=== PATIENT | male | born 1955 | race American Indian/Alaskan Native ===

== ENCOUNTER 2016-12-20 16:31 | Inpatient (IN) | payer OTHER ==
[2016-12-20] MEDS ORDERED: ARTIFICIAL TEARS OPHTH OINT OU PRN ×2 (16:42→21:23)
--- NOTE | 2016-12-20 16:44 | Emergency Department Report ---
HPI - General Time Seen by Provider: 12/20/16 16:35 - HPI HPI: Room 20 The pt is a 61 y/o M p/w a cc of respiratory/cardiac arrest. The pt went to his MDs office for a routine appt. Family states he is on Home o2 3LNC but went to the office s it. The pt was seen and evaluated but then began to c/o SOB. The pt went into respiratory arrest and was eventually intubated by EMS upon there arrival. The pt went briefly into V fib then asystole. ACLS protocols were initiated with eventual ROSC. Pt arrives to the ED in sinus tach and intubated. Location: Cardiovascular system Duration: [see above] Quality: Arrest Severity: Severe Modifying factors: [see above] Context: [see above] Mode of transportation: [not driving] ED Past Medical Hx - Past Medical History Hx Congestive Heart Failure: Yes Hx COPD: Yes (3LNC) Additional medical history: A Flutter. Gout. p VTach - Family History Family history: no significant - Social History Smoking Status: Former Smoker (none x 6 months) - Medications Home Medications: Home Medications Medication Instructions Recorded Confirmed Last Taken Type Milrinone [Primacor] 0.25 mcg IV CONT 12/20/16 12/20/16 12/20/16 History ED Review of Systems ROS: Stated complaint: RESPIRATORY ARREST Other details as noted in HPI Comment: Unobtainable due to pts medical conditions Physical Exam - Physical Exam Physical Exam: Gen: WD, WN M lying on stretcher intubated being bagged by staff HEENT: Normocephalic, atraumatic Neck: trachea midline CV: rrr, no m/r/g Pulm:breath sounds bilatwith bagging Abd: s/nt/nd +bs Neuro: GCS 3T Ext: No deformity ED Course - Consultations Consultation #1: 12/20/16 16:50 Cardiology paged 12/20/16 17:05 Case d/w Dr. Pride and Maria Ines- ezio adding Neosynephrine 12/20/16 17:[facility] 18:15 Case discussed with [facility]- states patient may be admitted at [facility] ED Medical Decision Making - Lab Data Result diagrams: 12/20/16 17:00 12/20/16 17:00 Laboratory Tests 0912/20/16 12/20/16 17:00 17:00 17:11 WBC 15.8 H RBC 4.68 Hgb 13.8 Hct 42.8 MCV 91 MCH 29 MCHC 32 RDW 16.0 H Plt Count 307 Lymph % (Auto) 9.8 L [place] % (Auto) 1.9 Eos % (Auto) 0.5 Baso % (Auto) 1.2 Lymph # 1.5 Tarrant # 0.3 Eos # 0.1 Baso # 0.2 H Seg Neutrophils % 86.6 H Seg Neutrophils # 13.7 H POC ABG pH 7.288 L POC ABG pCO2 52.5 H POC ABG pO2 81 POC ABG HCO3 25.2 POC ABG Total CO2 27 POC ABG O2 Sat 94 POC ABG Base Excess -1 FiO2 100 Sodium 135 L Potassium 3.8 Chloride 92.6 L Carbon Dioxide 22 Anion Gap 24 BUN 12 Creatinine 1.2 Estimated GFR > 60 BUN/Creatinine Ratio 10.00 Glucose 214 H Calcium 8.7 Total Bilirubin 1.00 AST 33 ALT 27 Alkaline Phosphatase 104 Total Creatine Kinase 86 CK-MB (CK-2) 4.2 H CK-MB (CK-2) Rel Index 4.8 H Troponin T 0.054 H NT-Pro-B Natriuret Pep 9604 H Total Protein 9.0 H Albumin 2.8 L Albumin/Globulin Ratio 0.5 Triglycerides 82 Cholesterol 128 LDL Cholesterol Direct 51 HDL Cholesterol 61 H Cholesterol/HDL Ratio 2.09 - EKG Data -: EKG Interpreted by Me EKG shows normal: sinus rhythm Rate: tachycardia (103 bpm) - EKG Data When compared to previous EKG there are: previous EKG unavailable - Radiology Data Radiology results: image reviewed (CXR) interpreted by me: CXR- ETT in place. Pulm edema - Differential Diagnosis respiraory failure, CHF, cardiac arrest Critical Care Time: Yes Critical care time in (mins) excluding proc time.: 45 Critical care attestation.: If time is entered above; I have spent that time in minutes in the direct care of this critically ill patient, excluding procedure time. ED Disposition Clinical Impression: Respiratory failure, Cardiac arrest, Pulmonary edema, CHF exacerbation Disposition: OP ADMIT IP TO THIS HOSP Is pt being admited?: Yes Does the pt Need Aspirin: Yes Condition: Serious Instructions: Pulmonary Edema (ED) Referrals: PRIMARY CARE, [Primary Care Provider] - 3-5 Days Time of Disposition: 18:16 (hospitalist notified)
[2016-12-20] MEDS ORDERED: PRIMACOR IV ONE (16:53)
[2016-12-20] MEDS ORDERED: NACL 0.9% IV ONE (16:53)
--- NOTE | 2016-12-20 16:56 | Consultation ---
History of Present Illness Consult date: 12/20/16 Requesting physician: OSCAR YOO Consult reason: cardiac arrest History of present illness: The patient is a 61 year old male with a history of end stage heart failure on a home milrinone infusion, cardiomyopathy s/p ICD implantation, chronic respiratory failure on home O2 who was at a doctor's appointment at [place] earlier today when he developed shortness of breath. He went into respiratory arrest and subsequently cardiac arrest. He was intubated by EMS upon their arrival. According to ER documentation, he was briefly went into VF (unclear if he was shocked by his defibrillator but was not shocked by EMS) and then asystole. He received CPR and epinephrine x 3 before ROSC. Currently, he is intubated and unresponsive. Sinus tach with HR 110s on the monitor. Past History Past Medical History: atrial fib, heart failure, other (cardiomyopathy, chronic respiratory failure) Past Surgical History: Other (ICD implantation ) Social history: other (unable to obtain ) Family history: other (unable to obtain ) Medications and Allergies Allergies Allergy/AdvReac Type Severity Reaction Status Date / Time No Known Allergies Allergy Unverified 12/20/16 16:40 Home Medications Medication Instructions Recorded Confirmed Last Taken Type Allopurinol [Zyloprim] 100 mg PO QDAY 12/20/16 12/20/16 Unknown History Amiodarone [Cordarone 200 MG TAB] 200 mg PO DAILY 12/20/16 12/20/16 Unknown History Colchicine [Mitigare] 0.6 mg PO DAILY 12/20/16 12/20/16 Unknown History Dabigatran [Pradaxa] 150 mg PO BID 12/20/16 12/20/16 Unknown History Famotidine [Pepcid] 20 mg PO BID 12/20/16 12/20/16 Unknown History HYDROcodone/APAP 5-325 [Roxie 1 each PO BID 12/20/16 12/20/16 Unknown History 5/325] Lisinopril [Zestril TAB] 2.5 mg PO DAILY 12/20/16 12/20/16 Unknown History Metoprolol Succinate 12.5 mg PO DAILY 12/20/16 12/20/16 1 Day Ago History Milrinone [Primacor] 0.25 mcg IV CONT 12/20/16 12/20/16 12/20/16 History Spironolactone [Aldactone] 12.5 mg PO QDAY 12/20/16 12/20/16 Unknown History Torsemide [Demadex] 20 mg PO BID 12/20/16 12/20/16 Unknown History traZODone [Desyrel] 50 mg PO QHS 12/20/16 12/20/16 Unknown History Active Meds: Active Medications Hydrophilic Ointment (Vaseline Lip Therapy) 1 applic TP Q2HR PRN PRN Reason: Dry Lips Milrinone Lactate 20 mg/ (Sodium Chloride) 100 mls @ 0 mls/hr IV TITR ONE; 0.375 MCG/KG/MIN PRN Reason: Protocol Stop: 12/20/16 16:54 Multi-Ingred Cream/Lotion/Oil/Oint (Artificial Tears Ophth Oint) 1 applic OU Q4HR PRN PRN Reason: Dry Eye(s) Sodium Chloride (Nacl 0.9% 500 Ml) 1 ml IV DIRECT HEATHER Review of Systems ROS unobtainable: due to endotracheal tube, due to mental status Physical Examination Last Vital Signs Temp 99.1 F 12/20/16 17:16 Pulse 130 H 12/20/16 19:46 Resp 20 12/20/16 18:06 BP 120/81 12/20/16 19:46 Pulse Ox 94 12/20/16 19:46 General appearance: no acute distress (intubated, unresponsive) HEENT: Positive: Normocephaly, Mucus Membranes Moist Neck: Positive: neck supple, trachea midline Cardiac: Positive: Reg Rate and Rhythm, S1/S2 Lungs: Positive: Rales Neuro: Positive: Other (intubated, unresponsive) Abdomen: Positive: Soft Extremities: Present: +1 Edema (BLEs, chronic skin changes) Results 12/20/16 17:00 12/20/16 17:00 - Imaging and Cardiology Echo: pending EKG: image reviewed EKG interpretations - Telemetry EKG Rhythm: Sinus Tachycardia - EKG Sinus rhythms and dysrhythmias: sinus tachycardia Assessment and Plan Cardiac arrest Preceded by respiratory arrest according to reports ?VF-->await device interrogation Acute respiratory failure Acute on chronic systolic heart failure Obtain echocardiogram Continue home milrinone infusion Hypotension Pressors if necessary to maintain MAP > 65 Recommend phenylephrine given tachycardia Cardiomyopathy s/p ICD Followed by cardiology at [place] Paroxysmal atrial flutt The patient has been seen in conjunction with Dr. Pride who agrees with the assessment and plan of care. Thank you Dr. Yoo for allowing us to participate in the care of this patient.
[2016-12-20] MEDS ORDERED: NACL 0.9% 500 ML IV SCH ×2 (17:00→22:00)
[2016-12-20] MEDS ORDERED: DOBUTREX DRIP 500MG/D5W 250ML 500 MG/250 ML BAG IV ONE (17:01)
[2016-12-20 17:14] LABS: ISTAT Base Excess -1; ISTAT HCO3 25.2; ISTAT PCO2 52.5 (35-45); ISTAT PH 7.288 (7.35-7.45); ISTAT PO2 81 (80-105); ISTAT SO2 94; ISTAT TCO2 27
[2016-12-20] MEDS: NEO-SYNEPHRINE 100 MG in NACL 0.9% 90 ML IV ONE (17:31)
[2016-12-20 17:37] LABS: Creatine Kinase MB 4.2 ng/mL (0.0-4.0)
[2016-12-20 17:38] LABS: Alanine Aminotransferase 27 units/L (7-56); Albumin 2.8 g/dL (3.9-5); Albumin/Globulin Ratio 0.5 %; Alkaline Phosphatase 104 units/L (35-129); Anion Gap 24 mmol/L; Blood Urea Nitrogen 12 mg/dL (9-20); Calcium 8.7 mg/dL (8.4-10.2); Carbon Dioxide 22 mmol/L (22-30); Chloride 92.6 mmol/L (98-107); Creatine Kinase 86 units/L (55-170); Glucose 214 mg/dL (75-100); Potassium 3.8 mmol/L (3.6-5.0); Sodium 135 mmol/L (137-145)
[2016-12-20] MEDS ORDERED: LASIX IV ONE (17:38)
[2016-12-20 17:50] LABS: Basophils % (Auto) 1.2 % (0.0-1.8); Eosinophils % (Auto) 0.5 % (0.0-4.3); Hematocrit 42.8 % (35.5-45.6); Hemoglobin 13.8 gm/dl (11.8-15.2); Mean Corpuscular HGB Conc 32 % (32-34); Mean Corpuscular Hemoglobin 29 pg (28-32); Mean Corpuscular Volume 91 fl (84-94); Platelet Count 307 K/mm3 (140-440); Red Blood Count 4.68 M/mm3 (3.65-5.03); White Blood Count 15.8 K/mm3 (4.5-11.0)
[2016-12-20] MEDS ORDERED: KETALAR IV ONE ×2 (17:53→18:27)
[2016-12-20] MEDS ORDERED: KETALAR ONE (17:53)
[2016-12-20 17:55] LABS: Cholesterol 128 mg/dL (50-199); HDL Cholesterol 61 mg/dL (40-59); LDL Cholesterol,Direct 51 mg/dL (50-130); Triglycerides 82 mg/dL (2-149)
[2016-12-20 18:00] LABS: INR 1.66 (0.87-1.13)
[2016-12-20 18:01] LABS: Partial Thromboplastin Time 39.4 Sec. (24.2-36.6)
--- NOTE | 2016-12-20 18:42 | History and Physical Report ---
History of Present Illness Chief complaint: Unresponsive History of present illness: 61 YO Male with End Stage CHF on Milrinone Drip, Chronic Respiratory Failure, COPD on 3L Home oxygen, COPD, gout, Atrial Flutter presents to ED for evaluation. Pt unable to give history. Pt history given by . Pt presents to PCP office for evaluation. Pt complained of shortness of breath, and subsequently collapsed. EMS notified. Upon arrival, patient found to be in Asystolic Cardio/Respiratory Arrest. Pt intubated and treated IAW ACLS protocol and trasported to [facility]. Pt regained perfusing rhythm prior to transport. No reports of fever, chills, palpitations, Trauma, or recent ill contacts. Past History Past Medical History: atrial fib, COPD, heart failure Past Surgical History: Other (ICD placement) Social history: , lives with family. denies: smoking, alcohol abuse, prescription drug abuse Family history: CAD, diabetes, hypertension Medications and Allergies Allergies Allergy/AdvReac Type Severity Reaction Status Date / Time No Known Allergies Allergy Unverified 12/20/16 16:40 Home Medications Medication Instructions Recorded Confirmed Last Taken Type Allopurinol [Zyloprim] 100 mg PO QDAY 12/20/16 12/20/16 Unknown History Amiodarone [Cordarone 200 MG TAB] 200 mg PO DAILY 12/20/16 12/20/16 Unknown History Colchicine [Mitigare] 0.6 mg PO DAILY 12/20/16 12/20/16 Unknown History Dabigatran [Pradaxa] 150 mg PO BID 12/20/16 12/20/16 Unknown History Famotidine [Pepcid] 20 mg PO BID 12/20/16 12/20/16 Unknown History HYDROcodone/APAP 5-325 [Warren 1 each PO BID 12/20/16 12/20/16 Unknown History 5/325] Lisinopril [Zestril TAB] 2.5 mg PO DAILY 12/20/16 12/20/16 Unknown History Metoprolol Succinate 12.5 mg PO DAILY 12/20/16 12/20/16 1 Day Ago History Milrinone [Primacor] 0.25 mcg IV CONT 12/20/16 12/20/16 12/20/16 History Spironolactone [Aldactone] 12.5 mg PO QDAY 12/20/16 12/20/16 Unknown History Torsemide [Demadex] 20 mg PO BID 12/20/16 12/20/16 Unknown History traZODone [Desyrel] 50 mg PO QHS 12/20/16 12/20/16 Unknown History Active Meds: Active Medications Hydrophilic Ointment (Vaseline Lip Therapy) 1 applic TP Q2HR PRN PRN Reason: Dry Lips Phenylephrine HCl 100 mg/ (Sodium Chloride) 100 mls @ 3 mls/hr IV ONCE.ED ONE; 50 MCG/MIN PRN Reason: Protocol Stop: 12/22/16 02:23 Last Admin: 12/20/16 17:31 Dose: 50 mcg/min, 3 mls/hr Lorazepam 100 mg/ Sodium Chloride/ Miscellaneous Information 100 mls @ 1 mls/ hr IV TITR HEATHER; 1 MG/HR PRN Reason: Protocol Multi-Ingred Cream/Lotion/Oil/Oint (Artificial Tears Ophth Oint) 1 applic OU Q4HR PRN PRN Reason: Dry Eye(s) Sodium Chloride (Nacl 0.9% 500 Ml) 1 ml IV DIRECT HEATHER Review of Systems ROS unobtainable: due to mental status Exam - Constitutional Vitals: Temp Pulse Resp BP Pulse Ox 99.1 F 105 H 20 96/58 95 12/20/16 17:16 12/20/16 17:15 12/20/16 18:06 12/20/16 17:15 12/20/16 17:15 General appearance: Present: severe distress - Neck Neck: Present: supple - Respiratory Respiratory effort: labored Respiratory: bilateral: diminished - Cardiovascular Rhythm: irregularly irregular Heart Sounds: Present: S1 & S2. Absent: rub, click - Extremities Extremities: pulses symmetrical, No edema Extremity abnormal: edema Peripheral Pulses: within normal limits - Abdominal General gastrointestinal: Present: soft, non-tender, non-distended, normal bowel sounds Male genitourinary: Present: normal - Integumentary Integumentary: Present: clear, dry, clammy, decreased turgor - Musculoskeletal Musculoskeletal: generalized weakness - Psychiatric Psychiatric: no intact judgment & insight, no memory intact - Neurologic Neurologic: no gait normal Results - Labs CBC & Chem 7: 12/20/16 17:00 12/20/16 17:00 Labs: Abnormal lab results 12/20/16 12/20/16 12/20/16 Range/Units 17:00 17:00 17:00 WBC 15.8 H (4.5-11.0) K/mm3 RDW 16.0 H (13.2-15.2) % Lymph % (Auto) 9.8 L (13.4-35.0) % Baso # 0.2 H (0.0-0.1) K/mm3 Seg Neutrophils % 86.6 H (40.0-70.0) % Seg Neutrophils # 13.7 H (1.8-7.7) K/mm3 PT 20.5 H (12.2-14.9) Sec. INR 1.66 H (0.87-1.13) APTT 39.4 H (24.2-36.6) Sec. POC ABG pH (7.35-7.45) POC ABG pCO2 (35-45) Sodium 135 L (137-145) mmol/L Chloride 92.6 L (98-107) mmol/L Glucose 214 H (75-100) mg/dL CK-MB (CK-2) 4.2 H (0.0-4.0) ng/mL CK-MB (CK-2) Rel Index 4.8 H (0-4) Troponin T 0.054 H (0.00-0.029) ng/mL NT-Pro-B Natriuret Pep 9604 H (0-900) pg/mL Total Protein 9.0 H (6.3-8.2) g/dL Albumin 2.8 L (3.9-5) g/dL HDL Cholesterol 61 H (40-59) mg/dL 12/20/16 Range/Units 17:11 WBC (4.5-11.0) K/mm3 RDW (13.2-15.2) % Lymph % (Auto) (13.4-35.0) % Baso # (0.0-0.1) K/mm3 Seg Neutrophils % (40.0-70.0) % Seg Neutrophils # (1.8-7.7) K/mm3 PT (12.2-14.9) Sec. INR (0.87-1.13) APTT (24.2-36.6) Sec. POC ABG pH 7.288 L (7.35-7.45) POC ABG pCO2 52.5 H (35-45) Sodium (137-145) mmol/L Chloride (98-107) mmol/L Glucose (75-100) mg/dL CK-MB (CK-2) (0.0-4.0) ng/mL CK-MB (CK-2) Rel Index (0-4) Troponin T (0.00-0.029) ng/mL NT-Pro-B Natriuret Pep (0-900) pg/mL Total Protein (6.3-8.2) g/dL Albumin (3.9-5) g/dL HDL Cholesterol (40-59) mg/dL Assessment and Plan - Patient Problems (1) Sepsis Current Visit: Yes Status: Acute Qualifiers: Sepsis type: S Plan to address problem: IV abx, IVF, monitor uop q shift, blood cultures, serial lactic acid level, iv pressor support (2) CHF exacerbation Current Visit: Yes Status: Acute Qualifiers: Congestive heart failure type: C Plan to address problem: End stage CHF: continue milrinone drip, Cardiology consulted in ED, supportive care (3) Cardiac arrest Current Visit: Yes Status: Acute Plan to address problem: S/P ACLS protocol with return of perfusing rhythm, continue current care. (4) Respiratory failure Current Visit: Yes Status: Acute Qualifiers: Chronicity: C Respiratory failure complication: R Plan to address problem: Pulmonary consulted, wean vent as tolerated, SBT in am. (5) Respiratory acidosis Current Visit: Yes Status: Acute Plan to address problem: Wean vent as tolerated, ABG in am, pulmonary consulted, treat sepsis, (6) DVT prophylaxis Current Visit: Yes Status: Acute
[2016-12-20] MEDS: ATIVAN 100 MG in NACL 0.9% 50 ML, VIAFLEX EMPTY CONTAINER 0 ML IV SCH (19:07)
[2016-12-20] MEDS ORDERED: PROVENTIL IH PRN (19:49)
[2016-12-20] MEDS ORDERED: VANCOMYCIN VIAL IV ONE (19:51)
[2016-12-20] MEDS ORDERED: fentaNYL DRIP Premix 2,000 MCG/100 ML BAG IV ONE (19:58)
[2016-12-20] MEDS: fentaNYL DRIP Premix 2,000 MCG/100 ML BAG IV SCH (20:00)
[2016-12-20] MEDS ORDERED: VANCOMYCIN PHARMACY TO DOSE IV SCH (20:00)
[2016-12-20] MEDS ORDERED: VANCOMYCIN 1,750 MG in NACL 0.9% 500 ML 500 ML IV SCH (20:15)
[2016-12-20] MEDS ORDERED: NACL 0.9% 1000 ML IV ONE (20:30)
[2016-12-20] MEDS ORDERED: VASELINE LIP THERAPY TP PRN (21:23)
[2016-12-20] MEDS ORDERED: ZOSYN/NS 4.5GM/100ML 4.5 GM/100 ML VIAL IV ONE (21:29)
[2016-12-20] MEDS: ZOSYN/NS 4.5GM/100ML 4.5 GM/100 ML VIAL IV SCH (21:41)
[2016-12-20 21:57] LABS: ISTAT Base Excess 3; ISTAT PCO2 52.4 (35-45); ISTAT PO2 113 (80-105); ISTAT SO2 98; ISTAT TCO2 31
[2016-12-20] MEDS: PRIMACOR 20 MG in D5W 80 ML IV SCH (22:00)
[2016-12-21 06:05] LABS: ISTAT Base Excess 2; ISTAT HCO3 27.2; ISTAT PCO2 44.9 (35-45); ISTAT PH 7.391 (7.35-7.45); ISTAT PO2 142 (80-105); ISTAT SO2 99; ISTAT TCO2 29
[2016-12-21] MEDS: ZOSYN/NS 4.5GM/100ML 4.5 GM/100 ML VIAL IV SCH ×3 (07:02→21:34)
[2016-12-21] MEDS ORDERED: TYLENOL PR ONE ×2 (08:39→23:55)
[2016-12-21] MEDS: fentaNYL DRIP Premix 2,000 MCG/100 ML BAG IV SCH (08:48)
[2016-12-21 08:49] LABS: Bilirubin,Urine NEG (Negative); Blood,Urine LG (Negative); Ketones,Urine NEG (Negative); Leukocyte Esterase,Urine MOD (Negative); Mucus,Urine FEW /HPF; Nitrite,Urine NEG (Negative); Protein,Urine <15 mg/dL mg/dL (Negative)
--- NOTE | 2016-12-21 09:23 | XRay Report ---
AP CHEST :12/21/16 02:28 CLINICAL: Intubated.Follow up respiratory failure. COMPARISON:Previous day. FINDINGS: The endotracheal tube is in satisfactory position. Cardia megaly with pacer leads in heart. Central vascular congestion and bilateral perihilar airspace disease with some improvement. A large right pleural effusion with silhouetting of the right hemidiaphragm. Smaller left pleural effusion with silhouetting of the left hemidiaphragm. Right PICC line tip is in the SVC. No pneumothorax. IMPRESSION: Interval improvement with decreased bilateral pulmonary edema.
--- NOTE | 2016-12-21 09:28 | XRay Report ---
AP CHEST :12/20/16 16:31:00 CLINICAL: Post intubation. Respiratory arrest. COMPARISON:None. FINDINGS: The endotracheal tube is in good position. Cardia megaly with pacer leads in heart. Extensive bilateral airspace disease with air bronchograms. Silhouetting of the heart borders and the diaphragm. Blunted right costophrenic angle. Right PICC line tip is in the SVC. No pneumothorax. IMPRESSION: CHF with severe bilateral alveolar pulmonary edema and right pleural effusion.
[2016-12-21] MEDS: VANCOMYCIN 1,500 MG in NACL 0.9% 500 ML 500 ML IV SCH ×2 (10:19→22:07)
[2016-12-21] MEDS: TYLENOL PR PRN ×2 (10:20→21:47)
[2016-12-21] MEDS: PEPCID IV SCH ×2 (10:30→21:48)
[2016-12-21] MEDS: NEO-SYNEPHRINE 100 MG in NACL 0.9% 90 ML IV ONE ×3 (10:39→19:15)
--- NOTE | 2016-12-21 11:35 | Progress Note ---
Assessment and Plan Assessment and plan: 59-year-old man with a past medical history of end-stage CHF on milrinone drip at home, chronic respiratory failure, COPD, oxygen dependent on 3 L at home, gallops, atrial flutter, who was brought in by his . States that the patient had complained of shortness of breath and then subsequently collapsed. EMS arrived and found to be asystolic arrest, he received ACLS protocol and had return of circulation was then brought to the hospital. Cardiac arrest Status post ACS protocol, cardiology consult, continue telemetry Acute CHF exacerbation with pulmonary venous congestion Cardiology input appreciated, continue milrinone drip, continue supportive care IV lasix as tolerated Cardiogenic shock Continue IV pressor support Septic shock MAXIMUM TEMPERATURE 101.4, Treated with empiric frustration antibiotics, follow blood and urine cultures due to PNA Acute hypercapnic respiratory failure on mechanical ventilator greater than 24 hours Continue mechanical ventilator, pulmonary input appreciated, We'll attempt to wean off ventilator daily Metabolic encephalopathy Most likely due to hypoperfusion of central nervous system, obtain CT head Aspiration Pneumonia -continue empiric abx -sputum culture -speech and swallow eval upon extubation The high probability of a clinically significant, sudden or life threatening deterioration of the [cardiovascular, pulmonary and neurologic] system(s) required my full and direct attention, intervention and personal management. The aggregate critical care time was [35] minutes. This time is in addition to time spent performing reported procedures but includes the following: [] Data Review and interpretation [] Patient assessment and monitoring of vital signs [] Documentation [] Medication orders and management History Interval history: Patient remains intubated and sedated and dependent on 2 pressors Hospitalist Physical - Physical exam Narrative exam: General: Patient appears well in no distress HEENT: MMM, EOMI cardiac: S1-S2 heard lungs: ventilated breath sounds, crackles through out abdomen: soft, nontender, nondistended bowel sounds positive extremities: no edema clubbing or cyanosis Skin: no rash or lesion Neuro: intubated and sedated - Constitutional Vitals: Temp Pulse Resp BP Pulse Ox 100.9 F H 89 18 115/79 30 L 12/21/16 11:20 12/21/16 11:20 12/21/16 11:20 12/21/16 11:20 12/21/16 11:20 General appearance: Present: severe distress Results - Labs CBC & Chem 7: 12/20/16 17:00 12/20/16 17:00 Labs: Laboratory Last Values WBC 15.8 K/mm3 (4.5-11.0) H 12/20/16 17:00 RBC 4.68 M/mm3 (3.65-5.03) 12/20/16 17:00 Hgb 13.8 gm/dl (11.8-15.2) 12/20/16 17:00 Hct 42.8 % (35.5-45.6) 12/20/16 17:00 MCV 91 fl (84-94) 12/20/16 17:00 MCH 29 pg (28-32) 12/20/16 17:00 MCHC 32 % (32-34) 12/20/16 17:00 RDW 16.0 % (13.2-15.2) H 12/20/16 17:00 Plt Count 307 K/mm3 (140-440) 12/20/16 17:00 Lymph % (Auto) 9.8 % (13.4-35.0) L 12/20/16 17:00 Bertie % (Auto) 1.9 % (0.0-7.3) 12/20/16 17:00 Eos % (Auto) 0.5 % (0.0-4.3) 12/20/16 17:00 Baso % (Auto) 1.2 % (0.0-1.8) 12/20/16 17:00 Lymph # 1.5 K/mm3 (1.2-5.4) 12/20/16 17:00 Bertie # 0.3 K/mm3 (0.0-0.8) 12/20/16 17:00 Eos # 0.1 K/mm3 (0.0-0.4) 12/20/16 17:00 Baso # 0.2 K/mm3 (0.0-0.1) H 12/20/16 17:00 Seg Neutrophils % 86.6 % (40.0-70.0) H 12/20/16 17:00 Seg Neutrophils # 13.7 K/mm3 (1.8-7.7) H 12/20/16 17:00 PT 20.5 Sec. (12.2-14.9) H 12/20/16 17:00 INR 1.66 (0.87-1.13) H 12/20/16 17:00 APTT 39.4 Sec. (24.2-36.6) H 12/20/16 17:00 POC ABG pH 7.391 (7.35-7.45) 12/21/16 05:54 POC ABG pCO2 44.9 (35-45) 12/21/16 05:54 POC ABG pO2 142 (80-105) H 12/21/16 05:54 POC ABG HCO3 27.2 12/21/16 05:54 POC ABG Total CO2 29 12/21/16 05:54 POC ABG O2 Sat 99 12/21/16 05:54 POC ABG Base Excess 2 12/21/16 05:54 FiO2 70 % 12/21/16 05:54 Sodium 135 mmol/L (137-145) L 12/20/16 17:00 Potassium 3.8 mmol/L (3.6-5.0) 12/20/16 17:00 Chloride 92.6 mmol/L (98-107) L 12/20/16 17:00 Carbon Dioxide 22 mmol/L (22-30) 12/20/16 17:00 Anion Gap 24 mmol/L 12/20/16 17:00 BUN 12 mg/dL (9-20) 12/20/16 17:00 Creatinine 1.2 mg/dL (0.8-1.5) 12/20/16 17:00 Estimated GFR > 60 ml/min 12/20/16 17:00 BUN/Creatinine Ratio 10.00 % 12/20/16 17:00 Glucose 214 mg/dL (75-100) H 12/20/16 17:00 Lactic Acid 5.50 mmol/L (0.7-2.0) H* 12/21/16 01:35 Calcium 8.7 mg/dL (8.4-10.2) 12/20/16 17:00 Total Bilirubin 1.00 mg/dL (0.1-1.2) 12/20/16 17:00 AST 33 units/L (5-40) 12/20/16 17:00 ALT 27 units/L (7-56) 12/20/16 17:00 Alkaline Phosphatase 104 units/L (35-129) 12/20/16 17:00 Total Creatine Kinase 86 units/L (55-170) 12/20/16 17:00 CK-MB (CK-2) 4.2 ng/mL (0.0-4.0) H 12/20/16 17:00 CK-MB (CK-2) Rel Index 4.8 (0-4) H 12/20/16 17:00 Troponin T 0.054 ng/mL (0.00-0.029) H 12/20/16 17:00 NT-Pro-B Natriuret Pep 9604 pg/mL (0-900) H 12/20/16 17:00 Total Protein 9.0 g/dL (6.3-8.2) H 12/20/16 17:00 Albumin 2.8 g/dL (3.9-5) L 12/20/16 17:00 Albumin/Globulin Ratio 0.5 % 12/20/16 17:00 Triglycerides 82 mg/dL (2-149) 12/20/16 17:00 Cholesterol 128 mg/dL (50-199) 12/20/16 17:00 LDL Cholesterol Direct 51 mg/dL (50-130) 12/20/16 17:00 HDL Cholesterol 61 mg/dL (40-59) H 12/20/16 17:00 Cholesterol/HDL Ratio 2.09 % 12/20/16 17:00 Urine Color Keely (Yellow) 12/21/16 08:15 Urine Turbidity Clear (Clear) 12/21/16 08:15 Urine pH 5.0 (5.0-7.0) 12/21/16 08:15 Ur Specific [place] 1.023 (1.003-1.030) 12/21/16 08:15 Urine Protein <15 mg/dl mg/dL (Negative) 12/21/16 08:15 Urine Glucose (UA) Neg mg/dL (Negative) 12/21/16 08:15 Urine Ketones Neg mg/dL (Negative) 12/21/16 08:15 Urine Blood Lg (Negative) 12/21/16 08:15 Urine Nitrite Neg (Negative) 12/21/16 08:15 Urine Bilirubin Neg (Negative) 12/21/16 08:15 Urine Urobilinogen 2.0 mg/dL (<2.0) 12/21/16 08:15 Ur Leukocyte Esterase Mod (Negative) 12/21/16 08:15 Urine WBC (Auto) 30.0 /HPF (0.0-6.0) H 12/21/16 08:15 Urine RBC (Auto) 93.0 /HPF (0.0-6.0) 12/21/16 08:15 U Epithel Cells (Auto) < 1.0 /HPF (0-13.0) 12/21/16 08:15 Calcium Oxalate Crystal Few 12/21/16 08:15 Hyaline Casts 2 /LPF 12/21/16 08:15 Urine Mucus Few /HPF 12/21/16 08:15
[2016-12-21] MEDS: PRIMACOR 20 MG in D5W 80 ML IV SCH ×2 (12:11→19:27)
--- NOTE | 2016-12-21 12:22 | Progress Note ---
Assessment and Plan Intermittent diuretics as BP permits. Obtain echocardiogram. - Patient Problems (1) Cardiopulmonary arrest with successful resuscitation Current Visit: Yes Status: Acute (2) Acute on chronic respiratory failure Current Visit: Yes Status: Acute Qualifiers: Respiratory failure complication: hypoxia Qualified Code(s): J96.21 - Acute and chronic respiratory failure with hypoxia (3) Acute on chronic systolic heart failure Current Visit: Yes Status: Acute (4) Cardiomyopathy Current Visit: Yes Status: Chronic Qualifiers: Cardiomyopathy type: C (5) AICD (automatic cardioverter/defibrillator) present Current Visit: Yes Status: Chronic Subjective Date of service: 12/21/16 Principal diagnosis: s/p C-P arrest, acute on chronic resp failure, Acute on chronic SHF, CMP Interval history: The patient is sedated and on the ventilator. He is on milrinone and Valeriy- Synephrine Family members were at the bedside. They posed several questions regarding his cardiac management which I addressed in detail. Objective Vital Signs Last Vital Signs Temp 100.9 F H 12/21/16 11:20 Pulse 89 12/21/16 11:20 Resp 18 12/21/16 11:20 BP 115/79 12/21/16 11:20 Pulse Ox 30 L 12/21/16 11:20 - Physical Examination General: No Apparent Distress HEENT: Positive: Normocephaly, Mucus Membranes Moist Neck: Positive: neck supple, trachea midline Cardiac: Positive: Reg Rate and Rhythm, S1/S2 Lungs: Positive: Rhonchi Neuro: Positive: Other (intubated, sedated) Abdomen: Positive: Soft, Active Bowel Sounds Skin: Positive: Clear. Negative: Rash Musculoskeletal: No Fluid Collection Extremities: Present: +1 Edema - Imaging and Cardiology EKG: image reviewed Echo: pending - Telemetry EKG Rhythm: Sinus Rhythm - EKG Sinus rhythms and dysrhythmias: sinus tachycardia
[2016-12-21] MEDS ORDERED: LASIX IV ONE (14:41)
--- NOTE | 2016-12-21 15:37 | Consultation ---
History of Present Illness Consult date: 12/21/16 Requesting physician: NICOLE LAROSE Reason for consult: hypoxemia, other (acute respiratory failure) History of present illness: 61 y/o male with known CHF, admitted here before, presents with worsening shortness of breath and hypoxemia. Intubated in ED and CXR consistent with pulmonary edema. Currently sedated and orally intubated on PEEP of 10. FiO2 down to 30% with good sats but CXR still shows vascular congestion. Sister and Ex (caregiver) at bedside. Past History Past Medical History: atrial fib, COPD, heart failure Past Surgical History: Other (ICD placement) Social history: , lives with family. denies: smoking, alcohol abuse, prescription drug abuse Family history: CAD, diabetes, hypertension Medications and Allergies Allergies Allergy/AdvReac Type Severity Reaction Status Date / Time No Known Allergies Allergy Unverified 12/20/16 16:40 Home Medications Medication Instructions Recorded Confirmed Last Taken Type Allopurinol [Zyloprim] 100 mg PO QDAY 12/20/16 12/20/16 Unknown History Amiodarone [Cordarone 200 MG TAB] 200 mg PO DAILY 12/20/16 12/20/16 Unknown History Colchicine [Mitigare] 0.6 mg PO DAILY 12/20/16 12/20/16 Unknown History Dabigatran [Pradaxa] 150 mg PO BID 12/20/16 12/20/16 Unknown History Famotidine [Pepcid] 20 mg PO BID 12/20/16 12/20/16 Unknown History HYDROcodone/APAP 5-325 [[place] 1 each PO BID 12/20/16 12/20/16 Unknown History 5/325] Lisinopril [Zestril TAB] 2.5 mg PO DAILY 12/20/16 12/20/16 Unknown History Metoprolol Succinate 12.5 mg PO DAILY 12/20/16 12/20/16 1 Day Ago History Milrinone [Primacor] 0.25 mcg IV CONT 12/20/16 12/20/16 12/20/16 History Spironolactone [Aldactone] 12.5 mg PO QDAY 12/20/16 12/20/16 Unknown History Torsemide [Demadex] 40 mg PO QAM 12/20/16 12/20/16 Unknown History traZODone [Desyrel] 50 mg PO QHS PRN 12/20/16 12/20/16 Unknown History Active Meds: Active Medications Acetaminophen (Tylenol) 650 mg NM Q4H PRN PRN Reason: Pain, Mild (1-3) Last Admin: 12/21/16 10:20 Dose: 650 mg Albuterol (Proventil) 2.5 mg IH Q4H PRN PRN Reason: Shortness Of Breath Aspirin (Aspirin) 325 mg PO QDAY [facility] Enoxaparin Sodium (Lovenox) 40 mg SUB-Q QDAY@2200 HEATHER Famotidine (Pepcid) 20 mg IV BID HEATHER Last Admin: 12/21/16 10:30 Dose: 20 mg Furosemide (Lasix) 40 mg IV 0600,1800 HEATHER Hydrophilic Ointment (Vaseline Lip Therapy) 1 applic TP Q2HR PRN PRN Reason: Dry Lips Hydrophilic Ointment (Vaseline Lip Therapy) 1 applic TP Q2HR PRN PRN Reason: Dry Lips Phenylephrine HCl 100 mg/ (Sodium Chloride) 100 mls @ 3 mls/hr IV ONCE.ED ONE; 50 MCG/MIN PRN Reason: Protocol Stop: 12/22/16 02:23 Last Admin: 12/21/16 12:30 Dose: 100 mcg/min, 6 mls/hr Lorazepam 100 mg/ Sodium Chloride/ Miscellaneous Information 100 mls @ 1 mls/ hr IV TITR HEATHER; 1 MG/HR PRN Reason: Protocol Last Titration: 12/21/16 08:45 Dose: 4 mg/hr, 4 mls/hr Piperacillin Sod/Tazobactam Sod (Zosyn/Ns 4.5gm/100ml) 4.5 gm in 100 mls @ 200 mls/hr IV Q8HR HEATHER PRN Reason: Protocol Last Admin: 12/21/16 07:02 Dose: 200 mls/hr Milrinone Lactate 20 mg/ (Dextrose) 100 mls @ 9.9 mls/hr IV TITR HEATHER; 0.375 MCG /KG/MIN PRN Reason: Protocol Last Admin: 12/21/16 12:11 Dose: 0.37 mcg/kg/min, 9.76 mls/hr Fentanyl Citrate (Fentanyl Drip Premix) 2,000 mcg in 100 mls @ 4.4 mls/hr IV TITR HEATHER; 1 MCG/KG/HR PRN Reason: Protocol Last Admin: 12/21/16 08:48 Dose: 1 mcg/kg/hr, 4.4 mls/hr Vancomycin HCl 1,500 mg/ (Sodium Chloride) 515 mls @ 333.333 mls/hr IV Q12HR HEATHER Last Admin: 12/21/16 10:19 Dose: 333.333 mls/hr Multi-Ingred Cream/Lotion/Oil/Oint (Artificial Tears Ophth Oint) 1 applic OU Q4HR PRN PRN Reason: Dry Eye(s) Multi-Ingred Cream/Lotion/Oil/Oint (Artificial Tears Ophth Oint) 1 applic OU Q4HR PRN PRN Reason: Dry Eye(s) Sodium Chloride (Nacl 0.9% 500 Ml) 1 ml IV DIRECT HEATHER Sodium Chloride (Nacl 0.9% 500 Ml) 1 ml IV DIRECT HEATHER Vancomycin HCl (Vancomycin Pharmacy To Dose) 1 each IV PKCONSULT HEATHER PRN Reason: Protocol Review of Systems ROS unobtainable: due to endotracheal tube, due to mental status Physical Examination Vital signs: Vital Signs Pulse Resp Pulse Ox 106 H 23 92 12/20/16 16:33 12/20/16 16:33 12/20/16 16:33 General appearance: comatose (secondary to sedation for vent) ENT: other (orally intubated) Ascultation: Bilateral: rales Percussion: Right: dull (right base) Results - Laboratory Findings CBC and BMP: 12/20/16 17:00 12/20/16 17:00 ABG POC ABG pH 7.391 (7.35-7.45) 12/21/16 05:54 POC ABG pCO2 44.9 (35-45) 12/21/16 05:54 POC ABG pO2 142 (80-105) H 12/21/16 05:54 POC ABG HCO3 27.2 12/21/16 05:54 POC ABG Total CO2 29 12/21/16 05:54 POC ABG O2 Sat 99 12/21/16 05:54 PT/INR, D-dimer PT 20.5 Sec. (12.2-14.9) H 12/20/16 17:00 INR 1.66 (0.87-1.13) H 12/20/16 17:00 Abnormal lab findings: Abnormal Labs 09/05/0712/20/16 12/21/16 21:53 23:13 01:35 POC ABG pCO2 52.4 H POC ABG pO2 113 H Lactic Acid 4.60 H* 5.50 H* Urine WBC (Auto) 12/21/16 12/21/16 05:54 08:15 POC ABG pCO2 POC ABG pO2 142 H Lactic Acid Urine WBC (Auto) 30.0 H - Diagnostic Findings Chest x-ray: image reviewed (pulmonary edema with right sided pleural effusion) Assessment and Plan 61 y/o male with known CHF and confirmed noncompliance by Caregiver, admitted with acute respiratory failure secondary to pulmonary edema and volume overload from CHF exacerbation. 1. Continue PEEP at 10. Will start to wean slowly tomorrow. Need to keep recruitment high with edema still present 2. Lasix 40 now and then continue with BID dosing already ordered, last dose was yesterday at 17:00 3. Continue current sedation, once in unit can wean to murillo of 2 or rass of 0 4. Follow up cards recs. CCT 31 minutes.
[2016-12-21] MEDS: LASIX IV SCH (18:07)
[2016-12-21] MEDS ORDERED: NACL 0.9% NEBU ONE (18:47)
[2016-12-21] MEDS ORDERED: NACL 0.9% 500 ML IR ONE (18:48)
[2016-12-21] MEDS: ATIVAN 100 MG in NACL 0.9% 50 ML, VIAFLEX EMPTY CONTAINER 0 ML IV SCH (20:20)
[2016-12-21] MEDS: VASELINE LIP THERAPY TP PRN (21:48)
[2016-12-21] MEDS: LOVENOX SUB-Q SCH (21:49)
[2016-12-22] MEDS: NEO-SYNEPHRINE 100 MG in NACL 0.9% 90 ML IV ONE (00:43)
[2016-12-22] MEDS: TYLENOL PR PRN ×2 (02:42→10:15)
[2016-12-22 04:53] LABS: ISTAT Base Excess 4; ISTAT PCO2 46.7 (35-45); ISTAT PH 7.402 (7.35-7.45); ISTAT PO2 72 (80-105); ISTAT SO2 94; ISTAT TCO2 30
[2016-12-22] MEDS: PRIMACOR 20 MG in D5W 80 ML IV SCH ×2 (05:44→15:53)
[2016-12-22] MEDS: ZOSYN/NS 4.5GM/100ML 4.5 GM/100 ML VIAL IV SCH ×3 (06:01→21:22)
[2016-12-22] MEDS: LASIX IV SCH ×2 (06:01→18:24)
[2016-12-22] MEDS: fentaNYL DRIP Premix 2,000 MCG/100 ML BAG IV SCH (06:37)
[2016-12-22] MEDS: NEO-SYNEPHRINE 100 MG in NACL 0.9% 90 ML IV SCH ×2 (06:37→18:24)
--- NOTE | 2016-12-22 09:41 | XRay Report ---
AP CHEST: HISTORY: Followup respiratory failure Mild improvement in bilateral pulmonary edema is demonstrated since yesterday's exam. Cardiomegaly and small right pleural effusion are stable. No new acute process is noted. Lines and support devices remain in the same position. IMPRESSION: Improvement in pulmonary edema.
[2016-12-22] MEDS: VANCOMYCIN 1,500 MG in NACL 0.9% 500 ML 500 ML IV SCH ×2 (10:15→21:23)
[2016-12-22] MEDS: ASPIRIN PO SCH (10:15)
[2016-12-22] MEDS: PEPCID IV SCH ×2 (10:15→21:22)
[2016-12-22] MEDS: VASELINE LIP THERAPY TP PRN (10:38)
[2016-12-22] MEDS ORDERED: TOPROL XL PO SCH (11:00)
[2016-12-22 11:35] LABS: Anion Gap 18 mmol/L; Blood Urea Nitrogen 27 mg/dL (9-20); Calcium 8.6 mg/dL (8.4-10.2); Carbon Dioxide 26 mmol/L (22-30); Chloride 101.8 mmol/L (98-107); Glucose 105 mg/dL (75-100); Potassium 4.6 mmol/L (3.6-5.0); Sodium 141 mmol/L (137-145)
--- NOTE | 2016-12-22 11:36 | Cat Scan Report ---
CT HEAD WITHOUT CONTRAST: HISTORY: Altered mental status. TECHNIQUE: Sequential CT images without contrast. FINDINGS: Images obtained show bilateral prominence of the sulci and ventricles. There are no abnormal intra- or extra-axial blood or fluid collections. There are no focal masses or evidence of mass effect. The ríos white matter differentiation appears within normal limits. Regions of periventricular decreased attenuation are consistent with microangiopathic ischemic disease. The posterior fossa structures including the fourth ventricle, cerebellum, and brainstem appear normal. IMPRESSION: Evidence of atrophy and microangiopathic ischemic disease. No acute intracranial process noted.
--- NOTE | 2016-12-22 11:41 | Progress Note ---
Assessment and Plan 61 y/o male with known CHF and confirmed noncompliance by Caregiver, admitted with acute respiratory failure secondary to pulmonary edema and volume overload from CHF exacerbation. 1. Continue PEEP, will increase to 12. Awaiting film, per rads improvement in edema but likely still would benefit from extra recruitment. Needs daily net negative state. There is mild improvement 2. Continue BID lasix therapy. 3. Sedation now off, but patient, if awakens is not ready for extubation given his degree of heart disease and pulmonary edema 4. Follow up cards recs for today. CCT 31 minutes. Subjective Date of service: 12/22/16 Principal diagnosis: s/p C-P arrest, acute on chronic resp failure, Acute on chronic SHF, CMP Interval history: patient remains sedated. IMS ordered a head CT for altered mental status but patient was still on sedation. Tolerated lasix dosing well yesterday with good output. Objective Vital Signs - 12hr 12/22/16 12/22/16 12/22/16 00:00 00:30 00:48 Temperature Pulse Rate 84 95 H Pulse Rate [ Right Radial] Respiratory 20 20 20 Rate Blood Pressure 109/69 112/74 Blood Pressure [Left] O2 Sat by Pulse 95 97 Oximetry 12/22/16 12/22/16 12/22/16 01:00 01:30 02:00 Temperature 98.9 F Pulse Rate 88 82 86 Pulse Rate [ Right Radial] Respiratory 20 20 18 Rate Blood Pressure 113/78 116/71 107/73 Blood Pressure [Left] O2 Sat by Pulse 97 98 98 Oximetry 12/22/16 12/22/16 12/22/16 02:30 03:00 03:30 Temperature 100.8 F H Pulse Rate 84 83 83 Pulse Rate [ Right Radial] Respiratory 20 20 20 Rate Blood Pressure 110/75 106/75 108/74 Blood Pressure [Left] O2 Sat by Pulse 98 99 98 Oximetry 12/22/16 12/22/16 12/22/16 03:39 04:00 04:30 Temperature 100.9 F H Pulse Rate 86 Pulse Rate [ 84 Right Radial] Respiratory 20 20 17 Rate Blood Pressure 105/72 110/74 Blood Pressure [Left] O2 Sat by Pulse 97 99 99 Oximetry 12/22/16 12/22/16 12/22/16 04:42 05:00 05:30 Temperature Pulse Rate 83 84 85 Pulse Rate [ Right Radial] Respiratory 20 20 Rate Blood Pressure 113/59 122/78 113/78 Blood Pressure [Left] O2 Sat by Pulse 98 100 100 Oximetry 12/22/16 12/22/16 12/22/16 05:54 06:00 06:30 Temperature 100.4 F H Pulse Rate 86 85 Pulse Rate [ Right Radial] Respiratory 20 20 Rate Blood Pressure 106/65 105/68 Blood Pressure [Left] O2 Sat by Pulse 100 100 Oximetry 12/22/16 12/22/16 12/22/16 08:36 08:48 09:02 Temperature 101.2 F H Pulse Rate 82 84 94 H Pulse Rate [ Right Radial] Respiratory 20 Rate Blood Pressure 106/72 100/59 Blood Pressure 100/59 [Left] O2 Sat by Pulse 100 97 97 Oximetry 12/22/16 10:39 Temperature Pulse Rate 85 Pulse Rate [ Right Radial] Respiratory 12 Rate Blood Pressure Blood Pressure 109/79 [Left] O2 Sat by Pulse 98 Oximetry Constitutional: comatose (secondary to sedation for vent) ENT: other (orally intubated) Ascultation: Bilateral: rales Percussion: Right: dull (right base) CBC and BMP: 12/20/16 17:00 12/22/16 10:55 ABG, PT/INR, D-dimer: ABG POC ABG pH 7.402 (7.35-7.45) 12/22/16 04:42 POC ABG pCO2 46.7 (35-45) H 12/22/16 04:42 POC ABG pO2 72 (80-105) L 12/22/16 04:42 POC ABG HCO3 29.0 12/22/16 04:42 POC ABG Total CO2 30 12/22/16 04:42 POC ABG O2 Sat 94 12/22/16 04:42 PT/INR, D-dimer PT 20.5 Sec. (12.2-14.9) H 12/20/16 17:00 INR 1.66 (0.87-1.13) H 12/20/16 17:00 Abnormal lab findings: Abnormal Labs 12/20/16 12/20/16 12/21/16 21:53 23:13 01:35 POC ABG pCO2 52.4 H POC ABG pO2 113 H BUN Glucose Lactic Acid 4.60 H* 5.50 H* Urine WBC (Auto) 12/21/16 12/21/16 12/22/16 05:54 08:15 04:42 POC ABG pCO2 46.7 H POC ABG pO2 142 H 72 L BUN Glucose Lactic Acid Urine WBC (Auto) 30.0 H 12/22/16 10:55 POC ABG pCO2 POC ABG pO2 BUN 27 H Glucose 105 H Lactic Acid Urine WBC (Auto)
[2016-12-22] MEDS ORDERED: NACL 0.9% 1000 ML 1,000 ML ONE (12:41)
--- NOTE | 2016-12-22 13:17 | Progress Note ---
Assessment and Plan Assessment and plan: 59-year-old man with a past medical history of end-stage CHF on milrinone drip at home, chronic respiratory failure, COPD, oxygen dependent on 3 L at home, gallops, atrial flutter, who was brought in by his . States that the patient had complained of shortness of breath and then subsequently collapsed. EMS arrived and found to be asystolic arrest, he received ACLS protocol and had return of circulation was then brought to the hospital. Cardiac arrest Status post ACS protocol, cardiology consult, continue telemetry Acute CHF exacerbation with pulmonary venous congestion Cardiology input appreciated, continue milrinone drip, continue supportive care IV lasix as tolerated Cardiogenic shock Continue IV pressor support Septic shock MAXIMUM TEMPERATURE 101.4 Treated with empiric frustration antibiotics, follow blood and urine cultures due to PNA Acute hypercapnic respiratory failure on mechanical ventilator greater than 24 hours Continue mechanical ventilator, pulmonary input appreciated, We'll attempt to wean off ventilator daily Metabolic encephalopathy Most likely due to hypoperfusion of central nervous system, obtain CT head -will give sedation holiday today to re-evaluate mental status Aspiration Pneumonia -continue empiric abx -sputum culture -speech and swallow eval upon extubation The high probability of a clinically significant, sudden or life threatening deterioration of the [cardiovascular, pulmonary and neurologic] system(s) required my full and direct attention, intervention and personal management. The aggregate critical care time was [35] minutes. This time is in addition to time spent performing reported procedures but includes the following: [] Data Review and interpretation [] Patient assessment and monitoring of vital signs [] Documentation [] Medication orders and management History Interval history: Patient remains intubated and sedated and dependent on 2 pressors Hospitalist Physical - Physical exam Narrative exam: General: appears ill HEENT: MMM, EOMI cardiac: S1-S2 heard lungs: ventilated breath sounds, crackles through out abdomen: soft, nontender, nondistended bowel sounds positive extremities: no edema clubbing or cyanosis Skin: no rash or lesion Neuro: intubated and sedated - Constitutional Vitals: Temp Pulse Resp BP Pulse Ox 101.2 F H 95 H 18 105/80 99 12/22/16 09:02 12/22/16 12:58 12/22/16 12:58 12/22/16 12:58 12/22/16 12:58 Results - Labs CBC & Chem 7: 12/20/16 17:00 12/22/16 10:55 Labs: Laboratory Last Values WBC 15.8 K/mm3 (4.5-11.0) H 12/20/16 17:00 RBC 4.68 M/mm3 (3.65-5.03) 12/20/16 17:00 Hgb 13.8 gm/dl (11.8-15.2) 12/20/16 17:00 Hct 42.8 % (35.5-45.6) 12/20/16 17:00 MCV 91 fl (84-94) 12/20/16 17:00 MCH 29 pg (28-32) 12/20/16 17:00 MCHC 32 % (32-34) 12/20/16 17:00 RDW 16.0 % (13.2-15.2) H 12/20/16 17:00 Plt Count 307 K/mm3 (140-440) 12/20/16 17:00 Lymph % (Auto) 9.8 % (13.4-35.0) L 12/20/16 17:00 [place]att % (Auto) 1.9 % (0.0-7.3) 12/20/16 17:00 Eos % (Auto) 0.5 % (0.0-4.3) 12/20/16 17:00 Baso % (Auto) 1.2 % (0.0-1.8) 12/20/16 17:00 Lymph # 1.5 K/mm3 (1.2-5.4) 12/20/16 17:00 [place]att # 0.3 K/mm3 (0.0-0.8) 12/20/16 17:00 Eos # 0.1 K/mm3 (0.0-0.4) 12/20/16 17:00 Baso # 0.2 K/mm3 (0.0-0.1) H 12/20/16 17:00 Seg Neutrophils % 86.6 % (40.0-70.0) H 12/20/16 17:00 Seg Neutrophils # 13.7 K/mm3 (1.8-7.7) H 12/20/16 17:00 PT 20.5 Sec. (12.2-14.9) H 12/20/16 17:00 INR 1.66 (0.87-1.13) H 12/20/16 17:00 APTT 39.4 Sec. (24.2-36.6) H 12/20/16 17:00 POC ABG pH 7.402 (7.35-7.45) 12/22/16 04:42 POC ABG pCO2 46.7 (35-45) H 12/22/16 04:42 POC ABG pO2 72 (80-105) L 12/22/16 04:42 POC ABG HCO3 29.0 12/22/16 04:42 POC ABG Total CO2 30 12/22/16 04:42 POC ABG O2 Sat 94 12/22/16 04:42 POC ABG Base Excess 4 12/22/16 04:42 FiO2 30 % 12/22/16 04:42 Sodium 141 mmol/L (137-145) 12/22/16 10:55 Potassium 4.6 mmol/L (3.6-5.0) D 12/22/16 10:55 Chloride 101.8 mmol/L (98-107) 12/22/16 10:55 Carbon Dioxide 26 mmol/L (22-30) 12/22/16 10:55 Anion Gap 18 mmol/L 12/22/16 10:55 BUN 27 mg/dL (9-20) H 12/22/16 10:55 Creatinine 1.2 mg/dL (0.8-1.5) 12/22/16 10:55 Estimated GFR > 60 ml/min 12/22/16 10:55 BUN/Creatinine Ratio 22.50 % 12/22/16 10:55 Glucose 105 mg/dL (75-100) H 12/22/16 10:55 Lactic Acid 5.50 mmol/L (0.7-2.0) H* 12/21/16 01:35 Calcium 8.6 mg/dL (8.4-10.2) 12/22/16 10:55 Total Bilirubin 1.00 mg/dL (0.1-1.2) 12/20/16 17:00 AST 33 units/L (5-40) 12/20/16 17:00 ALT 27 units/L (7-56) 12/20/16 17:00 Alkaline Phosphatase 104 units/L (35-129) 12/20/16 17:00 Total Creatine Kinase 86 units/L (55-170) 12/20/16 17:00 CK-MB (CK-2) 4.2 ng/mL (0.0-4.0) H 12/20/16 17:00 CK-MB (CK-2) Rel Index 4.8 (0-4) H 12/20/16 17:00 Troponin T 0.054 ng/mL (0.00-0.029) H 12/20/16 17:00 NT-Pro-B Natriuret Pep 9604 pg/mL (0-900) H 12/20/16 17:00 Total Protein 9.0 g/dL (6.3-8.2) H 12/20/16 17:00 Albumin 2.8 g/dL (3.9-5) L 12/20/16 17:00 Albumin/Globulin Ratio 0.5 % 12/20/16 17:00 Triglycerides 82 mg/dL (2-149) 12/20/16 17:00 Cholesterol 128 mg/dL (50-199) 12/20/16 17:00 LDL Cholesterol Direct 51 mg/dL (50-130) 12/20/16 17:00 HDL Cholesterol 61 mg/dL (40-59) H 12/20/16 17:00 Cholesterol/HDL Ratio 2.09 % 12/20/16 17:00 Urine Color [place] (Yellow) 12/21/16 08:15 Urine Turbidity Clear (Clear) 12/21/16 08:15 Urine pH 5.0 (5.0-7.0) 12/21/16 08:15 Ur Specific [place] 1.023 (1.003-1.030) 12/21/16 08:15 Urine Protein <15 mg/dl mg/dL (Negative) 12/21/16 08:15 Urine Glucose (UA) Neg mg/dL (Negative) 12/21/16 08:15 Urine Ketones Neg mg/dL (Negative) 12/21/16 08:15 Urine Blood Lg (Negative) 12/21/16 08:15 Urine Nitrite Neg (Negative) 12/21/16 08:15 Urine Bilirubin Neg (Negative) 12/21/16 08:15 Urine Urobilinogen 2.0 mg/dL (<2.0) 12/21/16 08:15 Ur Leukocyte Esterase Mod (Negative) 12/21/16 08:15 Urine WBC (Auto) 30.0 /HPF (0.0-6.0) H 12/21/16 08:15 Urine RBC (Auto) 93.0 /HPF (0.0-6.0) 12/21/16 08:15 U Epithel Cells (Auto) < 1.0 /HPF (0-13.0) 12/21/16 08:15 Calcium Oxalate Crystal Few 12/21/16 08:15 Hyaline Casts 2 /LPF 12/21/16 08:15 Urine Mucus Few /HPF 12/21/16 08:15 - Imaging and Cardiology Chest x-ray: image reviewed (pulmonary edema)
--- NOTE | 2016-12-22 16:42 | Progress Note ---
Assessment and Plan Initiate low-dose metoprolol ER. Continue vasopressor support and management. - Patient Problems (1) Cardiopulmonary arrest with successful resuscitation Current Visit: Yes Status: Acute (2) Acute on chronic respiratory failure Current Visit: Yes Status: Acute Qualifiers: Respiratory failure complication: hypoxia Qualified Code(s): J96.21 - Acute and chronic respiratory failure with hypoxia (3) Acute on chronic systolic heart failure Current Visit: Yes Status: Acute (4) Cardiomyopathy Current Visit: Yes Status: Chronic Qualifiers: Cardiomyopathy type: C (5) AICD (automatic cardioverter/defibrillator) present Current Visit: Yes Status: Chronic Subjective Date of service: 12/22/16 Principal diagnosis: s/p C-P arrest, acute on chronic resp failure, Acute on chronic SHF, CMP Interval history: He is currently off sedation but remains unresponsive. He remains on vasopressor support. Family members were at the bedside and they posed various questions which I addressed. Objective Vital Signs Temp Pulse Pulse Resp BP BP Pulse Ox 12/22/16 16:03 92 H 20 113/80 99 12/22/16 15:38 94 H 123/86 99 12/22/16 15:14 100.2 F H 97 H 19 116/84 99 12/22/16 14:03 94 H 20 119/87 99 12/22/16 12:58 95 H 18 105/80 99 12/22/16 12:43 92 H 61/34 12/22/16 12:40 92 H 56/32 12/22/16 12:30 91 H 20 84/54 12/22/16 12:20 92 H 100/60 12/22/16 11:47 90 110/82 98 12/22/16 11:45 90 110/82 98 12/22/16 10:39 85 12 109/79 98 12/22/16 09:02 101.2 F H 94 H 20 100/59 97 12/22/16 08:48 84 100/59 97 12/22/16 08:36 82 106/72 100 12/22/16 06:30 85 20 105/68 100 12/22/16 06:00 86 20 106/65 100 12/22/16 05:54 100.4 F H 12/22/16 05:30 85 20 113/78 100 12/22/16 05:00 84 20 122/78 100 12/22/16 04:42 83 113/59 98 12/22/16 04:30 17 110/74 99 12/22/16 04:00 100.9 F H 86 20 105/72 99 12/22/16 03:39 84 20 97 12/22/16 03:30 83 20 108/74 98 12/22/16 03:00 83 20 106/75 99 12/22/16 02:30 100.8 F H 84 20 110/75 98 12/22/16 02:00 86 18 107/73 98 12/22/16 01:30 82 20 116/71 98 12/22/16 01:00 98.9 F 88 20 113/78 97 12/22/16 00:48 20 97 12/22/16 00:30 95 H 20 112/74 95 12/22/16 00:00 84 20 109/69 12/21/16 23:30 89 20 109/76 95 12/21/16 23:00 90 20 114/74 95 12/21/16 22:45 101.8 F H 12/21/16 22:30 92 H 20 115/78 95 12/21/16 21:40 101.1 F H 12/21/16 21:30 89 20 108/74 12/21/16 21:16 90 20 108/72 12/21/16 21:15 90 20 108/72 12/21/16 21:00 89 20 110/74 12/21/16 20:45 89 20 111/74 12/21/16 20:30 88 20 107/73 12/21/16 20:15 87 20 105/71 12/21/16 20:00 84 19 103/70 97 12/21/16 19:45 82 20 101/70 98 12/21/16 19:30 88 20 81/47 96 12/21/16 19:16 88 106/71 98 12/21/16 19:15 88 20 106/71 97 12/21/16 19:00 86 20 100/69 98 12/21/16 18:30 93 H 18 102/68 96 12/21/16 18:20 99 H 20 77/43 97 12/21/16 18:10 93 H 20 102/69 98 12/21/16 18:01 100 F H 96 H 18 101/67 12/21/16 18:00 92 H 20 100/63 98 12/21/16 17:50 93 H 20 99/69 98 12/21/16 17:40 92 H 20 104/67 98 12/21/16 17:30 92 H 20 101/67 98 12/21/16 17:20 92 H 20 103/68 97 12/21/16 17:10 91 H 20 100/68 97 12/21/16 17:00 92 H 20 103/66 98 12/21/16 16:50 92 H 20 101/69 98 - Physical Examination General: No Apparent Distress HEENT: Positive: Normocephaly, Mucus Membranes Moist Neck: Positive: neck supple, trachea midline Cardiac: Positive: Reg Rate and Rhythm, S1/S2 Lungs: Positive: Rhonchi Neuro: Positive: Other (unresponsive) Abdomen: Positive: Soft, Active Bowel Sounds Skin: Positive: Clear. Negative: Rash Musculoskeletal: No Fluid Collection Extremities: Absent: edema - Labs and Meds Comprehensive Metabolic Panel 12/22/16 Range/Units 10:55 Sodium 141 (137-145) mmol/L Potassium 4.6 D (3.6-5.0) mmol/L Chloride 101.8 (98-107) mmol/L Carbon Dioxide 26 (22-30) mmol/L BUN 27 H (9-20) mg/dL Creatinine 1.2 (0.8-1.5) mg/dL Glucose 105 H (75-100) mg/dL Calcium 8.6 (8.4-10.2) mg/dL - Imaging and Cardiology EKG: image reviewed Echo: pending - Telemetry EKG Rhythm: Sinus Rhythm - EKG Sinus rhythms and dysrhythmias: sinus tachycardia
[2016-12-22] MEDS: LOVENOX SUB-Q SCH (21:22)
[2016-12-23] MEDS: PRIMACOR 20 MG in D5W 80 ML IV SCH ×2 (02:47→10:52)
[2016-12-23 04:04] LABS: ISTAT Base Excess 8; ISTAT HCO3 30.8; ISTAT PCO2 38.3 (35-45); ISTAT PH 7.514 (7.35-7.45); ISTAT PO2 105 (80-105); ISTAT SO2 99; ISTAT TCO2 32
[2016-12-23] MEDS: NEO-SYNEPHRINE 100 MG in NACL 0.9% 90 ML IV SCH ×2 (05:54→21:07)
[2016-12-23] MEDS: ZOSYN/NS 4.5GM/100ML 4.5 GM/100 ML VIAL IV SCH ×3 (06:00→21:06)
[2016-12-23] MEDS: LASIX IV SCH ×2 (06:00→18:45)
--- NOTE | 2016-12-23 08:53 | XRay Report ---
Portable chest: Respiratory failure. There is enlargement of the heart. There is a right pleural effusion and what appears to be some mild perivascular edema in the right lower lobe. Suboptimal visualization of left lower lobe due to overlying heart. Minimal vascular congestion. ICD. Endotracheal and nasogastric tubes in good positions. Compared to prior exam of December 22 the findings appear generally stable. Impression: Mild congestion with persistent right pleural effusion and perivascular edema. No change in well-positioned life support tubes. Limited evaluation of the left lung base.
[2016-12-23] MEDS: ASPIRIN PO SCH (11:31)
[2016-12-23] MEDS: PEPCID PO SCH ×2 (11:32→21:06)
[2016-12-23] MEDS: VANCOMYCIN 1,500 MG in NACL 0.9% 500 ML 500 ML IV SCH ×2 (11:33→21:06)
[2016-12-23] MEDS ORDERED: NACL ONE (12:19)
--- NOTE | 2016-12-23 12:25 | Progress Note ---
Assessment and Plan Continue vasopressor support and other management. Consider neurology evaluation. - Patient Problems (1) Cardiopulmonary arrest with successful resuscitation Current Visit: Yes Status: Acute (2) Acute on chronic respiratory failure Current Visit: Yes Status: Acute Qualifiers: Respiratory failure complication: hypoxia Qualified Code(s): J96.21 - Acute and chronic respiratory failure with hypoxia (3) Acute on chronic systolic heart failure Current Visit: Yes Status: Acute (4) Cardiomyopathy Current Visit: Yes Status: Chronic Qualifiers: Cardiomyopathy type: C (5) AICD (automatic cardioverter/defibrillator) present Current Visit: Yes Status: Chronic Subjective Date of service: 12/23/16 Principal diagnosis: s/p C-P arrest, acute on chronic resp failure, Acute on chronic SHF, CMP Interval history: He remains unresponsive. Objective Vital Signs Temp Pulse Pulse Pulse Resp BP BP 12/23/16 11:21 90 104/74 12/23/16 10:30 95 H 12/23/16 10:00 86 20 104/71 12/23/16 09:00 89 20 102/72 12/23/16 08:05 85 20 12/23/16 08:00 97.9 F 85 20 106/75 12/23/16 07:59 85 20 104/73 12/23/16 07:02 85 105/74 12/23/16 04:00 88 88 20 112/81 12/23/16 03:49 88 107/77 12/23/16 03:32 98.9 F 12/23/16 03:00 89 20 110/78 12/23/16 02:00 88 20 112/79 12/23/16 01:00 82 20 107/78 12/23/16 00:00 85 20 108/78 12/22/16 23:54 85 20 12/22/16 23:07 97.5 F L 85 104/77 12/22/16 23:00 88 20 108/77 12/22/16 22:23 88 12/22/16 22:00 86 20 113/77 12/22/16 21:00 87 20 113/80 12/22/16 20:00 88 20 114/81 12/22/16 19:41 97.9 F 12/22/16 19:15 90 113/81 12/22/16 19:00 87 20 115/80 12/22/16 17:00 98.3 F 09/03/17 16:56 90 113/81 12/22/16 16:30 89 20 112/79 12/22/16 16:20 88 20 115/79 12/22/16 16:10 89 20 113/80 12/22/16 16:03 92 H 20 113/80 12/22/16 16:00 91 H 20 113/80 12/22/16 15:50 90 20 115/85 12/22/16 15:40 95 H 20 123/86 12/22/16 15:38 94 H 123/86 12/22/16 15:30 94 H 20 123/86 12/22/16 15:20 96 H 20 117/89 12/22/16 15:14 100.2 F H 97 H 19 116/84 12/22/16 15:10 95 H 12 114/84 12/22/16 15:00 94 H 10 L 114/84 12/22/16 14:50 96 H 20 114/81 12/22/16 14:40 91 H 20 119/81 12/22/16 14:30 92 H 20 111/87 12/22/16 14:20 97 H 19 120/85 12/22/16 14:10 93 H 20 117/84 12/22/16 14:03 94 H 20 119/87 12/22/16 14:00 97 H 20 119/87 12/22/16 13:50 97 H 20 116/86 12/22/16 13:40 94 H 20 120/86 12/22/16 13:30 92 H 20 114/79 12/22/16 13:20 91 H 20 92/63 12/22/16 13:10 96 H 20 111/84 12/22/16 13:00 96 H 20 113/83 12/22/16 12:58 95 H 18 105/80 12/22/16 12:50 89 20 79/48 12/22/16 12:43 92 H 61/34 12/22/16 12:40 93 H 20 56/29 56/32 12/22/16 12:30 90 20 58/39 84/54 Last Vital Signs Temp 97.9 F 12/23/16 08:00 Pulse 90 12/23/16 11:21 Resp 20 12/23/16 10:00 BP 104/74 12/23/16 11:21 Pulse Ox 98 12/23/16 11:21 - Physical Examination General: No Apparent Distress HEENT: Positive: Normocephaly, Mucus Membranes Moist Neck: Positive: neck supple, trachea midline Cardiac: Positive: Reg Rate and Rhythm, S1/S2 Lungs: Positive: Rhonchi Neuro: Positive: Other (unresponsive) Abdomen: Positive: Soft, Active Bowel Sounds Skin: Positive: Clear. Negative: Rash Musculoskeletal: No Fluid Collection Extremities: Absent: edema - Imaging and Cardiology EKG: image reviewed Echo: pending - EKG Sinus rhythms and dysrhythmias: sinus tachycardia
[2016-12-23 13:20] LABS: Hematocrit 39.9 % (35.5-45.6); Hemoglobin 13.3 gm/dl (11.8-15.2); Mean Corpuscular HGB Conc 33 % (32-34); Mean Corpuscular Hemoglobin 30 pg (28-32); Mean Corpuscular Volume 89 fl (84-94); Platelet Count 222 K/mm3 (140-440); Red Blood Count 4.47 M/mm3 (3.65-5.03); Red Cell Distribution Width 15.9 % (13.2-15.2)
[2016-12-23 13:21] LABS: White Blood Count 20.5 K/mm3 (4.5-11.0)
[2016-12-23 13:41] LABS: Albumin 2.3 g/dL (3.9-5); Albumin/Globulin Ratio 0.4 %; Alkaline Phosphatase 77 units/L (35-129); BUN/Creatinine Ratio 33.33; Blood Urea Nitrogen 30 mg/dL (9-20); Calcium 8.3 mg/dL (8.4-10.2); Carbon Dioxide 28 mmol/L (22-30); Chloride 103.4 mmol/L (98-107); Glucose 76 mg/dL (75-100); Sodium 144 mmol/L (137-145); Total Protein 7.7 g/dL (6.3-8.2)
--- NOTE | 2016-12-23 13:55 | Progress Note ---
Assessment and Plan Assessment and plan: 59-year-old man with a past medical history of end-stage CHF on milrinone drip at home, chronic respiratory failure, COPD, oxygen dependent on 3 L at home, gallops, atrial flutter, who was brought in by his . States that the patient had complained of shortness of breath and then subsequently collapsed. EMS arrived and found to be asystolic arrest, he received ACLS protocol and had return of circulation was then brought to the hospital. Cardiac arrest Status post ACS protocol, cardiology consult, continue telemetry Acute on chronic systolic CHF exacerbation with pulmonary venous congestion Cardiology input appreciated, continue milrinone drip, continue supportive care IV lasix as tolerated Cardiogenic shock Continue IV pressor support Septic shock Treated with empiric frustration antibiotics, follow blood and urine cultures due to PNA ID consult continue Pressors, phenylephrine and milrinone Acute hypercapnic respiratory failure on mechanical ventilator greater than 24 hours Continue mechanical ventilator, pulmonary input appreciated, We'll attempt to wean off ventilator daily Metabolic encephalopathy Most likely due to hypoperfusion of central nervous system , i.e. anoxic brain injury CT head does not show any acute findings, CTA head also shows no acute findings , patient has a pacemaker/ICD, therefore MRI is contraindicated Neurology consult Aspiration Pneumonia -continue empiric abx -sputum culture no growth Prognosis is poor, called family and left a message, I plan to discuss with family about DNR/Hospice placement The high probability of a clinically significant, sudden or life threatening deterioration of the [cardiovascular, pulmonary and neurologic] system(s) required my full and direct attention, intervention and personal management. The aggregate critical care time was [35] minutes. This time is in addition to time spent performing reported procedures but includes the following: [] Data Review and interpretation [] Patient assessment and monitoring of vital signs [] Documentation [] Medication orders and management History Interval history: Patient remains intubated, not sedated- but non responsive, dependent on 2 pressors Hospitalist Physical - Physical exam Narrative exam: General: appears ill HEENT: MMM, EOMI cardiac: S1-S2 heard lungs: ventilated breath sounds, crackles through out abdomen: soft, nontender, nondistended bowel sounds positive extremities: no edema clubbing or cyanosis Skin: no rash or lesion Neuro: intubated, not sedated, but obtunded - Constitutional Vitals: Temp Pulse Resp BP Pulse Ox 98.0 F 90 20 104/74 98 12/23/16 12:00 12/23/16 11:21 12/23/16 10:00 12/23/16 11:21 12/23/16 11:21 Results - Labs CBC & Chem 7: 12/23/16 12:51 12/23/16 12:51 Labs: Laboratory Last Values WBC 20.5 K/mm3 (4.5-11.0) H 12/23/16 12:51 RBC 4.47 M/mm3 (3.65-5.03) 12/23/16 12:51 Hgb 13.3 gm/dl (11.8-15.2) 12/23/16 12:51 Hct 39.9 % (35.5-45.6) 12/23/16 12:51 MCV 89 fl (84-94) 12/23/16 12:51 MCH 30 pg (28-32) 12/23/16 12:51 MCHC 33 % (32-34) 12/23/16 12:51 RDW 15.9 % (13.2-15.2) H 12/23/16 12:51 Plt Count 222 K/mm3 (140-440) 12/23/16 12:51 Lymph % (Auto) 9.8 % (13.4-35.0) L 12/20/16 17:00 Whitley % (Auto) 1.9 % (0.0-7.3) 12/20/16 17:00 Eos % (Auto) 0.5 % (0.0-4.3) 12/20/16 17:00 Baso % (Auto) 1.2 % (0.0-1.8) 12/20/16 17:00 Lymph # 1.5 K/mm3 (1.2-5.4) 12/20/16 17:00 Whitley # 0.3 K/mm3 (0.0-0.8) 12/20/16 17:00 Eos # 0.1 K/mm3 (0.0-0.4) 12/20/16 17:00 Baso # 0.2 K/mm3 (0.0-0.1) H 12/20/16 17:00 Seg Neutrophils % 86.6 % (40.0-70.0) H 12/20/16 17:00 Seg Neutrophils # 13.7 K/mm3 (1.8-7.7) H 12/20/16 17:00 PT 20.5 Sec. (12.2-14.9) H 12/20/16 17:00 INR 1.66 (0.87-1.13) H 12/20/16 17:00 APTT 39.4 Sec. (24.2-36.6) H 12/20/16 17:00 POC ABG pH 7.514 (7.35-7.45) H 12/23/16 04:00 POC ABG pCO2 38.3 (35-45) 12/23/16 04:00 POC ABG pO2 105 (80-105) 12/23/16 04:00 POC ABG HCO3 30.8 12/23/16 04:00 POC ABG Total CO2 32 12/23/16 04:00 POC ABG O2 Sat 99 12/23/16 04:00 POC ABG Base Excess 8 12/23/16 04:00 FiO2 30 % 12/23/16 04:00 Sodium 144 mmol/L (137-145) 12/23/16 12:51 Potassium 4.6 mmol/L (3.6-5.0) D 12/22/16 10:55 Chloride 103.4 mmol/L (98-107) 12/23/16 12:51 Carbon Dioxide 28 mmol/L (22-30) 12/23/16 12:51 Anion Gap 18 mmol/L 12/22/16 10:55 BUN 30 mg/dL (9-20) H 12/23/16 12:51 Creatinine 0.9 mg/dL (0.8-1.5) 12/23/16 12:51 Estimated GFR > 60 ml/min 12/23/16 12:51 BUN/Creatinine Ratio 33.33 % 12/23/16 12:51 Glucose 76 mg/dL (75-100) 12/23/16 12:51 Lactic Acid 5.50 mmol/L (0.7-2.0) H* 12/21/16 01:35 Calcium 8.3 mg/dL (8.4-10.2) L 12/23/16 12:51 Total Bilirubin 1.80 mg/dL (0.1-1.2) H 12/23/16 12:51 AST 33 units/L (5-40) 12/20/16 17:00 ALT 27 units/L (7-56) 12/20/16 17:00 Alkaline Phosphatase 77 units/L (35-129) 12/23/16 12:51 Total Creatine Kinase 86 units/L (55-170) 12/20/16 17:00 CK-MB (CK-2) 4.2 ng/mL (0.0-4.0) H 12/20/16 17:00 CK-MB (CK-2) Rel Index 4.8 (0-4) H 12/20/16 17:00 Troponin T 0.054 ng/mL (0.00-0.029) H 12/20/16 17:00 NT-Pro-B Natriuret Pep 9604 pg/mL (0-900) H 12/20/16 17:00 Total Protein 7.7 g/dL (6.3-8.2) 12/23/16 12:51 Albumin 2.3 g/dL (3.9-5) L 12/23/16 12:51 Albumin/Globulin Ratio 0.4 % 12/23/16 12:51 Triglycerides 82 mg/dL (2-149) 12/20/16 17:00 Cholesterol 128 mg/dL (50-199) 12/20/16 17:00 LDL Cholesterol Direct 51 mg/dL (50-130) 12/20/16 17:00 HDL Cholesterol 61 mg/dL (40-59) H 12/20/16 17:00 Cholesterol/HDL Ratio 2.09 % 12/20/16 17:00 Urine Color Keely (Yellow) 12/21/16 08:15 Urine Turbidity Clear (Clear) 12/21/16 08:15 Urine pH 5.0 (5.0-7.0) 12/21/16 08:15 Ur Specific Linneus 1.023 (1.003-1.030) 12/21/16 08:15 Urine Protein <15 mg/dl mg/dL (Negative) 12/21/16 08:15 Urine Glucose (UA) Neg mg/dL (Negative) 12/21/16 08:15 Urine Ketones Neg mg/dL (Negative) 12/21/16 08:15 Urine Blood Lg (Negative) 12/21/16 08:15 Urine Nitrite Neg (Negative) 12/21/16 08:15 Urine Bilirubin Neg (Negative) 12/21/16 08:15 Urine Urobilinogen 2.0 mg/dL (<2.0) 12/21/16 08:15 Ur Leukocyte Esterase Mod (Negative) 12/21/16 08:15 Urine WBC (Auto) 30.0 /HPF (0.0-6.0) H 12/21/16 08:15 Urine RBC (Auto) 93.0 /HPF (0.0-6.0) 12/21/16 08:15 U Epithel Cells (Auto) < 1.0 /HPF (0-13.0) 12/21/16 08:15 Calcium Oxalate Crystal Few 12/21/16 08:15 Hyaline Casts 2 /LPF 12/21/16 08:15 Urine Mucus Few /HPF 12/21/16 08:15 - Imaging and Cardiology Chest x-ray: image reviewed (interval improvement of pulmonary venous congestion ) CT Scan - head: image reviewed (no acute findings)
--- NOTE | 2016-12-23 14:15 | Cat Scan Report ---
CTA of the head: Altered mental status; obtundation. Normal recent unenhanced intracranial CT. Following IV contrast administration rapid sequence transverse images were obtained through the cranium with coronal and sagittal 2-D reformatted images as well as 3-D MIP images. The intracranial portions of both common carotid arteries are unremarkable. There are normal bifurcations into the anterior and middle cerebral arteries as well as the communicating anterior cerebral artery. The anterior and middle cerebral arteries have normal vascular contours and distributions. There is a small but intact right posterior communicating artery. Both vertebral arteries are patent supplying an unremarkable vertebral artery. No peripheral vascular occlusions identified. Impression: Unremarkable intracranial vascular pattern. No occlusions or displacements identified.
[2016-12-23 14:17] LABS: Anion Gap 17 mmol/L
[2016-12-23 14:18] LABS: Alanine Aminotransferase 36 units/L (7-56); Potassium 4.6 mmol/L (3.6-5.0)
--- NOTE | 2016-12-23 15:49 | Progress Note ---
Assessment and Plan Imp: 1. Severe/end-stage dilated CMP 2. A/C systolic CHF 3. s/p CP arrest 4. Probable anoxic encephalopathy 5. Acute/chronic respiratory failure, hypoxia and hypercapnea 6. Cardiogenic shock 7. Lactic acidosis 8. ? Aspiration pneumonitis Rec: 1. F/u cultures; continue brief course of Zosyn for possible aspiration; cont. Vanco pending cultures as he has had PICC for months 2. Wean Valeriy to keep MAP > 60 3. Wean PEEP to 8, and cont. to wean to keep sats 88% or above 4. Stop all sedation; agree w/ neurology evaluation 5. Nutrition consult for TFs 6. GI/DVT PPx 7. Repeat lactate in AM 8. Poor overall prognosis Plan of care reviewed in detail with family, they understand/agree CCT 31 minutes Subjective Date of service: 12/23/16 Principal diagnosis: s/p C-P arrest, acute on chronic resp failure, Acute on chronic SHF, CMP Interval history: No events. Off sedation x 24 hours. Not waking up or following commands. Remains on Valeriy at 100mcg. PEEP at 10, sat of 100%. Active Medications Acetaminophen (Tylenol) 650 mg SC Q4H PRN PRN Reason: Pain, Mild (1-3) Last Admin: 12/22/16 10:15 Dose: 650 mg Albuterol (Proventil) 2.5 mg IH Q4H PRN PRN Reason: Shortness Of Breath Aspirin (Aspirin) 325 mg PO QDAY [facility] Last Admin: 12/23/16 11:31 Dose: Not Given Enoxaparin Sodium (Lovenox) 40 mg SUB-Q QDAY@2200 [facility] Last Admin: 12/22/16 21:22 Dose: 40 mg Famotidine (Pepcid) 20 mg PO BID [facility] Last Admin: 12/23/16 11:32 Dose: Not Given Furosemide (Lasix) 40 mg IV 0600,1800 [facility] Last Admin: 12/23/16 06:00 Dose: 40 mg Hydrophilic Ointment (Vaseline Lip Therapy) 1 applic TP Q2HR PRN PRN Reason: Dry Lips Lorazepam 100 mg/ Sodium Chloride/ Miscellaneous Information 100 mls @ 1 mls/ hr IV TITR HEATHER; 1 MG/HR PRN Reason: Protocol Last Admin: 12/21/16 20:20 Dose: 4 mg/hr, 4 mls/hr Piperacillin Sod/Tazobactam Sod (Zosyn/Ns 4.5gm/100ml) 4.5 gm in 100 mls @ 200 mls/hr IV Q8HR HEATHER PRN Reason: Protocol Last Admin: 12/23/16 15:21 Dose: 200 mls/hr Milrinone Lactate 20 mg/ (Dextrose) 100 mls @ 9.9 mls/hr IV TITR HEATHER; 0.375 MCG /KG/MIN PRN Reason: Protocol Last Admin: 12/23/16 10:52 Dose: 0.37 mcg/kg/min, 9.76 mls/hr Fentanyl Citrate (Fentanyl Drip Premix) 2,000 mcg in 100 mls @ 4.4 mls/hr IV TITR HEATHER; 1 MCG/KG/HR PRN Reason: Protocol Last Admin: 12/22/16 06:37 Dose: 1 mcg/kg/hr, 4.4 mls/hr Vancomycin HCl 1,500 mg/ (Sodium Chloride) 515 mls @ 333.333 mls/hr IV Q12HR HEATHER Last Admin: 12/23/16 11:33 Dose: 333.333 mls/hr Phenylephrine HCl 100 mg/ (Sodium Chloride) 100 mls @ 3 mls/hr IV TITR HEATHER; 50 MCG/MIN PRN Reason: Protocol Last Titration: 12/23/16 15:29 Dose: 90 mcg/min, 5.4 mls/hr Multi-Ingred Cream/Lotion/Oil/Oint (Artificial Tears Ophth Oint) 1 applic OU Q4HR PRN PRN Reason: Dry Eye(s) Last Admin: 12/22/16 10:38 Dose: 1 applic Sodium Chloride (Nacl 0.9% 500 Ml) 1 ml IV DIRECT HEATHER Vancomycin HCl (Vancomycin Pharmacy To Dose) 1 each IV PKCONSULT HEATHER PRN Reason: Protocol Objective Vital Signs - 12hr 12/23/16 12/23/16 12/23/16 03:49 04:00 07:02 Temperature Pulse Rate 88 85 Pulse Rate [ 88 From Monitor] Pulse Rate [ 88 Left Brachial] Respiratory 20 Rate Blood Pressure 107/77 112/81 105/74 O2 Sat by Pulse 100 99 100 Oximetry 12/23/16 12/23/16 12/23/16 07:59 08:00 08:05 Temperature 97.9 F Pulse Rate Pulse Rate [ 85 From Monitor] Pulse Rate [ 85 85 Left Brachial] Respiratory 20 20 20 Rate Blood Pressure 104/73 106/75 O2 Sat by Pulse 99 98 98 Oximetry 12/23/16 12/23/16 12/23/16 09:00 10:00 10:30 Temperature Pulse Rate 95 H Pulse Rate [ From Monitor] Pulse Rate [ 89 86 Left Brachial] Respiratory 20 20 Rate Blood Pressure 102/72 104/71 O2 Sat by Pulse 98 98 Oximetry 12/23/16 12/23/16 12/23/16 11:21 12:00 13:42 Temperature 98.0 F Pulse Rate 90 93 H Pulse Rate [ From Monitor] Pulse Rate [ Left Brachial] Respiratory 20 Rate Blood Pressure 104/74 O2 Sat by Pulse 98 98 Oximetry 12/23/16 12/23/16 12/23/16 14:00 14:30 14:53 Temperature Pulse Rate 90 88 89 Pulse Rate [ From Monitor] Pulse Rate [ Left Brachial] Respiratory 20 17 Rate Blood Pressure 108/73 110/73 111/76 O2 Sat by Pulse 97 97 99 Oximetry 12/23/16 15:00 Temperature Pulse Rate 92 H Pulse Rate [ From Monitor] Pulse Rate [ Left Brachial] Respiratory 20 Rate Blood Pressure 112/74 O2 Sat by Pulse 100 Oximetry Constitutional: comatose Eyes: non-icteric ENT: oropharynx moist, other (orally intubated) Neck: supple Effort: normal Ascultation: Bilateral: wheezes (faint expiratory) Cardiovascular: regular rate and rhythm (no mrg) Gastrointestinal: normoactive bowel sounds, soft, non-tender, non-distended Integumentary: normal Extremities: no cyanosis, pink and warm, edema (1+ pedal edema) Neurologic: other (unresponsive) Psychiatric: other (not able to assess) CBC and BMP: 12/23/16 12:51 12/23/16 12:51 ABG, PT/INR, D-dimer: ABG POC ABG pH 7.514 (7.35-7.45) H 12/23/16 04:00 POC ABG pCO2 38.3 (35-45) 12/23/16 04:00 POC ABG pO2 105 (80-105) 12/23/16 04:00 POC ABG HCO3 30.8 12/23/16 04:00 POC ABG Total CO2 32 12/23/16 04:00 POC ABG O2 Sat 99 12/23/16 04:00 PT/INR, D-dimer PT 20.5 Sec. (12.2-14.9) H 12/20/16 17:00 INR 1.66 (0.87-1.13) H 12/20/16 17:00 Abnormal lab findings: Abnormal Labs 12/20/16 12/20/16 12/21/16 21:53 23:13 01:35 WBC RDW POC ABG pH POC ABG pCO2 52.4 H POC ABG pO2 113 H BUN Glucose Lactic Acid 4.60 H* 5.50 H* Calcium Total Bilirubin AST Albumin Urine WBC (Auto) 12/21/16 12/21/16 12/22/16 05:54 08:15 04:42 WBC RDW POC ABG pH POC ABG pCO2 46.7 H POC ABG pO2 142 H 72 L BUN Glucose Lactic Acid Calcium Total Bilirubin AST Albumin Urine WBC (Auto) 30.0 H 12/22/16 12/23/16 12/23/16 10:55 04:00 12:51 WBC 20.5 H RDW 15.9 H POC ABG pH 7.514 H POC ABG pCO2 POC ABG pO2 BUN 27 H Glucose 105 H Lactic Acid Calcium Total Bilirubin AST Albumin Urine WBC (Auto) 12/23/16 12:51 WBC RDW POC ABG pH POC ABG pCO2 POC ABG pO2 BUN 30 H Glucose Lactic Acid Calcium 8.3 L Total Bilirubin 1.80 H AST 105 H Albumin 2.3 L Urine WBC (Auto) Chest x-ray: report reviewed, image reviewed
[2016-12-23 16:05] LABS: Basophils % (Manual) 0 % (0.0-1.8); Blastocytes % (Manual) 0 %; Diff Status Complete; Eosinophils % (Manual) 0 % (0.0-4.3); Ovalocytes Few
--- NOTE | 2016-12-23 18:08 | XRay Report ---
FINAL REPORT EXAM: XR ABDOMEN 1V AP HISTORY: NG tube placement TECHNIQUE: AP view of the upper abdomen for tube placement PRIORS: None. FINDINGS: There is an NG tube present. Distal end descends below the diaphragm with tip at the body of the stomach. AICD/pacemaker wires identified. Visualized bowel gas pattern is unremarkable. There is some residual contrast seen within the renal collecting systems. IMPRESSION: NG tube in satisfactory position distal end overlying the body of the stomach
[2016-12-23] MEDS: LOVENOX SUB-Q SCH (21:06)
[2016-12-24 04:07] LABS: ISTAT Base Excess 7; ISTAT HCO3 30.5; ISTAT PCO2 39.7 (35-45); ISTAT PH 7.494 (7.35-7.45); ISTAT PO2 78 (80-105); ISTAT SO2 96; ISTAT TCO2 32
[2016-12-24 04:12] LABS: Basophils % (Auto) 0.9 % (0.0-1.8); Eosinophils % (Auto) 0.2 % (0.0-4.3); Hematocrit 40.4 % (35.5-45.6); Hemoglobin 13.1 gm/dl (11.8-15.2); Mean Corpuscular HGB Conc 32 % (32-34); Mean Corpuscular Hemoglobin 29 pg (28-32); Mean Corpuscular Volume 90 fl (84-94); Platelet Count 227 K/mm3 (140-440); Red Blood Count 4.49 M/mm3 (3.65-5.03); White Blood Count 19.5 K/mm3 (4.5-11.0)
[2016-12-24 04:39] LABS: Anion Gap 16 mmol/L; BUN/Creatinine Ratio 26.36; Blood Urea Nitrogen 29 mg/dL (9-20); Calcium 8.4 mg/dL (8.4-10.2); Carbon Dioxide 27 mmol/L (22-30); Chloride 106.3 mmol/L (98-107); Glucose 98 mg/dL (75-100); Sodium 146 mmol/L (137-145)
[2016-12-24 04:40] LABS: Potassium 3.6 mmol/L (3.6-5.0)
[2016-12-24] MEDS: LASIX IV SCH ×2 (05:10→18:37)
[2016-12-24] MEDS: ZOSYN/NS 4.5GM/100ML 4.5 GM/100 ML VIAL IV SCH ×3 (05:10→22:22)
--- NOTE | 2016-12-24 07:31 | XRay Report ---
AP CHEST: HISTORY: Follow up respiratory failure Lines and support devices remain in adequate position. Small right pleural effusion has increased by one rib level since yesterday's exam. Cardiomegaly and pulmonary venous congestion are stable. Trace left pleural effusion is stable.
[2016-12-24] MEDS ORDERED: PANCREAZE DR 10,500 UNIT FEEDTUBE PRN (08:26)
[2016-12-24] MEDS ORDERED: SODIUM BICARBONATE FEEDTUBE PRN (08:26)
[2016-12-24] MEDS ORDERED: SIMPLE SYRUP FEEDTUBE PRN ×2 (08:26)
[2016-12-24] MEDS: PEPCID PO SCH ×2 (09:46→22:23)
[2016-12-24] MEDS: ASPIRIN PO SCH (09:46)
[2016-12-24] MEDS: VANCOMYCIN 1,500 MG in NACL 0.9% 500 ML 500 ML IV SCH ×2 (09:46→22:23)
[2016-12-24] MEDS: NEO-SYNEPHRINE 100 MG in NACL 0.9% 90 ML IV SCH ×2 (09:47→18:38)
--- NOTE | 2016-12-24 09:48 | Progress Note ---
Assessment and Plan Assessment and plan: 59-year-old man with a past medical history of end-stage CHF on milrinone drip at home, chronic respiratory failure, COPD, oxygen dependent on 3 L at home, gallops, atrial flutter, who was brought in by his . States that the patient had complained of shortness of breath and then subsequently collapsed. EMS arrived and found to be asystolic arrest, he received ACLS protocol and had return of circulation was then brought to the hospital. Cardiac arrest Status post ACS protocol, cardiology consult, continue telemetry Acute on chronic systolic CHF exacerbation with pulmonary venous congestion Cardiology input appreciated, continue milrinone drip, continue supportive care IV lasix as tolerated SEVERE ENDSTAGE DILATED CMP * Cardiology following, Continue on Milirione drip Cardiogenic shock Continue IV pressor support Septic shock/Severe spesis Treated with empiric frustration antibiotics, follow blood and urine cultures Recurrent fever likely secondary to anoxic brain injury No clear evidence of pneumonia possible UTI cultures remained negative. ID consult continue Pressors, phenylephrine and milrinone Acute hypercapnic respiratory failure on mechanical ventilator greater than 48 hours Continue mechanical ventilator, pulmonary input appreciated, We'll attempt to wean off ventilator daily Patient continues to fail weaning trials Metabolic encephalopathy Most likely due to hypoperfusion of central nervous system , i.e. anoxic brain injury CT head does not show any acute findings, CTA head also shows no acute findings , patient has a pacemaker/ICD, therefore MRI is contraindicated Neurology consult and bruits noted. EEG. Remains unresponsive despite not being on sedation ACUTE CYSTITIS -continue empiric abx -sputum culture no growth RIGHT SIDED PLEURAL EFFUSION -Probably due to CHF. will monitor. DVT/GI PROPHY Had extensive discussion with the father, family, sister, they still want to be given 48 hours for all the family to come to a physician. Poor prognosis The high probability of a clinically significant, sudden or life threatening deterioration of the [cardiovascular, pulmonary and Neurologic] system(s) required my full and direct attention, intervention and personal management. The aggregate critical care time was [35] minutes. This time is in addition to time spent performing reported procedures but includes the following: [X] Data Review and interpretation [X] Patient assessment and monitoring of vital signs [X] Documentation [X] Medication orders and management History Interval history: Patient seen and examined remains comatose. Hospitalist Physical - Physical exam Narrative exam: VITAL SIGNS: Reviewed. GENERAL: The patient appeared comatose, ventilated.. Vital signs as documented. HEAD: No signs of head trauma. EYES: Pupils are equal. EARS: Unable to assess MOUTH: Oropharynx is normal. NECK: No adenopathy, no JVD. CHEST: Chest with faint expiratory wheeze. CARDIAC: Regular rate and rhythm. S1 and S2, without murmurs, gallops, or rubs. VASCULAR: No Edema. Peripheral pulses normal and equal in all extremities. ABDOMEN: Soft, unable to assess tenderness. No grimacing on palpation. No sign of distention. Bowel Sounds normal. MUSCULOSKELETAL: Extremities without clubbing, cyanosis or edema. NEUROLOGIC EXAM: Comatose with flaccid extremities PSYCHIATRIC: Unable to assess. SKIN: No rash or lesions. - Constitutional Vitals: Temp Pulse Resp BP Pulse Ox 102.6 F H 103 H 23 97/62 96 12/24/16 08:00 12/24/16 09:06 12/24/16 09:06 12/24/16 09:06 12/24/16 09:06 General appearance: Present: severe distress Results - Labs CBC & Chem 7: 12/24/16 03:40 12/24/16 03:40 Labs: Laboratory Last Values WBC 19.5 K/mm3 (4.5-11.0) H 12/24/16 03:40 RBC 4.49 M/mm3 (3.65-5.03) 12/24/16 03:40 Hgb 13.1 gm/dl (11.8-15.2) 12/24/16 03:40 Hct 40.4 % (35.5-45.6) 12/24/16 03:40 MCV 90 fl (84-94) 12/24/16 03:40 MCH 29 pg (28-32) 12/24/16 03:40 MCHC 32 % (32-34) 12/24/16 03:40 RDW 16.0 % (13.2-15.2) H 12/24/16 03:40 Plt Count 227 K/mm3 (140-440) 12/24/16 03:40 Lymph % (Auto) 6.9 % (13.4-35.0) L 12/24/16 03:40 [place] % (Auto) 7.1 % (0.0-7.3) 12/24/16 03:40 Eos % (Auto) 0.2 % (0.0-4.3) 12/24/16 03:40 Baso % (Auto) 0.9 % (0.0-1.8) 12/24/16 03:40 Lymph # 1.4 K/mm3 (1.2-5.4) 12/24/16 03:40 [place] # 1.4 K/mm3 (0.0-0.8) H 12/24/16 03:40 Eos # 0.0 K/mm3 (0.0-0.4) 12/24/16 03:40 Baso # 0.2 K/mm3 (0.0-0.1) H 12/24/16 03:40 Add Manual Diff Complete 12/23/16 12:51 Total Counted 100 12/23/16 12:51 Seg Neutrophils % 84.9 % (40.0-70.0) H 12/24/16 03:40 Seg Neuts % (Manual) 85.0 % (40.0-70.0) H 12/23/16 12:51 Band Neutrophils % 0 % 12/23/16 12:51 Lymphocytes % (Manual) 8.0 % (13.4-35.0) L 12/23/16 12:51 Reactive Lymphs % (Man) 0 % 12/23/16 12:51 Monocytes % (Manual) 7.0 % (0.0-7.3) 12/23/16 12:51 Eosinophils % (Manual) 0 % (0.0-4.3) 12/23/16 12:51 Basophils % (Manual) 0 % (0.0-1.8) 12/23/16 12:51 Metamyelocytes % 0 % 12/23/16 12:51 Myelocytes % 0 % 12/23/16 12:51 Promyelocytes % 0 % 12/23/16 12:51 Blast Cells % 0 % 12/23/16 12:51 Nucleated RBC % Not Reportable 12/23/16 12:51 Seg Neutrophils # 16.6 K/mm3 (1.8-7.7) H 12/24/16 03:40 Seg Neutrophils # Man 17.4 K/mm3 (1.8-7.7) H 12/23/16 12:51 Band Neutrophils # 0.0 K/mm3 12/23/16 12:51 Lymphocytes # (Manual) 1.6 K/mm3 (1.2-5.4) 12/23/16 12:51 Abs React Lymphs (Man) 0.0 K/mm3 12/23/16 12:51 Monocytes # (Manual) 1.4 K/mm3 (0.0-0.8) H 12/23/16 12:51 Eosinophils # (Manual) 0.0 K/mm3 (0.0-0.4) 12/23/16 12:51 Basophils # (Manual) 0.0 K/mm3 (0.0-0.1) 12/23/16 12:51 Metamyelocytes # 0.0 K/mm3 12/23/16 12:51 Myelocytes # 0.0 K/mm3 12/23/16 12:51 Promyelocytes # 0.0 K/mm3 12/23/16 12:51 Blast Cells # 0.0 K/mm3 12/23/16 12:51 WBC Morphology Not Reportable 12/23/16 12:51 Hypersegmented Neuts Not Reportable 12/23/16 12:51 Hyposegmented Neuts Not Reportable 12/23/16 12:51 Hypogranular Neuts Not Reportable 12/23/16 12:51 Smudge Cells Not Reportable 12/23/16 12:51 Toxic Granulation Not Reportable 12/23/16 12:51 Toxic Vacuolation Not Reportable 12/23/16 12:51 Dohle Bodies Not Reportable 12/23/16 12:51 Pelger-Huet Anomaly Not Reportable 12/23/16 12:51 Shantal Rods Not Reportable 12/23/16 12:51 Platelet Estimate Appears normal 12/23/16 12:51 Clumped Platelets Not Reportable 12/23/16 12:51 Plt Clumps, EDTA Not Reportable 12/23/16 12:51 Large Platelets Not Reportable 12/23/16 12:51 Giant Platelets Not Reportable 12/23/16 12:51 Platelet Satelliting Not Reportable 12/23/16 12:51 Plt Morphology Comment Not Reportable 12/23/16 12:51 RBC Morphology Not Reportable 12/23/16 12:51 Dimorphic RBCs Not Reportable 12/23/16 12:51 Polychromasia Not Reportable 12/23/16 12:51 Hypochromasia Not Reportable 12/23/16 12:51 Poikilocytosis Not Reportable 12/23/16 12:51 Anisocytosis Not Reportable 12/23/16 12:51 Microcytosis Not Reportable 12/23/16 12:51 Macrocytosis Not Reportable 12/23/16 12:51 Spherocytes Not Reportable 12/23/16 12:51 Pappenheimer Bodies Not Reportable 12/23/16 12:51 Sickle Cells Not Reportable 12/23/16 12:51 Target Cells Not Reportable 12/23/16 12:51 Tear Drop Cells Not Reportable 12/23/16 12:51 Ovalocytes Few 12/23/16 12:51 Helmet Cells Not Reportable 12/23/16 12:51 [place] Bodies Not Reportable 12/23/16 12:51 [place] Rings Not Reportable 12/23/16 12:51 [place] Cells Not Reportable 12/23/16 12:51 Bite Cells Not Reportable 12/23/16 12:51 Crenated Cell Not Reportable 12/23/16 12:51 Elliptocytes Not Reportable 12/23/16 12:51 Acanthocytes (Spur) Not Reportable 12/23/16 12:51 Rouleaux Not Reportable 12/23/16 12:51 Hemoglobin C Crystals Not Reportable 12/23/16 12:51 Schistocytes Not Reportable 12/23/16 12:51 Malaria parasites Not Reportable 12/23/16 12:51 [place] Bodies Not Reportable 12/23/16 12:51 Hem Pathologist Commnt No 12/23/16 12:51 PT 20.5 Sec. (12.2-14.9) H 12/20/16 17:00 INR 1.66 (0.87-1.13) H 12/20/16 17:00 APTT 39.4 Sec. (24.2-36.6) H 12/20/16 17:00 POC ABG pH 7.494 (7.35-7.45) H 12/24/16 03:09 POC ABG pCO2 39.7 (35-45) 12/24/16 03:09 POC ABG pO2 78 (80-105) L 12/24/16 03:09 POC ABG HCO3 30.5 12/24/16 03:09 POC ABG Total CO2 32 12/24/16 03:09 POC ABG O2 Sat 96 12/24/16 03:09 POC ABG Base Excess 7 12/24/16 03:09 FiO2 30 % 12/24/16 03:09 Sodium 146 mmol/L (137-145) H 12/24/16 03:40 Potassium 3.6 mmol/L (3.6-5.0) D 12/24/16 03:40 Chloride 106.3 mmol/L (98-107) 12/24/16 03:40 Carbon Dioxide 27 mmol/L (22-30) 12/24/16 03:40 Anion Gap 16 mmol/L 12/24/16 03:40 BUN 29 mg/dL (9-20) H 12/24/16 03:40 Creatinine 1.1 mg/dL (0.8-1.5) 12/24/16 03:40 Estimated GFR > 60 ml/min 12/24/16 03:40 BUN/Creatinine Ratio 26.36 % 12/24/16 03:40 Glucose 98 mg/dL (75-100) 12/24/16 03:40 POC Glucose 92 (70-105) 12/24/16 05:08 Lactic Acid 1.30 mmol/L (0.7-2.0) 12/24/16 06:00 Calcium 8.4 mg/dL (8.4-10.2) 12/24/16 03:40 Phosphorus 2.60 mg/dL (2.5-4.5) 12/24/16 03:40 Magnesium 2.30 mg/dL (1.7-2.3) 12/24/16 03:40 Total Bilirubin 1.80 mg/dL (0.1-1.2) H 12/23/16 12:51 AST 105 units/L (5-40) H 12/23/16 12:51 ALT 36 units/L (7-56) 12/23/16 12:51 Alkaline Phosphatase 77 units/L (35-129) 12/23/16 12:51 Total Creatine Kinase 86 units/L (55-170) 12/20/16 17:00 CK-MB (CK-2) 4.2 ng/mL (0.0-4.0) H 12/20/16 17:00 CK-MB (CK-2) Rel Index 4.8 (0-4) H 12/20/16 17:00 Troponin T 0.054 ng/mL (0.00-0.029) H 12/20/16 17:00 NT-Pro-B Natriuret Pep 9604 pg/mL (0-900) H 12/20/16 17:00 Total Protein 7.7 g/dL (6.3-8.2) 12/23/16 12:51 Albumin 2.3 g/dL (3.9-5) L 12/23/16 12:51 Albumin/Globulin Ratio 0.4 % 12/23/16 12:51 Triglycerides 82 mg/dL (2-149) 12/20/16 17:00 Cholesterol 128 mg/dL (50-199) 12/20/16 17:00 LDL Cholesterol Direct 51 mg/dL (50-130) 12/20/16 17:00 HDL Cholesterol 61 mg/dL (40-59) H 12/20/16 17:00 Cholesterol/HDL Ratio 2.09 % 12/20/16 17:00 Urine Color [place] (Yellow) 12/21/16 08:15 Urine Turbidity Clear (Clear) 12/21/16 08:15 Urine pH 5.0 (5.0-7.0) 12/21/16 08:15 Ur Specific [place] 1.023 (1.003-1.030) 12/21/16 08:15 Urine Protein <15 mg/dl mg/dL (Negative) 12/21/16 08:15 Urine Glucose (UA) Neg mg/dL (Negative) 12/21/16 08:15 Urine Ketones Neg mg/dL (Negative) 12/21/16 08:15 Urine Blood Lg (Negative) 12/21/16 08:15 Urine Nitrite Neg (Negative) 12/21/16 08:15 Urine Bilirubin Neg (Negative) 12/21/16 08:15 Urine Urobilinogen 2.0 mg/dL (<2.0) 12/21/16 08:15 Ur Leukocyte Esterase Mod (Negative) 12/21/16 08:15 Urine WBC (Auto) 30.0 /HPF (0.0-6.0) H 12/21/16 08:15 Urine RBC (Auto) 93.0 /HPF (0.0-6.0) 12/21/16 08:15 U Epithel Cells (Auto) < 1.0 /HPF (0-13.0) 12/21/16 08:15 Calcium Oxalate Crystal Few 12/21/16 08:15 Hyaline Casts 2 /LPF 12/21/16 08:15 Urine Mucus Few /HPF 12/21/16 08:15 - Imaging and Cardiology Chest x-ray: image reviewed (no acute pathology noted) CT Scan - head: image reviewed (no acute pathology noted)
--- NOTE | 2016-12-24 10:07 | Consultation ---
History of Present Illness Consult date: 12/24/16 Requesting physician: APULA WHITE Reason for Consult: Unresponsiveness Past History Past Medical History: atrial fib, COPD, heart failure Past Surgical History: Other (ICD placement) Social history: , lives with family. denies: smoking, alcohol abuse, prescription drug abuse Family history: CAD, diabetes, hypertension Medications and Allergies Allergies Allergy/AdvReac Type Severity Reaction Status Date / Time No Known Allergies Allergy Unverified 12/20/16 16:40 Home Medications Medication Instructions Recorded Confirmed Last Taken Type Allopurinol [Zyloprim] 100 mg PO QDAY 12/20/16 12/20/16 Unknown History Amiodarone [Cordarone 200 MG TAB] 200 mg PO DAILY 12/20/16 12/20/16 Unknown History Colchicine [Mitigare] 0.6 mg PO DAILY 12/20/16 12/20/16 Unknown History Dabigatran [Pradaxa] 150 mg PO BID 12/20/16 12/20/16 Unknown History Famotidine [Pepcid] 20 mg PO BID 12/20/16 12/20/16 Unknown History HYDROcodone/APAP 5-325 [[place] 1 each PO BID 12/20/16 12/20/16 Unknown History 5/325] Lisinopril [Zestril TAB] 2.5 mg PO DAILY 12/20/16 12/20/16 Unknown History Metoprolol Succinate 12.5 mg PO DAILY 12/20/16 12/20/16 1 Day Ago History Milrinone [Primacor] 0.25 mcg IV CONT 12/20/16 12/20/16 12/20/16 History Spironolactone [Aldactone] 12.5 mg PO QDAY 12/20/16 12/20/16 Unknown History Torsemide [Demadex] 40 mg PO QAM 12/20/16 12/20/16 Unknown History traZODone [Desyrel] 50 mg PO QHS PRN 12/20/16 12/20/16 Unknown History Active Meds: Active Medications Acetaminophen (Tylenol) 650 mg UT Q4H PRN PRN Reason: Pain, Mild (1-3) Last Admin: 12/22/16 10:15 Dose: 650 mg Albuterol (Proventil) 2.5 mg IH Q4H PRN PRN Reason: Shortness Of Breath Lipase/Protease/Amylase (Pancreaze Dr 10,500 Unit) 1 each FEEDTUBE PRN PRN PRN Reason: For Clogged Feeding Tube Aspirin (Aspirin) 325 mg PO QDAY [facility] Last Admin: 12/24/16 09:46 Dose: 325 mg Enoxaparin Sodium (Lovenox) 40 mg SUB-Q QDAY@2200 [facility] Last Admin: 12/23/16 21:06 Dose: 40 mg Famotidine (Pepcid) 20 mg PO BID [facility] Last Admin: 12/24/16 09:46 Dose: 20 mg Furosemide (Lasix) 40 mg IV 0600,1800 [facility] Last Admin: 12/24/16 05:10 Dose: 40 mg Hydrophilic Ointment (Vaseline Lip Therapy) 1 applic TP Q2HR PRN PRN Reason: Dry Lips Piperacillin Sod/Tazobactam Sod (Zosyn/Ns 4.5gm/100ml) 4.5 gm in 100 mls @ 200 mls/hr IV Q8HR HEATHER PRN Reason: Protocol Last Admin: 12/24/16 05:10 Dose: 200 mls/hr Milrinone Lactate 20 mg/ (Dextrose) 100 mls @ 9.9 mls/hr IV TITR HEATHER; 0.375 MCG /KG/MIN PRN Reason: Protocol Last Admin: 12/23/16 10:52 Dose: 0.37 mcg/kg/min, 9.76 mls/hr Vancomycin HCl 1,500 mg/ (Sodium Chloride) 515 mls @ 333.333 mls/hr IV Q12HR HEATHER Last Admin: 12/24/16 09:46 Dose: 333.333 mls/hr Phenylephrine HCl 100 mg/ (Sodium Chloride) 100 mls @ 3 mls/hr IV TITR HEATHER; 50 MCG/MIN PRN Reason: Protocol Last Admin: 12/24/16 09:47 Dose: 150 mcg/min, 9 mls/hr Multi-Ingred Cream/Lotion/Oil/Oint (Artificial Tears Ophth Oint) 1 applic OU Q4HR PRN PRN Reason: Dry Eye(s) Last Admin: 12/22/16 10:38 Dose: 1 applic Simple Syrup (Simple Syrup) 15 ml FEEDTUBE PRN PRN PRN Reason: Hypoglycemia Simple Syrup (Simple Syrup) 30 ml FEEDTUBE PRN PRN PRN Reason: Hypoglycemia Sodium Bicarbonate (Sodium Bicarbonate) 325 mg FEEDTUBE PRN PRN PRN Reason: For Clogged Feeding Tube Sodium Chloride (Nacl 0.9% 500 Ml) 1 ml IV DIRECT HEATHER Vancomycin HCl (Vancomycin Pharmacy To Dose) 1 each IV PKCONSULT HEATHER PRN Reason: Protocol Physical Examination - Vital Signs Vital Signs: Vital Signs Pulse Resp Pulse Ox 106 H 23 92 12/20/16 16:33 12/20/16 16:33 12/20/16 16:33 Results - Laboratory Findings CBC and BMP: 12/24/16 03:40 12/24/16 03:40 Abnormal Lab Findings: Abnormal Labs 12/20/16 12/20/16 12/21/16 21:53 23:13 01:35 WBC RDW Lymph % (Auto) [place] # Baso # Seg Neutrophils % Seg Neuts % (Manual) Lymphocytes % (Manual) Seg Neutrophils # Seg Neutrophils # Man Monocytes # (Manual) POC ABG pH POC ABG pCO2 52.4 H POC ABG pO2 113 H Sodium BUN Glucose Lactic Acid 4.60 H* 5.50 H* Calcium Total Bilirubin AST Albumin Urine WBC (Auto) 12/21/16 12/21/16 12/22/16 05:54 08:15 04:42 WBC RDW Lymph % (Auto) [place] # Baso # Seg Neutrophils % Seg Neuts % (Manual) Lymphocytes % (Manual) Seg Neutrophils # Seg Neutrophils # Man Monocytes # (Manual) POC ABG pH POC ABG pCO2 46.7 H POC ABG pO2 142 H 72 L Sodium BUN Glucose Lactic Acid Calcium Total Bilirubin AST Albumin Urine WBC (Auto) 30.0 H 12/22/16 12/23/16 12/23/16 10:55 04:00 12:51 WBC 20.5 H RDW 15.9 H Lymph % (Auto) [place] # Baso # Seg Neutrophils % Seg Neuts % (Manual) 85.0 H Lymphocytes % (Manual) 8.0 L Seg Neutrophils # Seg Neutrophils # Man 17.4 H Monocytes # (Manual) 1.4 H POC ABG pH 7.514 H POC ABG pCO2 POC ABG pO2 Sodium BUN 27 H Glucose 105 H Lactic Acid Calcium Total Bilirubin AST Albumin Urine WBC (Auto) 12/23/16 12/24/16 12/24/16 12:51 03:09 03:40 WBC 19.5 H RDW 16.0 H Lymph % (Auto) 6.9 L [place] # 1.4 H Baso # 0.2 H Seg Neutrophils % 84.9 H Seg Neuts % (Manual) Lymphocytes % (Manual) Seg Neutrophils # 16.6 H Seg Neutrophils # Man Monocytes # (Manual) POC ABG pH 7.494 H POC ABG pCO2 POC ABG pO2 78 L Sodium BUN 30 H Glucose Lactic Acid Calcium 8.3 L Total Bilirubin 1.80 H AST 105 H Albumin 2.3 L Urine WBC (Auto) 12/24/16 03:40 WBC RDW Lymph % (Auto) [place] # Baso # Seg Neutrophils % Seg Neuts % (Manual) Lymphocytes % (Manual) Seg Neutrophils # Seg Neutrophils # Man Monocytes # (Manual) POC ABG pH POC ABG pCO2 POC ABG pO2 Sodium 146 H BUN 29 H Glucose Lactic Acid Calcium Total Bilirubin AST Albumin Urine WBC (Auto)
--- NOTE | 2016-12-24 10:36 | Consultation ---
History of Present Illness - Reason for Consult Consult date: 12/24/16 shock Requesting physician: [place] TANG - History of Present Illness 61 years old male with history of Chronic Respiratory Failure, COPD, end stage- CHF on Milrinone infusion, gout, Atrial Flutter admitted on 12/20/16 due to worsening SOB preceding respiratory arrest at his PCP office. Patient is not a historian and family is not available at the time of encounter. Per records, patient complained of shortness of breath, and subsequently collapsed. EMS notified. Upon arrival, patient found to be in Asystolic Cardio/Respiratory Arrest. Pt intubated and treated IAW ACLS protocol and transported to [facility]. In the ED, temp 99.1, HR 105, BP 106/77 then 81/49. WBC 15K. CR 1.2. UA c/w UTI. Lactate 5.5. CXR showed severe bilateral alveolar pulmonary edema and right pleural effusion. TTE EF 10-15%. CT head showed atrophy. Blood cx, urine and sputum negative. Microbiology: Blood cultures: 12/21 ngtd Urine cultures: 12/21 ngtd Respiratory cultures: 12/20 neg Wound cultures: Stool cultures: Other: Current Antimicrobials: Zosyn 12/20 Vancomycin 12/20 Previous Antimicrobials: Past History Past Medical History: atrial fib, COPD, heart failure Past Surgical History: Other (ICD placement) Social history: , lives with family. denies: smoking, alcohol abuse, prescription drug abuse Family history: CAD, diabetes, hypertension Medications and Allergies Allergies Allergy/AdvReac Type Severity Reaction Status Date / Time No Known Allergies Allergy Unverified 12/20/16 16:40 Home Medications Medication Instructions Recorded Confirmed Last Taken Type Allopurinol [Zyloprim] 100 mg PO QDAY 12/20/16 12/20/16 Unknown History Amiodarone [Cordarone 200 MG TAB] 200 mg PO DAILY 12/20/16 12/20/16 Unknown History Colchicine [Mitigare] 0.6 mg PO DAILY 12/20/16 12/20/16 Unknown History Dabigatran [Pradaxa] 150 mg PO BID 12/20/16 12/20/16 Unknown History Famotidine [Pepcid] 20 mg PO BID 12/20/16 12/20/16 Unknown History HYDROcodone/APAP 5-325 [[place] 1 each PO BID 12/20/16 12/20/16 Unknown History 5/325] Lisinopril [Zestril TAB] 2.5 mg PO DAILY 12/20/16 12/20/16 Unknown History Metoprolol Succinate 12.5 mg PO DAILY 12/20/16 12/20/16 1 Day Ago History Milrinone [Primacor] 0.25 mcg IV CONT 12/20/16 12/20/16 12/20/16 History Spironolactone [Aldactone] 12.5 mg PO QDAY 12/20/16 12/20/16 Unknown History Torsemide [Demadex] 40 mg PO QAM 12/20/16 12/20/16 Unknown History traZODone [Desyrel] 50 mg PO QHS PRN 12/20/16 12/20/16 Unknown History Active Meds: Active Medications Acetaminophen (Tylenol) 650 mg [place] Q4H PRN PRN Reason: Pain, Mild (1-3) Last Admin: 12/22/16 10:15 Dose: 650 mg Albuterol (Proventil) 2.5 mg IH Q4H PRN PRN Reason: Shortness Of Breath Lipase/Protease/Amylase (Pancrenitin [place] 10,500 Unit) 1 each FEEDTUBE PRN PRN PRN Reason: For Clogged Feeding Tube Aspirin (Aspirin) 325 mg PO QDAY [facility] Last Admin: 12/24/16 09:46 Dose: 325 mg Enoxaparin Sodium (Lovenox) 40 mg SUB-Q QDAY@2200 [facility] Last Admin: 12/23/16 21:06 Dose: 40 mg Famotidine (Pepcid) 20 mg PO BID [facility] Last Admin: 12/24/16 09:46 Dose: 20 mg Furosemide (Lasix) 40 mg IV 0600,1800 [facility] Last Admin: 12/24/16 05:10 Dose: 40 mg Hydrophilic Ointment (Vaseline Lip Therapy) 1 applic TP Q2HR PRN PRN Reason: Dry Lips Piperacillin Sod/Tazobactam Sod (Zosyn/Ns 4.5gm/100ml) 4.5 gm in 100 mls @ 200 mls/hr IV Q8HR [facility] PRN Reason: Protocol Last Admin: 12/24/16 05:10 Dose: 200 mls/hr Milrinone Lactate 20 mg/ (Dextrose) 100 mls @ 9.9 mls/hr IV TITR HEATHER; 0.375 MCG /KG/MIN PRN Reason: Protocol Last Admin: 12/23/16 10:52 Dose: 0.37 mcg/kg/min, 9.76 mls/hr Vancomycin HCl 1,500 mg/ (Sodium Chloride) 515 mls @ 333.333 mls/hr IV Q12HR [facility] Last Admin: 12/24/16 09:46 Dose: 333.333 mls/hr Phenylephrine HCl 100 mg/ (Sodium Chloride) 100 mls @ 3 mls/hr IV TITR HEATHER; 50 MCG/MIN PRN Reason: Protocol Last Admin: 12/24/16 09:47 Dose: 150 mcg/min, 9 mls/hr Multi-Ingred Cream/Lotion/Oil/Oint (Artificial Tears Ophth Oint) 1 applic OU Q4HR PRN PRN Reason: Dry Eye(s) Last Admin: 12/22/16 10:38 Dose: 1 applic Simple Syrup (Simple Syrup) 15 ml FEEDTUBE PRN PRN PRN Reason: Hypoglycemia Simple Syrup (Simple Syrup) 30 ml FEEDTUBE PRN PRN PRN Reason: Hypoglycemia Sodium Bicarbonate (Sodium Bicarbonate) 325 mg FEEDTUBE PRN PRN PRN Reason: For Clogged Feeding Tube Sodium Chloride (Nacl 0.9% 500 Ml) 1 ml IV DIRECT HEATHER Vancomycin HCl (Vancomycin Pharmacy To Dose) 1 each IV PKCONSULT [facility] PRN Reason: Protocol Physical Examination - Physical Exam Narrative exam: General appearance: sedated on the vent Eyes: anicteric sclerae, moist conjunctivae; no lid-lag; PERRLA HENT: Atraumatic; oropharynx limitted +ETT Neck: Trachea midline; supple, no thyromegaly or lymphadenopathy Lungs: michael rhonchi. AICD no erythema, edema, tenderness CV: RRR Abdomen: Soft, non-tender; no masses or hepatosplenomegaly Extremities: + peripheral edema Skin: Normal temperature, turgor and texture; no rash, ulcers or subcutaneous nodules Psych: sedated. Neuro: sedated Lines: PICC, iniguez, NGT - Constitutional Vitals: Vital Signs Temp Pulse Resp BP Pulse Ox 102.6 F H 88 35 H 96/63 98 12/24/16 08:00 12/24/16 10:15 12/24/16 10:15 12/24/16 10:15 12/24/16 10:15 Temperature -Last 24 Hours Temperature 102.6 F Temperature 99.0 F Temperature 98.9 F Temperature 100.1 F Temperature 99.1 F Temperature 98.0 F Results - Labs CBC & Chem 7: 12/24/16 03:40 12/24/16 03:40 Labs: Abnormal lab results 12/23/16 12/23/16 12/24/16 Range/Units 12:51 12:51 03:09 WBC 20.5 H (4.5-11.0) K/mm3 RDW 15.9 H (13.2-15.2) % Lymph % (Auto) (13.4-35.0) % Burt # (0.0-0.8) K/mm3 Baso # (0.0-0.1) K/mm3 Seg Neutrophils % (40.0-70.0) % Seg Neuts % (Manual) 85.0 H (40.0-70.0) % Lymphocytes % (Manual) 8.0 L (13.4-35.0) % Seg Neutrophils # (1.8-7.7) K/mm3 Seg Neutrophils # Man 17.4 H (1.8-7.7) K/mm3 Monocytes # (Manual) 1.4 H (0.0-0.8) K/mm3 POC ABG pH 7.494 H (7.35-7.45) POC ABG pO2 78 L (80-105) Sodium (137-145) mmol/L BUN 30 H (9-20) mg/dL Calcium 8.3 L (8.4-10.2) mg/dL Total Bilirubin 1.80 H (0.1-1.2) mg/dL AST 105 H (5-40) units/L Albumin 2.3 L (3.9-5) g/dL 12/24/16 12/24/16 Range/Units 03:40 03:40 WBC 19.5 H (4.5-11.0) K/mm3 RDW 16.0 H (13.2-15.2) % Lymph % (Auto) 6.9 L (13.4-35.0) % Burt # 1.4 H (0.0-0.8) K/mm3 Baso # 0.2 H (0.0-0.1) K/mm3 Seg Neutrophils % 84.9 H (40.0-70.0) % Seg Neuts % (Manual) (40.0-70.0) % Lymphocytes % (Manual) (13.4-35.0) % Seg Neutrophils # 16.6 H (1.8-7.7) K/mm3 Seg Neutrophils # Man (1.8-7.7) K/mm3 Monocytes # (Manual) (0.0-0.8) K/mm3 POC ABG pH (7.35-7.45) POC ABG pO2 (80-105) Sodium 146 H (137-145) mmol/L BUN 29 H (9-20) mg/dL Calcium (8.4-10.2) mg/dL Total Bilirubin (0.1-1.2) mg/dL AST (5-40) units/L Albumin (3.9-5) g/dL - Imaging and Cardiology Chest x-ray: report reviewed Assessment and Plan Assessment: 1) Shock: Present on admission, manifested by hypotension, fever, leukocytosis ( received solumedrol IV x 1) and elevated lactate. [id number] ? septic ? versus ? cardiogenic or a combination. Septic shock source likely UTI. R/o bacteremia from PICC line infection, aspiration pneumonia. 2) UTI: urine cx negative 3) S/P respiratory arrest 4) Respiratory failure 5) End-stage heart failure on 6) PICC line and AICD in place Plan: -follow-up blood cultures, urine culture -obtain respiratory cultures, procalcitonin, C-reactive protein (CRP) -determine when PICC was placed, may need to be exchanged -cortisol -continue zosyn and vancomycin for now Thank you Dr Tang for your consultation, will follow up with you. Sally Biswas MD Infectious Diseases Specialist [facility] M [phone] O [phone]
--- NOTE | 2016-12-24 11:12 | Consultation ---
History of Present Illness Consult date: 12/24/16 Requesting physician: PAULA WHITE Reason for Consult: Unresponsiveness History of present illness: Neurology consultation report: 12/24/2016 Mr. Ellison is a 61-year-old male patient brought to the hospital on the late afternoon of 12/20/2016 after having suffered respiratory and perhaps cardiac arrest at his doctor's office and had complained of being short of breath. Dashboard records were reviewed and no family was available at the bedside at the time of this examination. Mr. Ellison has a history of end-stage congestive heart failure, COPD on portable oxygen, gout, and chronic atrial flutter. Apparently after complaining of being short of breath he had collapsed at his doctor's office and was found to be in respiratory arrest. He was promptly seen by paramedics and intubated en route to the hospital. On arrival to the ER he had a recordable cardiac rhythm and low blood pressure. Emergency CT scan of the brain showed small vessel disease but otherwise no evidence of any acute stroke. CTA of the brain was also performed and was unremarkable as per the report. No clinical seizures have been noticed by the staff. Patient remains essentially unresponsive and on ventilator support and prompted neurology evaluation to evaluate his neurologic status. Otherwise he has a history of hypertension and coronary artery disease and hyperlipidemia as well as he has AICD. It is unclear from the records if he was shocked when noted to be in a brief run of ventricular fibrillation. He has no known allergies. Current medication list noted. Patient was also on pradaxa as one of his home medications Gen. Exam: Blood pressure 96/60, heart rate 96 as per the monitor. No neck stiffness. He has mild edema of the feet but dorsalis pedis palpable. No cranial or carotid bruit although carotids difficult to auscultate due to respiratory sounds. No skin rash. Central nervous system exam: Higher cortical functions: Patient comatose, unresponsive to verbal commands and deep painful stimuli. Patient on ventilator support. Cranial nerves: Optic fundi could not be examined, pupils about 2.5-3 mm equal and sluggishly reactive, eyes in central position and no eye movements noted on doll's maneuver , no facial asymmetry or weakness. Lower cranial nerves could not be examined. Motor system: Flaccid tone in all extremities, no spontaneous movements in any extremities, no decerebrate or decorticate posturing, no involuntary movements noted. Sensory exam: Patient essentially unresponsive to deep painful stimuli. Reflexes: Deep tendon reflexes are markedly diminished to absent bilaterally in both plantar reflexes are absent. Impression: #1. Patient essentially comatose with flaccid and areflexic extremities, no posturing, no focal neurologic deficit. Status post Cardiorespiratory arrest . Based on overall history and neurological findings, Mr. Ellison has suffered an acute anoxic encephalopathy and overall prognosis remains poor from neurologic standpoint. #2. History of hypertension, and advanced congestive heart failure, AICD, COPD etc. Recommendations: To obtain an EEG for now. Patient's sister was available later and I discussed Mr. Ellison's condition with her. Thank you very much for this consultation Duy Everett M.D./ Neurology 12/24/16 Past History Past Medical History: atrial fib, COPD, heart failure Past Surgical History: Other (ICD placement) Social history: , lives with family. denies: smoking, alcohol abuse, prescription drug abuse Family history: CAD, diabetes, hypertension Medications and Allergies Allergies Allergy/AdvReac Type Severity Reaction Status Date / Time No Known Allergies Allergy Unverified 12/20/16 16:40 Home Medications Medication Instructions Recorded Confirmed Last Taken Type Allopurinol [Zyloprim] 100 mg PO QDAY 12/20/16 12/20/16 Unknown History Amiodarone [Cordarone 200 MG TAB] 200 mg PO DAILY 12/20/16 12/20/16 Unknown History Colchicine [Mitigare] 0.6 mg PO DAILY 12/20/16 12/20/16 Unknown History Dabigatran [Pradaxa] 150 mg PO BID 12/20/16 12/20/16 Unknown History Famotidine [Pepcid] 20 mg PO BID 12/20/16 12/20/16 Unknown History HYDROcodone/APAP 5-325 [[place] 1 each PO BID 12/20/16 12/20/16 Unknown History 5/325] Lisinopril [Zestril TAB] 2.5 mg PO DAILY 12/20/16 12/20/16 Unknown History Metoprolol Succinate 12.5 mg PO DAILY 12/20/16 12/20/16 1 Day Ago History Milrinone [Primacor] 0.25 mcg IV CONT 12/20/16 12/20/16 12/20/16 History Spironolactone [Aldactone] 12.5 mg PO QDAY 12/20/16 12/20/16 Unknown History Torsemide [Demadex] 40 mg PO QAM 12/20/16 12/20/16 Unknown History traZODone [Desyrel] 50 mg PO QHS PRN 12/20/16 12/20/16 Unknown History Active Meds: Active Medications Acetaminophen (Tylenol) 650 mg [place] Q4H PRN PRN Reason: Pain, Mild (1-3) Last Admin: 12/22/16 10:15 Dose: 650 mg Albuterol (Proventil) 2.5 mg IH Q4H PRN PRN Reason: Shortness Of Breath Lipase/Protease/Amylase (Pancrenitin Dr 10,500 Unit) 1 each FEEDTUBE PRN PRN PRN Reason: For Clogged Feeding Tube Aspirin (Aspirin) 325 mg PO QDAY [facility] Last Admin: 12/24/16 09:46 Dose: 325 mg Enoxaparin Sodium (Lovenox) 40 mg SUB-Q QDAY@2200 [facility] Last Admin: 12/23/16 21:06 Dose: 40 mg Famotidine (Pepcid) 20 mg PO BID [facility] Last Admin: 12/24/16 09:46 Dose: 20 mg Furosemide (Lasix) 40 mg IV 0600,1800 [facility] Last Admin: 12/24/16 05:10 Dose: 40 mg Hydrophilic Ointment (Vaseline Lip Therapy) 1 applic TP Q2HR PRN PRN Reason: Dry Lips Piperacillin Sod/Tazobactam Sod (Zosyn/Ns 4.5gm/100ml) 4.5 gm in 100 mls @ 200 mls/hr IV Q8HR [facility] PRN Reason: Protocol Last Admin: 12/24/16 05:10 Dose: 200 mls/hr Milrinone Lactate 20 mg/ (Dextrose) 100 mls @ 9.9 mls/hr IV TITR HEATHER; 0.375 MCG /KG/MIN PRN Reason: Protocol Last Admin: 12/23/16 10:52 Dose: 0.37 mcg/kg/min, 9.76 mls/hr Vancomycin HCl 1,500 mg/ (Sodium Chloride) 515 mls @ 333.333 mls/hr IV Q12HR [facility] Last Admin: 12/24/16 09:46 Dose: 333.333 mls/hr Phenylephrine HCl 100 mg/ (Sodium Chloride) 100 mls @ 3 mls/hr IV TITR HEATHER; 50 MCG/MIN PRN Reason: Protocol Last Admin: 12/24/16 09:47 Dose: 150 mcg/min, 9 mls/hr Multi-Ingred Cream/Lotion/Oil/Oint (Artificial Tears Ophth Oint) 1 applic OU Q4HR PRN PRN Reason: Dry Eye(s) Last Admin: 12/22/16 10:38 Dose: 1 applic Simple Syrup (Simple Syrup) 15 ml FEEDTUBE PRN PRN PRN Reason: Hypoglycemia Simple Syrup (Simple Syrup) 30 ml FEEDTUBE PRN PRN PRN Reason: Hypoglycemia Sodium Bicarbonate (Sodium Bicarbonate) 325 mg FEEDTUBE PRN PRN PRN Reason: For Clogged Feeding Tube Sodium Chloride (Nacl 0.9% 500 Ml) 1 ml IV DIRECT HEATHER Vancomycin HCl (Vancomycin Pharmacy To Dose) 1 each IV PKCONSULT [facility] PRN Reason: Protocol Physical Examination - Vital Signs Vital Signs: Vital Signs Pulse Resp Pulse Ox 106 H 23 92 12/20/16 16:33 12/20/16 16:33 12/20/16 16:33 Results - Laboratory Findings CBC and BMP: 12/24/16 03:40 12/24/16 03:40 Abnormal Lab Findings: Abnormal Labs 12/20/16 12/20/16 12/21/16 21:53 23:13 01:35 WBC RDW Lymph % (Auto) [place] # Baso # Seg Neutrophils % Seg Neuts % (Manual) Lymphocytes % (Manual) Seg Neutrophils # Seg Neutrophils # Man Monocytes # (Manual) POC ABG pH POC ABG pCO2 52.4 H POC ABG pO2 113 H Sodium BUN Glucose Lactic Acid 4.60 H* 5.50 H* Calcium Total Bilirubin AST Albumin Urine WBC (Auto) 12/21/16 12/21/16 12/22/16 05:54 08:15 04:42 WBC RDW Lymph % (Auto) [place] # Baso # Seg Neutrophils % Seg Neuts % (Manual) Lymphocytes % (Manual) Seg Neutrophils # Seg Neutrophils # Man Monocytes # (Manual) POC ABG pH POC ABG pCO2 46.7 H POC ABG pO2 142 H 72 L Sodium BUN Glucose Lactic Acid Calcium Total Bilirubin AST Albumin Urine WBC (Auto) 30.0 H 09/07/0512/23/16 12/23/16 10:55 04:00 12:51 WBC 20.5 H RDW 15.9 H Lymph % (Auto) [place] # Baso # Seg Neutrophils % Seg Neuts % (Manual) 85.0 H Lymphocytes % (Manual) 8.0 L Seg Neutrophils # Seg Neutrophils # Man 17.4 H Monocytes # (Manual) 1.4 H POC ABG pH 7.514 H POC ABG pCO2 POC ABG pO2 Sodium BUN 27 H Glucose 105 H Lactic Acid Calcium Total Bilirubin AST Albumin Urine WBC (Auto) 12/23/16 12/24/16 12/24/16 12:51 03:09 03:40 WBC 19.5 H RDW 16.0 H Lymph % (Auto) 6.9 L [place] # 1.4 H Baso # 0.2 H Seg Neutrophils % 84.9 H Seg Neuts % (Manual) Lymphocytes % (Manual) Seg Neutrophils # 16.6 H Seg Neutrophils # Man Monocytes # (Manual) POC ABG pH 7.494 H POC ABG pCO2 POC ABG pO2 78 L Sodium BUN 30 H Glucose Lactic Acid Calcium 8.3 L Total Bilirubin 1.80 H AST 105 H Albumin 2.3 L Urine WBC (Auto) 12/24/16 03:40 WBC RDW Lymph % (Auto) [place] # Baso # Seg Neutrophils % Seg Neuts % (Manual) Lymphocytes % (Manual) Seg Neutrophils # Seg Neutrophils # Man Monocytes # (Manual) POC ABG pH POC ABG pCO2 POC ABG pO2 Sodium 146 H BUN 29 H Glucose Lactic Acid Calcium Total Bilirubin AST Albumin Urine WBC (Auto)
[2016-12-24] MEDS: PRIMACOR 20 MG in D5W 80 ML IV SCH (14:10)
--- NOTE | 2016-12-24 14:15 | Progress Note ---
Assessment and Plan Continue vasopressor support and other management. The patient has been seen in conjunction with Dr. Tamez who agrees with the assessment and plan of care. - Patient Problems (1) Cardiopulmonary arrest with successful resuscitation Current Visit: Yes Status: Acute (2) AICD (automatic cardioverter/defibrillator) present Current Visit: Yes Status: Chronic (3) Cardiomyopathy Current Visit: Yes Status: Chronic Qualifiers: Cardiomyopathy type: C (4) Acute on chronic respiratory failure Current Visit: Yes Status: Acute Qualifiers: Respiratory failure complication: hypoxia Qualified Code(s): J96.21 - Acute and chronic respiratory failure with hypoxia (5) Acute on chronic systolic heart failure Current Visit: Yes Status: Acute (6) Severe mitral regurgitation Current Visit: Yes Status: Chronic Subjective Date of service: 12/24/16 Principal diagnosis: s/p C-P arrest, acute on chronic resp failure, Acute on chronic SHF, CMP Interval history: pt remains intubated, unresponsive, off sedation. remains on julienne and milrinone gtts. no family at bedside. Objective Last Vital Signs Temp 99.7 F H 12/24/16 12:00 Pulse 90 12/24/16 12:15 Resp 20 12/24/16 12:15 BP 106/64 12/24/16 12:15 Pulse Ox 99 12/24/16 12:15 - Physical Examination General: No Apparent Distress, Other (unresponsive) HEENT: Positive: Normocephaly, Mucus Membranes Moist Neck: Positive: neck supple, trachea midline Cardiac: Positive: Reg Rate and Rhythm, S1/S2, S3, Systolic Murmur Lungs: Positive: Decreased Breath Sounds, Ventilated Respirations Neuro: Positive: Other (unresponsive) Abdomen: Positive: Soft, Active Bowel Sounds Skin: Positive: Clear. Negative: Rash Musculoskeletal: No Fluid Collection Extremities: Absent: edema - Labs and Meds Cardiac Enzymes 12/23/16 Range/Units 12:51 AST 105 H (5-40) units/L CBC 12/24/16 Range/Units 03:40 WBC 19.5 H (4.5-11.0) K/mm3 RBC 4.49 (3.65-5.03) M/mm3 Hgb 13.1 (11.8-15.2) gm/dl Hct 40.4 (35.5-45.6) % Plt Count 227 (140-440) K/mm3 Lymph # 1.4 (1.2-5.4) K/mm3 Ness # 1.4 H (0.0-0.8) K/mm3 Eos # 0.0 (0.0-0.4) K/mm3 Baso # 0.2 H (0.0-0.1) K/mm3 Comprehensive Metabolic Panel 12/23/16 12/24/16 Range/Units 12:51 03:40 Sodium 144 146 H (137-145) mmol/L Potassium 4.6 3.6 D (3.6-5.0) mmol/L Chloride 103.4 106.3 (98-107) mmol/L Carbon Dioxide 27 (22-30) mmol/L BUN 29 H (9-20) mg/dL Creatinine 1.1 (0.8-1.5) mg/dL Glucose 98 (75-100) mg/dL Calcium 8.4 (8.4-10.2) mg/dL AST 105 H (5-40) units/L ALT 36 (7-56) units/L - Imaging and Cardiology EKG: image reviewed Echo: report reviewed (EF 10-15%, LA severely dilated, RV mildly dilated, severe MR, mild TR, LV severely dilated, RV mildly dilated) - EKG Sinus rhythms and dysrhythmias: sinus tachycardia
--- NOTE | 2016-12-24 16:26 | Progress Note ---
Assessment and Plan Imp: 1. Severe/end-stage dilated CMP 2. A/C systolic CHF 3. s/p CP arrest 4. Probable anoxic encephalopathy 5. Acute/chronic respiratory failure, hypoxia and hypercapnea 6. Cardiogenic shock 7. Lactic acidosis, resolved 8. ? Aspiration pneumonitis 9. R pleural effusion, probably due to CHF Rec: 1. ABX and cultures as per ID 2. Wean Valeriy to keep MAP > 60 3. PSV trials daily (failed today); mentation precludes extubation 4. Remain off sedation; EEG pending 5. TFs; monitor sodium 6. GI/DVT PPx 7. Poor overall prognosis No family present today CCT 31 minutes Subjective Date of service: 12/24/16 Principal diagnosis: s/p C-P arrest, acute on chronic resp failure, Acute on chronic SHF, CMP Interval history: No events. Off sedation x 48 hours. Not waking up or following commands. Remains on Valeriy at 150mcg. PEEP at 5, sat of 100%. Active Medications Acetaminophen (Tylenol) 650 mg MO Q4H PRN PRN Reason: Pain, Mild (1-3) Last Admin: 12/22/16 10:15 Dose: 650 mg Albuterol (Proventil) 2.5 mg IH Q4H PRN PRN Reason: Shortness Of Breath Lipase/Protease/Amylase (Pancreaze Dr 10,500 Unit) 1 each FEEDTUBE PRN PRN PRN Reason: For Clogged Feeding Tube Aspirin (Aspirin) 325 mg PO QDAY [facility] Last Admin: 12/24/16 09:46 Dose: 325 mg Enoxaparin Sodium (Lovenox) 40 mg SUB-Q QDAY@2200 [facility] Last Admin: 12/23/16 21:06 Dose: 40 mg Famotidine (Pepcid) 20 mg PO BID [facility] Last Admin: 12/24/16 09:46 Dose: 20 mg Furosemide (Lasix) 40 mg IV 0600,1800 [facility] Last Admin: 12/24/16 05:10 Dose: 40 mg Hydrophilic Ointment (Vaseline Lip Therapy) 1 applic TP Q2HR PRN PRN Reason: Dry Lips Piperacillin Sod/Tazobactam Sod (Zosyn/Ns 4.5gm/100ml) 4.5 gm in 100 mls @ 200 mls/hr IV Q8HR [facility] PRN Reason: Protocol Last Admin: 12/24/16 13:51 Dose: 200 mls/hr Milrinone Lactate 20 mg/ (Dextrose) 100 mls @ 9.9 mls/hr IV TITR [facility]; 0.375 MCG /KG/MIN PRN Reason: Protocol Last Admin: 12/24/16 14:10 Dose: 0.37 mcg/kg/min, 9.76 mls/hr Vancomycin HCl 1,500 mg/ (Sodium Chloride) 515 mls @ 333.333 mls/hr IV Q12HR [facility] Last Admin: 12/24/16 09:46 Dose: 333.333 mls/hr Phenylephrine HCl 100 mg/ (Sodium Chloride) 100 mls @ 3 mls/hr IV TITR [facility]ATH[facility]; 50 MCG/MIN PRN Reason: Protocol Last Admin: 12/24/16 09:47 Dose: 150 mcg/min, 9 mls/hr Multi-Ingred Cream/Lotion/Oil/Oint (Artificial Tears Ophth Oint) 1 applic OU Q4HR PRN PRN Reason: Dry Eye(s) Last Admin: 12/22/16 10:38 Dose: 1 applic Simple Syrup (Simple Syrup) 15 ml FEEDTUBE PRN PRN PRN Reason: Hypoglycemia Simple Syrup (Simple Syrup) 30 ml FEEDTUBE PRN PRN PRN Reason: Hypoglycemia Sodium Bicarbonate (Sodium Bicarbonate) 325 mg FEEDTUBE PRN PRN PRN Reason: For Clogged Feeding Tube Sodium Chloride (Nacl 0.9% 500 Ml) 1 ml IV DIRECT [facility] Vancomycin HCl (Vancomycin Pharmacy To Dose) 1 each IV PKCONSULT [facility] PRN Reason: Protocol Objective Vital Signs - 12hr 12/24/16 12/24/16 12/24/16 04:30 04:45 05:00 Temperature Pulse Rate 100 H 104 H 104 H Pulse Rate [ From Monitor] Respiratory 20 22 21 Rate Blood Pressure 106/75 115/77 102/77 O2 Sat by Pulse 98 97 97 Oximetry 12/24/16 12/24/16 12/24/16 05:15 05:30 05:45 Temperature Pulse Rate 98 H 105 H 95 H Pulse Rate [ From Monitor] Respiratory 20 21 20 Rate Blood Pressure 107/80 99/63 101/64 O2 Sat by Pulse 98 98 98 Oximetry 12/24/16 12/24/16 12/24/16 06:00 06:15 06:30 Temperature Pulse Rate 101 H 102 H 101 H Pulse Rate [ From Monitor] Respiratory 20 20 20 Rate Blood Pressure 101/69 108/71 107/73 O2 Sat by Pulse 99 99 99 Oximetry 12/24/16 12/24/16 12/24/16 06:45 07:00 07:15 Temperature Pulse Rate 101 H 102 H 101 H Pulse Rate [ From Monitor] Respiratory 20 20 20 Rate Blood Pressure 107/73 109/73 111/69 O2 Sat by Pulse 99 99 97 Oximetry 12/24/16 12/24/16 12/24/16 07:30 07:45 08:00 Temperature 102.6 F H Pulse Rate 106 H 100 H 99 H Pulse Rate [ 99 H From Monitor] Respiratory 23 20 20 Rate Blood Pressure 113/72 94/63 101/69 O2 Sat by Pulse 97 98 99 Oximetry 12/24/16 12/24/16 12/24/16 08:15 08:30 08:45 Temperature Pulse Rate 101 H 102 H 101 H Pulse Rate [ From Monitor] Respiratory 20 20 20 Rate Blood Pressure 109/74 102/66 94/60 O2 Sat by Pulse 99 98 97 Oximetry 12/24/16 12/24/16 12/24/16 08:47 08:54 09:00 Temperature Pulse Rate 102 H 97 H 107 H Pulse Rate [ From Monitor] Respiratory 40 H 40 H Rate Blood Pressure 94/60 94/60 97/62 O2 Sat by Pulse 97 96 94 Oximetry 12/24/16 12/24/16 12/24/16 09:06 09:15 09:30 Temperature Pulse Rate 103 H 102 H 103 H Pulse Rate [ From Monitor] Respiratory 23 23 25 H Rate Blood Pressure 97/62 96/62 98/66 O2 Sat by Pulse 96 97 97 Oximetry 12/24/16 12/24/16 12/24/16 09:45 10:00 10:08 Temperature Pulse Rate 101 H 93 H 100 H Pulse Rate [ From Monitor] Respiratory 26 H 25 H 25 H Rate Blood Pressure 99/67 97/63 97/63 O2 Sat by Pulse 98 98 98 Oximetry 12/24/16 12/24/16 12/24/16 10:11 10:15 10:30 Temperature Pulse Rate 94 H 88 92 H Pulse Rate [ From Monitor] Respiratory 32 H 35 H 33 H Rate Blood Pressure 97/63 96/63 93/58 O2 Sat by Pulse 98 98 98 Oximetry 12/24/16 12/24/16 12/24/16 10:45 10:46 10:53 Temperature Pulse Rate 91 H 99 H 93 H Pulse Rate [ From Monitor] Respiratory 33 H 33 H 26 H Rate Blood Pressure 94/66 94/66 94/66 O2 Sat by Pulse 98 98 99 Oximetry 12/24/16 12/24/16 12/24/16 11:00 11:15 11:28 Temperature Pulse Rate 93 H 90 87 Pulse Rate [ From Monitor] Respiratory 30 H 26 H 25 H Rate Blood Pressure 91/60 93/62 93/62 O2 Sat by Pulse 97 99 99 Oximetry 12/24/16 12/24/16 12/24/16 11:30 11:34 11:45 Temperature Pulse Rate 94 H 83 81 Pulse Rate [ From Monitor] Respiratory 21 20 Rate Blood Pressure 98/67 98/67 100/65 O2 Sat by Pulse 99 99 99 Oximetry 12/24/16 12/24/16 12/24/16 12:00 12:15 12:30 Temperature 99.7 F H Pulse Rate 83 90 90 Pulse Rate [ From Monitor] Respiratory 20 20 20 Rate Blood Pressure 95/65 106/64 93/62 O2 Sat by Pulse 99 99 99 Oximetry 12/24/16 12/24/16 12/24/16 12:45 13:00 13:15 Temperature Pulse Rate 83 90 87 Pulse Rate [ From Monitor] Respiratory 20 20 20 Rate Blood Pressure 88/65 97/64 98/58 O2 Sat by Pulse 99 99 99 Oximetry 12/24/16 12/24/16 12/24/16 13:30 13:45 14:00 Temperature Pulse Rate 84 93 H 91 H Pulse Rate [ From Monitor] Respiratory 20 20 20 Rate Blood Pressure 96/63 98/68 104/70 O2 Sat by Pulse 99 99 99 Oximetry 12/24/16 12/24/16 12/24/16 14:15 14:30 14:45 Temperature Pulse Rate 95 H 79 78 Pulse Rate [ From Monitor] Respiratory 20 20 20 Rate Blood Pressure 89/54 101/66 109/65 O2 Sat by Pulse 97 99 99 Oximetry 12/24/16 12/24/16 12/24/16 15:00 15:14 15:15 Temperature Pulse Rate 78 87 86 Pulse Rate [ From Monitor] Respiratory 20 20 Rate Blood Pressure 92/65 101/68 101/68 O2 Sat by Pulse 100 100 100 Oximetry 12/24/16 12/24/16 15:30 15:45 Temperature Pulse Rate 81 89 Pulse Rate [ From Monitor] Respiratory 20 20 Rate Blood Pressure 107/64 106/71 O2 Sat by Pulse 99 100 Oximetry Constitutional: comatose Eyes: non-icteric ENT: oropharynx moist, other (orally intubated) Neck: supple Effort: normal Ascultation: Bilateral: wheezes (faint expiratory), rales Cardiovascular: regular rate and rhythm (no mrg) Gastrointestinal: normoactive bowel sounds, soft, non-tender, non-distended Integumentary: normal Extremities: no cyanosis, pink and warm, edema (1+ pedal edema) Neurologic: other (unresponsive, flaccid extremities) Psychiatric: other (not able to assess) CBC and BMP: 12/24/16 03:40 12/24/16 03:40 ABG, PT/INR, D-dimer: ABG POC ABG pH 7.494 (7.35-7.45) H 12/24/16 03:09 POC ABG pCO2 39.7 (35-45) 12/24/16 03:09 POC ABG pO2 78 (80-105) L 12/24/16 03:09 POC ABG HCO3 30.5 12/24/16 03:09 POC ABG Total CO2 32 12/24/16 03:09 POC ABG O2 Sat 96 12/24/16 03:09 PT/INR, D-dimer PT 20.5 Sec. (12.2-14.9) H 12/20/16 17:00 INR 1.66 (0.87-1.13) H 12/20/16 17:00 Abnormal lab findings: Abnormal Labs 12/20/16 12/20/16 12/21/16 21:53 23:13 01:35 WBC RDW Lymph % (Auto) [place] # Baso # Seg Neutrophils % Seg Neuts % (Manual) Lymphocytes % (Manual) Seg Neutrophils # Seg Neutrophils # Man Monocytes # (Manual) POC ABG pH POC ABG pCO2 52.4 H POC ABG pO2 113 H Sodium BUN Glucose Lactic Acid 4.60 H* 5.50 H* Calcium Total Bilirubin AST Albumin Urine WBC (Auto) 12/21/16 12/21/16 12/22/16 05:54 08:15 04:42 WBC RDW Lymph % (Auto) [place] # Baso # Seg Neutrophils % Seg Neuts % (Manual) Lymphocytes % (Manual) Seg Neutrophils # Seg Neutrophils # Man Monocytes # (Manual) POC ABG pH POC ABG pCO2 46.7 H POC ABG pO2 142 H 72 L Sodium BUN Glucose Lactic Acid Calcium Total Bilirubin AST Albumin Urine WBC (Auto) 30.0 H 12/22/16 12/23/16 12/23/16 10:55 04:00 12:51 WBC 20.5 H RDW 15.9 H Lymph % (Auto) [place] # Baso # Seg Neutrophils % Seg Neuts % (Manual) 85.0 H Lymphocytes % (Manual) 8.0 L Seg Neutrophils # Seg Neutrophils # Man 17.4 H Monocytes # (Manual) 1.4 H POC ABG pH 7.514 H POC ABG pCO2 POC ABG pO2 Sodium BUN 27 H Glucose 105 H Lactic Acid Calcium Total Bilirubin AST Albumin Urine WBC (Auto) 12/23/16 12/24/16 12/24/16 12:51 03:09 03:40 WBC 19.5 H RDW 16.0 H Lymph % (Auto) 6.9 L [place] # 1.4 H Baso # 0.2 H Seg Neutrophils % 84.9 H Seg Neuts % (Manual) Lymphocytes % (Manual) Seg Neutrophils # 16.6 H Seg Neutrophils # Man Monocytes # (Manual) POC ABG pH 7.494 H POC ABG pCO2 POC ABG pO2 78 L Sodium BUN 30 H Glucose Lactic Acid Calcium 8.3 L Total Bilirubin 1.80 H AST 105 H Albumin 2.3 L Urine WBC (Auto) 12/24/16 03:40 WBC RDW Lymph % (Auto) [place] # Baso # Seg Neutrophils % Seg Neuts % (Manual) Lymphocytes % (Manual) Seg Neutrophils # Seg Neutrophils # Man Monocytes # (Manual) POC ABG pH POC ABG pCO2 POC ABG pO2 Sodium 146 H BUN 29 H Glucose Lactic Acid Calcium Total Bilirubin AST Albumin Urine WBC (Auto) Chest x-ray: report reviewed, image reviewed (improved edema; persistent small R effusion)
[2016-12-24] MEDS: LOVENOX SUB-Q SCH (22:22)
[2016-12-25] MEDS: PRIMACOR 20 MG in D5W 80 ML IV SCH ×3 (01:00→18:43)
[2016-12-25 04:27] LABS: ISTAT Base Excess 4; ISTAT PH 7.464 (7.35-7.45); ISTAT PO2 111 (80-105); ISTAT SO2 99; ISTAT TCO2 29
[2016-12-25] MEDS: LASIX IV SCH (05:04)
[2016-12-25] MEDS: ZOSYN/NS 4.5GM/100ML 4.5 GM/100 ML VIAL IV SCH ×3 (05:04→22:58)
[2016-12-25] MEDS: NEO-SYNEPHRINE 100 MG in NACL 0.9% 90 ML IV SCH ×2 (05:14→13:39)
--- NOTE | 2016-12-25 07:15 | XRay Report ---
AP CHEST: HISTORY: Followup respiratory failure Lines and support devices are unchanged since yesterday's exam. Cardiomegaly, pulmonary venous congestion and small to medium right pleural effusion are stable. There is compressive atelectasis at the right lung base but no convincing pneumonia. No pneumothorax. IMPRESSION: No change.
--- NOTE | 2016-12-25 08:34 | Progress Note ---
Assessment and Plan Assessment and plan: 59-year-old man with a past medical history of end-stage CHF on milrinone drip at home, chronic respiratory failure, COPD, oxygen dependent on 3 L at home, gallops, atrial flutter, who was brought in by his . States that the patient had complained of shortness of breath and then subsequently collapsed. EMS arrived and found to be asystolic arrest, he received ACLS protocol and had return of circulation was then brought to the hospital. Cardiac arrest Status post ACS protocol, cardiology consult, continue telemetry Acute on chronic systolic CHF exacerbation with pulmonary venous congestion Cardiology input appreciated, continue milrinone drip, continue supportive care IV lasix as tolerated SEVERE ENDSTAGE DILATED CMP * Cardiology following, Continue on Milirione drip Cardiogenic shock Continue IV pressor support Septic shock/Severe spesis Recurrent fever Treated with empiric frustration antibiotics, follow blood and urine cultures Recurrent fever likely secondary to anoxic brain injury No clear evidence of pneumonia, possible UTI, cultures remained negative. ID consult continue Pressors, phenylephrine and milrinone MAY NEED PICC LINE CHANGED WHEN AFEBRILE Acute hypercapnic respiratory failure on mechanical ventilator greater than 48 hours Continue mechanical ventilator, pulmonary input appreciated, We'll attempt to wean off ventilator daily Patient continues to fail weaning trials Metabolic encephalopathy Most likely due to hypoperfusion of central nervous system , i.e. anoxic brain injury CT head does not show any acute findings, CTA head also shows no acute findings , patient has a pacemaker/ICD, therefore MRI is contraindicated Neurology consult and bruits noted. EEG. Remains unresponsive despite not being on sedation ACUTE CYSTITIS -continue empiric abx -sputum culture no growth RIGHT SIDED PLEURAL EFFUSION -Probably due to CHF. will monitor. DVT/GI PROPHY Had extensive discussion with the father, family, sister on 12/25/16, they still want to be given 24 hours for all the family to come to a physician. Poor prognosis The high probability of a clinically significant, sudden or life threatening deterioration of the [cardiovascular, pulmonary and Neurologic] system(s) required my full and direct attention, intervention and personal management. The aggregate critical care time was [35] minutes. This time is in addition to time spent performing reported procedures but includes the following: [X] Data Review and interpretation [X] Patient assessment and monitoring of vital signs [X] Documentation [X] Medication orders and management History Interval history: Patient seen and examined remains comatose. Hospitalist Physical - Physical exam Narrative exam: VITAL SIGNS: Reviewed. GENERAL: The patient appeared comatose, ventilated. Vital signs as documented. HEAD: No signs of head trauma. EYES: Pupils are equal. EARS: Unable to assess MOUTH: Oropharynx is normal. NECK: No adenopathy, no JVD. CHEST: Chest with faint expiratory wheeze. CARDIAC: Regular rate and rhythm. S1 and S2, without murmurs, gallops, or rubs. VASCULAR: No Edema. Peripheral pulses normal and equal in all extremities. ABDOMEN: Soft, unable to assess tenderness. No grimacing on palpation. No sign of distention. Bowel Sounds normal. MUSCULOSKELETAL: Extremities without clubbing, cyanosis or edema. NEUROLOGIC EXAM: Comatose with flaccid extremities PSYCHIATRIC: Unable to assess. SKIN: PICC line to left upper ext - Constitutional Vitals: Temp Pulse Resp BP Pulse Ox 99.5 F 83 20 112/71 100 12/25/16 05:51 12/25/16 08:15 12/25/16 08:15 12/25/16 08:15 12/25/16 08:15 General appearance: Present: severe distress Results - Labs CBC & Chem 7: 12/24/16 03:40 12/24/16 03:40 Labs: Laboratory Last Values WBC 19.5 K/mm3 (4.5-11.0) H 12/24/16 03:40 RBC 4.49 M/mm3 (3.65-5.03) 12/24/16 03:40 Hgb 13.1 gm/dl (11.8-15.2) 12/24/16 03:40 Hct 40.4 % (35.5-45.6) 12/24/16 03:40 MCV 90 fl (84-94) 12/24/16 03:40 MCH 29 pg (28-32) 12/24/16 03:40 MCHC 32 % (32-34) 12/24/16 03:40 RDW 16.0 % (13.2-15.2) H 12/24/16 03:40 Plt Count 227 K/mm3 (140-440) 12/24/16 03:40 Lymph % (Auto) 6.9 % (13.4-35.0) L 12/24/16 03:40 [place] % (Auto) 7.1 % (0.0-7.3) 12/24/16 03:40 Eos % (Auto) 0.2 % (0.0-4.3) 12/24/16 03:40 Baso % (Auto) 0.9 % (0.0-1.8) 12/24/16 03:40 Lymph # 1.4 K/mm3 (1.2-5.4) 12/24/16 03:40 [place] # 1.4 K/mm3 (0.0-0.8) H 12/24/16 03:40 Eos # 0.0 K/mm3 (0.0-0.4) 12/24/16 03:40 Baso # 0.2 K/mm3 (0.0-0.1) H 12/24/16 03:40 Add Manual Diff Complete 12/23/16 12:51 Total Counted 100 12/23/16 12:51 Seg Neutrophils % 84.9 % (40.0-70.0) H 12/24/16 03:40 Seg Neuts % (Manual) 85.0 % (40.0-70.0) H 12/23/16 12:51 Band Neutrophils % 0 % 12/23/16 12:51 Lymphocytes % (Manual) 8.0 % (13.4-35.0) L 12/23/16 12:51 Reactive Lymphs % (Man) 0 % 12/23/16 12:51 Monocytes % (Manual) 7.0 % (0.0-7.3) 12/23/16 12:51 Eosinophils % (Manual) 0 % (0.0-4.3) 12/23/16 12:51 Basophils % (Manual) 0 % (0.0-1.8) 12/23/16 12:51 Metamyelocytes % 0 % 12/23/16 12:51 Myelocytes % 0 % 12/23/16 12:51 Promyelocytes % 0 % 12/23/16 12:51 Blast Cells % 0 % 12/23/16 12:51 Nucleated RBC % Not Reportable 12/23/16 12:51 Seg Neutrophils # 16.6 K/mm3 (1.8-7.7) H 12/24/16 03:40 Seg Neutrophils # Man 17.4 K/mm3 (1.8-7.7) H 12/23/16 12:51 Band Neutrophils # 0.0 K/mm3 12/23/16 12:51 Lymphocytes # (Manual) 1.6 K/mm3 (1.2-5.4) 12/23/16 12:51 Abs React Lymphs (Man) 0.0 K/mm3 12/23/16 12:51 Monocytes # (Manual) 1.4 K/mm3 (0.0-0.8) H 12/23/16 12:51 Eosinophils # (Manual) 0.0 K/mm3 (0.0-0.4) 12/23/16 12:51 Basophils # (Manual) 0.0 K/mm3 (0.0-0.1) 12/23/16 12:51 Metamyelocytes # 0.0 K/mm3 12/23/16 12:51 Myelocytes # 0.0 K/mm3 12/23/16 12:51 Promyelocytes # 0.0 K/mm3 12/23/16 12:51 Blast Cells # 0.0 K/mm3 12/23/16 12:51 WBC Morphology Not Reportable 12/23/16 12:51 Hypersegmented Neuts Not Reportable 12/23/16 12:51 Hyposegmented Neuts Not Reportable 12/23/16 12:51 Hypogranular Neuts Not Reportable 12/23/16 12:51 Smudge Cells Not Reportable 12/23/16 12:51 Toxic Granulation Not Reportable 12/23/16 12:51 Toxic Vacuolation Not Reportable 12/23/16 12:51 Dohle Bodies Not Reportable 12/23/16 12:51 Pelger-Huet Anomaly Not Reportable 12/23/16 12:51 Shantal Rods Not Reportable 12/23/16 12:51 Platelet Estimate Appears normal 12/23/16 12:51 Clumped Platelets Not Reportable 12/23/16 12:51 Plt Clumps, EDTA Not Reportable 12/23/16 12:51 Large Platelets Not Reportable 12/23/16 12:51 Giant Platelets Not Reportable 12/23/16 12:51 Platelet Satelliting Not Reportable 12/23/16 12:51 Plt Morphology Comment Not Reportable 12/23/16 12:51 RBC Morphology Not Reportable 12/23/16 12:51 Dimorphic RBCs Not Reportable 12/23/16 12:51 Polychromasia Not Reportable 12/23/16 12:51 Hypochromasia Not Reportable 12/23/16 12:51 Poikilocytosis Not Reportable 12/23/16 12:51 Anisocytosis Not Reportable 12/23/16 12:51 Microcytosis Not Reportable 12/23/16 12:51 Macrocytosis Not Reportable 12/23/16 12:51 Spherocytes Not Reportable 12/23/16 12:51 Pappenheimer Bodies Not Reportable 12/23/16 12:51 Sickle Cells Not Reportable 12/23/16 12:51 Target Cells Not Reportable 12/23/16 12:51 Tear Drop Cells Not Reportable 12/23/16 12:51 Ovalocytes Few 12/23/16 12:51 Helmet Cells Not Reportable 12/23/16 12:51 [place] Bodies Not Reportable 12/23/16 12:51 [place] Rings Not Reportable 12/23/16 12:51 [place] Cells Not Reportable 12/23/16 12:51 Bite Cells Not Reportable 12/23/16 12:51 Crenated Cell Not Reportable 12/23/16 12:51 Elliptocytes Not Reportable 12/23/16 12:51 Acanthocytes (Spur) Not Reportable 12/23/16 12:51 Rouleaux Not Reportable 12/23/16 12:51 Hemoglobin C Crystals Not Reportable 12/23/16 12:51 Schistocytes Not Reportable 12/23/16 12:51 Malaria parasites Not Reportable 12/23/16 12:51 [place] Bodies Not Reportable 12/23/16 12:51 Hem Pathologist Commnt No 12/23/16 12:51 PT 20.5 Sec. (12.2-14.9) H 12/20/16 17:00 INR 1.66 (0.87-1.13) H 12/20/16 17:00 APTT 39.4 Sec. (24.2-36.6) H 12/20/16 17:00 POC ABG pH 7.464 (7.35-7.45) H 12/25/16 04:15 POC ABG pCO2 39.0 (35-45) 12/25/16 04:15 POC ABG pO2 111 (80-105) H 12/25/16 04:15 POC ABG HCO3 28.0 12/25/16 04:15 POC ABG Total CO2 29 12/25/16 04:15 POC ABG O2 Sat 99 12/25/16 04:15 POC ABG Base Excess 4 12/25/16 04:15 FiO2 30 % 12/25/16 04:15 Sodium 146 mmol/L (137-145) H 12/24/16 03:40 Potassium 3.6 mmol/L (3.6-5.0) D 12/24/16 03:40 Chloride 106.3 mmol/L (98-107) 12/24/16 03:40 Carbon Dioxide 27 mmol/L (22-30) 12/24/16 03:40 Anion Gap 16 mmol/L 12/24/16 03:40 BUN 29 mg/dL (9-20) H 12/24/16 03:40 Creatinine 1.1 mg/dL (0.8-1.5) 12/24/16 03:40 Estimated GFR > 60 ml/min 12/24/16 03:40 BUN/Creatinine Ratio 26.36 % 12/24/16 03:40 Glucose 98 mg/dL (75-100) 12/24/16 03:40 POC Glucose 119 (70-105) H 12/25/16 04:51 Lactic Acid 1.30 mmol/L (0.7-2.0) 12/24/16 06:00 Calcium 8.4 mg/dL (8.4-10.2) 12/24/16 03:40 Phosphorus 2.60 mg/dL (2.5-4.5) 12/24/16 03:40 Magnesium 2.30 mg/dL (1.7-2.3) 12/24/16 03:40 Total Bilirubin 1.80 mg/dL (0.1-1.2) H 12/23/16 12:51 AST 105 units/L (5-40) H 12/23/16 12:51 ALT 36 units/L (7-56) 12/23/16 12:51 Alkaline Phosphatase 77 units/L (35-129) 12/23/16 12:51 Total Creatine Kinase 86 units/L (55-170) 12/20/16 17:00 CK-MB (CK-2) 4.2 ng/mL (0.0-4.0) H 12/20/16 17:00 CK-MB (CK-2) Rel Index 4.8 (0-4) H 12/20/16 17:00 Troponin T 0.054 ng/mL (0.00-0.029) H 12/20/16 17:00 NT-Pro-B Natriuret Pep 9604 pg/mL (0-900) H 12/20/16 17:00 Total Protein 7.7 g/dL (6.3-8.2) 12/23/16 12:51 Albumin 2.3 g/dL (3.9-5) L 12/23/16 12:51 Albumin/Globulin Ratio 0.4 % 12/23/16 12:51 Triglycerides 82 mg/dL (2-149) 12/20/16 17:00 Cholesterol 128 mg/dL (50-199) 12/20/16 17:00 LDL Cholesterol Direct 51 mg/dL (50-130) 12/20/16 17:00 HDL Cholesterol 61 mg/dL (40-59) H 12/20/16 17:00 Cholesterol/HDL Ratio 2.09 % 12/20/16 17:00 Urine Color Ke[place] (Yellow) 12/21/16 08:15 Urine Turbidity Clear (Clear) 12/21/16 08:15 Urine pH 5.0 (5.0-7.0) 12/21/16 08:15 Ur Specific [place] 1.023 (1.003-1.030) 12/21/16 08:15 Urine Protein <15 mg/dl mg/dL (Negative) 12/21/16 08:15 Urine Glucose (UA) Neg mg/dL (Negative) 12/21/16 08:15 Urine Ketones Neg mg/dL (Negative) 12/21/16 08:15 Urine Blood Lg (Negative) 12/21/16 08:15 Urine Nitrite Neg (Negative) 12/21/16 08:15 Urine Bilirubin Neg (Negative) 12/21/16 08:15 Urine Urobilinogen 2.0 mg/dL (<2.0) 12/21/16 08:15 Ur Leukocyte Esterase Mod (Negative) 12/21/16 08:15 Urine WBC (Auto) 30.0 /HPF (0.0-6.0) H 12/21/16 08:15 Urine RBC (Auto) 93.0 /HPF (0.0-6.0) 12/21/16 08:15 U Epithel Cells (Auto) < 1.0 /HPF (0-13.0) 12/21/16 08:15 Calcium Oxalate Crystal Few 12/21/16 08:15 Hyaline Casts 2 /LPF 12/21/16 08:15 Urine Mucus Few /HPF 12/21/16 08:15 Vancomycin Trough 24.8 ug/mL (5.0-20.0) H 12/24/16 21:30 - Imaging and Cardiology Chest x-ray: image reviewed (no acute pathology)
[2016-12-25] MEDS: PEPCID PO SCH ×2 (09:49→22:59)
[2016-12-25] MEDS: ASPIRIN PO SCH (09:49)
[2016-12-25 10:33] LABS: Eosinophils % (Auto) 1.7 % (0.0-4.3); Hematocrit 43.1 % (35.5-45.6); Hemoglobin 13.5 gm/dl (11.8-15.2); Mean Corpuscular HGB Conc 31 % (32-34); Mean Corpuscular Hemoglobin 29 pg (28-32); Mean Corpuscular Volume 91 fl (84-94); Platelet Count 222 K/mm3 (140-440); Red Blood Count 4.72 M/mm3 (3.65-5.03); Red Cell Distribution Width 16.3 % (13.2-15.2); White Blood Count 17.4 K/mm3 (4.5-11.0)
--- NOTE | 2016-12-25 10:50 | Progress Note ---
Assessment and Plan Assessment: 1) Shock: still fever, leukocytosis improving (received solumedrol IV x 1). [id number] ? septic ? versus ? cardiogenic or a combination. Septic shock source likely UTI. -CRP=6 -Blood cx x 2 negative -Old PICC unclear duration ? 2) UTI: urine cx negative 3) S/P respiratory arrest 4) Respiratory failure 5) End-stage heart failure on 6) PICC line and AICD in place Plan: -remove PICC and place central line for now -exchange iniguez -f/u respiratory cultures, procalcitonin -cortisol pending -continue zosyn and vancomycin for now -discussed with ICU staff Thank you Dr Tang for your consultation, will follow up with you. Sally Biswas MD Infectious Diseases Specialist [facility] ([facility]) M [phone] O [phone] Subjective Date of service: 12/25/16 Principal diagnosis: s/p C-P arrest, acute on chronic resp failure, Acute on chronic SHF, CMP Interval history: Remains with fever Tmax 102.5 however trending down. He is on Milrinone and Neosynephrine IV drip Microbiology: Blood cultures: 12/21 neg 12/24 ngtd Urine cultures: 12/21 ngtd Respiratory cultures: 12/20 neg Wound cultures: Stool cultures: Other: Current Antimicrobials: Zosyn 12/20 Vancomycin 12/20 Previous Antimicrobials: Objective - Exam Narrative Exam: General appearance: sedated on the vent Eyes: anicteric sclerae, moist conjunctivae; no lid-lag; PERRLA HENT: Atraumatic; oropharynx limitted +ETT Neck: Trachea midline; supple, no thyromegaly or lymphadenopathy Lungs: michael rhonchi. AICD no erythema, edema, tenderness CV: RRR Abdomen: Soft, non-tender; no masses or hepatosplenomegaly Extremities: + peripheral edema Skin: Normal temperature, turgor and texture; no rash, ulcers or subcutaneous nodules Psych: sedated. Neuro: sedated Lines: right arm PICC, iniguez, NGT - Constitutional Vitals: Vital Signs Temp Pulse Resp BP Pulse Ox 97.5 F L 83 20 112/71 100 12/25/16 08:00 12/25/16 08:15 12/25/16 08:15 12/25/16 08:15 12/25/16 08:15 Temperature -Last 24 Hours Temperature 97.5 F Temperature 99.5 F Temperature 101 F Temperature 100.5 F Temperature 102.6 F Temperature 102.7 F Temperature 101.4 F Temperature 99.7 F - Labs CBC & Chem 7: 12/25/16 10:05 12/24/16 03:40 Labs: Abnormal lab results 12/24/16 12/24/16 12/25/16 Range/Units 21:30 23:32 04:15 WBC (4.5-11.0) K/mm3 MCHC (32-34) % RDW (13.2-15.2) % Lymph % (Auto) (13.4-35.0) % [place] % (Auto) (0.0-7.3) % [place] # (0.0-0.8) K/mm3 Baso # (0.0-0.1) K/mm3 Seg Neutrophils % (40.0-70.0) % Seg Neutrophils # (1.8-7.7) K/mm3 POC ABG pH 7.464 H (7.35-7.45) POC ABG pO2 111 H (80-105) POC Glucose 114 H (70-105) C-Reactive Protein (0.00-1.30) mg/dL Vancomycin Trough 24.8 H (5.0-20.0) ug/mL 12/25/16 12/25/16 12/25/16 Range/Units 04:51 10:05 10:05 WBC 17.4 H (4.5-11.0) K/mm3 MCHC 31 L (32-34) % RDW 16.3 H (13.2-15.2) % Lymph % (Auto) 8.7 L (13.4-35.0) % [place] % (Auto) 9.6 H (0.0-7.3) % [place] # 1.7 H (0.0-0.8) K/mm3 Baso # 0.2 H (0.0-0.1) K/mm3 Seg Neutrophils % 79.0 H (40.0-70.0) % Seg Neutrophils # 13.7 H (1.8-7.7) K/mm3 POC ABG pH (7.35-7.45) POC ABG pO2 (80-105) POC Glucose 119 H (70-105) C-Reactive Protein 6.00 H (0.00-1.30) mg/dL Vancomycin Trough (5.0-20.0) ug/mL
--- NOTE | 2016-12-25 12:10 | Progress Note ---
Assessment and Plan Continue vasopressor support and other management. The patient has been seen in conjunction with Dr. Tamez who agrees with the assessment and plan of care. - Patient Problems (1) Cardiopulmonary arrest with successful resuscitation Current Visit: Yes Status: Acute (2) AICD (automatic cardioverter/defibrillator) present Current Visit: Yes Status: Chronic (3) Cardiomyopathy Current Visit: Yes Status: Chronic Qualifiers: Cardiomyopathy type: C (4) Acute on chronic respiratory failure Current Visit: Yes Status: Acute Qualifiers: Respiratory failure complication: hypoxia Qualified Code(s): J96.21 - Acute and chronic respiratory failure with hypoxia (5) Acute on chronic systolic heart failure Current Visit: Yes Status: Acute (6) Severe mitral regurgitation Current Visit: Yes Status: Chronic Subjective Date of service: 12/25/16 Principal diagnosis: s/p C-P arrest, acute on chronic resp failure, Acute on chronic SHF, CMP Interval history: pt remains intubated, unresponsive, off sedation. remains on julienne and milrinone gtts. no family at bedside. Objective Last Vital Signs Temp 97.5 F L 12/25/16 08:00 Pulse 96 H 12/25/16 12:00 Resp 21 12/25/16 12:00 BP 111/73 12/25/16 12:00 Pulse Ox 99 12/25/16 12:00 - Physical Examination General: No Apparent Distress, Other (unresponsive) HEENT: Positive: Normocephaly, Mucus Membranes Moist Neck: Positive: neck supple, trachea midline Cardiac: Positive: Reg Rate and Rhythm, S1/S2 Lungs: Positive: Decreased Breath Sounds, Ventilated Respirations Neuro: Positive: Other (unresponsive) Abdomen: Positive: Soft, Active Bowel Sounds Skin: Positive: Clear. Negative: Rash Musculoskeletal: No Fluid Collection Extremities: Absent: edema - Labs and Meds CBC 12/25/16 Range/Units 10:05 WBC 17.4 H (4.5-11.0) K/mm3 RBC 4.72 (3.65-5.03) M/mm3 Hgb 13.5 (11.8-15.2) gm/dl Hct 43.1 (35.5-45.6) % Plt Count 222 (140-440) K/mm3 Lymph # 1.5 (1.2-5.4) K/mm3 [place] # 1.7 H (0.0-0.8) K/mm3 Eos # 0.3 (0.0-0.4) K/mm3 Baso # 0.2 H (0.0-0.1) K/mm3 - Imaging and Cardiology EKG: image reviewed Echo: report reviewed (EF 10-15%, LA severely dilated, RV mildly dilated, severe MR, mild TR, LV severely dilated, RV mildly dilated) - EKG Sinus rhythms and dysrhythmias: sinus tachycardia
[2016-12-25] MEDS: NOVOLOG SUB-Q SCH ×2 (12:30→18:45)
[2016-12-25] MEDS: TYLENOL FEEDTUBE PRN (13:38)
--- NOTE | 2016-12-25 14:21 | Progress Note ---
Assessment and Plan Imp: 1. Severe/end-stage dilated CMP 2. A/C systolic CHF 3. s/p CP arrest 4. Probable anoxic encephalopathy 5. Acute/chronic respiratory failure, hypoxia and hypercapnea 6. Cardiogenic shock 7. Lactic acidosis, resolved 8. ? Aspiration pneumonitis 9. R pleural effusion, probably due to CHF 10. SIRS; ? central fever due to #4 Rec: 1. ABX and cultures as per ID, recommendations noted; believe could probably place new PICC since not bacteremic, o/w could place temporary CVL; I discussed recommendation of line change to patient's decision-maker (father Ryder Ellison, Sr.) who wants to hold off today as they are still considering possibility of hospice next 1-2 days; if fevers persist could also consider occult fungemia and the addition of empiric Diflucan 2. Wean Valeriy to keep MAP > 60; hold Lasix as may be getting on the dry side now 3. PSV trials daily (failed today); mentation precludes extubation 4. Remain off sedation; EEG pending today; f/u neuro recs 5. TFs; monitor sodium 6. GI/DVT PPx 7. Would not try to tap the small R effusion; monitor radiographically 8. Poor prognosis for meaningful recovery/quality of life due to end-stage CMP, shock, anoxic enceph., etc.; he is a hospice candidate in my opinion; discussed with sister and father today, all questions answered CCT 31 minutes Subjective Date of service: 12/25/16 Principal diagnosis: s/p C-P arrest, acute on chronic resp failure, Acute on chronic SHF, CMP Interval history: No events. Off sedation x 72 hours. Not waking up or following commands. Remains on Valeriy at 180mcg. PEEP at 5, sat of 100%. Still w/ fevers. Active Medications Acetaminophen (Tylenol) 650 mg FEEDTUBE Q4H PRN PRN Reason: Pain, Mild (1-3) Last Admin: 12/25/16 13:38 Dose: 650 mg Albuterol (Proventil) 2.5 mg IH Q4H PRN PRN Reason: Shortness Of Breath Lipase/Protease/Amylase (Pancrearlettee Dr 10,500 Unit) 1 each FEEDTUBE PRN PRN PRN Reason: For Clogged Feeding Tube Aspirin (Aspirin) 325 mg PO QDAY HEATHER Last Admin: 12/25/16 09:49 Dose: 325 mg Enoxaparin Sodium (Lovenox) 40 mg SUB-Q QDAY@2200 HEATHER Last Admin: 12/24/16 22:22 Dose: 40 mg Famotidine (Pepcid) 20 mg PO BID [facility] Last Admin: 12/25/16 09:49 Dose: 20 mg Hydrophilic Ointment (Vaseline Lip Therapy) 1 applic TP Q2HR PRN PRN Reason: Dry Lips Piperacillin Sod/Tazobactam Sod (Zosyn/Ns 4.5gm/100ml) 4.5 gm in 100 mls @ 200 mls/hr IV Q8HR HEATHER PRN Reason: Protocol Last Admin: 12/25/16 13:38 Dose: 200 mls/hr Milrinone Lactate 20 mg/ (Dextrose) 100 mls @ 9.9 mls/hr IV TITR HEATHER; 0.375 MCG /KG/MIN PRN Reason: Protocol Last Admin: 12/25/16 09:00 Dose: 0.37 mcg/kg/min, 9.76 mls/hr Phenylephrine HCl 100 mg/ (Sodium Chloride) 100 mls @ 3 mls/hr IV TITR HEATHER; 50 MCG/MIN PRN Reason: Protocol Last Admin: 12/25/16 13:39 Dose: 160 mcg/min, 9.6 mls/hr Vancomycin HCl (Vancomycin/Ns 1 Gm/250 Ml) 1 gm in 250 mls @ 166.667 mls/hr IV Q12HR HEATHER Insulin Aspart (Novolog) 0 units SUB-Q Q6HR HEATHER PRN Reason: Protocol Last Admin: 12/25/16 12:30 Dose: Not Given Multi-Ingred Cream/Lotion/Oil/Oint (Artificial Tears Ophth Oint) 1 applic OU Q4HR PRN PRN Reason: Dry Eye(s) Last Admin: 12/22/16 10:38 Dose: 1 applic Simple Syrup (Simple Syrup) 15 ml FEEDTUBE PRN PRN PRN Reason: Hypoglycemia Simple Syrup (Simple Syrup) 30 ml FEEDTUBE PRN PRN PRN Reason: Hypoglycemia Sodium Bicarbonate (Sodium Bicarbonate) 325 mg FEEDTUBE PRN PRN PRN Reason: For Clogged Feeding Tube Sodium Chloride (Nacl 0.9% 500 Ml) 1 ml IV DIRECT HEATHER Vancomycin HCl (Vancomycin Pharmacy To Dose) 1 each IV PKCONSULT HEATHER PRN Reason: Protocol Objective Vital Signs - 12hr 12/25/16 12/25/16 12/25/16 02:15 02:30 02:45 Temperature Pulse Rate 70 77 80 Pulse Rate [ Apical] Pulse Rate [ From Monitor] Respiratory 20 20 20 Rate Blood Pressure 100/71 109/75 109/72 O2 Sat by Pulse 100 100 100 Oximetry 12/25/16 12/25/16 12/25/16 03:00 03:15 03:28 Temperature 101 F H Pulse Rate 75 82 Pulse Rate [ Apical] Pulse Rate [ From Monitor] Respiratory 20 20 Rate Blood Pressure 111/74 111/78 O2 Sat by Pulse 100 100 Oximetry 12/25/16 12/25/16 12/25/16 03:30 03:45 04:00 Temperature Pulse Rate 79 77 76 Pulse Rate [ 78 Apical] Pulse Rate [ 78 From Monitor] Respiratory 20 21 20 Rate Blood Pressure 107/73 110/74 118/73 O2 Sat by Pulse 100 100 99 Oximetry 12/25/16 12/25/16 12/25/16 04:09 04:15 04:30 Temperature Pulse Rate 78 90 73 Pulse Rate [ Apical] Pulse Rate [ From Monitor] Respiratory 20 20 Rate Blood Pressure 118/73 109/81 104/75 O2 Sat by Pulse 100 100 100 Oximetry 12/25/16 12/25/16 12/25/16 04:45 05:00 05:15 Temperature Pulse Rate 89 91 H 87 Pulse Rate [ Apical] Pulse Rate [ From Monitor] Respiratory 20 20 20 Rate Blood Pressure 70/45 130/94 111/83 O2 Sat by Pulse 99 99 99 Oximetry 12/25/16 12/25/16 12/25/16 05:30 05:45 05:51 Temperature 99.5 F Pulse Rate 79 89 Pulse Rate [ Apical] Pulse Rate [ From Monitor] Respiratory 20 15 Rate Blood Pressure 121/78 118/81 O2 Sat by Pulse 100 100 Oximetry 12/25/16 12/25/16 12/25/16 06:00 06:15 06:30 Temperature Pulse Rate 79 79 70 Pulse Rate [ Apical] Pulse Rate [ From Monitor] Respiratory 20 20 20 Rate Blood Pressure 108/74 119/74 104/67 O2 Sat by Pulse 100 100 100 Oximetry 12/25/16 12/25/16 12/25/16 06:45 07:00 07:15 Temperature Pulse Rate 77 78 70 Pulse Rate [ Apical] Pulse Rate [ From Monitor] Respiratory 20 21 20 Rate Blood Pressure 100/74 108/75 107/73 O2 Sat by Pulse 100 100 100 Oximetry 12/25/16 12/25/16 12/25/16 07:30 07:45 07:48 Temperature Pulse Rate 80 85 82 Pulse Rate [ Apical] Pulse Rate [ From Monitor] Respiratory 20 20 Rate Blood Pressure 107/66 110/71 110/71 O2 Sat by Pulse 100 100 100 Oximetry 12/25/16 12/25/16 12/25/16 08:00 08:15 08:30 Temperature 97.5 F L Pulse Rate 82 83 84 Pulse Rate [ Apical] Pulse Rate [ 90 From Monitor] Respiratory 20 20 21 Rate Blood Pressure 108/70 112/71 110/69 O2 Sat by Pulse 100 100 100 Oximetry 12/25/16 12/25/16 12/25/16 08:45 09:00 09:15 Temperature Pulse Rate 82 90 99 H Pulse Rate [ Apical] Pulse Rate [ From Monitor] Respiratory 22 21 21 Rate Blood Pressure 114/69 115/75 99/65 O2 Sat by Pulse 100 100 100 Oximetry 12/25/16 12/25/16 12/25/16 09:30 09:45 10:00 Temperature Pulse Rate 102 H 99 H 99 H Pulse Rate [ Apical] Pulse Rate [ From Monitor] Respiratory 22 22 Rate Blood Pressure 97/66 98/66 102/73 O2 Sat by Pulse 100 100 100 Oximetry 12/25/16 12/25/16 12/25/16 10:15 10:30 10:45 Temperature Pulse Rate 104 H 95 H 95 H Pulse Rate [ Apical] Pulse Rate [ From Monitor] Respiratory 22 20 21 Rate Blood Pressure 101/69 106/76 113/80 O2 Sat by Pulse 99 100 100 Oximetry 12/25/16 12/25/16 12/25/16 11:00 11:15 11:30 Temperature Pulse Rate 95 H 93 H 95 H Pulse Rate [ Apical] Pulse Rate [ From Monitor] Respiratory 20 21 21 Rate Blood Pressure 105/72 107/73 112/76 O2 Sat by Pulse 100 100 100 Oximetry 12/25/16 12/25/16 12/25/16 11:38 11:45 12:00 Temperature 100.2 F H Pulse Rate 100 H 91 H 96 H Pulse Rate [ Apical] Pulse Rate [ 98 H From Monitor] Respiratory 20 21 Rate Blood Pressure 112/76 106/72 111/73 O2 Sat by Pulse 100 100 99 Oximetry Constitutional: comatose Eyes: non-icteric ENT: oropharynx moist, other (orally intubated) Neck: supple Effort: normal Ascultation: Bilateral: wheezes (faint expiratory), rales Cardiovascular: regular rate and rhythm (no mrg) Gastrointestinal: normoactive bowel sounds, soft, non-tender, non-distended Integumentary: normal Extremities: no cyanosis, pink and warm, edema (1+ pedal edema) Neurologic: other (unresponsive, flaccid extremities except some jerking of the RUE when dropped, eyes open but does not track, does not follow commands, + cough reflex) Psychiatric: other (not able to assess) CBC and BMP: 12/25/16 10:05 12/24/16 03:40 ABG, PT/INR, D-dimer: ABG POC ABG pH 7.464 (7.35-7.45) H 12/25/16 04:15 POC ABG pCO2 39.0 (35-45) 12/25/16 04:15 POC ABG pO2 111 (80-105) H 12/25/16 04:15 POC ABG HCO3 28.0 12/25/16 04:15 POC ABG Total CO2 29 12/25/16 04:15 POC ABG O2 Sat 99 12/25/16 04:15 PT/INR, D-dimer PT 20.5 Sec. (12.2-14.9) H 12/20/16 17:00 INR 1.66 (0.87-1.13) H 12/20/16 17:00 Abnormal lab findings: Abnormal Labs 12/20/16 12/20/16 12/21/16 21:53 23:13 01:35 WBC MCHC RDW Lymph % (Auto) [place] % (Auto) [place] # Baso # Seg Neutrophils % Seg Neuts % (Manual) Lymphocytes % (Manual) Seg Neutrophils # Seg Neutrophils # Man Monocytes # (Manual) POC ABG pH POC ABG pCO2 52.4 H POC ABG pO2 113 H Sodium BUN Glucose POC Glucose Lactic Acid 4.60 H* 5.50 H* Calcium Total Bilirubin AST C-Reactive Protein Albumin Urine WBC (Auto) Vancomycin Trough 12/21/16 12/21/16 12/22/16 05:54 08:15 04:42 WBC MCHC RDW Lymph % (Auto) [place] % (Auto) [place] # Baso # Seg Neutrophils % Seg Neuts % (Manual) Lymphocytes % (Manual) Seg Neutrophils # Seg Neutrophils # Man Monocytes # (Manual) POC ABG pH POC ABG pCO2 46.7 H POC ABG pO2 142 H 72 L Sodium BUN Glucose POC Glucose Lactic Acid Calcium Total Bilirubin AST C-Reactive Protein Albumin Urine WBC (Auto) 30.0 H Vancomycin Trough 12/22/16 12/23/16 12/23/16 10:55 04:00 12:51 WBC 20.5 H MCHC RDW 15.9 H Lymph % (Auto) [place] % (Auto) [place] # Baso # Seg Neutrophils % Seg Neuts % (Manual) 85.0 H Lymphocytes % (Manual) 8.0 L Seg Neutrophils # Seg Neutrophils # Man 17.4 H Monocytes # (Manual) 1.4 H POC ABG pH 7.514 H POC ABG pCO2 POC ABG pO2 Sodium BUN 27 H Glucose 105 H POC Glucose Lactic Acid Calcium Total Bilirubin AST C-Reactive Protein Albumin Urine WBC (Auto) Vancomycin Trough 12/23/16 12/24/16 12/24/16 12:51 03:09 03:40 WBC 19.5 H MCHC RDW 16.0 H Lymph % (Auto) 6.9 L [place] % (Auto) [place] # 1.4 H Baso # 0.2 H Seg Neutrophils % 84.9 H Seg Neuts % (Manual) Lymphocytes % (Manual) Seg Neutrophils # 16.6 H Seg Neutrophils # Man Monocytes # (Manual) POC ABG pH 7.494 H POC ABG pCO2 POC ABG pO2 78 L Sodium BUN 30 H Glucose POC Glucose Lactic Acid Calcium 8.3 L Total Bilirubin 1.80 H AST 105 H C-Reactive Protein Albumin 2.3 L Urine WBC (Auto) Vancomycin Trough 12/24/16 12/24/16 12/24/16 03:40 21:30 23:32 WBC MCHC RDW Lymph % (Auto) [place] % (Auto) [place] # Baso # Seg Neutrophils % Seg Neuts % (Manual) Lymphocytes % (Manual) Seg Neutrophils # Seg Neutrophils # Man Monocytes # (Manual) POC ABG pH POC ABG pCO2 POC ABG pO2 Sodium 146 H BUN 29 H Glucose POC Glucose 114 H Lactic Acid Calcium Total Bilirubin AST C-Reactive Protein Albumin Urine WBC (Auto) Vancomycin Trough 24.8 H 12/25/16 12/25/16 12/25/16 04:15 04:51 10:05 WBC 17.4 H MCHC 31 L RDW 16.3 H Lymph % (Auto) 8.7 L [place] % (Auto) 9.6 H [place] # 1.7 H Baso # 0.2 H Seg Neutrophils % 79.0 H Seg Neuts % (Manual) Lymphocytes % (Manual) Seg Neutrophils # 13.7 H Seg Neutrophils # Man Monocytes # (Manual) POC ABG pH 7.464 H POC ABG pCO2 POC ABG pO2 111 H Sodium BUN Glucose POC Glucose 119 H Lactic Acid Calcium Total Bilirubin AST C-Reactive Protein Albumin Urine WBC (Auto) Vancomycin Trough 12/25/16 10:05 WBC MCHC RDW Lymph % (Auto) [place] % (Auto) [place] # Baso # Seg Neutrophils % Seg Neuts % (Manual) Lymphocytes % (Manual) Seg Neutrophils # Seg Neutrophils # Man Monocytes # (Manual) POC ABG pH POC ABG pCO2 POC ABG pO2 Sodium BUN Glucose POC Glucose Lactic Acid Calcium Total Bilirubin AST C-Reactive Protein 6.00 H Albumin Urine WBC (Auto) Vancomycin Trough Chest x-ray: report reviewed, image reviewed (no change)
--- NOTE | 2016-12-25 19:34 | Progress Note ---
Subjective Date of service: 12/25/16 Principal diagnosis: s/p C-P arrest, acute on chronic resp failure, Acute on chronic SHF, CMP Interval history: Neurology progress note: 12/25/2016 Mr. Ellison remains on ventilator support and essentially unresponsive to verbal and painful stimuli. He is on full ventilator and pressure support. Patient's father and mother present at the bedside. No spontaneous movements of the extremities noted. Both pupils are about 2-3 mm and reactive to light. Eyes are in central position with slightly downward gaze. Flaccid and areflexic extremities, no spontaneous movements and no posturing on deep painful stimulation. EEG has not been done yet and have asked nursing staff to make sure it gets done tomorrow as family is also waiting for the result. Impression: Acute anoxic encephalopathy following cardiorespiratory arrest 12/20/2016. So far no evidence of any improvement in consciousness level and no evidence of cognition. Discussed with patient's parents at the bedside that overall prognosis for any meaningful neurologic recovery seems very dismal at this time. Recommendation: EEG as planned. Will review EEG once it is done. Duy Everett M.D./ Neurology Objective - Vital Sign Vital Signs - 12hr 12/25/16 12/25/16 12/25/16 07:30 07:45 07:48 Temperature Pulse Rate 80 85 82 Pulse Rate [ From Monitor] Respiratory 20 20 Rate Blood Pressure 107/66 110/71 110/71 O2 Sat by Pulse 100 100 100 Oximetry 12/25/16 12/25/16 12/25/16 08:00 08:15 08:30 Temperature 97.5 F L Pulse Rate 82 83 84 Pulse Rate [ 90 From Monitor] Respiratory 20 20 21 Rate Blood Pressure 108/70 112/71 110/69 O2 Sat by Pulse 100 100 100 Oximetry 12/25/16 12/25/16 12/25/16 08:45 09:00 09:15 Temperature Pulse Rate 82 90 99 H Pulse Rate [ From Monitor] Respiratory 22 21 21 Rate Blood Pressure 114/69 115/75 99/65 O2 Sat by Pulse 100 100 100 Oximetry 12/25/16 12/25/16 12/25/16 09:30 09:45 10:00 Temperature Pulse Rate 102 H 99 H 99 H Pulse Rate [ From Monitor] Respiratory 22 22 Rate Blood Pressure 97/66 98/66 102/73 O2 Sat by Pulse 100 100 100 Oximetry 12/25/16 12/25/16 12/25/16 10:15 10:30 10:45 Temperature Pulse Rate 104 H 95 H 95 H Pulse Rate [ From Monitor] Respiratory 22 20 21 Rate Blood Pressure 101/69 106/76 113/80 O2 Sat by Pulse 99 100 100 Oximetry 12/25/16 12/25/16 12/25/16 11:00 11:15 11:30 Temperature Pulse Rate 95 H 93 H 95 H Pulse Rate [ From Monitor] Respiratory 20 21 21 Rate Blood Pressure 105/72 107/73 112/76 O2 Sat by Pulse 100 100 100 Oximetry 12/25/16 12/25/16 12/25/16 11:38 11:45 12:00 Temperature 100.2 F H Pulse Rate 100 H 91 H 96 H Pulse Rate [ 98 H From Monitor] Respiratory 20 21 Rate Blood Pressure 112/76 106/72 111/73 O2 Sat by Pulse 100 100 99 Oximetry 12/25/16 12/25/16 12/25/16 12:15 12:31 12:45 Temperature Pulse Rate 104 H 93 H 97 H Pulse Rate [ From Monitor] Respiratory 20 21 20 Rate Blood Pressure 109/72 108/68 116/73 O2 Sat by Pulse 100 99 99 Oximetry 12/25/16 12/25/16 12/25/16 13:00 13:15 13:31 Temperature Pulse Rate 100 H 104 H 89 Pulse Rate [ From Monitor] Respiratory 24 22 20 Rate Blood Pressure 96/67 89/71 98/67 O2 Sat by Pulse 99 100 99 Oximetry 12/25/16 12/25/16 12/25/16 13:45 14:00 14:15 Temperature Pulse Rate 96 H 93 H 84 Pulse Rate [ From Monitor] Respiratory 20 22 20 Rate Blood Pressure 100/64 101/65 109/72 O2 Sat by Pulse 99 99 100 Oximetry 12/25/16 12/25/16 12/25/16 14:30 14:45 15:00 Temperature Pulse Rate 77 89 91 H Pulse Rate [ From Monitor] Respiratory 20 20 20 Rate Blood Pressure 107/66 112/71 106/68 O2 Sat by Pulse 100 100 100 Oximetry 12/25/16 12/25/16 12/25/16 15:15 15:30 15:35 Temperature 99.9 F H Pulse Rate 86 90 Pulse Rate [ From Monitor] Respiratory 20 20 Rate Blood Pressure 107/71 102/69 O2 Sat by Pulse 100 100 Oximetry 12/25/16 12/25/16 12/25/16 15:45 15:56 16:00 Temperature Pulse Rate 76 80 78 Pulse Rate [ 96 H From Monitor] Respiratory 20 20 Rate Blood Pressure 93/68 93/68 92/68 O2 Sat by Pulse 100 100 100 Oximetry 12/25/16 12/25/16 12/25/16 16:15 16:30 16:45 Temperature Pulse Rate 80 77 88 Pulse Rate [ From Monitor] Respiratory 20 20 20 Rate Blood Pressure 98/64 100/60 106/73 O2 Sat by Pulse 100 100 100 Oximetry 12/25/16 12/25/16 12/25/16 17:00 17:15 17:30 Temperature Pulse Rate 83 79 89 Pulse Rate [ From Monitor] Respiratory 20 20 20 Rate Blood Pressure 103/74 111/66 116/70 O2 Sat by Pulse 100 100 100 Oximetry 12/25/16 12/25/16 12/25/16 17:45 18:00 18:15 Temperature Pulse Rate 91 H 93 H Pulse Rate [ From Monitor] Respiratory 20 20 Rate Blood Pressure 100/64 98/65 98/65 O2 Sat by Pulse 100 100 100 Oximetry 12/25/16 12/25/16 18:30 18:45 Temperature Pulse Rate 105 H 91 H Pulse Rate [ From Monitor] Respiratory 26 H 20 Rate Blood Pressure 107/70 100/67 O2 Sat by Pulse 100 100 Oximetry - Laboratory Findings CBC and BMP: 12/25/16 10:05 12/24/16 03:40 Abnormal Lab Findings: Abnormal Labs 12/20/16 12/20/16 12/21/16 21:53 23:13 01:35 WBC MCHC RDW Lymph % (Auto) [place] % (Auto) [place] # Baso # Seg Neutrophils % Seg Neuts % (Manual) Lymphocytes % (Manual) Seg Neutrophils # Seg Neutrophils # Man Monocytes # (Manual) POC ABG pH POC ABG pCO2 52.4 H POC ABG pO2 113 H Sodium BUN Glucose POC Glucose Lactic Acid 4.60 H* 5.50 H* Calcium Total Bilirubin AST C-Reactive Protein Albumin Urine WBC (Auto) Vancomycin Trough 12/21/16 12/21/16 12/22/16 05:54 08:15 04:42 WBC MCHC RDW Lymph % (Auto) [place] % (Auto) [place] # Baso # Seg Neutrophils % Seg Neuts % (Manual) Lymphocytes % (Manual) Seg Neutrophils # Seg Neutrophils # Man Monocytes # (Manual) POC ABG pH POC ABG pCO2 46.7 H POC ABG pO2 142 H 72 L Sodium BUN Glucose POC Glucose Lactic Acid Calcium Total Bilirubin AST C-Reactive Protein Albumin Urine WBC (Auto) 30.0 H Vancomycin Trough 12/22/16 12/23/16 12/23/16 10:55 04:00 12:51 WBC 20.5 H MCHC RDW 15.9 H Lymph % (Auto) [place] % (Auto) [place] # Baso # Seg Neutrophils % Seg Neuts % (Manual) 85.0 H Lymphocytes % (Manual) 8.0 L Seg Neutrophils # Seg Neutrophils # Man 17.4 H Monocytes # (Manual) 1.4 H POC ABG pH 7.514 H POC ABG pCO2 POC ABG pO2 Sodium BUN 27 H Glucose 105 H POC Glucose Lactic Acid Calcium Total Bilirubin AST C-Reactive Protein Albumin Urine WBC (Auto) Vancomycin Trough 12/23/16 12/24/16 12/24/16 12:51 03:09 03:40 WBC 19.5 H MCHC RDW 16.0 H Lymph % (Auto) 6.9 L [place] % (Auto) [place] # 1.4 H Baso # 0.2 H Seg Neutrophils % 84.9 H Seg Neuts % (Manual) Lymphocytes % (Manual) Seg Neutrophils # 16.6 H Seg Neutrophils # Man Monocytes # (Manual) POC ABG pH 7.494 H POC ABG pCO2 POC ABG pO2 78 L Sodium BUN 30 H Glucose POC Glucose Lactic Acid Calcium 8.3 L Total Bilirubin 1.80 H AST 105 H C-Reactive Protein Albumin 2.3 L Urine WBC (Auto) Vancomycin Trough 12/24/16 12/24/16 12/24/16 03:40 21:30 23:32 WBC MCHC RDW Lymph % (Auto) [place] % (Auto) [place] # Baso # Seg Neutrophils % Seg Neuts % (Manual) Lymphocytes % (Manual) Seg Neutrophils # Seg Neutrophils # Man Monocytes # (Manual) POC ABG pH POC ABG pCO2 POC ABG pO2 Sodium 146 H BUN 29 H Glucose POC Glucose 114 H Lactic Acid Calcium Total Bilirubin AST C-Reactive Protein Albumin Urine WBC (Auto) Vancomycin Trough 24.8 H 12/25/16 12/25/16 12/25/16 04:15 04:51 10:05 WBC 17.4 H MCHC 31 L RDW 16.3 H Lymph % (Auto) 8.7 L [place] % (Auto) 9.6 H [place] # 1.7 H Baso # 0.2 H Seg Neutrophils % 79.0 H Seg Neuts % (Manual) Lymphocytes % (Manual) Seg Neutrophils # 13.7 H Seg Neutrophils # Man Monocytes # (Manual) POC ABG pH 7.464 H POC ABG pCO2 POC ABG pO2 111 H Sodium BUN Glucose POC Glucose 119 H Lactic Acid Calcium Total Bilirubin AST C-Reactive Protein Albumin Urine WBC (Auto) Vancomycin Trough 12/25/16 10:05 WBC MCHC RDW Lymph % (Auto) [place] % (Auto) [place] # Baso # Seg Neutrophils % Seg Neuts % (Manual) Lymphocytes % (Manual) Seg Neutrophils # Seg Neutrophils # Man Monocytes # (Manual) POC ABG pH POC ABG pCO2 POC ABG pO2 Sodium BUN Glucose POC Glucose Lactic Acid Calcium Total Bilirubin AST C-Reactive Protein 6.00 H Albumin Urine WBC (Auto) Vancomycin Trough
[2016-12-25] MEDS: LOVENOX SUB-Q SCH (22:58)
[2016-12-25] MEDS: VANCOMYCIN/NS 1 GM/250 ML 1 GM/250 ML BAG IV SCH (22:59)
[2016-12-26] MEDS: NOVOLOG SUB-Q SCH ×4 (00:10→19:23)
[2016-12-26 04:31] LABS: ISTAT Base Excess 5; ISTAT HCO3 29.1; ISTAT PCO2 43.1 (35-45); ISTAT PH 7.438 (7.35-7.45); ISTAT PO2 90 (80-105); ISTAT SO2 97; ISTAT TCO2 30
[2016-12-26] MEDS: ZOSYN/NS 4.5GM/100ML 4.5 GM/100 ML VIAL IV SCH ×2 (06:29→14:21)
[2016-12-26] MEDS: PRIMACOR 20 MG in D5W 80 ML IV SCH ×3 (06:31→22:51)
[2016-12-26 06:48] LABS: Hematocrit 42.1 % (35.5-45.6); Hemoglobin 13.3 gm/dl (11.8-15.2); Mean Corpuscular HGB Conc 32 % (32-34); Mean Corpuscular Hemoglobin 29 pg (28-32); Mean Corpuscular Volume 91 fl (84-94); Platelet Count 197 K/mm3 (140-440); Red Blood Count 4.61 M/mm3 (3.65-5.03); Red Cell Distribution Width 16.4 % (13.2-15.2)
[2016-12-26 07:16] LABS: Alanine Aminotransferase 25 units/L (7-56); Albumin 2.6 g/dL (3.9-5); Albumin/Globulin Ratio 0.5 %; Alkaline Phosphatase 76 units/L (35-129); Anion Gap 15 mmol/L; Blood Urea Nitrogen 22 mg/dL (9-20); Calcium 8.5 mg/dL (8.4-10.2); Carbon Dioxide 27 mmol/L (22-30); Chloride 111.9 mmol/L (98-107); Glucose 148 mg/dL (75-100); Potassium 3.8 mmol/L (3.6-5.0); Sodium 150 mmol/L (137-145); Total Protein 7.8 g/dL (6.3-8.2)
[2016-12-26 07:18] LABS: White Blood Count 20.7 K/mm3 (4.5-11.0)
[2016-12-26] MEDS: NEO-SYNEPHRINE 100 MG in NACL 0.9% 90 ML IV SCH ×3 (07:27→22:52)
--- NOTE | 2016-12-26 08:34 | XRay Report ---
CHEST 1 VIEW INDICATION: Respiratory failure followup. COMPARISON: Yesterday. FINDINGS: Portable, frontal chest radiograph 2:08 AM, 12/26/2016 reveals stable cardiomediastinal silhouette, supporting devices, appearance of the lungs and osseous structures, providing for the difference in technique. CONCLUSION: No significant interval change. Thank you for the opportunity to participate in this patient's care.
--- NOTE | 2016-12-26 09:53 | Progress Note ---
Assessment and Plan Assessment: 1) Shock: still high fever and leukocytosis (received solumedrol IV x 1). [id number] ? septic ? versus ? cardiogenic or a combination. Etiology: unclear; UTI?, central fever?. No responding to 7 days broad spectrum abx -CRP=6 -Blood cx x 2 negative -Old PICC placed 4 months ago 2) UTI: urine cx negative 3) S/P respiratory arrest 4) Respiratory failure 5) End-stage heart failure on 6) PICC line and AICD in place Plan: -family refused PICC exchange in view of hospice consideration -consider imaging CT chest abdomen pelvis if family agrees with further management -exchange iniguez -f/u respiratory cultures, procalcitonin -continue zosyn and vancomycin for now - will do total 10 days -discussed with ICU staff Thank you Dr Tang for your consultation, will follow up with you. Sally Biswas MD Infectious Diseases Specialist [facility] ([facility]) M [phone] O [phone] Subjective Date of service: 12/26/16 Principal diagnosis: s/p C-P arrest, acute on chronic resp failure, Acute on chronic SHF, CMP Interval history: Remains with high fever Tmax 102.8. He is on Milrinone and Neosynephrine IV drip Microbiology: Blood cultures: 12/21 neg 12/24 ngtd Urine cultures: 12/21 ngtd Respiratory cultures: 12/20 neg Wound cultures: Stool cultures: Other: Current Antimicrobials: Zosyn 12/20 Vancomycin 12/20 Previous Antimicrobials: Objective - Exam Narrative Exam: General appearance: sedated on the vent Eyes: anicteric sclerae, moist conjunctivae; no lid-lag; PERRLA HENT: Atraumatic; oropharynx limitted +ETT Neck: Trachea midline; supple, no thyromegaly or lymphadenopathy Lungs: michael rhonchi. AICD no erythema, edema, tenderness. Left chest wall AICD in place CV: RRR Abdomen: Soft, non-tender; no masses or hepatosplenomegaly Extremities: + peripheral edema Skin: Normal temperature, turgor and texture; no rash, ulcers or subcutaneous nodules Psych: sedated. Neuro: sedated Lines: right arm PICC, iniguez, NGT - Constitutional Vitals: Vital Signs Temp Pulse Resp BP Pulse Ox 101.6 F H 93 H 20 124/67 100 12/26/16 07:38 12/26/16 08:30 12/26/16 08:30 12/26/16 08:30 12/26/16 08:30 Temperature -Last 24 Hours Temperature 101.6 F Temperature 102.8 F Temperature 99.7 F Temperature 98.8 F Temperature 99.9 F Temperature 100.2 F - Labs CBC & Chem 7: 12/26/16 06:45 12/26/16 06:45 Labs: Abnormal lab results 12/25/16 12/25/16 12/25/16 Range/Units 10:05 10:05 12:14 WBC 17.4 H (4.5-11.0) K/mm3 MCHC 31 L (32-34) % RDW 16.3 H (13.2-15.2) % Lymph % (Auto) 8.7 L (13.4-35.0) % [place] % (Auto) 9.6 H (0.0-7.3) % [place] # 1.7 H (0.0-0.8) K/mm3 Baso # 0.2 H (0.0-0.1) K/mm3 Seg Neutrophils % 79.0 H (40.0-70.0) % Seg Neutrophils # 13.7 H (1.8-7.7) K/mm3 Sodium (137-145) mmol/L Chloride (98-107) mmol/L BUN (9-20) mg/dL Glucose (75-100) mg/dL POC Glucose 122 H (70-105) Total Bilirubin (0.1-1.2) mg/dL AST (5-40) units/L C-Reactive Protein 6.00 H (0.00-1.30) mg/dL Albumin (3.9-5) g/dL 12/25/16 12/26/16 12/26/16 Range/Units 23:40 05:00 06:45 WBC 20.7 H (4.5-11.0) K/mm3 MCHC (32-34) % RDW 16.4 H (13.2-15.2) % Lymph % (Auto) (13.4-35.0) % [place] % (Auto) (0.0-7.3) % [place] # (0.0-0.8) K/mm3 Baso # (0.0-0.1) K/mm3 Seg Neutrophils % (40.0-70.0) % Seg Neutrophils # (1.8-7.7) K/mm3 Sodium (137-145) mmol/L Chloride (98-107) mmol/L BUN (9-20) mg/dL Glucose (75-100) mg/dL POC Glucose 144 H 144 H (70-105) Total Bilirubin (0.1-1.2) mg/dL AST (5-40) units/L C-Reactive Protein (0.00-1.30) mg/dL Albumin (3.9-5) g/dL 12/26/16 Range/Units 06:45 WBC (4.5-11.0) K/mm3 MCHC (32-34) % RDW (13.2-15.2) % Lymph % (Auto) (13.4-35.0) % [place] % (Auto) (0.0-7.3) % [place] # (0.0-0.8) K/mm3 Baso # (0.0-0.1) K/mm3 Seg Neutrophils % (40.0-70.0) % Seg Neutrophils # (1.8-7.7) K/mm3 Sodium 150 H (137-145) mmol/L Chloride 111.9 H (98-107) mmol/L BUN 22 H (9-20) mg/dL Glucose 148 H (75-100) mg/dL POC Glucose (70-105) Total Bilirubin 1.60 H (0.1-1.2) mg/dL AST 63 H (5-40) units/L C-Reactive Protein (0.00-1.30) mg/dL Albumin 2.6 L (3.9-5) g/dL
[2016-12-26] MEDS: TYLENOL FEEDTUBE PRN ×2 (10:20→19:22)
[2016-12-26] MEDS: ASPIRIN PO SCH (10:21)
[2016-12-26] MEDS: PEPCID PO SCH ×2 (10:24→23:23)
[2016-12-26] MEDS: VANCOMYCIN/NS 1 GM/250 ML 1 GM/250 ML BAG IV SCH (10:25)
--- NOTE | 2016-12-26 12:38 | Progress Note ---
Assessment and Plan Imp: 1. Severe/end-stage dilated CMP 2. A/C systolic CHF 3. s/p CP arrest 4. Probable anoxic encephalopathy 5. Acute/chronic respiratory failure, hypoxia and hypercapnea 6. Cardiogenic shock 7. Lactic acidosis, resolved 8. ? Aspiration pneumonitis 9. R pleural effusion, probably due to CHF 10. SIRS; ? central fever due to #4 Rec: 1. Cultures remain negative; ABX as per ID, recommendations noted; believe could probably place new PICC since not bacteremic, o/w could place temporary CVL; I discussed recommendation of line change to patient's decision-maker ( father Ryder Ellison, Sr.) who wants to hold off today as they are still considering possibility of hospice next 1-2 days; if fevers persist could also consider occult fungemia and the addition of empiric Diflucan versus D/c Zosyn as drug fever is possible as well 2. Wean Valeriy to keep MAP > 60; hold Lasix as may be getting on the dry side now 3. PSV trials daily (failed today); mentation precludes extubation 4. Remain off sedation; EEG pending today; f/u neuro recs 5. TFs; monitor sodium -> increase free water next 24 hours 6. GI/DVT PPx 7. Would not try to tap the small R effusion; monitor radiographically 8. Poor prognosis for meaningful recovery/quality of life due to end-stage CMP, shock, anoxic enceph., etc.; he is a hospice candidate in my opinion; discussed with sister and father today, all questions answered CCT 31 minutes Subjective Date of service: 12/26/16 Principal diagnosis: s/p C-P arrest, acute on chronic resp failure, Acute on chronic SHF, CMP Interval history: No events. Off sedation x 4 days. Not waking up or following commands. Remains on Valeriy at 200mcg. PEEP at 5, sat of 100%. Still w/ fevers. Active Medications Acetaminophen (Tylenol) 650 mg FEEDTUBE Q4H PRN PRN Reason: Pain, Mild (1-3) Last Admin: 12/26/16 10:20 Dose: 650 mg Albuterol (Proventil) 2.5 mg IH Q4H PRN PRN Reason: Shortness Of Breath Lipase/Protease/Amylase (Lou Mueller 10,500 Unit) 1 each FEEDTUBE PRN PRN PRN Reason: For Clogged Feeding Tube Aspirin (Aspirin) 325 mg PO QDAY [facility] Last Admin: 12/26/16 10:21 Dose: 325 mg Enoxaparin Sodium (Lovenox) 40 mg SUB-Q QDAY@2200 [facility] Last Admin: 12/25/16 22:58 Dose: 40 mg Famotidine (Pepcid) 20 mg PO BID [facility] Last Admin: 12/26/16 10:24 Dose: 20 mg Hydrophilic Ointment (Vaseline Lip Therapy) 1 applic TP Q2HR PRN PRN Reason: Dry Lips Piperacillin Sod/Tazobactam Sod (Zosyn/Ns 4.5gm/100ml) 4.5 gm in 100 mls @ 200 mls/hr IV Q8HR HEATHER PRN Reason: Protocol Last Admin: 12/26/16 06:29 Dose: 200 mls/hr Milrinone Lactate 20 mg/ (Dextrose) 100 mls @ 9.9 mls/hr IV TITR HEATHER; 0.375 MCG /KG/MIN PRN Reason: Protocol Last Admin: 12/26/16 06:31 Dose: 0.37 mcg/kg/min, 9.76 mls/hr Phenylephrine HCl 100 mg/ (Sodium Chloride) 100 mls @ 3 mls/hr IV TITR HEATHER; 50 MCG/MIN PRN Reason: Protocol Last Admin: 12/26/16 07:27 Dose: 200 mcg/min, 12 mls/hr Vancomycin HCl (Vancomycin/Ns 1 Gm/250 Ml) 1 gm in 250 mls @ 166.667 mls/hr IV Q12HR [facility] Last Admin: 12/26/16 10:25 Dose: 166.667 mls/hr Insulin Aspart (Novolog) 0 units SUB-Q Q6HR HEATHER PRN Reason: Protocol Last Admin: 12/26/16 06:41 Dose: Not Given Multi-Ingred Cream/Lotion/Oil/Oint (Artificial Tears Ophth Oint) 1 applic OU Q4HR PRN PRN Reason: Dry Eye(s) Last Admin: 12/22/16 10:38 Dose: 1 applic Simple Syrup (Simple Syrup) 15 ml FEEDTUBE PRN PRN PRN Reason: Hypoglycemia Simple Syrup (Simple Syrup) 30 ml FEEDTUBE PRN PRN PRN Reason: Hypoglycemia Sodium Bicarbonate (Sodium Bicarbonate) 325 mg FEEDTUBE PRN PRN PRN Reason: For Clogged Feeding Tube Sodium Chloride (Nacl 0.9% 500 Ml) 1 ml IV DIRECT HEATHER Vancomycin HCl (Vancomycin Pharmacy To Dose) 1 each IV PKCONSULT HEATHER PRN Reason: Protocol Objective Vital Signs - 12hr 12/26/16 12/26/16 12/26/16 00:45 01:00 01:15 Temperature Pulse Rate 77 81 80 Respiratory 20 20 20 Rate Respiratory Rate [ Generalized] Blood Pressure 99/60 103/64 100/64 O2 Sat by Pulse 100 100 100 Oximetry 12/26/16 12/26/16 12/26/16 01:30 01:45 02:00 Temperature Pulse Rate 76 103 H 104 H Respiratory 20 20 20 Rate Respiratory Rate [ Generalized] Blood Pressure 102/66 102/70 98/67 O2 Sat by Pulse 100 100 100 Oximetry 12/26/16 12/26/16 12/26/16 02:15 02:31 02:45 Temperature Pulse Rate 104 H 102 H 115 H Respiratory 22 22 12 Rate Respiratory Rate [ Generalized] Blood Pressure 104/70 102/66 102/66 O2 Sat by Pulse 99 100 100 Oximetry 12/26/16 12/26/16 12/26/16 03:00 03:15 03:30 Temperature Pulse Rate 102 H 94 H 89 Respiratory 30 H 20 20 Rate Respiratory Rate [ Generalized] Blood Pressure 123/87 113/74 118/79 O2 Sat by Pulse 99 100 100 Oximetry 12/26/16 12/26/16 12/26/16 03:34 03:45 03:49 Temperature 102.8 F H Pulse Rate 80 76 Respiratory 20 Rate Respiratory 20 Rate [ Generalized] Blood Pressure 118/79 116/65 O2 Sat by Pulse 100 100 Oximetry 12/26/16 12/26/16 12/26/16 04:00 04:15 04:30 Temperature Pulse Rate 79 96 H 97 H Respiratory 20 20 20 Rate Respiratory Rate [ Generalized] Blood Pressure 112/75 116/81 114/78 O2 Sat by Pulse 100 100 100 Oximetry 12/26/16 12/26/16 12/26/16 04:45 05:00 05:15 Temperature Pulse Rate 92 H 79 76 Respiratory 19 20 20 Rate Respiratory Rate [ Generalized] Blood Pressure 116/79 115/72 120/73 O2 Sat by Pulse 99 100 100 Oximetry 09/11/0412/26/16 12/26/16 05:30 05:45 06:00 Temperature Pulse Rate 90 90 98 H Respiratory 20 20 20 Rate Respiratory Rate [ Generalized] Blood Pressure 116/80 111/76 117/81 O2 Sat by Pulse 100 100 100 Oximetry 12/26/16 12/26/16 12/26/16 06:15 06:30 06:45 Temperature Pulse Rate 95 H 90 90 Respiratory 20 20 20 Rate Respiratory Rate [ Generalized] Blood Pressure 114/78 115/77 110/72 O2 Sat by Pulse 98 100 100 Oximetry 12/26/16 12/26/16 12/26/16 07:00 07:15 07:30 Temperature Pulse Rate 74 77 102 H Respiratory 20 20 20 Rate Respiratory Rate [ Generalized] Blood Pressure 109/74 113/73 113/81 O2 Sat by Pulse 100 100 100 Oximetry 12/26/16 12/26/16 12/26/16 07:38 07:45 08:00 Temperature 101.6 F H Pulse Rate 96 H 100 H Respiratory 20 20 Rate Respiratory Rate [ Generalized] Blood Pressure 110/76 116/78 O2 Sat by Pulse 100 99 Oximetry 12/26/16 12/26/16 12/26/16 08:15 08:26 08:30 Temperature Pulse Rate 78 92 H 93 H Respiratory 21 20 Rate Respiratory Rate [ Generalized] Blood Pressure 121/73 124/67 124/67 O2 Sat by Pulse 100 100 100 Oximetry 12/26/16 12/26/16 12/26/16 08:45 09:00 09:15 Temperature Pulse Rate 107 H 95 H 104 H Respiratory 20 22 22 Rate Respiratory Rate [ Generalized] Blood Pressure 115/81 115/81 122/83 O2 Sat by Pulse 100 100 100 Oximetry 12/26/16 12/26/16 12/26/16 09:30 09:45 10:00 Temperature Pulse Rate 83 94 H 85 Respiratory 21 21 21 Rate Respiratory Rate [ Generalized] Blood Pressure 113/73 112/78 115/78 O2 Sat by Pulse 100 100 99 Oximetry 12/26/16 12/26/16 12/26/16 10:15 10:30 10:45 Temperature Pulse Rate 83 93 H 102 H Respiratory 17 23 20 Rate Respiratory Rate [ Generalized] Blood Pressure 117/78 120/78 123/76 O2 Sat by Pulse 98 100 100 Oximetry 12/26/16 12/26/16 12/26/16 11:00 11:15 11:30 Temperature Pulse Rate 107 H 101 H 85 Respiratory 20 21 22 Rate Respiratory Rate [ Generalized] Blood Pressure 113/78 113/71 110/71 O2 Sat by Pulse 100 99 99 Oximetry 12/26/16 11:45 Temperature 102.5 F H Pulse Rate 77 Respiratory 22 Rate Respiratory Rate [ Generalized] Blood Pressure 106/68 O2 Sat by Pulse 100 Oximetry Constitutional: comatose Eyes: non-icteric ENT: oropharynx moist, other (orally intubated) Neck: supple Effort: normal Ascultation: Bilateral: wheezes (faint expiratory), rales Cardiovascular: regular rate and rhythm (no mrg) Gastrointestinal: normoactive bowel sounds, soft, non-tender, non-distended Integumentary: normal Extremities: no cyanosis, pink and warm, edema (1+ pedal edema) Neurologic: other (unresponsive, flaccid extremities except some jerking of the RUE when dropped, eyes open but does not track, does not follow commands, + cough reflex) Psychiatric: other (not able to assess) CBC and BMP: 12/26/16 06:45 12/26/16 06:45 ABG, PT/INR, D-dimer: ABG POC ABG pH 7.438 (7.35-7.45) 12/26/16 04:29 POC ABG pCO2 43.1 (35-45) 12/26/16 04:29 POC ABG pO2 90 (80-105) 12/26/16 04:29 POC ABG HCO3 29.1 12/26/16 04:29 POC ABG Total CO2 30 12/26/16 04:29 POC ABG O2 Sat 97 12/26/16 04:29 PT/INR, D-dimer PT 20.5 Sec. (12.2-14.9) H 12/20/16 17:00 INR 1.66 (0.87-1.13) H 12/20/16 17:00 Abnormal lab findings: Abnormal Labs 12/20/16 12/20/16 12/21/16 21:53 23:13 01:35 WBC MCHC RDW Lymph % (Auto) [place] % (Auto) [place] # Baso # Seg Neutrophils % Seg Neuts % (Manual) Lymphocytes % (Manual) Seg Neutrophils # Seg Neutrophils # Man Monocytes # (Manual) POC ABG pH POC ABG pCO2 52.4 H POC ABG pO2 113 H Sodium Chloride BUN Glucose POC Glucose Lactic Acid 4.60 H* 5.50 H* Calcium Total Bilirubin AST C-Reactive Protein Albumin Urine WBC (Auto) Vancomycin Trough 12/21/16 12/21/16 12/22/16 05:54 08:15 04:42 WBC MCHC RDW Lymph % (Auto) [place] % (Auto) [place] # Baso # Seg Neutrophils % Seg Neuts % (Manual) Lymphocytes % (Manual) Seg Neutrophils # Seg Neutrophils # Man Monocytes # (Manual) POC ABG pH POC ABG pCO2 46.7 H POC ABG pO2 142 H 72 L Sodium Chloride BUN Glucose POC Glucose Lactic Acid Calcium Total Bilirubin AST C-Reactive Protein Albumin Urine WBC (Auto) 30.0 H Vancomycin Trough 12/22/16 12/23/16 12/23/16 10:55 04:00 12:51 WBC 20.5 H MCHC RDW 15.9 H Lymph % (Auto) [place] % (Auto) [place] # Baso # Seg Neutrophils % Seg Neuts % (Manual) 85.0 H Lymphocytes % (Manual) 8.0 L Seg Neutrophils # Seg Neutrophils # Man 17.4 H Monocytes # (Manual) 1.4 H POC ABG pH 7.514 H POC ABG pCO2 POC ABG pO2 Sodium Chloride BUN 27 H Glucose 105 H POC Glucose Lactic Acid Calcium Total Bilirubin AST C-Reactive Protein Albumin Urine WBC (Auto) Vancomycin Trough 12/23/16 12/24/16 12/24/16 12:51 03:09 03:40 WBC 19.5 H MCHC RDW 16.0 H Lymph % (Auto) 6.9 L [place] % (Auto) [place] # 1.4 H Baso # 0.2 H Seg Neutrophils % 84.9 H Seg Neuts % (Manual) Lymphocytes % (Manual) Seg Neutrophils # 16.6 H Seg Neutrophils # Man Monocytes # (Manual) POC ABG pH 7.494 H POC ABG pCO2 POC ABG pO2 78 L Sodium Chloride BUN 30 H Glucose POC Glucose Lactic Acid Calcium 8.3 L Total Bilirubin 1.80 H AST 105 H C-Reactive Protein Albumin 2.3 L Urine WBC (Auto) Vancomycin Trough 12/24/16 12/24/16 12/24/16 03:40 21:30 23:32 WBC MCHC RDW Lymph % (Auto) [place] % (Auto) [place] # Baso # Seg Neutrophils % Seg Neuts % (Manual) Lymphocytes % (Manual) Seg Neutrophils # Seg Neutrophils # Man Monocytes # (Manual) POC ABG pH POC ABG pCO2 POC ABG pO2 Sodium 146 H Chloride BUN 29 H Glucose POC Glucose 114 H Lactic Acid Calcium Total Bilirubin AST C-Reactive Protein Albumin Urine WBC (Auto) Vancomycin Trough 24.8 H 12/25/16 12/25/16 12/25/16 04:15 04:51 10:05 WBC 17.4 H MCHC 31 L RDW 16.3 H Lymph % (Auto) 8.7 L [place] % (Auto) 9.6 H [place] # 1.7 H Baso # 0.2 H Seg Neutrophils % 79.0 H Seg Neuts % (Manual) Lymphocytes % (Manual) Seg Neutrophils # 13.7 H Seg Neutrophils # Man Monocytes # (Manual) POC ABG pH 7.464 H POC ABG pCO2 POC ABG pO2 111 H Sodium Chloride BUN Glucose POC Glucose 119 H Lactic Acid Calcium Total Bilirubin AST C-Reactive Protein Albumin Urine WBC (Auto) Vancomycin Trough 12/25/16 12/25/16 12/25/16 10:05 12:14 23:40 WBC MCHC RDW Lymph % (Auto) [place] % (Auto) [place] # Baso # Seg Neutrophils % Seg Neuts % (Manual) Lymphocytes % (Manual) Seg Neutrophils # Seg Neutrophils # Man Monocytes # (Manual) POC ABG pH POC ABG pCO2 POC ABG pO2 Sodium Chloride BUN Glucose POC Glucose 122 H 144 H Lactic Acid Calcium Total Bilirubin AST C-Reactive Protein 6.00 H Albumin Urine WBC (Auto) Vancomycin Trough 12/26/16 12/26/16 12/26/16 05:00 06:45 06:45 WBC 20.7 H MCHC RDW 16.4 H Lymph % (Auto) [place] % (Auto) [place] # Baso # Seg Neutrophils % Seg Neuts % (Manual) Lymphocytes % (Manual) Seg Neutrophils # Seg Neutrophils # Man Monocytes # (Manual) POC ABG pH POC ABG pCO2 POC ABG pO2 Sodium 150 H Chloride 111.9 H BUN 22 H Glucose 148 H POC Glucose 144 H Lactic Acid Calcium Total Bilirubin 1.60 H AST 63 H C-Reactive Protein Albumin 2.6 L Urine WBC (Auto) Vancomycin Trough 12/26/16 11:18 WBC MCHC RDW Lymph % (Auto) [place] % (Auto) [place] # Baso # Seg Neutrophils % Seg Neuts % (Manual) Lymphocytes % (Manual) Seg Neutrophils # Seg Neutrophils # Man Monocytes # (Manual) POC ABG pH POC ABG pCO2 POC ABG pO2 Sodium Chloride BUN Glucose POC Glucose 153 H Lactic Acid Calcium Total Bilirubin AST C-Reactive Protein Albumin Urine WBC (Auto) Vancomycin Trough Chest x-ray: report reviewed, image reviewed (no significant change)
--- NOTE | 2016-12-26 13:11 | Progress Note ---
Subjective Date of service: 12/26/16 Principal diagnosis: s/p C-P arrest, acute on chronic resp failure, Acute on chronic SHF, CMP Interval history: Neurology progress note: 12/26/2016 Mr. Ellison's condition is about same, remains on ventilator support and staff reported that patient remains essentially unresponsive. Patient's parents and a sister were present at the bedside. Pupils tilts somewhat reactive. Vital signs stable on the monitor. No spontaneous movements in the extremities. Reflexes absent. EEG reviewed, EEG pattern appears to be consistent with "alpha coma" or a severely encephalopathic process as seen with bihemispheric cortical injury following cardiorespiratory arrest. No epileptiform discharges noted. Impression: Acute severe anoxic encephalopathy. Patient remains comatose with flaccid areflexic extremities. So far no improvement in consciousness level or any evidence of cognition. Discussion and recommendation: Discussed at length with patient's parents and his sister at bedside that is no reasonable expectation of any meaningful neurologic recovery based on current clinical neurologic exam as well as EEG findings. Duy Everett M.D./ Neurology 12/26/2016 Objective - Vital Sign Vital Signs - 12hr 12/26/16 12/26/16 12/26/16 01:15 01:30 01:45 Temperature Pulse Rate 80 76 103 H Respiratory 20 20 20 Rate Respiratory Rate [ Generalized] Blood Pressure 100/64 102/66 102/70 O2 Sat by Pulse 100 100 100 Oximetry 12/26/16 12/26/16 12/26/16 02:00 02:15 02:31 Temperature Pulse Rate 104 H 104 H 102 H Respiratory 20 22 22 Rate Respiratory Rate [ Generalized] Blood Pressure 98/67 104/70 102/66 O2 Sat by Pulse 100 99 100 Oximetry 12/26/16 12/26/16 12/26/16 02:45 03:00 03:15 Temperature Pulse Rate 115 H 102 H 94 H Respiratory 12 30 H 20 Rate Respiratory Rate [ Generalized] Blood Pressure 102/66 123/87 113/74 O2 Sat by Pulse 100 99 100 Oximetry 12/26/16 12/26/16 12/26/16 03:30 03:34 03:45 Temperature 102.8 F H Pulse Rate 89 80 76 Respiratory 20 20 Rate Respiratory Rate [ Generalized] Blood Pressure 118/79 118/79 116/65 O2 Sat by Pulse 100 100 100 Oximetry 09/11/0412/26/16 12/26/16 03:49 04:00 04:15 Temperature Pulse Rate 79 96 H Respiratory 20 20 Rate Respiratory 20 Rate [ Generalized] Blood Pressure 112/75 116/81 O2 Sat by Pulse 100 100 Oximetry 12/26/16 12/26/16 12/26/16 04:30 04:45 05:00 Temperature Pulse Rate 97 H 92 H 79 Respiratory 20 19 20 Rate Respiratory Rate [ Generalized] Blood Pressure 114/78 116/79 115/72 O2 Sat by Pulse 100 99 100 Oximetry 12/26/16 12/26/16 12/26/16 05:15 05:30 05:45 Temperature Pulse Rate 76 90 90 Respiratory 20 20 20 Rate Respiratory Rate [ Generalized] Blood Pressure 120/73 116/80 111/76 O2 Sat by Pulse 100 100 100 Oximetry 12/26/16 12/26/16 12/26/16 06:00 06:15 06:30 Temperature Pulse Rate 98 H 95 H 90 Respiratory 20 20 20 Rate Respiratory Rate [ Generalized] Blood Pressure 117/81 114/78 115/77 O2 Sat by Pulse 100 98 100 Oximetry 12/26/16 12/26/16 12/26/16 06:45 07:00 07:15 Temperature Pulse Rate 90 74 77 Respiratory 20 20 20 Rate Respiratory Rate [ Generalized] Blood Pressure 110/72 109/74 113/73 O2 Sat by Pulse 100 100 100 Oximetry 12/26/16 12/26/16 12/26/16 07:30 07:38 07:45 Temperature 101.6 F H Pulse Rate 102 H 96 H Respiratory 20 20 Rate Respiratory Rate [ Generalized] Blood Pressure 113/81 110/76 O2 Sat by Pulse 100 100 Oximetry 12/26/16 12/26/16 12/26/16 08:00 08:15 08:26 Temperature Pulse Rate 100 H 78 92 H Respiratory 20 21 Rate Respiratory Rate [ Generalized] Blood Pressure 116/78 121/73 124/67 O2 Sat by Pulse 99 100 100 Oximetry 12/26/16 12/26/16 12/26/16 08:30 08:45 09:00 Temperature Pulse Rate 93 H 107 H 95 H Respiratory 20 20 22 Rate Respiratory Rate [ Generalized] Blood Pressure 124/67 115/81 115/81 O2 Sat by Pulse 100 100 100 Oximetry 12/26/16 12/26/16 12/26/16 09:15 09:30 09:45 Temperature Pulse Rate 104 H 83 94 H Respiratory 22 21 21 Rate Respiratory Rate [ Generalized] Blood Pressure 122/83 113/73 112/78 O2 Sat by Pulse 100 100 100 Oximetry 12/26/16 12/26/16 12/26/16 10:00 10:15 10:30 Temperature Pulse Rate 85 83 93 H Respiratory 21 17 23 Rate Respiratory Rate [ Generalized] Blood Pressure 115/78 117/78 120/78 O2 Sat by Pulse 99 98 100 Oximetry 12/26/16 12/26/16 12/26/16 10:45 11:00 11:15 Temperature Pulse Rate 102 H 107 H 101 H Respiratory 20 20 21 Rate Respiratory Rate [ Generalized] Blood Pressure 123/76 113/78 113/71 O2 Sat by Pulse 100 100 99 Oximetry 12/26/16 12/26/16 11:30 11:45 Temperature 102.5 F H Pulse Rate 85 77 Respiratory 22 22 Rate Respiratory Rate [ Generalized] Blood Pressure 110/71 106/68 O2 Sat by Pulse 99 100 Oximetry - Laboratory Findings CBC and BMP: 12/26/16 06:45 12/26/16 06:45 Abnormal Lab Findings: Abnormal Labs 12/20/16 12/20/16 12/21/16 21:53 23:13 01:35 WBC MCHC RDW Lymph % (Auto) [place] % (Auto) [place] # Baso # Seg Neutrophils % Seg Neuts % (Manual) Lymphocytes % (Manual) Seg Neutrophils # Seg Neutrophils # Man Monocytes # (Manual) POC ABG pH POC ABG pCO2 52.4 H POC ABG pO2 113 H Sodium Chloride BUN Glucose POC Glucose Lactic Acid 4.60 H* 5.50 H* Calcium Total Bilirubin AST C-Reactive Protein Albumin Urine WBC (Auto) Vancomycin Trough 12/21/16 12/21/16 12/22/16 05:54 08:15 04:42 WBC MCHC RDW Lymph % (Auto) [place] % (Auto) [place] # Baso # Seg Neutrophils % Seg Neuts % (Manual) Lymphocytes % (Manual) Seg Neutrophils # Seg Neutrophils # Man Monocytes # (Manual) POC ABG pH POC ABG pCO2 46.7 H POC ABG pO2 142 H 72 L Sodium Chloride BUN Glucose POC Glucose Lactic Acid Calcium Total Bilirubin AST C-Reactive Protein Albumin Urine WBC (Auto) 30.0 H Vancomycin Trough 12/22/16 12/23/16 12/23/16 10:55 04:00 12:51 WBC 20.5 H MCHC RDW 15.9 H Lymph % (Auto) [place] % (Auto) [place] # Baso # Seg Neutrophils % Seg Neuts % (Manual) 85.0 H Lymphocytes % (Manual) 8.0 L Seg Neutrophils # Seg Neutrophils # Man 17.4 H Monocytes # (Manual) 1.4 H POC ABG pH 7.514 H POC ABG pCO2 POC ABG pO2 Sodium Chloride BUN 27 H Glucose 105 H POC Glucose Lactic Acid Calcium Total Bilirubin AST C-Reactive Protein Albumin Urine WBC (Auto) Vancomycin Trough 12/23/16 12/24/16 12/24/16 12:51 03:09 03:40 WBC 19.5 H MCHC RDW 16.0 H Lymph % (Auto) 6.9 L [place] % (Auto) [place] # 1.4 H Baso # 0.2 H Seg Neutrophils % 84.9 H Seg Neuts % (Manual) Lymphocytes % (Manual) Seg Neutrophils # 16.6 H Seg Neutrophils # Man Monocytes # (Manual) POC ABG pH 7.494 H POC ABG pCO2 POC ABG pO2 78 L Sodium Chloride BUN 30 H Glucose POC Glucose Lactic Acid Calcium 8.3 L Total Bilirubin 1.80 H AST 105 H C-Reactive Protein Albumin 2.3 L Urine WBC (Auto) Vancomycin Trough 12/24/16 12/24/16 12/24/16 03:40 21:30 23:32 WBC MCHC RDW Lymph % (Auto) [place] % (Auto) [place] # Baso # Seg Neutrophils % Seg Neuts % (Manual) Lymphocytes % (Manual) Seg Neutrophils # Seg Neutrophils # Man Monocytes # (Manual) POC ABG pH POC ABG pCO2 POC ABG pO2 Sodium 146 H Chloride BUN 29 H Glucose POC Glucose 114 H Lactic Acid Calcium Total Bilirubin AST C-Reactive Protein Albumin Urine WBC (Auto) Vancomycin Trough 24.8 H 12/25/16 12/25/16 12/25/16 04:15 04:51 10:05 WBC 17.4 H MCHC 31 L RDW 16.3 H Lymph % (Auto) 8.7 L [place] % (Auto) 9.6 H [place] # 1.7 H Baso # 0.2 H Seg Neutrophils % 79.0 H Seg Neuts % (Manual) Lymphocytes % (Manual) Seg Neutrophils # 13.7 H Seg Neutrophils # Man Monocytes # (Manual) POC ABG pH 7.464 H POC ABG pCO2 POC ABG pO2 111 H Sodium Chloride BUN Glucose POC Glucose 119 H Lactic Acid Calcium Total Bilirubin AST C-Reactive Protein Albumin Urine WBC (Auto) Vancomycin Trough 12/25/16 12/25/16 12/25/16 10:05 12:14 23:40 WBC MCHC RDW Lymph % (Auto) [place] % (Auto) [place] # Baso # Seg Neutrophils % Seg Neuts % (Manual) Lymphocytes % (Manual) Seg Neutrophils # Seg Neutrophils # Man Monocytes # (Manual) POC ABG pH POC ABG pCO2 POC ABG pO2 Sodium Chloride BUN Glucose POC Glucose 122 H 144 H Lactic Acid Calcium Total Bilirubin AST C-Reactive Protein 6.00 H Albumin Urine WBC (Auto) Vancomycin Trough 12/26/16 12/26/16 12/26/16 05:00 06:45 06:45 WBC 20.7 H MCHC RDW 16.4 H Lymph % (Auto) [place] % (Auto) [place] # Baso # Seg Neutrophils % Seg Neuts % (Manual) Lymphocytes % (Manual) Seg Neutrophils # Seg Neutrophils # Man Monocytes # (Manual) POC ABG pH POC ABG pCO2 POC ABG pO2 Sodium 150 H Chloride 111.9 H BUN 22 H Glucose 148 H POC Glucose 144 H Lactic Acid Calcium Total Bilirubin 1.60 H AST 63 H C-Reactive Protein Albumin 2.6 L Urine WBC (Auto) Vancomycin Trough 12/26/16 11:18 WBC MCHC RDW Lymph % (Auto) [place] % (Auto) [place] # Baso # Seg Neutrophils % Seg Neuts % (Manual) Lymphocytes % (Manual) Seg Neutrophils # Seg Neutrophils # Man Monocytes # (Manual) POC ABG pH POC ABG pCO2 POC ABG pO2 Sodium Chloride BUN Glucose POC Glucose 153 H Lactic Acid Calcium Total Bilirubin AST C-Reactive Protein Albumin Urine WBC (Auto) Vancomycin Trough
--- NOTE | 2016-12-26 13:28 | Progress Note ---
Assessment and Plan Continue vasopressor support and other management. Poor prognosis. Await EEG findings. The patient has been seen in conjunction with Dr. Tamez who agrees with the assessment and plan of care. - Patient Problems (1) Cardiopulmonary arrest with successful resuscitation Current Visit: Yes Status: Acute (2) AICD (automatic cardioverter/defibrillator) present Current Visit: Yes Status: Chronic (3) Cardiomyopathy Current Visit: Yes Status: Chronic Qualifiers: Cardiomyopathy type: C (4) Acute on chronic respiratory failure Current Visit: Yes Status: Acute Qualifiers: Respiratory failure complication: hypoxia Qualified Code(s): J96.21 - Acute and chronic respiratory failure with hypoxia (5) Acute on chronic systolic heart failure Current Visit: Yes Status: Acute (6) Severe mitral regurgitation Current Visit: Yes Status: Chronic Subjective Date of service: 12/26/16 Principal diagnosis: s/p C-P arrest, acute on chronic resp failure, Acute on chronic SHF, CMP Interval history: pt remains intubated, unresponsive, off sedation. eyes open but no purposeful movements noted. sister at bedside. s/p EEG this AM. Objective Last Vital Signs Temp 102.5 F H 12/26/16 11:45 Pulse 86 12/26/16 13:00 Resp 22 12/26/16 13:00 BP 112/73 12/26/16 13:00 Pulse Ox 100 12/26/16 13:00 - Physical Examination General: No Apparent Distress, Other (unresponsive) HEENT: Positive: Normocephaly, Mucus Membranes Moist Neck: Positive: neck supple, trachea midline Cardiac: Positive: Reg Rate and Rhythm, S1/S2 Lungs: Positive: Decreased Breath Sounds, Ventilated Respirations Neuro: Positive: Other (unresponsive) Abdomen: Positive: Soft, Active Bowel Sounds Skin: Positive: Clear. Negative: Rash Musculoskeletal: No Fluid Collection Extremities: Absent: edema - Labs and Meds Cardiac Enzymes 12/26/16 Range/Units 06:45 AST 63 H (5-40) units/L CBC 12/26/16 Range/Units 06:45 WBC 20.7 H (4.5-11.0) K/mm3 RBC 4.61 (3.65-5.03) M/mm3 Hgb 13.3 (11.8-15.2) gm/dl Hct 42.1 (35.5-45.6) % Plt Count 197 (140-440) K/mm3 Comprehensive Metabolic Panel 12/26/16 Range/Units 06:45 Sodium 150 H (137-145) mmol/L Potassium 3.8 (3.6-5.0) mmol/L Chloride 111.9 H (98-107) mmol/L Carbon Dioxide 27 (22-30) mmol/L BUN 22 H (9-20) mg/dL Creatinine 0.8 (0.8-1.5) mg/dL Glucose 148 H (75-100) mg/dL Calcium 8.5 (8.4-10.2) mg/dL AST 63 H (5-40) units/L ALT 25 (7-56) units/L Alkaline Phosphatase 76 (35-129) units/L Total Protein 7.8 (6.3-8.2) g/dL Albumin 2.6 L (3.9-5) g/dL - Imaging and Cardiology EKG: image reviewed Echo: report reviewed (EF 10-15%, LA severely dilated, RV mildly dilated, severe MR, mild TR, LV severely dilated, RV mildly dilated) - EKG Sinus rhythms and dysrhythmias: sinus tachycardia
--- NOTE | 2016-12-26 15:08 | Progress Note ---
Assessment and Plan Assessment and plan: 59-year-old man with a past medical history of end-stage CHF on milrinone drip at home, chronic respiratory failure, COPD, oxygen dependent on 3 L at home, gallops, atrial flutter, who was brought in by his . States that the patient had complained of shortness of breath and then subsequently collapsed. EMS arrived and found to be asystolic arrest, he received ACLS protocol and had return of circulation was then brought to the hospital. Cardiac arrest Status post ACS protocol, cardiology consult, continue telemetry Acute on chronic systolic CHF exacerbation with pulmonary venous congestion Cardiology input appreciated, continue milrinone drip, continue supportive care IV lasix as tolerated SEVERE ENDSTAGE DILATED CMP * Cardiology following, Continue on Milirione drip Cardiogenic shock Continue IV pressor support Septic shock/Severe spesis Recurrent fever Treated with empiric frustration antibiotics, follow blood and urine cultures Recurrent fever likely secondary to anoxic brain injury No clear evidence of pneumonia, possible UTI, cultures remained negative. ID consult continue Pressors, phenylephrine and milrinone MAY NEED PICC LINE CHANGED WHEN AFEBRILE Acute hypercapnic respiratory failure on mechanical ventilator greater than 48 hours Continue mechanical ventilator, pulmonary input appreciated, We'll attempt to wean off ventilator daily Patient continues to fail weaning trials Metabolic encephalopathy Most likely due to hypoperfusion of central nervous system , i.e. anoxic brain injury CT head does not show any acute findings, CTA head also shows no acute findings , patient has a pacemaker/ICD, therefore MRI is contraindicated Neurology consult and bruits noted. EEG. Remains unresponsive despite not being on sedation ACUTE CYSTITIS -continue empiric abx -sputum culture no growth RIGHT SIDED PLEURAL EFFUSION -Probably due to CHF. will monitor. DVT/GI PROPHY Had extensive discussion with the father, family, sister on 12/25/16, FAMILY UNDERSTANDS THAT PATIENT WILL NOT HAVE ANY MEANINGFUL RECOVERY BAR A MIRACLE AT THIS TIME. HOSPICE HAS BEEN RECOMMENDED. Poor prognosis The high probability of a clinically significant, sudden or life threatening deterioration of the [cardiovascular, pulmonary and Neurologic] system(s) required my full and direct attention, intervention and personal management. The aggregate critical care time was [35] minutes. This time is in addition to time spent performing reported procedures but includes the following: [X] Data Review and interpretation [X] Patient assessment and monitoring of vital signs [X] Documentation [X] Medication orders and management History Interval history: Patient seen and examined remains comatose. NO CHANGE Hospitalist Physical - Physical exam Narrative exam: VITAL SIGNS: Reviewed. GENERAL: The patient appeared comatose, ventilated. Vital signs as documented. HEAD: No signs of head trauma. EYES: Pupils are equal. EARS: Unable to assess MOUTH: Oropharynx is normal. NECK: No adenopathy, no JVD. CHEST: Chest with faint expiratory wheeze. CARDIAC: Regular rate and rhythm. S1 and S2, without murmurs, gallops, or rubs. VASCULAR: No Edema. Peripheral pulses normal and equal in all extremities. ABDOMEN: Soft, unable to assess tenderness. No grimacing on palpation. No sign of distention. Bowel Sounds normal. MUSCULOSKELETAL: Extremities without clubbing, cyanosis or edema. NEUROLOGIC EXAM: Comatose with flaccid extremities PSYCHIATRIC: Unable to assess. SKIN: PICC line to left upper ext - Constitutional Vitals: Temp Pulse Resp BP Pulse Ox 102.5 F H 97 H 22 109/72 100 12/26/16 11:45 12/26/16 13:42 12/26/16 13:00 12/26/16 13:42 12/26/16 13:42 General appearance: Present: severe distress Results - Labs CBC & Chem 7: 12/27/16 04:40 12/27/16 04:40 Labs: Laboratory Last Values WBC 20.7 K/mm3 (4.5-11.0) H 12/26/16 06:45 RBC 4.61 M/mm3 (3.65-5.03) 12/26/16 06:45 Hgb 13.3 gm/dl (11.8-15.2) 12/26/16 06:45 Hct 42.1 % (35.5-45.6) 12/26/16 06:45 MCV 91 fl (84-94) 12/26/16 06:45 MCH 29 pg (28-32) 12/26/16 06:45 MCHC 32 % (32-34) 12/26/16 06:45 RDW 16.4 % (13.2-15.2) H 12/26/16 06:45 Plt Count 197 K/mm3 (140-440) 12/26/16 06:45 Lymph % (Auto) 8.7 % (13.4-35.0) L 12/25/16 10:05 Hinds % (Auto) 9.6 % (0.0-7.3) H 12/25/16 10:05 Eos % (Auto) 1.7 % (0.0-4.3) 12/25/16 10:05 Baso % (Auto) 1.0 % (0.0-1.8) 12/25/16 10:05 Lymph # 1.5 K/mm3 (1.2-5.4) 12/25/16 10:05 Hinds # 1.7 K/mm3 (0.0-0.8) H 12/25/16 10:05 Eos # 0.3 K/mm3 (0.0-0.4) 12/25/16 10:05 Baso # 0.2 K/mm3 (0.0-0.1) H 12/25/16 10:05 Add Manual Diff Complete 12/23/16 12:51 Total Counted 100 12/23/16 12:51 Seg Neutrophils % 79.0 % (40.0-70.0) H 12/25/16 10:05 Seg Neuts % (Manual) 85.0 % (40.0-70.0) H 12/23/16 12:51 Band Neutrophils % 0 % 12/23/16 12:51 Lymphocytes % (Manual) 8.0 % (13.4-35.0) L 12/23/16 12:51 Reactive Lymphs % (Man) 0 % 12/23/16 12:51 Monocytes % (Manual) 7.0 % (0.0-7.3) 12/23/16 12:51 Eosinophils % (Manual) 0 % (0.0-4.3) 12/23/16 12:51 Basophils % (Manual) 0 % (0.0-1.8) 12/23/16 12:51 Metamyelocytes % 0 % 12/23/16 12:51 Myelocytes % 0 % 12/23/16 12:51 Promyelocytes % 0 % 12/23/16 12:51 Blast Cells % 0 % 12/23/16 12:51 Nucleated RBC % Not Reportable 12/23/16 12:51 Seg Neutrophils # 13.7 K/mm3 (1.8-7.7) H 12/25/16 10:05 Seg Neutrophils # Man 17.4 K/mm3 (1.8-7.7) H 12/23/16 12:51 Band Neutrophils # 0.0 K/mm3 12/23/16 12:51 Lymphocytes # (Manual) 1.6 K/mm3 (1.2-5.4) 12/23/16 12:51 Abs React Lymphs (Man) 0.0 K/mm3 12/23/16 12:51 Monocytes # (Manual) 1.4 K/mm3 (0.0-0.8) H 12/23/16 12:51 Eosinophils # (Manual) 0.0 K/mm3 (0.0-0.4) 12/23/16 12:51 Basophils # (Manual) 0.0 K/mm3 (0.0-0.1) 12/23/16 12:51 Metamyelocytes # 0.0 K/mm3 12/23/16 12:51 Myelocytes # 0.0 K/mm3 12/23/16 12:51 Promyelocytes # 0.0 K/mm3 12/23/16 12:51 Blast Cells # 0.0 K/mm3 12/23/16 12:51 WBC Morphology Not Reportable 12/23/16 12:51 Hypersegmented Neuts Not Reportable 12/23/16 12:51 Hyposegmented Neuts Not Reportable 12/23/16 12:51 Hypogranular Neuts Not Reportable 12/23/16 12:51 Smudge Cells Not Reportable 12/23/16 12:51 Toxic Granulation Not Reportable 12/23/16 12:51 Toxic Vacuolation Not Reportable 12/23/16 12:51 Dohle Bodies Not Reportable 12/23/16 12:51 Pelger-Huet Anomaly Not Reportable 12/23/16 12:51 Shantal Rods Not Reportable 12/23/16 12:51 Platelet Estimate Appears normal 12/23/16 12:51 Clumped Platelets Not Reportable 12/23/16 12:51 Plt Clumps, EDTA Not Reportable 12/23/16 12:51 Large Platelets Not Reportable 12/23/16 12:51 Giant Platelets Not Reportable 12/23/16 12:51 Platelet Satelliting Not Reportable 12/23/16 12:51 Plt Morphology Comment Not Reportable 12/23/16 12:51 RBC Morphology Not Reportable 12/23/16 12:51 Dimorphic RBCs Not Reportable 12/23/16 12:51 Polychromasia Not Reportable 12/23/16 12:51 Hypochromasia Not Reportable 12/23/16 12:51 Poikilocytosis Not Reportable 12/23/16 12:51 Anisocytosis Not Reportable 12/23/16 12:51 Microcytosis Not Reportable 12/23/16 12:51 Macrocytosis Not Reportable 12/23/16 12:51 Spherocytes Not Reportable 12/23/16 12:51 Pappenheimer Bodies Not Reportable 12/23/16 12:51 Sickle Cells Not Reportable 12/23/16 12:51 Target Cells Not Reportable 12/23/16 12:51 Tear Drop Cells Not Reportable 12/23/16 12:51 Ovalocytes Few 12/23/16 12:51 Helmet Cells Not Reportable 12/23/16 12:51 [place] Bodies Not Reportable 12/23/16 12:51 [place] Rings Not Reportable 12/23/16 12:51 [place] Cells Not Reportable 12/23/16 12:51 Bite Cells Not Reportable 12/23/16 12:51 Crenated Cell Not Reportable 12/23/16 12:51 Elliptocytes Not Reportable 12/23/16 12:51 Acanthocytes (Spur) Not Reportable 12/23/16 12:51 Rouleaux Not Reportable 12/23/16 12:51 Hemoglobin C Crystals Not Reportable 12/23/16 12:51 Schistocytes Not Reportable 12/23/16 12:51 Malaria parasites Not Reportable 12/23/16 12:51 [place] Bodies Not Reportable 12/23/16 12:51 Hem Pathologist Commnt No 12/23/16 12:51 PT 20.5 Sec. (12.2-14.9) H 12/20/16 17:00 INR 1.66 (0.87-1.13) H 12/20/16 17:00 APTT 39.4 Sec. (24.2-36.6) H 12/20/16 17:00 POC ABG pH 7.438 (7.35-7.45) 12/26/16 04:29 POC ABG pCO2 43.1 (35-45) 12/26/16 04:29 POC ABG pO2 90 (80-105) 12/26/16 04:29 POC ABG HCO3 29.1 12/26/16 04:29 POC ABG Total CO2 30 12/26/16 04:29 POC ABG O2 Sat 97 12/26/16 04:29 POC ABG Base Excess 5 12/26/16 04:29 FiO2 30 % 12/26/16 04:29 Sodium 150 mmol/L (137-145) H 12/26/16 06:45 Potassium 3.8 mmol/L (3.6-5.0) 12/26/16 06:45 Chloride 111.9 mmol/L (98-107) H 12/26/16 06:45 Carbon Dioxide 27 mmol/L (22-30) 12/26/16 06:45 Anion Gap 15 mmol/L 12/26/16 06:45 BUN 22 mg/dL (9-20) H 12/26/16 06:45 Creatinine 0.8 mg/dL (0.8-1.5) 12/26/16 06:45 Estimated GFR > 60 ml/min 12/26/16 06:45 BUN/Creatinine Ratio 27.50 % 12/26/16 06:45 Glucose 148 mg/dL (75-100) H 12/26/16 06:45 POC Glucose 153 (70-105) H 12/26/16 11:18 Lactic Acid 1.30 mmol/L (0.7-2.0) 12/24/16 06:00 Calcium 8.5 mg/dL (8.4-10.2) 12/26/16 06:45 Phosphorus 2.60 mg/dL (2.5-4.5) 12/24/16 03:40 Magnesium 2.30 mg/dL (1.7-2.3) 12/24/16 03:40 Total Bilirubin 1.60 mg/dL (0.1-1.2) H 12/26/16 06:45 AST 63 units/L (5-40) H 12/26/16 06:45 ALT 25 units/L (7-56) 12/26/16 06:45 Alkaline Phosphatase 76 units/L (35-129) 12/26/16 06:45 Total Creatine Kinase 86 units/L (55-170) 12/20/16 17:00 CK-MB (CK-2) 4.2 ng/mL (0.0-4.0) H 12/20/16 17:00 CK-MB (CK-2) Rel Index 4.8 (0-4) H 12/20/16 17:00 Troponin T 0.054 ng/mL (0.00-0.029) H 12/20/16 17:00 C-Reactive Protein 6.00 mg/dL (0.00-1.30) H 12/25/16 10:05 NT-Pro-B Natriuret Pep 9604 pg/mL (0-900) H 12/20/16 17:00 Total Protein 7.8 g/dL (6.3-8.2) 12/26/16 06:45 Albumin 2.6 g/dL (3.9-5) L 12/26/16 06:45 Albumin/Globulin Ratio 0.5 % 12/26/16 06:45 Triglycerides 82 mg/dL (2-149) 12/20/16 17:00 Cholesterol 128 mg/dL (50-199) 12/20/16 17:00 LDL Cholesterol Direct 51 mg/dL (50-130) 12/20/16 17:00 HDL Cholesterol 61 mg/dL (40-59) H 12/20/16 17:00 Cholesterol/HDL Ratio 2.09 % 12/20/16 17:00 Total Cortisol 21.7 mcg/dL () 12/24/16 10:45 Urine Color Keely (Yellow) 12/21/16 08:15 Urine Turbidity Clear (Clear) 12/21/16 08:15 Urine pH 5.0 (5.0-7.0) 12/21/16 08:15 Ur Specific Smith 1.023 (1.003-1.030) 12/21/16 08:15 Urine Protein <15 mg/dl mg/dL (Negative) 12/21/16 08:15 Urine Glucose (UA) Neg mg/dL (Negative) 12/21/16 08:15 Urine Ketones Neg mg/dL (Negative) 12/21/16 08:15 Urine Blood Lg (Negative) 12/21/16 08:15 Urine Nitrite Neg (Negative) 12/21/16 08:15 Urine Bilirubin Neg (Negative) 12/21/16 08:15 Urine Urobilinogen 2.0 mg/dL (<2.0) 12/21/16 08:15 Ur Leukocyte Esterase Mod (Negative) 12/21/16 08:15 Urine WBC (Auto) 30.0 /HPF (0.0-6.0) H 12/21/16 08:15 Urine RBC (Auto) 93.0 /HPF (0.0-6.0) 12/21/16 08:15 U Epithel Cells (Auto) < 1.0 /HPF (0-13.0) 12/21/16 08:15 Calcium Oxalate Crystal Few 12/21/16 08:15 Hyaline Casts 2 /LPF 12/21/16 08:15 Urine Mucus Few /HPF 12/21/16 08:15 Vancomycin Trough 24.8 ug/mL (5.0-20.0) H 12/24/16 21:30
[2016-12-26] MEDS: LOVENOX SUB-Q SCH (23:16)
[2016-12-27] MEDS: NOVOLOG SUB-Q SCH ×4 (00:09→17:26)
[2016-12-27] MEDS: TYLENOL FEEDTUBE PRN (03:49)
[2016-12-27] MEDS: ZOSYN/NS 4.5GM/100ML 4.5 GM/100 ML VIAL IV SCH ×2 (06:04→06:05)
[2016-12-27 06:19] LABS: Hematocrit 40.6 % (35.5-45.6); Hemoglobin 12.8 gm/dl (11.8-15.2); Mean Corpuscular HGB Conc 32 % (32-34); Mean Corpuscular Hemoglobin 29 pg (28-32); Mean Corpuscular Volume 92 fl (84-94); Platelet Count 186 K/mm3 (140-440); Red Blood Count 4.42 M/mm3 (3.65-5.03); Red Cell Distribution Width 16.4 % (13.2-15.2)
[2016-12-27 06:40] LABS: White Blood Count 20.3 K/mm3 (4.5-11.0)
[2016-12-27 06:47] LABS: Alanine Aminotransferase 28 units/L (7-56); Albumin 2.7 g/dL (3.9-5); Albumin/Globulin Ratio 0.6 %; Alkaline Phosphatase 75 units/L (35-129); Anion Gap 18 mmol/L; BUN/Creatinine Ratio 28.75; Blood Urea Nitrogen 23 mg/dL (9-20); Calcium 8.3 mg/dL (8.4-10.2); Carbon Dioxide 25 mmol/L (22-30); Chloride 112.5 mmol/L (98-107); Glucose 140 mg/dL (75-100); Potassium 3.9 mmol/L (3.6-5.0); Sodium 152 mmol/L (137-145); Total Protein 7.2 g/dL (6.3-8.2)
[2016-12-27] MEDS: PRIMACOR 20 MG in D5W 80 ML IV SCH ×2 (07:12→17:25)
[2016-12-27] MEDS: NEO-SYNEPHRINE 100 MG in NACL 0.9% 90 ML IV SCH ×2 (07:13→17:25)
[2016-12-27] MEDS: VANCOMYCIN/NS 1 GM/250 ML 1 GM/250 ML BAG IV SCH ×2 (07:40→09:04)
[2016-12-27 08:31] LABS: Basophils % (Manual) 0 % (0.0-1.8); Blastocytes % (Manual) 0 %; RBC Morphology Normal
[2016-12-27 08:32] LABS: Diff Status Complete
[2016-12-27] MEDS: ASPIRIN PO SCH (09:03)
[2016-12-27] MEDS: PEPCID PO SCH ×2 (09:03→22:42)
--- NOTE | 2016-12-27 09:13 | XRay Report ---
Portable chest: Endotracheal, nasogastric, and ICD lines are unchanged. There is persistent right pleural effusion and compressive atelectasis at the right lung base. No vascular congestion with borderline sized heart. Compared to recent studies dating back to December 25 the vascular pattern appears improved no other changes. Impression: Decreased vascular congestion with otherwise stable exam.
--- NOTE | 2016-12-27 10:01 | Progress Note ---
Assessment and Plan Assessment: 1) Shock: still high fever and leukocytosis (received solumedrol IV x 1). [id number] ? septic ? versus ? cardiogenic or a combination. Etiology: unclear; UTI?, central fever?. -CRP=6 -Procalcitonin=1.1 -Blood cx x 2 negative -Old PICC placed 4 months ago 2) UTI: urine cx negative 3) S/P respiratory arrest 4) Respiratory failure 5) End-stage heart failure on 6) PICC line and AICD in place Plan: -family refused PICC exchange in view of hospice consideration -check CT chest abdomen pelvis -f/u respiratory cultures -Stop zosyn and vancomycin - no response in 9 days -Start cefepime/flagyl/fluconazole empirically -discussed with ICU staff I will be rounding this weekend Thank you Dr Tang for your consultation, will follow up with you. Sally Biswas MD Infectious Diseases Specialist [facility] ([facility]) M [phone] O [phone] Subjective Date of service: 12/27/16 Principal diagnosis: s/p C-P arrest, acute on chronic resp failure, Acute on chronic SHF, CMP Interval history: Remains with high fever Tmax 103 overnight. He is on Milrinone and Neosynephrine IV drip Microbiology: Blood cultures: 12/21 neg 12/24 ngtd Urine cultures: 12/21 ngtd Respiratory cultures: 12/20 neg Wound cultures: Stool cultures: Other: Current Antimicrobials: Zosyn 12/20 Vancomycin 12/20 Previous Antimicrobials: Objective - Constitutional Vitals: Vital Signs Temp Pulse Resp BP Pulse Ox 98.5 F 114 H 21 119/80 100 12/27/16 08:00 12/27/16 08:46 12/27/16 08:00 12/27/16 08:46 12/27/16 08:46 Temperature -Last 24 Hours Temperature 98.5 F Temperature 99.3 F Temperature 103.2 F Temperature 103.2 F Temperature 100.3 F Temperature 102.4 F Temperature 101.8 F Temperature 102.5 F - Labs CBC & Chem 7: 12/27/16 04:40 12/27/16 04:40 Labs: Abnormal lab results 12/25/16 12/26/16 12/26/16 Range/Units 11:00 11:18 18:04 WBC (4.5-11.0) K/mm3 RDW (13.2-15.2) % Seg Neuts % (Manual) (40.0-70.0) % Lymphocytes % (Manual) (13.4-35.0) % Seg Neutrophils # Man (1.8-7.7) K/mm3 Lymphocytes # (Manual) (1.2-5.4) K/mm3 Eosinophils # (Manual) (0.0-0.4) K/mm3 Sodium (137-145) mmol/L Chloride (98-107) mmol/L BUN (9-20) mg/dL Glucose (75-100) mg/dL POC Glucose 153 H 133 H (70-105) Calcium (8.4-10.2) mg/dL Total Bilirubin (0.1-1.2) mg/dL AST (5-40) units/L Albumin (3.9-5) g/dL Miscellaneous Test Flexitest 1 H 12/26/16 12/27/16 12/27/16 Range/Units 23:37 04:40 04:40 WBC 20.3 H (4.5-11.0) K/mm3 RDW 16.4 H (13.2-15.2) % Seg Neuts % (Manual) 88.0 H (40.0-70.0) % Lymphocytes % (Manual) 5.0 L (13.4-35.0) % Seg Neutrophils # Man 17.9 H (1.8-7.7) K/mm3 Lymphocytes # (Manual) 1.0 L (1.2-5.4) K/mm3 Eosinophils # (Manual) 0.6 H (0.0-0.4) K/mm3 Sodium 152 H (137-145) mmol/L Chloride 112.5 H (98-107) mmol/L BUN 23 H (9-20) mg/dL Glucose 140 H (75-100) mg/dL POC Glucose 135 H (70-105) Calcium 8.3 L (8.4-10.2) mg/dL Total Bilirubin 1.50 H (0.1-1.2) mg/dL AST 60 H (5-40) units/L Albumin 2.7 L (3.9-5) g/dL Miscellaneous Test 12/27/16 Range/Units 05:45 WBC (4.5-11.0) K/mm3 RDW (13.2-15.2) % Seg Neuts % (Manual) (40.0-70.0) % Lymphocytes % (Manual) (13.4-35.0) % Seg Neutrophils # Man (1.8-7.7) K/mm3 Lymphocytes # (Manual) (1.2-5.4) K/mm3 Eosinophils # (Manual) (0.0-0.4) K/mm3 Sodium (137-145) mmol/L Chloride (98-107) mmol/L BUN (9-20) mg/dL Glucose (75-100) mg/dL POC Glucose 127 H (70-105) Calcium (8.4-10.2) mg/dL Total Bilirubin (0.1-1.2) mg/dL AST (5-40) units/L Albumin (3.9-5) g/dL Miscellaneous Test
--- NOTE | 2016-12-27 10:42 | Progress Note ---
Assessment and Plan Continue vasopressor support and other management. Poor prognosis. Per neuro - EEG pattern appears to be consistent with "alpha coma" or a severely encephalopathic process as seen with bihemispheric cortical injury following cardiorespiratory arrest. No epileptiform discharges noted. Impression: Acute severe anoxic encephalopathy. Patient remains comatose with flaccid areflexic extremities. So far no improvement in consciousness level or any evidence of cognition. Nothing else to add from cardiac perspective. Will see on as needed basis. The patient has been seen in conjunction with Dr. Tamez who agrees with the assessment and plan of care. - Patient Problems (1) Cardiopulmonary arrest with successful resuscitation Current Visit: Yes Status: Acute (2) AICD (automatic cardioverter/defibrillator) present Current Visit: Yes Status: Chronic (3) Cardiomyopathy Current Visit: Yes Status: Chronic Qualifiers: Cardiomyopathy type: C (4) Acute on chronic respiratory failure Current Visit: Yes Status: Acute Qualifiers: Respiratory failure complication: hypoxia Qualified Code(s): J96.21 - Acute and chronic respiratory failure with hypoxia (5) Acute on chronic systolic heart failure Current Visit: Yes Status: Acute (6) Severe mitral regurgitation Current Visit: Yes Status: Chronic (7) Anoxic encephalopathy Current Visit: Yes Status: Acute Subjective Date of service: 12/27/16 Principal diagnosis: s/p C-P arrest, acute on chronic resp failure, Acute on chronic SHF, CMP Interval history: pt remains intubated, unresponsive, off sedation. still with no purposeful movements noted. no family at bedside currently. remains on milrinone and julienne gtts. Objective Last Vital Signs Temp 98.5 F 12/27/16 08:00 Pulse 114 H 12/27/16 08:46 Resp 21 12/27/16 08:00 BP 119/80 12/27/16 08:46 Pulse Ox 100 12/27/16 08:46 - Physical Examination General: No Apparent Distress, Other (unresponsive) HEENT: Positive: Normocephaly, Mucus Membranes Moist Neck: Positive: neck supple, trachea midline Cardiac: Positive: Reg Rate and Rhythm, S1/S2 Lungs: Positive: Decreased Breath Sounds, Ventilated Respirations Neuro: Positive: Other (unresponsive) Abdomen: Positive: Soft, Active Bowel Sounds Skin: Positive: Clear. Negative: Rash Musculoskeletal: No Fluid Collection Extremities: Absent: edema - Labs and Meds Cardiac Enzymes 12/27/16 Range/Units 04:40 AST 60 H (5-40) units/L CBC 12/27/16 Range/Units 04:40 WBC 20.3 H (4.5-11.0) K/mm3 RBC 4.42 (3.65-5.03) M/mm3 Hgb 12.8 (11.8-15.2) gm/dl Hct 40.6 (35.5-45.6) % Plt Count 186 (140-440) K/mm3 Comprehensive Metabolic Panel 12/27/16 Range/Units 04:40 Sodium 152 H (137-145) mmol/L Potassium 3.9 (3.6-5.0) mmol/L Chloride 112.5 H (98-107) mmol/L Carbon Dioxide 25 (22-30) mmol/L BUN 23 H (9-20) mg/dL Creatinine 0.8 (0.8-1.5) mg/dL Glucose 140 H (75-100) mg/dL Calcium 8.3 L (8.4-10.2) mg/dL AST 60 H (5-40) units/L ALT 28 (7-56) units/L Alkaline Phosphatase 75 (35-129) units/L Total Protein 7.2 (6.3-8.2) g/dL Albumin 2.7 L (3.9-5) g/dL - Imaging and Cardiology EKG: image reviewed Echo: report reviewed (EF 10-15%, LA severely dilated, RV mildly dilated, severe MR, mild TR, LV severely dilated, RV mildly dilated) - EKG Sinus rhythms and dysrhythmias: sinus tachycardia
[2016-12-27] MEDS: FLAGYL 500 MG/100 ML 500 MG/100 ML BAG IV SCH ×2 (14:22→22:36)
[2016-12-27] MEDS: DIFLUCAN 200 MG/100 ML BAG IV SCH (14:22)
--- NOTE | 2016-12-27 14:46 | Progress Note ---
Assessment and Plan Imp: 1. Severe/end-stage dilated CMP 2. A/C systolic CHF 3. s/p CP arrest 4. Probable anoxic encephalopathy 5. Acute/chronic respiratory failure, hypoxia and hypercapnea 6. Cardiogenic shock 7. Lactic acidosis, resolved 8. ? Aspiration pneumonitis 9. R pleural effusion, probably due to CHF 10. SIRS; ? central fever due to #4 11. Hypernatremia Rec: 1. Cultures remain negative; ABX as per ID, recommendations noted; believe could place new PICC since not bacteremic; I discussed recommendation of line change to patient's decision-maker (father Ryder Ellison, Sr.) who wants to hold off; monitor fevers after ABX change today 2. Wean Valeriy to keep MAP > 60; hold Lasix as may be getting on the dry side now 3. PSV trials daily (failed today); mentation precludes extubation 4. Remain off sedation; EEG and neuro assessment reviewed -> patient with poor prognosis 5. TFs; monitor sodium --> free water + will add D5W to correct free water deficit 6. GI/DVT PPx 7. Would not try to tap the small R effusion; monitor radiographically 8. Poor prognosis for meaningful recovery/quality of life due to end-stage CMP, shock, anoxic enceph., etc.; he is a hospice candidate in my opinion; discussed with sister and father today, all questions answered CCT 31 minutes Subjective Date of service: 12/27/16 Principal diagnosis: s/p C-P arrest, acute on chronic resp failure, Acute on chronic SHF, CMP Interval history: No events. Off sedation x 5 days. Not waking up or following commands. Remains on Valeriy at 200mcg. PEEP at 5, sat of 100%. Still w/ fevers. Active Medications Acetaminophen (Tylenol) 650 mg FEEDTUBE Q4H PRN PRN Reason: Pain, Mild (1-3) Last Admin: 12/27/16 03:49 Dose: 650 mg Albuterol (Proventil) 2.5 mg IH Q4H PRN PRN Reason: Shortness Of Breath Lipase/Protease/Amylase ([place] 10,500 Unit) 1 each FEEDTUBE PRN PRN PRN Reason: For Clogged Feeding Tube Aspirin (Aspirin) 325 mg PO QDAY [facility] Last Admin: 12/27/16 09:03 Dose: 325 mg Enoxaparin Sodium (Lovenox) 40 mg SUB-Q QDAY@2200 HEATHER Last Admin: 12/26/16 23:16 Dose: 40 mg Famotidine (Pepcid) 20 mg PO BID [facility] Last Admin: 12/27/16 09:03 Dose: 20 mg Hydrophilic Ointment (Vaseline Lip Therapy) 1 applic TP Q2HR PRN PRN Reason: Dry Lips Milrinone Lactate 20 mg/ (Dextrose) 100 mls @ 9.9 mls/hr IV TITR HEATHER; 0.375 MCG /KG/MIN PRN Reason: Protocol Last Admin: 12/27/16 07:12 Dose: 0.37 mcg/kg/min, 9.76 mls/hr Phenylephrine HCl 100 mg/ (Sodium Chloride) 100 mls @ 3 mls/hr IV TITR HEATHER; 50 MCG/MIN PRN Reason: Protocol Last Titration: 12/27/16 14:19 Dose: 50 mcg/min, 3 mls/hr Cefepime HCl (Maxipime/Ns 2 Gm/100 Ml) 2 gm in 100 mls @ 200 mls/hr IV Q8HR HEATHER PRN Reason: Protocol Fluconazole (Diflucan) 200 mg in 100 mls @ 100 mls/hr IV Q24HR HEATHER PRN Reason: Protocol Last Admin: 12/27/16 14:22 Dose: 100 mls/hr Metronidazole (Flagyl 500 Mg/100 Ml) 500 mg in 100 mls @ 100 mls/hr IV Q8HR HEATHER Last Admin: 12/27/16 14:22 Dose: 100 mls/hr Dextrose (D5w) 1,000 mls @ 60 mls/hr IV DIRECT HEATHER Insulin Aspart (Novolog) 0 units SUB-Q Q6HR HEATHER PRN Reason: Protocol Last Admin: 12/27/16 14:22 Dose: Not Given Multi-Ingred Cream/Lotion/Oil/Oint (Artificial Tears Ophth Oint) 1 applic OU Q4HR PRN PRN Reason: Dry Eye(s) Last Admin: 12/22/16 10:38 Dose: 1 applic Simple Syrup (Simple Syrup) 15 ml FEEDTUBE PRN PRN PRN Reason: Hypoglycemia Simple Syrup (Simple Syrup) 30 ml FEEDTUBE PRN PRN PRN Reason: Hypoglycemia Sodium Bicarbonate (Sodium Bicarbonate) 325 mg FEEDTUBE PRN PRN PRN Reason: For Clogged Feeding Tube Sodium Chloride (Nacl 0.9% 500 Ml) 1 ml IV DIRECT HEATHER Objective Vital Signs - 12hr 12/27/16 12/27/16 12/27/16 02:45 03:00 03:15 Temperature Pulse Rate 104 H 113 H 96 H Pulse Rate [ Apical] Pulse Rate [ From Monitor] Respiratory 24 28 H 20 Rate Blood Pressure 119/78 115/77 116/75 O2 Sat by Pulse 100 97 100 Oximetry 12/27/16 12/27/16 12/27/16 03:30 03:45 04:00 Temperature 103.2 F H Pulse Rate 91 H 100 H 100 H Pulse Rate [ Apical] Pulse Rate [ From Monitor] Respiratory 22 23 24 Rate Blood Pressure 115/74 117/77 117/78 O2 Sat by Pulse 100 100 100 Oximetry 12/27/16 12/27/16 12/27/16 04:15 04:30 04:45 Temperature Pulse Rate 96 H 110 H 100 H Pulse Rate [ Apical] Pulse Rate [ From Monitor] Respiratory 23 24 21 Rate Blood Pressure 124/80 111/74 113/76 O2 Sat by Pulse 100 97 100 Oximetry 12/27/16 12/27/16 12/27/16 05:00 05:15 05:30 Temperature Pulse Rate 90 81 93 H Pulse Rate [ Apical] Pulse Rate [ From Monitor] Respiratory 20 21 20 Rate Blood Pressure 117/75 113/75 115/79 O2 Sat by Pulse 100 100 100 Oximetry 12/27/16 12/27/16 12/27/16 05:45 06:00 06:01 Temperature 99.3 F Pulse Rate 94 H 99 H Pulse Rate [ Apical] Pulse Rate [ From Monitor] Respiratory 22 23 Rate Blood Pressure 117/81 111/81 O2 Sat by Pulse 100 100 Oximetry 12/27/16 12/27/16 12/27/16 06:15 06:30 06:45 Temperature Pulse Rate 98 H 107 H 112 H Pulse Rate [ Apical] Pulse Rate [ From Monitor] Respiratory 21 21 22 Rate Blood Pressure 116/79 117/82 119/81 O2 Sat by Pulse 100 100 100 Oximetry 12/27/16 12/27/16 12/27/16 07:00 07:15 07:30 Temperature Pulse Rate 113 H 110 H 104 H Pulse Rate [ Apical] Pulse Rate [ From Monitor] Respiratory 23 22 22 Rate Blood Pressure 120/83 115/72 123/73 O2 Sat by Pulse 100 100 100 Oximetry 12/27/16 12/27/16 12/27/16 07:45 08:00 08:15 Temperature 98.5 F Pulse Rate 103 H 94 H 106 H Pulse Rate [ 103 H Apical] Pulse Rate [ 103 H From Monitor] Respiratory 22 24 21 Rate Blood Pressure 119/78 119/84 117/80 O2 Sat by Pulse 97 100 100 Oximetry 12/27/16 12/27/16 12/27/16 08:30 08:46 09:00 Temperature Pulse Rate 97 H 106 H 108 H Pulse Rate [ Apical] Pulse Rate [ From Monitor] Respiratory 22 22 26 H Rate Blood Pressure 120/78 119/80 116/78 O2 Sat by Pulse 100 100 100 Oximetry 12/27/16 12/27/16 12/27/16 09:16 09:30 09:45 Temperature Pulse Rate 108 H 113 H 105 H Pulse Rate [ Apical] Pulse Rate [ From Monitor] Respiratory 25 H 26 H 26 H Rate Blood Pressure 119/83 121/83 123/83 O2 Sat by Pulse 100 100 100 Oximetry 12/27/16 12/27/16 12/27/16 10:00 10:15 10:30 Temperature Pulse Rate 97 H 101 H 105 H Pulse Rate [ Apical] Pulse Rate [ From Monitor] Respiratory 24 25 H 23 Rate Blood Pressure 119/82 118/84 116/81 O2 Sat by Pulse 100 100 100 Oximetry 12/27/16 12/27/16 12/27/16 10:45 11:00 11:15 Temperature Pulse Rate 105 H 104 H 89 Pulse Rate [ Apical] Pulse Rate [ From Monitor] Respiratory 25 H 25 H 21 Rate Blood Pressure 122/83 120/84 112/76 O2 Sat by Pulse 100 100 99 Oximetry 12/27/16 12/27/16 12/27/16 11:30 11:45 12:00 Temperature 98.6 F Pulse Rate 97 H 107 H 103 H Pulse Rate [ Apical] Pulse Rate [ From Monitor] Respiratory 24 25 H 24 Rate Blood Pressure 117/80 117/82 120/83 O2 Sat by Pulse 100 100 100 Oximetry 12/27/16 12/27/16 12/27/16 12:15 12:30 12:45 Temperature Pulse Rate 97 H 103 H 113 H Pulse Rate [ Apical] Pulse Rate [ From Monitor] Respiratory 20 24 27 H Rate Blood Pressure 121/81 119/83 128/73 O2 Sat by Pulse 100 100 100 Oximetry 12/27/16 12/27/16 12/27/16 13:00 13:15 13:30 Temperature Pulse Rate 106 H 88 103 H Pulse Rate [ Apical] Pulse Rate [ From Monitor] Respiratory 24 22 26 H Rate Blood Pressure 124/82 117/83 124/84 O2 Sat by Pulse 100 100 100 Oximetry 12/27/16 12/27/16 12/27/16 13:45 14:00 14:16 Temperature Pulse Rate 114 H 114 H 117 H Pulse Rate [ Apical] Pulse Rate [ From Monitor] Respiratory 26 H 26 H 24 Rate Blood Pressure 118/84 123/87 124/83 O2 Sat by Pulse 100 100 100 Oximetry 12/27/16 14:30 Temperature Pulse Rate 122 H Pulse Rate [ Apical] Pulse Rate [ From Monitor] Respiratory 26 H Rate Blood Pressure 110/75 O2 Sat by Pulse 100 Oximetry Constitutional: comatose Eyes: non-icteric ENT: oropharynx moist, other (orally intubated) Neck: supple Effort: normal Ascultation: Bilateral: other (coarse BS bilaterally) Cardiovascular: regular rate and rhythm (no mrg) Gastrointestinal: normoactive bowel sounds, soft, non-tender, non-distended Integumentary: normal Extremities: no cyanosis, pink and warm, edema (1+ pedal edema) Neurologic: other (unresponsive, flaccid extremities except some jerking of the RUE when dropped, eyes open but does not track, does not follow commands, + cough reflex) Psychiatric: other (not able to assess) CBC and BMP: 12/27/16 04:40 12/27/16 04:40 ABG, PT/INR, D-dimer: ABG POC ABG pH 7.438 (7.35-7.45) 12/26/16 04:29 POC ABG pCO2 43.1 (35-45) 12/26/16 04:29 POC ABG pO2 90 (80-105) 12/26/16 04:29 POC ABG HCO3 29.1 12/26/16 04:29 POC ABG Total CO2 30 12/26/16 04:29 POC ABG O2 Sat 97 12/26/16 04:29 PT/INR, D-dimer PT 20.5 Sec. (12.2-14.9) H 12/20/16 17:00 INR 1.66 (0.87-1.13) H 12/20/16 17:00 Abnormal lab findings: Abnormal Labs 12/20/16 12/20/16 12/21/16 21:53 23:13 01:35 WBC MCHC RDW Lymph % (Auto) [place] % (Auto) [place] # Baso # Seg Neutrophils % Seg Neuts % (Manual) Lymphocytes % (Manual) Seg Neutrophils # Seg Neutrophils # Man Lymphocytes # (Manual) Monocytes # (Manual) Eosinophils # (Manual) POC ABG pH POC ABG pCO2 52.4 H POC ABG pO2 113 H Sodium Chloride BUN Glucose POC Glucose Lactic Acid 4.60 H* 5.50 H* Calcium Total Bilirubin AST C-Reactive Protein Albumin Urine WBC (Auto) Vancomycin Trough Miscellaneous Test 12/21/16 12/21/16 12/22/16 05:54 08:15 04:42 WBC MCHC RDW Lymph % (Auto) [place] % (Auto) [place] # Baso # Seg Neutrophils % Seg Neuts % (Manual) Lymphocytes % (Manual) Seg Neutrophils # Seg Neutrophils # Man Lymphocytes # (Manual) Monocytes # (Manual) Eosinophils # (Manual) POC ABG pH POC ABG pCO2 46.7 H POC ABG pO2 142 H 72 L Sodium Chloride BUN Glucose POC Glucose Lactic Acid Calcium Total Bilirubin AST C-Reactive Protein Albumin Urine WBC (Auto) 30.0 H Vancomycin Trough Miscellaneous Test 12/22/16 12/23/16 12/23/16 10:55 04:00 12:51 WBC 20.5 H MCHC RDW 15.9 H Lymph % (Auto) [place] % (Auto) [place] # Baso # Seg Neutrophils % Seg Neuts % (Manual) 85.0 H Lymphocytes % (Manual) 8.0 L Seg Neutrophils # Seg Neutrophils # Man 17.4 H Lymphocytes # (Manual) Monocytes # (Manual) 1.4 H Eosinophils # (Manual) POC ABG pH 7.514 H POC ABG pCO2 POC ABG pO2 Sodium Chloride BUN 27 H Glucose 105 H POC Glucose Lactic Acid Calcium Total Bilirubin AST C-Reactive Protein Albumin Urine WBC (Auto) Vancomycin Trough Miscellaneous Test 12/23/16 12/24/16 12/24/16 12:51 03:09 03:40 WBC 19.5 H MCHC RDW 16.0 H Lymph % (Auto) 6.9 L [place] % (Auto) [place] # 1.4 H Baso # 0.2 H Seg Neutrophils % 84.9 H Seg Neuts % (Manual) Lymphocytes % (Manual) Seg Neutrophils # 16.6 H Seg Neutrophils # Man Lymphocytes # (Manual) Monocytes # (Manual) Eosinophils # (Manual) POC ABG pH 7.494 H POC ABG pCO2 POC ABG pO2 78 L Sodium Chloride BUN 30 H Glucose POC Glucose Lactic Acid Calcium 8.3 L Total Bilirubin 1.80 H AST 105 H C-Reactive Protein Albumin 2.3 L Urine WBC (Auto) Vancomycin Trough Miscellaneous Test 12/24/16 12/24/16 12/24/16 03:40 21:30 23:32 WBC MCHC RDW Lymph % (Auto) [place] % (Auto) [place] # Baso # Seg Neutrophils % Seg Neuts % (Manual) Lymphocytes % (Manual) Seg Neutrophils # Seg Neutrophils # Man Lymphocytes # (Manual) Monocytes # (Manual) Eosinophils # (Manual) POC ABG pH POC ABG pCO2 POC ABG pO2 Sodium 146 H Chloride BUN 29 H Glucose POC Glucose 114 H Lactic Acid Calcium Total Bilirubin AST C-Reactive Protein Albumin Urine WBC (Auto) Vancomycin Trough 24.8 H Miscellaneous Test 12/25/16 12/25/16 12/25/16 04:15 04:51 10:05 WBC 17.4 H MCHC 31 L RDW 16.3 H Lymph % (Auto) 8.7 L [place] % (Auto) 9.6 H [place] # 1.7 H Baso # 0.2 H Seg Neutrophils % 79.0 H Seg Neuts % (Manual) Lymphocytes % (Manual) Seg Neutrophils # 13.7 H Seg Neutrophils # Man Lymphocytes # (Manual) Monocytes # (Manual) Eosinophils # (Manual) POC ABG pH 7.464 H POC ABG pCO2 POC ABG pO2 111 H Sodium Chloride BUN Glucose POC Glucose 119 H Lactic Acid Calcium Total Bilirubin AST C-Reactive Protein Albumin Urine WBC (Auto) Vancomycin Trough Miscellaneous Test 12/25/16 12/25/16 12/25/16 10:05 11:00 12:14 WBC MCHC RDW Lymph % (Auto) [place] % (Auto) [place] # Baso # Seg Neutrophils % Seg Neuts % (Manual) Lymphocytes % (Manual) Seg Neutrophils # Seg Neutrophils # Man Lymphocytes # (Manual) Monocytes # (Manual) Eosinophils # (Manual) POC ABG pH POC ABG pCO2 POC ABG pO2 Sodium Chloride BUN Glucose POC Glucose 122 H Lactic Acid Calcium Total Bilirubin AST C-Reactive Protein 6.00 H Albumin Urine WBC (Auto) Vancomycin Trough Miscellaneous Test Flexitest 1 H 12/25/16 12/26/16 12/26/16 23:40 05:00 06:45 WBC 20.7 H MCHC RDW 16.4 H Lymph % (Auto) [place] % (Auto) [place] # Baso # Seg Neutrophils % Seg Neuts % (Manual) Lymphocytes % (Manual) Seg Neutrophils # Seg Neutrophils # Man Lymphocytes # (Manual) Monocytes # (Manual) Eosinophils # (Manual) POC ABG pH POC ABG pCO2 POC ABG pO2 Sodium Chloride BUN Glucose POC Glucose 144 H 144 H Lactic Acid Calcium Total Bilirubin AST C-Reactive Protein Albumin Urine WBC (Auto) Vancomycin Trough Miscellaneous Test 12/26/16 12/26/16 12/26/16 06:45 11:18 18:04 WBC MCHC RDW Lymph % (Auto) [place] % (Auto) [place] # Baso # Seg Neutrophils % Seg Neuts % (Manual) Lymphocytes % (Manual) Seg Neutrophils # Seg Neutrophils # Man Lymphocytes # (Manual) Monocytes # (Manual) Eosinophils # (Manual) POC ABG pH POC ABG pCO2 POC ABG pO2 Sodium 150 H Chloride 111.9 H BUN 22 H Glucose 148 H POC Glucose 153 H 133 H Lactic Acid Calcium Total Bilirubin 1.60 H AST 63 H C-Reactive Protein Albumin 2.6 L Urine WBC (Auto) Vancomycin Trough Miscellaneous Test 12/26/16 12/27/16 12/27/16 23:37 04:40 04:40 WBC 20.3 H MCHC RDW 16.4 H Lymph % (Auto) [place] % (Auto) [place] # Baso # Seg Neutrophils % Seg Neuts % (Manual) 88.0 H Lymphocytes % (Manual) 5.0 L Seg Neutrophils # Seg Neutrophils # Man 17.9 H Lymphocytes # (Manual) 1.0 L Monocytes # (Manual) Eosinophils # (Manual) 0.6 H POC ABG pH POC ABG pCO2 POC ABG pO2 Sodium 152 H Chloride 112.5 H BUN 23 H Glucose 140 H POC Glucose 135 H Lactic Acid Calcium 8.3 L Total Bilirubin 1.50 H AST 60 H C-Reactive Protein Albumin 2.7 L Urine WBC (Auto) Vancomycin Trough Miscellaneous Test 12/27/16 05:45 WBC MCHC RDW Lymph % (Auto) [place] % (Auto) [place] # Baso # Seg Neutrophils % Seg Neuts % (Manual) Lymphocytes % (Manual) Seg Neutrophils # Seg Neutrophils # Man Lymphocytes # (Manual) Monocytes # (Manual) Eosinophils # (Manual) POC ABG pH POC ABG pCO2 POC ABG pO2 Sodium Chloride BUN Glucose POC Glucose 127 H Lactic Acid Calcium Total Bilirubin AST C-Reactive Protein Albumin Urine WBC (Auto) Vancomycin Trough Miscellaneous Test Chest x-ray: report reviewed (no change)
--- NOTE | 2016-12-27 15:40 | Consultation ---
History of Present Illness Consult date: 12/27/16 Reason for consult: other (evaluation for trach and PEG) - History of present illness History of present illness: This is a 61-year-old male asked to evaluate for respiratory failure following cardiac arrest. The patient is suffered anoxic encephalopathy is currently being maintained on a ventilator. No signs of cardiomyopathy which are contributing to his overall morbid state. His overall prognosis is poor and the chances of him being weaned from the ventilator on the current state is unlikely. As a result, surgery is asked to evaluate for long-term ventilatory maintenance with tracheostomy and nutritional support with gastrostomy. Past History Past Medical History: atrial fib, COPD, heart failure Past Surgical History: Other (ICD placement) Social history: , lives with family. denies: smoking, alcohol abuse, prescription drug abuse Family history: CAD, diabetes, hypertension Medications and Allergies Allergies Allergy/AdvReac Type Severity Reaction Status Date / Time No Known Allergies Allergy Unverified 12/20/16 16:40 Home Medications Medication Instructions Recorded Confirmed Last Taken Type Allopurinol [Zyloprim] 100 mg PO QDAY 12/20/16 12/20/16 Unknown History Amiodarone [Cordarone 200 MG TAB] 200 mg PO DAILY 12/20/16 12/20/16 Unknown History Colchicine [Mitigare] 0.6 mg PO DAILY 12/20/16 12/20/16 Unknown History Dabigatran [Pradaxa] 150 mg PO BID 12/20/16 12/20/16 Unknown History Famotidine [Pepcid] 20 mg PO BID 12/20/16 12/20/16 Unknown History HYDROcodone/APAP 5-325 [[place] 1 each PO BID 12/20/16 12/20/16 Unknown History 5/325] Lisinopril [Zestril TAB] 2.5 mg PO DAILY 12/20/16 12/20/16 Unknown History Metoprolol Succinate 12.5 mg PO DAILY 12/20/16 12/20/16 1 Day Ago History Milrinone [Primacor] 0.25 mcg IV CONT 12/20/16 12/20/16 12/20/16 History Spironolactone [Aldactone] 12.5 mg PO QDAY 12/20/16 12/20/16 Unknown History Torsemide [Demadex] 40 mg PO QAM 12/20/16 12/20/16 Unknown History traZODone [Desyrel] 50 mg PO QHS PRN 12/20/16 12/20/16 Unknown History Active Meds: Active Medications Acetaminophen (Tylenol) 650 mg FEEDTUBE Q4H PRN PRN Reason: Pain, Mild (1-3) Last Admin: 12/27/16 03:49 Dose: 650 mg Albuterol (Proventil) 2.5 mg IH Q4H PRN PRN Reason: Shortness Of Breath Lipase/Protease/Amylase ([place] 10,500 Unit) 1 each FEEDTUBE PRN PRN PRN Reason: For Clogged Feeding Tube Aspirin (Aspirin) 325 mg PO QDAY [facility] Last Admin: 12/27/16 09:03 Dose: 325 mg Enoxaparin Sodium (Lovenox) 40 mg SUB-Q QDAY@2200 HEATHER Last Admin: 12/26/16 23:16 Dose: 40 mg Famotidine (Pepcid) 20 mg PO BID [facility] Last Admin: 12/27/16 09:03 Dose: 20 mg Hydrophilic Ointment (Vaseline Lip Therapy) 1 applic TP Q2HR PRN PRN Reason: Dry Lips Milrinone Lactate 20 mg/ (Dextrose) 100 mls @ 9.9 mls/hr IV TITR HEATHER; 0.375 MCG /KG/MIN PRN Reason: Protocol Last Admin: 12/27/16 07:12 Dose: 0.37 mcg/kg/min, 9.76 mls/hr Phenylephrine HCl 100 mg/ (Sodium Chloride) 100 mls @ 3 mls/hr IV TITR HEATHER; 50 MCG/MIN PRN Reason: Protocol Last Titration: 12/27/16 14:19 Dose: 50 mcg/min, 3 mls/hr Cefepime HCl (Maxipime/Ns 2 Gm/100 Ml) 2 gm in 100 mls @ 200 mls/hr IV Q8HR HEATHER PRN Reason: Protocol Fluconazole (Diflucan) 200 mg in 100 mls @ 100 mls/hr IV Q24HR HEATHER PRN Reason: Protocol Last Admin: 12/27/16 14:22 Dose: 100 mls/hr Metronidazole (Flagyl 500 Mg/100 Ml) 500 mg in 100 mls @ 100 mls/hr IV Q8HR HEATHER Last Admin: 12/27/16 14:22 Dose: 100 mls/hr Dextrose (D5w) 1,000 mls @ 60 mls/hr IV DIRECT HEATHER Insulin Aspart (Novolog) 0 units SUB-Q Q6HR HEATHER PRN Reason: Protocol Last Admin: 12/27/16 14:22 Dose: Not Given Multi-Ingred Cream/Lotion/Oil/Oint (Artificial Tears Ophth Oint) 1 applic OU Q4HR PRN PRN Reason: Dry Eye(s) Last Admin: 12/22/16 10:38 Dose: 1 applic Simple Syrup (Simple Syrup) 15 ml FEEDTUBE PRN PRN PRN Reason: Hypoglycemia Simple Syrup (Simple Syrup) 30 ml FEEDTUBE PRN PRN PRN Reason: Hypoglycemia Sodium Bicarbonate (Sodium Bicarbonate) 325 mg FEEDTUBE PRN PRN PRN Reason: For Clogged Feeding Tube Sodium Chloride (Nacl 0.9% 500 Ml) 1 ml IV DIRECT HEATHER Exam Vital Signs Pulse Resp Pulse Ox 106 H 23 92 12/20/16 16:33 12/20/16 16:33 12/20/16 16:33 - General physical appearance Positive: no distress, other (intubated and minimally responsive) - Neck Positive: trachea midline - Cardiovascular Rhythm: other (tachycardic) - Abdomen Abdomen: Present: soft. Absent: tender - Neurologic Neurologic: other (obtunded) Results - Labs 12/27/16 04:40 12/27/16 04:40 Abnormal lab results 12/25/16 12/26/16 12/26/16 Range/Units 11:00 18:04 23:37 WBC (4.5-11.0) K/mm3 RDW (13.2-15.2) % Seg Neuts % (Manual) (40.0-70.0) % Lymphocytes % (Manual) (13.4-35.0) % Seg Neutrophils # Man (1.8-7.7) K/mm3 Lymphocytes # (Manual) (1.2-5.4) K/mm3 Eosinophils # (Manual) (0.0-0.4) K/mm3 Sodium (137-145) mmol/L Chloride (98-107) mmol/L BUN (9-20) mg/dL Glucose (75-100) mg/dL POC Glucose 133 H 135 H (70-105) Calcium (8.4-10.2) mg/dL Total Bilirubin (0.1-1.2) mg/dL AST (5-40) units/L Albumin (3.9-5) g/dL Miscellaneous Test Flexitest 1 H 12/27/16 12/27/16 12/27/16 Range/Units 04:40 04:40 05:45 WBC 20.3 H (4.5-11.0) K/mm3 RDW 16.4 H (13.2-15.2) % Seg Neuts % (Manual) 88.0 H (40.0-70.0) % Lymphocytes % (Manual) 5.0 L (13.4-35.0) % Seg Neutrophils # Man 17.9 H (1.8-7.7) K/mm3 Lymphocytes # (Manual) 1.0 L (1.2-5.4) K/mm3 Eosinophils # (Manual) 0.6 H (0.0-0.4) K/mm3 Sodium 152 H (137-145) mmol/L Chloride 112.5 H (98-107) mmol/L BUN 23 H (9-20) mg/dL Glucose 140 H (75-100) mg/dL POC Glucose 127 H (70-105) Calcium 8.3 L (8.4-10.2) mg/dL Total Bilirubin 1.50 H (0.1-1.2) mg/dL AST 60 H (5-40) units/L Albumin 2.7 L (3.9-5) g/dL Miscellaneous Test Diabetes panel 12/27/16 Range/Units 04:40 Sodium 152 H (137-145) mmol/L Potassium 3.9 (3.6-5.0) mmol/L Chloride 112.5 H (98-107) mmol/L Carbon Dioxide 25 (22-30) mmol/L BUN 23 H (9-20) mg/dL Creatinine 0.8 (0.8-1.5) mg/dL Glucose 140 H (75-100) mg/dL Calcium 8.3 L (8.4-10.2) mg/dL AST 60 H (5-40) units/L ALT 28 (7-56) units/L Alkaline Phosphatase 75 (35-129) units/L Total Protein 7.2 (6.3-8.2) g/dL Albumin 2.7 L (3.9-5) g/dL Calcium panel 12/27/16 Range/Units 04:40 Calcium 8.3 L (8.4-10.2) mg/dL Albumin 2.7 L (3.9-5) g/dL Pituitary panel 12/27/16 Range/Units 04:40 Sodium 152 H (137-145) mmol/L Potassium 3.9 (3.6-5.0) mmol/L Chloride 112.5 H (98-107) mmol/L Carbon Dioxide 25 (22-30) mmol/L BUN 23 H (9-20) mg/dL Creatinine 0.8 (0.8-1.5) mg/dL Glucose 140 H (75-100) mg/dL Calcium 8.3 L (8.4-10.2) mg/dL Adrenal panel 12/27/16 Range/Units 04:40 Sodium 152 H (137-145) mmol/L Potassium 3.9 (3.6-5.0) mmol/L Chloride 112.5 H (98-107) mmol/L Carbon Dioxide 25 (22-30) mmol/L BUN 23 H (9-20) mg/dL Creatinine 0.8 (0.8-1.5) mg/dL Glucose 140 H (75-100) mg/dL Calcium 8.3 L (8.4-10.2) mg/dL Total Bilirubin 1.50 H (0.1-1.2) mg/dL AST 60 H (5-40) units/L ALT 28 (7-56) units/L Alkaline Phosphatase 75 (35-129) units/L Total Protein 7.2 (6.3-8.2) g/dL Albumin 2.7 L (3.9-5) g/dL Assessment and Plan Respiratory failure with prolonged vent dependence. As stated previously patient is unlikely to wean and the requirements and indications for placement of tracheostomy. To this end, he was also need a gastrostomy for nutritional support. I discussed the situation as well as his clinical prognosis with the father was present at the bedside. The risks and benefits of both a percutaneous tracheostomy and a percutaneous endoscopic gastrostomy were discussed including but not limited to bleeding, infection, injury, malfunction or dislodging of the various tubes. They wish to proceed. Verbal and written consent was obtained. We'll plan on surgery as or time permits. Likely next week. Continue supportive care and weaning the vent as tolerated. Will follow
[2016-12-27] MEDS: MAXIPIME/NS 2 GM/100 ML 2 GM/100 ML BAG IV SCH ×2 (17:26→22:37)
--- NOTE | 2016-12-27 17:35 | Cat Scan Report ---
FINAL REPORT PROCEDURE: CT ABDOMEN PELVIS W CON TECHNIQUE: Computerized axial tomography of the abdomen and pelvis was performed after the IV injection of iodinated nonionic contrast. HISTORY: fever unclear source eval for source COMPARISON: X-ray FINDINGS: Visualized lower thorax: Bilateral lower lung airspace consolidation. Moderate right pleural effusion. Small left pleural effusion. Cardiac enlargement. Pacemaker wires. Liver: Normal size and attenuation. Spleen: Normal size and attenuation. Gallbladder and biliary system: Solitary gallstone.. Pancreas: Normal. Adrenals: Normal. Kidneys: Normal. No hydronephrosis. GI tract: Feeding tube extends to the stomach. No dilated loops of small bowel. Colon is unremarkable. Appendix is not visualized. Lymph nodes and mesentery: Normal. Vasculature: Atherosclerotic calcifications.. Bladder: Pop catheter. Wall thickening. Reproductive organs: Normal. Peritoneum: No free fluid. Musculoskeletal structures: Mild degenerative change.. Other: None. IMPRESSION: Gallstone. No biliary dilatation. Bilateral lower lung airspace infiltrates and pleural effusions. Cardiac enlargement.
--- NOTE | 2016-12-27 18:12 | Progress Note ---
Assessment and Plan Assessment and plan: 59-year-old man with a past medical history of end-stage CHF on milrinone drip at home, chronic respiratory failure, COPD, oxygen dependent on 3 L at home, gallops, atrial flutter, who was brought in by his . States that the patient had complained of shortness of breath and then subsequently collapsed. EMS arrived and found to be asystolic arrest, he received ACLS protocol and had return of circulation was then brought to the hospital. Cardiac arrest Status post ACS protocol, cardiology consult, continue telemetry Acute on chronic systolic CHF exacerbation with pulmonary venous congestion Cardiology input appreciated, continue milrinone drip, continue supportive care IV lasix as tolerated SEVERE ENDSTAGE DILATED CMP * Cardiology following, Continue on Milirione drip Cardiogenic shock Continue IV pressor support Septic shock/Severe spesis Recurrent fever Treated with empiric frustration antibiotics, follow blood and urine cultures Recurrent fever likely secondary to anoxic brain injury No clear evidence of pneumonia, possible UTI, cultures remained negative. ID consult continue Pressors, phenylephrine and milrinone MAY NEED PICC LINE CHANGED WHEN AFEBRILE Acute hypercapnic respiratory failure on mechanical ventilator greater than 48 hours Continue mechanical ventilator, pulmonary input appreciated, We'll attempt to wean off ventilator daily Patient continues to fail weaning trials Metabolic encephalopathy Most likely due to hypoperfusion of central nervous system , i.e. anoxic brain injury CT head does not show any acute findings, CTA head also shows no acute findings , patient has a pacemaker/ICD, therefore MRI is contraindicated Neurology consult and bruits noted. EEG. Remains unresponsive despite not being on sedation ACUTE CYSTITIS -continue empiric abx -sputum culture no growth RIGHT SIDED PLEURAL EFFUSION -Probably due to CHF. will monitor. DVT/GI PROPHY Discussed with father and family. Patient changed to DNR on their request and hospice consulted. Will hold off on PEG/TRACH Poor prognosis The high probability of a clinically significant, sudden or life threatening deterioration of the [cardiovascular, pulmonary and Neurologic] system(s) required my full and direct attention, intervention and personal management. The aggregate critical care time was [35] minutes. This time is in addition to time spent performing reported procedures but includes the following: [X] Data Review and interpretation [X] Patient assessment and monitoring of vital signs [X] Documentation [X] Medication orders and management History Interval history: Patient seen and examined remains comatose. no change, met with family today Hospitalist Physical - Physical exam Narrative exam: VITAL SIGNS: Reviewed. GENERAL: The patient appeared comatose, ventilated. Vital signs as documented. HEAD: No signs of head trauma. EYES: Pupils are equal. EARS: Unable to assess MOUTH: Oropharynx is normal. NECK: No adenopathy, no JVD. CHEST: Chest with faint expiratory wheeze. CARDIAC: Regular rate and rhythm. S1 and S2, without murmurs, gallops, or rubs. VASCULAR: No Edema. Peripheral pulses normal and equal in all extremities. ABDOMEN: Soft, unable to assess tenderness. No grimacing on palpation. No sign of distention. Bowel Sounds normal. MUSCULOSKELETAL: Extremities without clubbing, cyanosis or edema. NEUROLOGIC EXAM: Comatose with flaccid extremities PSYCHIATRIC: Unable to assess. SKIN: PICC line to left upper ext - Constitutional Vitals: Temp Pulse Resp BP Pulse Ox 98.6 F 119 H 25 H 109/74 100 12/27/16 12:00 12/27/16 17:45 12/27/16 17:45 12/27/16 17:45 12/27/16 17:45 General appearance: Present: severe distress Results - Labs CBC & Chem 7: 12/27/16 04:40 12/27/16 04:40 Labs: Laboratory Last Values WBC 20.3 K/mm3 (4.5-11.0) H 12/27/16 04:40 RBC 4.42 M/mm3 (3.65-5.03) 12/27/16 04:40 Hgb 12.8 gm/dl (11.8-15.2) 12/27/16 04:40 Hct 40.6 % (35.5-45.6) 12/27/16 04:40 MCV 92 fl (84-94) 12/27/16 04:40 MCH 29 pg (28-32) 12/27/16 04:40 MCHC 32 % (32-34) 12/27/16 04:40 RDW 16.4 % (13.2-15.2) H 12/27/16 04:40 Plt Count 186 K/mm3 (140-440) 12/27/16 04:40 Lymph % (Auto) 8.7 % (13.4-35.0) L 12/25/16 10:05 [place] % (Auto) 9.6 % (0.0-7.3) H 12/25/16 10:05 Eos % (Auto) 1.7 % (0.0-4.3) 12/25/16 10:05 Baso % (Auto) 1.0 % (0.0-1.8) 12/25/16 10:05 Lymph # 1.5 K/mm3 (1.2-5.4) 12/25/16 10:05 [place] # 1.7 K/mm3 (0.0-0.8) H 12/25/16 10:05 Eos # 0.3 K/mm3 (0.0-0.4) 12/25/16 10:05 Baso # 0.2 K/mm3 (0.0-0.1) H 12/25/16 10:05 Add Manual Diff Complete 12/27/16 04:40 Total Counted 100 12/27/16 04:40 Seg Neutrophils % 79.0 % (40.0-70.0) H 12/25/16 10:05 Seg Neuts % (Manual) 88.0 % (40.0-70.0) H 12/27/16 04:40 Band Neutrophils % 0 % 12/27/16 04:40 Lymphocytes % (Manual) 5.0 % (13.4-35.0) L 12/27/16 04:40 Reactive Lymphs % (Man) 0 % 12/27/16 04:40 Monocytes % (Manual) 4.0 % (0.0-7.3) 12/27/16 04:40 Eosinophils % (Manual) 3.0 % (0.0-4.3) 12/27/16 04:40 Basophils % (Manual) 0 % (0.0-1.8) 12/27/16 04:40 Metamyelocytes % 0 % 12/27/16 04:40 Myelocytes % 0 % 12/27/16 04:40 Promyelocytes % 0 % 12/27/16 04:40 Blast Cells % 0 % 12/27/16 04:40 Nucleated RBC % Not Reportable 12/27/16 04:40 Seg Neutrophils # 13.7 K/mm3 (1.8-7.7) H 12/25/16 10:05 Seg Neutrophils # Man 17.9 K/mm3 (1.8-7.7) H 12/27/16 04:40 Band Neutrophils # 0.0 K/mm3 12/27/16 04:40 Lymphocytes # (Manual) 1.0 K/mm3 (1.2-5.4) L 12/27/16 04:40 Abs React Lymphs (Man) 0.0 K/mm3 12/27/16 04:40 Monocytes # (Manual) 0.8 K/mm3 (0.0-0.8) 12/27/16 04:40 Eosinophils # (Manual) 0.6 K/mm3 (0.0-0.4) H 12/27/16 04:40 Basophils # (Manual) 0.0 K/mm3 (0.0-0.1) 12/27/16 04:40 Metamyelocytes # 0.0 K/mm3 12/27/16 04:40 Myelocytes # 0.0 K/mm3 12/27/16 04:40 Promyelocytes # 0.0 K/mm3 12/27/16 04:40 Blast Cells # 0.0 K/mm3 12/27/16 04:40 WBC Morphology Not Reportable 12/27/16 04:40 Hypersegmented Neuts Not Reportable 12/27/16 04:40 Hyposegmented Neuts Not Reportable 12/27/16 04:40 Hypogranular Neuts Not Reportable 12/27/16 04:40 Smudge Cells Not Reportable 12/27/16 04:40 Toxic Granulation Not Reportable 12/27/16 04:40 Toxic Vacuolation Not Reportable 12/27/16 04:40 Dohle Bodies Not Reportable 12/27/16 04:40 Pelger-Huet Anomaly Not Reportable 12/27/16 04:40 Shantal Rods Not Reportable 12/27/16 04:40 Platelet Estimate Appears normal 12/27/16 04:40 Clumped Platelets Not Reportable 12/27/16 04:40 Plt Clumps, EDTA Not Reportable 12/27/16 04:40 Large Platelets Not Reportable 12/27/16 04:40 Giant Platelets Not Reportable 12/27/16 04:40 Platelet Satelliting Not Reportable 12/27/16 04:40 Plt Morphology Comment Not Reportable 12/27/16 04:40 RBC Morphology Normal 12/27/16 04:40 Dimorphic RBCs Not Reportable 12/27/16 04:40 Polychromasia Not Reportable 12/27/16 04:40 Hypochromasia Not Reportable 12/27/16 04:40 Poikilocytosis Not Reportable 12/27/16 04:40 Anisocytosis Not Reportable 12/27/16 04:40 Microcytosis Not Reportable 12/27/16 04:40 Macrocytosis Not Reportable 12/27/16 04:40 Spherocytes Not Reportable 12/27/16 04:40 Pappenheimer Bodies Not Reportable 12/27/16 04:40 Sickle Cells Not Reportable 12/27/16 04:40 Target Cells Not Reportable 12/27/16 04:40 Tear Drop Cells Not Reportable 12/27/16 04:40 Ovalocytes Not Reportable 12/27/16 04:40 Helmet Cells Not Reportable 12/27/16 04:40 Z[place]ri[place] Bodies Not Reportable 12/27/16 04:40 [place] Rings Not Reportable 12/27/16 04:40 [place] Cells Not Reportable 12/27/16 04:40 Bite Cells Not Reportable 12/27/16 04:40 Crenated Cell Not Reportable 12/27/16 04:40 Elliptocytes Not Reportable 12/27/16 04:40 Acanthocytes (Spur) Not Reportable 12/27/16 04:40 Rouleaux Not Reportable 12/27/16 04:40 Hemoglobin C Crystals Not Reportable 12/27/16 04:40 Schistocytes Not Reportable 12/27/16 04:40 Malaria parasites Not Reportable 12/27/16 04:40 [place] Bodies Not Reportable 12/27/16 04:40 Hem Pathologist Commnt No 12/27/16 04:40 PT 20.5 Sec. (12.2-14.9) H 12/20/16 17:00 INR 1.66 (0.87-1.13) H 12/20/16 17:00 APTT 39.4 Sec. (24.2-36.6) H 12/20/16 17:00 POC ABG pH 7.438 (7.35-7.45) 12/26/16 04:29 POC ABG pCO2 43.1 (35-45) 12/26/16 04:29 POC ABG pO2 90 (80-105) 12/26/16 04:29 POC ABG HCO3 29.1 12/26/16 04:29 POC ABG Total CO2 30 12/26/16 04:29 POC ABG O2 Sat 97 12/26/16 04:29 POC ABG Base Excess 5 12/26/16 04:29 FiO2 30 % 12/26/16 04:29 Sodium 152 mmol/L (137-145) H 12/27/16 04:40 Potassium 3.9 mmol/L (3.6-5.0) 12/27/16 04:40 Chloride 112.5 mmol/L (98-107) H 12/27/16 04:40 Carbon Dioxide 25 mmol/L (22-30) 12/27/16 04:40 Anion Gap 18 mmol/L 12/27/16 04:40 BUN 23 mg/dL (9-20) H 12/27/16 04:40 Creatinine 0.8 mg/dL (0.8-1.5) 12/27/16 04:40 Estimated GFR > 60 ml/min 12/27/16 04:40 BUN/Creatinine Ratio 28.75 % 12/27/16 04:40 Glucose 140 mg/dL (75-100) H 12/27/16 04:40 POC Glucose 127 (70-105) H 12/27/16 05:45 Lactic Acid 1.30 mmol/L (0.7-2.0) 12/24/16 06:00 Calcium 8.3 mg/dL (8.4-10.2) L 12/27/16 04:40 Phosphorus 2.60 mg/dL (2.5-4.5) 12/24/16 03:40 Magnesium 2.30 mg/dL (1.7-2.3) 12/24/16 03:40 Total Bilirubin 1.50 mg/dL (0.1-1.2) H 12/27/16 04:40 AST 60 units/L (5-40) H 12/27/16 04:40 ALT 28 units/L (7-56) 12/27/16 04:40 Alkaline Phosphatase 75 units/L (35-129) 12/27/16 04:40 Total Creatine Kinase 86 units/L (55-170) 12/20/16 17:00 CK-MB (CK-2) 4.2 ng/mL (0.0-4.0) H 12/20/16 17:00 CK-MB (CK-2) Rel Index 4.8 (0-4) H 12/20/16 17:00 Troponin T 0.054 ng/mL (0.00-0.029) H 12/20/16 17:00 C-Reactive Protein 6.00 mg/dL (0.00-1.30) H 12/25/16 10:05 NT-Pro-B Natriuret Pep 9604 pg/mL (0-900) H 12/20/16 17:00 Total Protein 7.2 g/dL (6.3-8.2) 12/27/16 04:40 Albumin 2.7 g/dL (3.9-5) L 12/27/16 04:40 Albumin/Globulin Ratio 0.6 % 12/27/16 04:40 Triglycerides 82 mg/dL (2-149) 12/20/16 17:00 Cholesterol 128 mg/dL (50-199) 12/20/16 17:00 LDL Cholesterol Direct 51 mg/dL (50-130) 12/20/16 17:00 HDL Cholesterol 61 mg/dL (40-59) H 12/20/16 17:00 Cholesterol/HDL Ratio 2.09 % 12/20/16 17:00 Total Cortisol 21.7 mcg/dL () 12/24/16 10:45 Urine Color Keely (Yellow) 12/21/16 08:15 Urine Turbidity Clear (Clear) 12/21/16 08:15 Urine pH 5.0 (5.0-7.0) 12/21/16 08:15 Ur Specific [place] 1.023 (1.003-1.030) 12/21/16 08:15 Urine Protein <15 mg/dl mg/dL (Negative) 12/21/16 08:15 Urine Glucose (UA) Neg mg/dL (Negative) 12/21/16 08:15 Urine Ketones Neg mg/dL (Negative) 12/21/16 08:15 Urine Blood Lg (Negative) 12/21/16 08:15 Urine Nitrite Neg (Negative) 12/21/16 08:15 Urine Bilirubin Neg (Negative) 12/21/16 08:15 Urine Urobilinogen 2.0 mg/dL (<2.0) 12/21/16 08:15 Ur Leukocyte Esterase Mod (Negative) 12/21/16 08:15 Urine WBC (Auto) 30.0 /HPF (0.0-6.0) H 12/21/16 08:15 Urine RBC (Auto) 93.0 /HPF (0.0-6.0) 12/21/16 08:15 U Epithel Cells (Auto) < 1.0 /HPF (0-13.0) 12/21/16 08:15 Calcium Oxalate Crystal Few 12/21/16 08:15 Hyaline Casts 2 /LPF 12/21/16 08:15 Urine Mucus Few /HPF 12/21/16 08:15 Vancomycin Trough 24.8 ug/mL (5.0-20.0) H 12/24/16 21:30 Miscellaneous Test Flexitest 1 H 12/25/16 11:00 - Imaging and Cardiology CT scan - abdomen: image reviewed ([facility]ON[facility])
[2016-12-27] MEDS: D5W 1,000 ML IV SCH (18:17)
--- NOTE | 2016-12-27 18:40 | Cat Scan Report ---
FINAL REPORT EXAM: CT CHEST W CON HISTORY: fever of unclear source eval for pneumonia, absces TECHNIQUE: Serial axial images through the chest during intravenous administration of 100 milliliters Omni 300 contrast with coronal and sagittal reconstruction PRIORS: None. FINDINGS: Pacing unit is noted. There is an endotracheal tube with the tip between level of heads of the clavicles on the marbella. Enteric tube courses toward the stomach. The tip is off the topography of the study. There is large right pleural effusion. There is a moderate left pleural effusion. There is increased opacity in the lung bases. Hazy opacity is seen in the upper lobes. Study is degraded by motion artifact. The heart measures 18.6 centimeters in length. No mediastinal adenopathy is identified. There is abnormal appearance in the thoracic spine it what is thought to be the T8-9 level. There is suggestion of endplate destruction with lucency extending into the vertebral bodies. IMPRESSION: 1. Limited study secondary to motion. 2. Abnormal appearance in the thoracic spine it what is thought to be the T8-9 level. The appearance could indicate discitis osteomyelitis. This can be further assessed with contrast enhanced MRI of the spine. 3. Bilateral pleural effusion, larger on the right. 4. There is increased opacity in the lung bases which may be secondary to infiltrate and or atelectasis. 5. Hazy opacity is seen in the upper lobes. This is a nonspecific finding. It may be secondary to edema or atelectasis, but possibility of infection is not excluded. 6. Cardiomegaly. UNF
[2016-12-27] MEDS: LOVENOX SUB-Q SCH (23:40)
[2016-12-28] MEDS: PRIMACOR 20 MG in D5W 80 ML IV SCH ×4 (03:34→22:16)
[2016-12-28] MEDS: MAXIPIME/NS 2 GM/100 ML 2 GM/100 ML BAG IV SCH ×3 (05:00→22:00)
[2016-12-28] MEDS: FLAGYL 500 MG/100 ML 500 MG/100 ML BAG IV SCH ×3 (06:42→22:22)
[2016-12-28] MEDS: NOVOLOG SUB-Q SCH ×4 (06:44→17:48)
[2016-12-28] MEDS: D5W 1,000 ML IV SCH ×3 (07:34→22:22)
[2016-12-28 08:13] LABS: Basophils % (Auto) 1.3 % (0.0-1.8); Eosinophils % (Auto) 1.6 % (0.0-4.3); Mean Corpuscular HGB Conc 31 % (32-34); Mean Corpuscular Hemoglobin 28 pg (28-32); Mean Corpuscular Volume 92 fl (84-94); Platelet Count 175 K/mm3 (140-440); Red Blood Count 4.31 M/mm3 (3.65-5.03); Red Cell Distribution Width 16.2 % (13.2-15.2); White Blood Count 16.4 K/mm3 (4.5-11.0)
[2016-12-28 08:18] LABS: Hematocrit 39.9 % (35.5-45.6); Hemoglobin 12.2 gm/dl (11.8-15.2)
[2016-12-28 08:28] LABS: Alanine Aminotransferase 23 units/L (7-56); Albumin 2.3 g/dL (3.9-5); Albumin/Globulin Ratio 0.5 %; Alkaline Phosphatase 63 units/L (35-129); Anion Gap 14 mmol/L; BUN/Creatinine Ratio 31.42; Blood Urea Nitrogen 22 mg/dL (9-20); Calcium 7.9 mg/dL (8.4-10.2); Carbon Dioxide 25 mmol/L (22-30); Chloride 111.6 mmol/L (98-107); Glucose 135 mg/dL (75-100); Potassium 3.9 mmol/L (3.6-5.0); Sodium 147 mmol/L (137-145)
[2016-12-28] MEDS: DIFLUCAN 200 MG/100 ML BAG IV SCH (10:41)
[2016-12-28] MEDS: ASPIRIN PO SCH (10:42)
[2016-12-28] MEDS: PEPCID PO SCH ×2 (10:42→22:13)
--- NOTE | 2016-12-28 11:35 | Progress Note ---
Assessment and Plan Continue vasopressor support and other management. Poor prognosis. Patient's family has agreed for hospice, would agree - Patient Problems (1) Acute on chronic respiratory failure Current Visit: Yes Status: Acute Qualifiers: Respiratory failure complication: hypoxia Qualified Code(s): J96.21 - Acute and chronic respiratory failure with hypoxia (2) Acute on chronic systolic heart failure Current Visit: Yes Status: Acute (3) Anoxic encephalopathy Current Visit: Yes Status: Acute (4) CHF exacerbation Current Visit: Yes Status: Acute Qualifiers: Congestive heart failure type: C (5) Cardiac arrest Current Visit: Yes Status: Acute (6) Cardiopulmonary arrest with successful resuscitation Current Visit: Yes Status: Acute (7) DVT prophylaxis Current Visit: Yes Status: Acute (8) Pulmonary edema Current Visit: Yes Status: Acute Qualifiers: Chronicity: C (9) AICD (automatic cardioverter/defibrillator) present Current Visit: Yes Status: Chronic (10) Cardiomyopathy Current Visit: Yes Status: Chronic Qualifiers: Cardiomyopathy type: C Subjective Date of service: 12/28/16 Principal diagnosis: s/p C-P arrest, acute on chronic resp failure, Acute on chronic SHF, CMP Interval history: Patient is nonverbal intubated Objective Vital Signs Temp Pulse Pulse Pulse Pulse Pulse Resp 12/28/16 11:01 120 H 28 H 12/28/16 10:30 117 H 27 H 12/28/16 10:00 121 H 121 H 18 12/28/16 09:30 119 H 29 H 12/28/16 09:00 117 H 20 12/28/16 08:31 120 H 29 H 12/28/16 08:01 121 H 26 H 12/28/16 08:00 100.9 F H 120 H 119 H 27 H 12/28/16 07:30 123 H 26 H 12/28/16 07:01 12/28/16 06:30 12/28/16 06:00 122 H 15 12/28/16 05:31 122 H 23 12/28/16 05:00 120 H 26 H 12/28/16 04:30 119 H 26 H 12/28/16 04:03 119 H 12/28/16 04:00 100.4 F H 120 H 25 H 12/28/16 03:31 120 H 26 H 12/28/16 03:00 119 H 25 H 12/28/16 02:30 121 H 25 H 12/28/16 02:00 122 H 29 H 12/28/16 01:30 122 H 22 12/28/16 01:00 123 H 22 12/28/16 00:31 125 H 22 12/28/16 00:00 102.9 F H 129 H 20 12/27/16 23:30 132 H 29 H 12/27/16 23:00 130 H 26 H 12/27/16 22:30 131 H 26 H 12/27/16 22:00 130 H 22 12/27/16 21:30 132 H 27 H 12/27/16 21:00 133 H 27 H 12/27/16 20:30 132 H 27 H 12/27/16 20:00 100.7 F H 134 H 129 H 137 H 133 H 139 H 25 H 12/27/16 19:36 133 H 12/27/16 19:30 133 H 26 H 12/27/16 19:00 134 H 26 H 12/27/16 18:30 134 H 26 H 12/27/16 18:16 134 H 26 H 12/27/16 18:15 136 H 27 H 12/27/16 18:00 120 H 26 H 12/27/16 17:45 119 H 25 H 12/27/16 17:30 12/27/16 17:16 132 H 29 H 12/27/16 17:15 140 H 12/27/16 17:00 133 H 25 H 12/27/16 16:46 131 H 17 12/27/16 16:40 136 H 33 H 12/27/16 16:00 99.2 F 12/27/16 15:45 129 H 25 H 12/27/16 15:30 126 H 28 H 12/27/16 15:15 126 H 26 H 12/27/16 15:00 124 H 26 H 12/27/16 14:45 124 H 26 H 12/27/16 14:30 122 H 26 H 12/27/16 14:16 117 H 24 12/27/16 14:00 114 H 26 H 12/27/16 13:45 114 H 26 H 12/27/16 13:30 103 H 26 H 12/27/16 13:20 136 H 12/27/16 13:15 88 22 12/27/16 13:00 106 H 24 12/27/16 12:45 113 H 27 H 12/27/16 12:30 103 H 24 12/27/16 12:15 97 H 20 12/27/16 12:00 98.6 F 103 H 24 12/27/16 11:45 107 H 25 H BP Pulse Ox 12/28/16 11:01 99/71 99 12/28/16 10:30 106/74 98 12/28/16 10:00 111/65 100 12/28/16 09:30 109/73 100 12/28/16 09:00 108/64 100 12/28/16 08:31 116/72 100 12/28/16 08:01 113/72 100 12/28/16 08:00 108/64 100 12/28/16 07:30 120/72 100 12/28/16 07:01 126/71 100 12/28/16 06:30 110/68 99 12/28/16 06:00 112/74 99 12/28/16 05:31 112/74 99 12/28/16 05:00 118/73 98 12/28/16 04:30 110/69 99 12/28/16 04:03 107/62 100 12/28/16 04:00 107/62 99 12/28/16 03:31 107/67 99 12/28/16 03:00 106/66 100 12/28/16 02:30 109/65 100 12/28/16 02:00 105/69 100 12/28/16 01:30 97/50 99 12/28/16 01:00 99/63 99 12/28/16 00:31 99/53 99 12/28/16 00:00 108/59 100 12/27/16 23:30 117/64 100 12/27/16 23:00 115/66 100 12/27/16 22:30 105/63 100 12/27/16 22:00 103/54 100 12/27/16 21:30 110/59 100 12/27/16 21:00 104/61 100 12/27/16 20:30 102/62 100 12/27/16 20:00 106/61 100 12/27/16 19:36 100/62 100 12/27/16 19:30 100/62 100 12/27/16 19:00 115/58 100 12/27/16 18:30 109/63 100 12/27/16 18:16 103/68 100 12/27/16 18:15 103/68 100 12/27/16 18:00 114/77 100 12/27/16 17:45 109/74 100 12/27/16 17:30 105/66 100 12/27/16 17:16 110/64 100 12/27/16 17:15 103/68 97 12/27/16 17:00 100 12/27/16 16:46 97 12/27/16 16:40 98 12/27/16 16:00 12/27/16 15:45 110/64 99 12/27/16 15:30 117/74 100 12/27/16 15:15 111/73 99 12/27/16 15:00 111/68 99 12/27/16 14:45 120/75 99 12/27/16 14:30 110/75 12/27/16 14:16 124/83 12/27/16 14:00 123/87 12/27/16 13:45 118/84 12/27/16 13:30 124/84 12/27/16 13:20 103/68 12/27/16 13:15 117/83 12/27/16 13:00 124/82 12/27/16 12:45 128/73 12/27/16 12:30 119/83 12/27/16 12:15 121/81 12/27/16 12:00 120/83 12/27/16 11:45 117/82 100 - Physical Examination General: No Apparent Distress, Other (unresponsive) HEENT: Positive: Normocephaly, Mucus Membranes Moist Neck: Positive: neck supple, trachea midline Cardiac: Positive: Tachycardia Lungs: Positive: Decreased Breath Sounds Neuro: Positive: Other (unresponsive) Abdomen: Positive: Soft, Active Bowel Sounds Skin: Positive: Clear. Negative: Rash Musculoskeletal: No Fluid Collection Extremities: Absent: edema - Labs and Meds Cardiac Enzymes 12/28/16 Range/Units 08:00 AST 54 H (5-40) units/L CBC 12/28/16 Range/Units 08:00 WBC 16.4 H (4.5-11.0) K/mm3 RBC 4.31 (3.65-5.03) M/mm3 Hgb 12.2 (11.8-15.2) gm/dl Hct 39.9 (35.5-45.6) % Plt Count 175 (140-440) K/mm3 Lymph # 1.2 (1.2-5.4) K/mm3 [place] # 1.1 H (0.0-0.8) K/mm3 Eos # 0.3 (0.0-0.4) K/mm3 Baso # 0.2 H (0.0-0.1) K/mm3 Comprehensive Metabolic Panel 12/28/16 Range/Units 08:00 Sodium 147 H (137-145) mmol/L Potassium 3.9 (3.6-5.0) mmol/L Chloride 111.6 H (98-107) mmol/L Carbon Dioxide 25 (22-30) mmol/L BUN 22 H (9-20) mg/dL Creatinine 0.7 L (0.8-1.5) mg/dL Glucose 135 H (75-100) mg/dL Calcium 7.9 L (8.4-10.2) mg/dL AST 54 H (5-40) units/L ALT 23 (7-56) units/L Alkaline Phosphatase 63 (35-129) units/L Total Protein 7.0 (6.3-8.2) g/dL Albumin 2.3 L (3.9-5) g/dL - Imaging and Cardiology EKG: image reviewed Echo: report reviewed (EF 10-15%, LA severely dilated, RV mildly dilated, severe MR, mild TR, LV severely dilated, RV mildly dilated) - EKG Sinus rhythms and dysrhythmias: sinus tachycardia
--- NOTE | 2016-12-28 13:22 | Progress Note ---
Assessment and Plan Imp: 1. Severe/end-stage dilated CMP 2. A/C systolic CHF 3. s/p CP arrest 4. Probable anoxic encephalopathy 5. Acute/chronic respiratory failure, hypoxia and hypercapnea 6. Cardiogenic shock 7. Lactic acidosis, resolved 8. ? Aspiration pneumonitis 9. R pleural effusion, probably due to CHF 10. SIRS; ? central fever due to #4 11. Hypernatremia Rec: 1. Cultures remain negative; ABX as per ID, recommendations noted; believe could place new PICC since not bacteremic; I discussed recommendation of line change to patient's decision-maker (father Ryder Ellison, Sr.) who wants to hold off as now appears family planning hospice; monitor fevers after ABX change 2. Valeriy prn to keep MAP > 60; Lasix prn 3. Mentation precludes extubation 4. Remain off sedation; EEG and neuro assessment reviewed -> patient with poor prognosis 5. TFs; monitor sodium --> free water + cont. D5W to correct free water deficit 6. GI/DVT PPx 7. Would not try to tap the R effusion; monitor radiographically 8. Poor prognosis for meaningful recovery/quality of life due to end-stage CMP, shock, anoxic enceph., etc.; he is a hospice candidate in my opinion; reviewed IMS notes -> now DNR and hospice planning underway 9. Complex decision-making Subjective Date of service: 12/28/16 Principal diagnosis: s/p C-P arrest, acute on chronic resp failure, Acute on chronic SHF, CMP Interval history: No events. Off sedation x 6 days. Not waking up or following commands. Valeriy drip off, remains on Primacor. PEEP at 5, sat of 100%. Still w/ fevers. Active Medications Acetaminophen (Tylenol) 650 mg FEEDTUBE Q4H PRN PRN Reason: Pain, Mild (1-3) Last Admin: 12/27/16 03:49 Dose: 650 mg Albuterol (Proventil) 2.5 mg IH Q4H PRN PRN Reason: Shortness Of Breath Lipase/Protease/Amylase (Pancreaze Dr 10,500 Unit) 1 each FEEDTUBE PRN PRN PRN Reason: For Clogged Feeding Tube Aspirin (Aspirin) 325 mg PO QDAY HEATHER Last Admin: 12/28/16 10:42 Dose: 325 mg Enoxaparin Sodium (Lovenox) 40 mg SUB-Q QDAY@2200 [facility] Last Admin: 12/27/16 23:40 Dose: 40 mg Famotidine (Pepcid) 20 mg PO BID [facility] Last Admin: 12/28/16 10:42 Dose: 20 mg Hydrophilic Ointment (Vaseline Lip Therapy) 1 applic TP Q2HR PRN PRN Reason: Dry Lips Milrinone Lactate 20 mg/ (Dextrose) 100 mls @ 9.9 mls/hr IV TITR HEATHER; 0.375 MCG /KG/MIN PRN Reason: Protocol Last Admin: 12/28/16 07:32 Dose: 0.37 mcg/kg/min, 9.76 mls/hr Phenylephrine HCl 100 mg/ (Sodium Chloride) 100 mls @ 3 mls/hr IV TITR HEATHER; 50 MCG/MIN PRN Reason: Protocol Last Titration: 12/27/16 18:15 Dose: 0 mcg/min, 0 mls/hr Cefepime HCl (Maxipime/Ns 2 Gm/100 Ml) 2 gm in 100 mls @ 200 mls/hr IV Q8HR HEATHER PRN Reason: Protocol Last Admin: 12/28/16 05:00 Dose: 200 mls/hr Fluconazole (Diflucan) 200 mg in 100 mls @ 100 mls/hr IV Q24HR HEATHER PRN Reason: Protocol Last Admin: 12/28/16 10:41 Dose: 100 mls/hr Metronidazole (Flagyl 500 Mg/100 Ml) 500 mg in 100 mls @ 100 mls/hr IV Q8HR [facility] Last Admin: 12/28/16 06:42 Dose: 100 mls/hr Dextrose (D5w) 1,000 mls @ 60 mls/hr IV DIRECT [facility] Last Admin: 12/28/16 07:34 Dose: 60 mls/hr Insulin Aspart (Novolog) 0 units SUB-Q Q6HR HEATHER PRN Reason: Protocol Last Admin: 12/28/16 06:44 Dose: Not Given Multi-Ingred Cream/Lotion/Oil/Oint (Artificial Tears Ophth Oint) 1 applic OU Q4HR PRN PRN Reason: Dry Eye(s) Last Admin: 12/22/16 10:38 Dose: 1 applic Simple Syrup (Simple Syrup) 15 ml FEEDTUBE PRN PRN PRN Reason: Hypoglycemia Simple Syrup (Simple Syrup) 30 ml FEEDTUBE PRN PRN PRN Reason: Hypoglycemia Sodium Bicarbonate (Sodium Bicarbonate) 325 mg FEEDTUBE PRN PRN PRN Reason: For Clogged Feeding Tube Sodium Chloride (Nacl 0.9% 500 Ml) 1 ml IV DIRECT HEATHER Objective Vital Signs - 12hr 12/28/16 12/28/16 12/28/16 01:30 02:00 02:30 Temperature Pulse Rate 122 H 122 H 121 H Pulse Rate [ Apical] Respiratory 22 29 H 25 H Rate Blood Pressure 97/50 105/69 109/65 O2 Sat by Pulse 99 100 100 Oximetry 12/28/16 12/28/16 12/28/16 03:00 03:31 04:00 Temperature 100.4 F H Pulse Rate 119 H 120 H 120 H Pulse Rate [ Apical] Respiratory 25 H 26 H 25 H Rate Blood Pressure 106/66 107/67 107/62 O2 Sat by Pulse 100 99 99 Oximetry 12/28/16 12/28/16 12/28/16 04:03 04:30 05:00 Temperature Pulse Rate 119 H 119 H 120 H Pulse Rate [ Apical] Respiratory 26 H 26 H Rate Blood Pressure 107/62 110/69 118/73 O2 Sat by Pulse 100 99 98 Oximetry 12/28/16 12/28/16 12/28/16 05:31 06:00 06:30 Temperature Pulse Rate 122 H 122 H Pulse Rate [ Apical] Respiratory 23 15 Rate Blood Pressure 112/74 112/74 110/68 O2 Sat by Pulse 99 99 99 Oximetry 12/28/16 12/28/16 12/28/16 07:01 07:30 08:00 Temperature 100.9 F H Pulse Rate 123 H 120 H Pulse Rate [ 119 H Apical] Respiratory 26 H 27 H Rate Blood Pressure 126/71 120/72 108/64 O2 Sat by Pulse 100 100 100 Oximetry 12/28/16 12/28/16 12/28/16 08:01 08:31 09:00 Temperature Pulse Rate 121 H 120 H 117 H Pulse Rate [ Apical] Respiratory 26 H 29 H 20 Rate Blood Pressure 113/72 116/72 108/64 O2 Sat by Pulse 100 100 100 Oximetry 12/28/16 12/28/16 12/28/16 09:30 10:00 10:30 Temperature Pulse Rate 119 H 121 H 117 H Pulse Rate [ 121 H Apical] Respiratory 29 H 18 27 H Rate Blood Pressure 109/73 111/65 106/74 O2 Sat by Pulse 100 100 98 Oximetry 12/28/16 12/28/16 11:01 12:00 Temperature 98.7 F Pulse Rate 120 H Pulse Rate [ Apical] Respiratory 28 H Rate Blood Pressure 99/71 O2 Sat by Pulse 99 Oximetry Constitutional: comatose Eyes: non-icteric ENT: oropharynx moist, other (orally intubated) Neck: supple Effort: normal Ascultation: Bilateral: other (coarse BS bilaterally) Percussion: Right: dull (right base) Cardiovascular: other (tachy, RR; no mrg) Gastrointestinal: normoactive bowel sounds, soft, non-tender, non-distended Integumentary: normal Extremities: no cyanosis, pink and warm, edema (1+ pedal edema) Neurologic: other (unresponsive, flaccid extremities except some jerking of the RUE when dropped, eyes open but does not track, does not follow commands, + cough reflex) Psychiatric: other (not able to assess) CBC and BMP: 12/28/16 08:00 12/28/16 08:00 ABG, PT/INR, D-dimer: ABG POC ABG pH 7.438 (7.35-7.45) 12/26/16 04:29 POC ABG pCO2 43.1 (35-45) 12/26/16 04:29 POC ABG pO2 90 (80-105) 12/26/16 04:29 POC ABG HCO3 29.1 12/26/16 04:29 POC ABG Total CO2 30 12/26/16 04:29 POC ABG O2 Sat 97 12/26/16 04:29 PT/INR, D-dimer PT 20.5 Sec. (12.2-14.9) H 12/20/16 17:00 INR 1.66 (0.87-1.13) H 12/20/16 17:00 Abnormal lab findings: Abnormal Labs 12/20/16 12/20/16 12/21/16 21:53 23:13 01:35 WBC MCHC RDW Lymph % (Auto) [place] % (Auto) [place] # Baso # Seg Neutrophils % Seg Neuts % (Manual) Lymphocytes % (Manual) Seg Neutrophils # Seg Neutrophils # Man Lymphocytes # (Manual) Monocytes # (Manual) Eosinophils # (Manual) POC ABG pH POC ABG pCO2 52.4 H POC ABG pO2 113 H Sodium Chloride BUN Creatinine Glucose POC Glucose Lactic Acid 4.60 H* 5.50 H* Calcium Total Bilirubin AST C-Reactive Protein Albumin Urine WBC (Auto) Vancomycin Trough Miscellaneous Test 12/21/16 12/21/16 12/22/16 05:54 08:15 04:42 WBC MCHC RDW Lymph % (Auto) [place] % (Auto) [place] # Baso # Seg Neutrophils % Seg Neuts % (Manual) Lymphocytes % (Manual) Seg Neutrophils # Seg Neutrophils # Man Lymphocytes # (Manual) Monocytes # (Manual) Eosinophils # (Manual) POC ABG pH POC ABG pCO2 46.7 H POC ABG pO2 142 H 72 L Sodium Chloride BUN Creatinine Glucose POC Glucose Lactic Acid Calcium Total Bilirubin AST C-Reactive Protein Albumin Urine WBC (Auto) 30.0 H Vancomycin Trough Miscellaneous Test 12/22/16 12/23/16 12/23/16 10:55 04:00 12:51 WBC 20.5 H MCHC RDW 15.9 H Lymph % (Auto) [place] % (Auto) [place] # Baso # Seg Neutrophils % Seg Neuts % (Manual) 85.0 H Lymphocytes % (Manual) 8.0 L Seg Neutrophils # Seg Neutrophils # Man 17.4 H Lymphocytes # (Manual) Monocytes # (Manual) 1.4 H Eosinophils # (Manual) POC ABG pH 7.514 H POC ABG pCO2 POC ABG pO2 Sodium Chloride BUN 27 H Creatinine Glucose 105 H POC Glucose Lactic Acid Calcium Total Bilirubin AST C-Reactive Protein Albumin Urine WBC (Auto) Vancomycin Trough Miscellaneous Test 12/23/16 12/24/16 12/24/16 12:51 03:09 03:40 WBC 19.5 H MCHC RDW 16.0 H Lymph % (Auto) 6.9 L [place] % (Auto) [place] # 1.4 H Baso # 0.2 H Seg Neutrophils % 84.9 H Seg Neuts % (Manual) Lymphocytes % (Manual) Seg Neutrophils # 16.6 H Seg Neutrophils # Man Lymphocytes # (Manual) Monocytes # (Manual) Eosinophils # (Manual) POC ABG pH 7.494 H POC ABG pCO2 POC ABG pO2 78 L Sodium Chloride BUN 30 H Creatinine Glucose POC Glucose Lactic Acid Calcium 8.3 L Total Bilirubin 1.80 H AST 105 H C-Reactive Protein Albumin 2.3 L Urine WBC (Auto) Vancomycin Trough Miscellaneous Test 12/24/16 12/24/16 12/24/16 03:40 21:30 23:32 WBC MCHC RDW Lymph % (Auto) [place] % (Auto) [place] # Baso # Seg Neutrophils % Seg Neuts % (Manual) Lymphocytes % (Manual) Seg Neutrophils # Seg Neutrophils # Man Lymphocytes # (Manual) Monocytes # (Manual) Eosinophils # (Manual) POC ABG pH POC ABG pCO2 POC ABG pO2 Sodium 146 H Chloride BUN 29 H Creatinine Glucose POC Glucose 114 H Lactic Acid Calcium Total Bilirubin AST C-Reactive Protein Albumin Urine WBC (Auto) Vancomycin Trough 24.8 H Miscellaneous Test 12/25/16 12/25/16 12/25/16 04:15 04:51 10:05 WBC 17.4 H MCHC 31 L RDW 16.3 H Lymph % (Auto) 8.7 L [place] % (Auto) 9.6 H [place] # 1.7 H Baso # 0.2 H Seg Neutrophils % 79.0 H Seg Neuts % (Manual) Lymphocytes % (Manual) Seg Neutrophils # 13.7 H Seg Neutrophils # Man Lymphocytes # (Manual) Monocytes # (Manual) Eosinophils # (Manual) POC ABG pH 7.464 H POC ABG pCO2 POC ABG pO2 111 H Sodium Chloride BUN Creatinine Glucose POC Glucose 119 H Lactic Acid Calcium Total Bilirubin AST C-Reactive Protein Albumin Urine WBC (Auto) Vancomycin Trough Miscellaneous Test 12/25/16 12/25/16 12/25/16 10:05 11:00 12:14 WBC MCHC RDW Lymph % (Auto) [place] % (Auto) [place] # Baso # Seg Neutrophils % Seg Neuts % (Manual) Lymphocytes % (Manual) Seg Neutrophils # Seg Neutrophils # Man Lymphocytes # (Manual) Monocytes # (Manual) Eosinophils # (Manual) POC ABG pH POC ABG pCO2 POC ABG pO2 Sodium Chloride BUN Creatinine Glucose POC Glucose 122 H Lactic Acid Calcium Total Bilirubin AST C-Reactive Protein 6.00 H Albumin Urine WBC (Auto) Vancomycin Trough Miscellaneous Test Flexitest 1 H 12/25/16 12/26/16 12/26/16 23:40 05:00 06:45 WBC 20.7 H MCHC RDW 16.4 H Lymph % (Auto) [place] % (Auto) [place] # Baso # Seg Neutrophils % Seg Neuts % (Manual) Lymphocytes % (Manual) Seg Neutrophils # Seg Neutrophils # Man Lymphocytes # (Manual) Monocytes # (Manual) Eosinophils # (Manual) POC ABG pH POC ABG pCO2 POC ABG pO2 Sodium Chloride BUN Creatinine Glucose POC Glucose 144 H 144 H Lactic Acid Calcium Total Bilirubin AST C-Reactive Protein Albumin Urine WBC (Auto) Vancomycin Trough Miscellaneous Test 12/26/16 12/26/16 12/26/16 06:45 11:18 18:04 WBC MCHC RDW Lymph % (Auto) [place] % (Auto) [place] # Baso # Seg Neutrophils % Seg Neuts % (Manual) Lymphocytes % (Manual) Seg Neutrophils # Seg Neutrophils # Man Lymphocytes # (Manual) Monocytes # (Manual) Eosinophils # (Manual) POC ABG pH POC ABG pCO2 POC ABG pO2 Sodium 150 H Chloride 111.9 H BUN 22 H Creatinine Glucose 148 H POC Glucose 153 H 133 H Lactic Acid Calcium Total Bilirubin 1.60 H AST 63 H C-Reactive Protein Albumin 2.6 L Urine WBC (Auto) Vancomycin Trough Miscellaneous Test 12/26/16 12/27/16 12/27/16 23:37 04:40 04:40 WBC 20.3 H MCHC RDW 16.4 H Lymph % (Auto) [place] % (Auto) [place] # Baso # Seg Neutrophils % Seg Neuts % (Manual) 88.0 H Lymphocytes % (Manual) 5.0 L Seg Neutrophils # Seg Neutrophils # Man 17.9 H Lymphocytes # (Manual) 1.0 L Monocytes # (Manual) Eosinophils # (Manual) 0.6 H POC ABG pH POC ABG pCO2 POC ABG pO2 Sodium 152 H Chloride 112.5 H BUN 23 H Creatinine Glucose 140 H POC Glucose 135 H Lactic Acid Calcium 8.3 L Total Bilirubin 1.50 H AST 60 H C-Reactive Protein Albumin 2.7 L Urine WBC (Auto) Vancomycin Trough Miscellaneous Test 12/27/16 12/27/16 12/27/16 05:45 21:09 23:45 WBC MCHC RDW Lymph % (Auto) [place] % (Auto) [place] # Baso # Seg Neutrophils % Seg Neuts % (Manual) Lymphocytes % (Manual) Seg Neutrophils # Seg Neutrophils # Man Lymphocytes # (Manual) Monocytes # (Manual) Eosinophils # (Manual) POC ABG pH POC ABG pCO2 POC ABG pO2 Sodium Chloride BUN Creatinine Glucose POC Glucose 127 H 114 H 115 H Lactic Acid Calcium Total Bilirubin AST C-Reactive Protein Albumin Urine WBC (Auto) Vancomycin Trough Miscellaneous Test 12/28/16 12/28/16 12/28/16 05:06 08:00 08:00 WBC 16.4 H MCHC 31 L RDW 16.2 H Lymph % (Auto) 7.2 L [place] % (Auto) [place] # 1.1 H Baso # 0.2 H Seg Neutrophils % 82.9 H Seg Neuts % (Manual) Lymphocytes % (Manual) Seg Neutrophils # 13.5 H Seg Neutrophils # Man Lymphocytes # (Manual) Monocytes # (Manual) Eosinophils # (Manual) POC ABG pH POC ABG pCO2 POC ABG pO2 Sodium 147 H Chloride 111.6 H BUN 22 H Creatinine 0.7 L Glucose 135 H POC Glucose 141 H Lactic Acid Calcium 7.9 L Total Bilirubin 1.50 H AST 54 H C-Reactive Protein Albumin 2.3 L Urine WBC (Auto) Vancomycin Trough Miscellaneous Test 12/28/16 12:17 WBC MCHC RDW Lymph % (Auto) [place] % (Auto) [place] # Baso # Seg Neutrophils % Seg Neuts % (Manual) Lymphocytes % (Manual) Seg Neutrophils # Seg Neutrophils # Man Lymphocytes # (Manual) Monocytes # (Manual) Eosinophils # (Manual) POC ABG pH POC ABG pCO2 POC ABG pO2 Sodium Chloride BUN Creatinine Glucose POC Glucose 128 H Lactic Acid Calcium Total Bilirubin AST C-Reactive Protein Albumin Urine WBC (Auto) Vancomycin Trough Miscellaneous Test Chest x-ray: report reviewed, image reviewed CT scan - chest: report reviewed, image reviewed (compatible with CHF in my opinion with moderate sized R pleural effusion and pulm edema)
--- NOTE | 2016-12-28 13:37 | Progress Note ---
Assessment and Plan Assessment and plan: 59-year-old man with a past medical history of end-stage CHF on milrinone drip at home, chronic respiratory failure, COPD, oxygen dependent on 3 L at home, gallops, atrial flutter, who was brought in by his . States that the patient had complained of shortness of breath and then subsequently collapsed. EMS arrived and found to be asystolic arrest, he received ACLS protocol and had return of circulation was then brought to the hospital. Cardiac arrest Status post ACS protocol, cardiology consult, continue telemetry Acute on chronic systolic CHF exacerbation with pulmonary venous congestion Cardiology input appreciated, continue milrinone drip, continue supportive care IV lasix as tolerated SEVERE ENDSTAGE DILATED CMP * Cardiology following, Continue on Milirione drip Cardiogenic shock Continue IV pressor support Septic shock/Severe spesis Recurrent fever Treated with empiric frustration antibiotics, follow blood and urine cultures Recurrent fever likely secondary to anoxic brain injury No clear evidence of pneumonia, possible UTI, cultures remained negative. ID consult continue Pressors, phenylephrine and milrinone MAY NEED PICC LINE CHANGED WHEN AFEBRILE Acute hypercapnic respiratory failure on mechanical ventilator greater than 96 hours Continue mechanical ventilator, pulmonary input appreciated, We'll attempt to wean off ventilator daily Patient continues to fail weaning trials Metabolic encephalopathy Most likely due to hypoperfusion of central nervous system , i.e. anoxic brain injury CT head does not show any acute findings, CTA head also shows no acute findings , patient has a pacemaker/ICD, therefore MRI is contraindicated Neurology consult and bruits noted. EEG. Remains unresponsive despite not being on sedation ACUTE CYSTITIS -continue empiric abx -sputum culture no growth RIGHT SIDED PLEURAL EFFUSION -Probably due to CHF. will monitor. DVT/GI PROPHY Discussed with father and family. Patient changed to DNR on their request and hospice consulted. Will hold off on PEG/TRACH Awaiting Hospice BED Poor prognosis The high probability of a clinically significant, sudden or life threatening deterioration of the [cardiovascular, pulmonary and Neurologic] system(s) required my full and direct attention, intervention and personal management. The aggregate critical care time was [35] minutes. This time is in addition to time spent performing reported procedures but includes the following: [X] Data Review and interpretation [X] Patient assessment and monitoring of vital signs [X] Documentation [X] Medication orders and management History Interval history: Patient seen and examined remains comatose. no change, met with family today Hospitalist Physical - Physical exam Narrative exam: VITAL SIGNS: Reviewed. GENERAL: The patient appeared comatose, ventilated. Vital signs as documented. HEAD: No signs of head trauma. EYES: Pupils are equal. EARS: Unable to assess MOUTH: Oropharynx is normal. NECK: No adenopathy, no JVD. CHEST: Chest with faint expiratory wheeze. CARDIAC: Regular rate and rhythm. S1 and S2, without murmurs, gallops, or rubs. VASCULAR: No Edema. Peripheral pulses normal and equal in all extremities. ABDOMEN: Soft, unable to assess tenderness. No grimacing on palpation. No sign of distention. Bowel Sounds normal. MUSCULOSKELETAL: Extremities without clubbing, cyanosis or edema. NEUROLOGIC EXAM: Comatose with flaccid extremities PSYCHIATRIC: Unable to assess. SKIN: PICC line to left upper ext - Constitutional Vitals: Temp Pulse Resp BP Pulse Ox 98.7 F 120 H 28 H 99/71 99 12/28/16 12:00 12/28/16 11:01 12/28/16 11:01 12/28/16 11:01 12/28/16 11:01 General appearance: Present: severe distress Results - Labs CBC & Chem 7: 12/28/16 08:00 12/28/16 08:00 Labs: Laboratory Last Values WBC 16.4 K/mm3 (4.5-11.0) H 12/28/16 08:00 RBC 4.31 M/mm3 (3.65-5.03) 12/28/16 08:00 Hgb 12.2 gm/dl (11.8-15.2) 12/28/16 08:00 Hct 39.9 % (35.5-45.6) 12/28/16 08:00 MCV 92 fl (84-94) 12/28/16 08:00 MCH 28 pg (28-32) 12/28/16 08:00 MCHC 31 % (32-34) L 12/28/16 08:00 RDW 16.2 % (13.2-15.2) H 12/28/16 08:00 Plt Count 175 K/mm3 (140-440) 12/28/16 08:00 Lymph % (Auto) 7.2 % (13.4-35.0) L 12/28/16 08:00 Forrest % (Auto) 7.0 % (0.0-7.3) 12/28/16 08:00 Eos % (Auto) 1.6 % (0.0-4.3) 12/28/16 08:00 Baso % (Auto) 1.3 % (0.0-1.8) 12/28/16 08:00 Lymph # 1.2 K/mm3 (1.2-5.4) 12/28/16 08:00 Forrest # 1.1 K/mm3 (0.0-0.8) H 12/28/16 08:00 Eos # 0.3 K/mm3 (0.0-0.4) 12/28/16 08:00 Baso # 0.2 K/mm3 (0.0-0.1) H 12/28/16 08:00 Add Manual Diff Complete 12/27/16 04:40 Total Counted 100 12/27/16 04:40 Seg Neutrophils % 82.9 % (40.0-70.0) H 12/28/16 08:00 Seg Neuts % (Manual) 88.0 % (40.0-70.0) H 12/27/16 04:40 Band Neutrophils % 0 % 12/27/16 04:40 Lymphocytes % (Manual) 5.0 % (13.4-35.0) L 12/27/16 04:40 Reactive Lymphs % (Man) 0 % 12/27/16 04:40 Monocytes % (Manual) 4.0 % (0.0-7.3) 12/27/16 04:40 Eosinophils % (Manual) 3.0 % (0.0-4.3) 12/27/16 04:40 Basophils % (Manual) 0 % (0.0-1.8) 12/27/16 04:40 Metamyelocytes % 0 % 12/27/16 04:40 Myelocytes % 0 % 12/27/16 04:40 Promyelocytes % 0 % 12/27/16 04:40 Blast Cells % 0 % 12/27/16 04:40 Nucleated RBC % Not Reportable 12/27/16 04:40 Seg Neutrophils # 13.5 K/mm3 (1.8-7.7) H 12/28/16 08:00 Seg Neutrophils # Man 17.9 K/mm3 (1.8-7.7) H 12/27/16 04:40 Band Neutrophils # 0.0 K/mm3 12/27/16 04:40 Lymphocytes # (Manual) 1.0 K/mm3 (1.2-5.4) L 12/27/16 04:40 Abs React Lymphs (Man) 0.0 K/mm3 12/27/16 04:40 Monocytes # (Manual) 0.8 K/mm3 (0.0-0.8) 12/27/16 04:40 Eosinophils # (Manual) 0.6 K/mm3 (0.0-0.4) H 12/27/16 04:40 Basophils # (Manual) 0.0 K/mm3 (0.0-0.1) 12/27/16 04:40 Metamyelocytes # 0.0 K/mm3 12/27/16 04:40 Myelocytes # 0.0 K/mm3 12/27/16 04:40 Promyelocytes # 0.0 K/mm3 12/27/16 04:40 Blast Cells # 0.0 K/mm3 12/27/16 04:40 WBC Morphology Not Reportable 12/27/16 04:40 Hypersegmented Neuts Not Reportable 12/27/16 04:40 Hyposegmented Neuts Not Reportable 12/27/16 04:40 Hypogranular Neuts Not Reportable 12/27/16 04:40 Smudge Cells Not Reportable 12/27/16 04:40 Toxic Granulation Not Reportable 12/27/16 04:40 Toxic Vacuolation Not Reportable 12/27/16 04:40 Dohle Bodies Not Reportable 12/27/16 04:40 Pelger-Huet Anomaly Not Reportable 12/27/16 04:40 Shantal Rods Not Reportable 12/27/16 04:40 Platelet Estimate Appears normal 12/27/16 04:40 Clumped Platelets Not Reportable 12/27/16 04:40 Plt Clumps, EDTA Not Reportable 12/27/16 04:40 Large Platelets Not Reportable 12/27/16 04:40 Giant Platelets Not Reportable 12/27/16 04:40 Platelet Satelliting Not Reportable 12/27/16 04:40 Plt Morphology Comment Not Reportable 12/27/16 04:40 RBC Morphology Normal 12/27/16 04:40 Dimorphic RBCs Not Reportable 12/27/16 04:40 Polychromasia Not Reportable 12/27/16 04:40 Hypochromasia Not Reportable 12/27/16 04:40 Poikilocytosis Not Reportable 12/27/16 04:40 Anisocytosis Not Reportable 12/27/16 04:40 Microcytosis Not Reportable 12/27/16 04:40 Macrocytosis Not Reportable 12/27/16 04:40 Spherocytes Not Reportable 12/27/16 04:40 Pappenheimer Bodies Not Reportable 12/27/16 04:40 Sickle Cells Not Reportable 12/27/16 04:40 Target Cells Not Reportable 12/27/16 04:40 Tear Drop Cells Not Reportable 12/27/16 04:40 Ovalocytes Not Reportable 12/27/16 04:40 Helmet Cells Not Reportable 12/27/16 04:40 [place] Bodies Not Reportable 12/27/16 04:40 Ramah Rings Not Reportable 12/27/16 04:40 Arnulfo Cells Not Reportable 12/27/16 04:40 Bite Cells Not Reportable 12/27/16 04:40 Crenated Cell Not Reportable 12/27/16 04:40 Elliptocytes Not Reportable 12/27/16 04:40 Acanthocytes (Spur) Not Reportable 12/27/16 04:40 Rouleaux Not Reportable 12/27/16 04:40 Hemoglobin C Crystals Not Reportable 12/27/16 04:40 Schistocytes Not Reportable 12/27/16 04:40 Malaria parasites Not Reportable 12/27/16 04:40 Niles Bodies Not Reportable 12/27/16 04:40 Hem Pathologist Commnt No 12/27/16 04:40 PT 20.5 Sec. (12.2-14.9) H 12/20/16 17:00 INR 1.66 (0.87-1.13) H 12/20/16 17:00 APTT 39.4 Sec. (24.2-36.6) H 12/20/16 17:00 POC ABG pH 7.438 (7.35-7.45) 12/26/16 04:29 POC ABG pCO2 43.1 (35-45) 12/26/16 04:29 POC ABG pO2 90 (80-105) 12/26/16 04:29 POC ABG HCO3 29.1 12/26/16 04:29 POC ABG Total CO2 30 12/26/16 04:29 POC ABG O2 Sat 97 12/26/16 04:29 POC ABG Base Excess 5 12/26/16 04:29 FiO2 30 % 12/26/16 04:29 Sodium 147 mmol/L (137-145) H 12/28/16 08:00 Potassium 3.9 mmol/L (3.6-5.0) 12/28/16 08:00 Chloride 111.6 mmol/L (98-107) H 12/28/16 08:00 Carbon Dioxide 25 mmol/L (22-30) 12/28/16 08:00 Anion Gap 14 mmol/L 12/28/16 08:00 BUN 22 mg/dL (9-20) H 12/28/16 08:00 Creatinine 0.7 mg/dL (0.8-1.5) L 12/28/16 08:00 Estimated GFR > 60 ml/min 12/28/16 08:00 BUN/Creatinine Ratio 31.42 % 12/28/16 08:00 Glucose 135 mg/dL (75-100) H 12/28/16 08:00 POC Glucose 128 (70-105) H 12/28/16 12:17 Lactic Acid 1.30 mmol/L (0.7-2.0) 12/24/16 06:00 Calcium 7.9 mg/dL (8.4-10.2) L 12/28/16 08:00 Phosphorus 2.60 mg/dL (2.5-4.5) 12/24/16 03:40 Magnesium 2.30 mg/dL (1.7-2.3) 12/24/16 03:40 Total Bilirubin 1.50 mg/dL (0.1-1.2) H 12/28/16 08:00 AST 54 units/L (5-40) H 12/28/16 08:00 ALT 23 units/L (7-56) 12/28/16 08:00 Alkaline Phosphatase 63 units/L (35-129) 12/28/16 08:00 Total Creatine Kinase 86 units/L (55-170) 12/20/16 17:00 CK-MB (CK-2) 4.2 ng/mL (0.0-4.0) H 12/20/16 17:00 CK-MB (CK-2) Rel Index 4.8 (0-4) H 12/20/16 17:00 Troponin T 0.054 ng/mL (0.00-0.029) H 12/20/16 17:00 C-Reactive Protein 6.00 mg/dL (0.00-1.30) H 12/25/16 10:05 NT-Pro-B Natriuret Pep 9604 pg/mL (0-900) H 12/20/16 17:00 Total Protein 7.0 g/dL (6.3-8.2) 12/28/16 08:00 Albumin 2.3 g/dL (3.9-5) L 12/28/16 08:00 Albumin/Globulin Ratio 0.5 % 12/28/16 08:00 Triglycerides 82 mg/dL (2-149) 12/20/16 17:00 Cholesterol 128 mg/dL (50-199) 12/20/16 17:00 LDL Cholesterol Direct 51 mg/dL (50-130) 12/20/16 17:00 HDL Cholesterol 61 mg/dL (40-59) H 12/20/16 17:00 Cholesterol/HDL Ratio 2.09 % 12/20/16 17:00 Total Cortisol 21.7 mcg/dL () 12/24/16 10:45 Urine Color Keely (Yellow) 12/21/16 08:15 Urine Turbidity Clear (Clear) 12/21/16 08:15 Urine pH 5.0 (5.0-7.0) 12/21/16 08:15 Ur Specific [place] 1.023 (1.003-1.030) 12/21/16 08:15 Urine Protein <15 mg/dl mg/dL (Negative) 12/21/16 08:15 Urine Glucose (UA) Neg mg/dL (Negative) 12/21/16 08:15 Urine Ketones Neg mg/dL (Negative) 12/21/16 08:15 Urine Blood Lg (Negative) 12/21/16 08:15 Urine Nitrite Neg (Negative) 12/21/16 08:15 Urine Bilirubin Neg (Negative) 12/21/16 08:15 Urine Urobilinogen 2.0 mg/dL (<2.0) 12/21/16 08:15 Ur Leukocyte Esterase Mod (Negative) 12/21/16 08:15 Urine WBC (Auto) 30.0 /HPF (0.0-6.0) H 12/21/16 08:15 Urine RBC (Auto) 93.0 /HPF (0.0-6.0) 12/21/16 08:15 U Epithel Cells (Auto) < 1.0 /HPF (0-13.0) 12/21/16 08:15 Calcium Oxalate Crystal Few 12/21/16 08:15 Hyaline Casts 2 /LPF 12/21/16 08:15 Urine Mucus Few /HPF 12/21/16 08:15 Vancomycin Trough 24.8 ug/mL (5.0-20.0) H 12/24/16 21:30 Miscellaneous Test Flexitest 1 H 12/25/16 11:00
--- NOTE | 2016-12-28 14:12 | Progress Note ---
Assessment and Plan Assessment: 1) Shock: resolved, still low grade fever, improving leukocytosis. Etiology- unclear; UTI?, central fever? pneumonia? discitis -CRP=6 -Procalcitonin=1.1 -Blood cx x 2 negative -Old PICC placed 4 months ago -CT chest/abdomen/pelvis-GB stones, bilateral infiltrates, michael pleural effusion, T8-T9 discitis 2) UTI: urine cx negative 3) Presumed pneumonia ? aspiration with bilateral effusions with large right effusion 4) Presumed T8-T9 discitis 4) Respiratory failure 5) End-stage heart failure on 6) PICC line and AICD in place 7) S/P respiratory arrest Plan: -continue cefepime/flagyl/fluconazole empirically -re-start vancomycin in view of presumed discitis -consider MRI thoracic spine and thoracentesis if he continues to improve I will be rounding this weekend Thank you Dr Tang for your consultation, will follow up with you. Sally Biswas MD Infectious Diseases Specialist [facility] ([facility]) M [phone] O [phone] Subjective Date of service: 12/28/16 Principal diagnosis: s/p C-P arrest, acute on chronic resp failure, Acute on chronic SHF, CMP Interval history: Remains with fever tmax 100.9 overnight. He is on Milrinone. Neosynephrine IV drip was stopped. Microbiology: Blood cultures: 12/21 neg 12/24 ngtd Urine cultures: 12/21 ngtd Respiratory cultures: 12/20 neg Wound cultures: Stool cultures: Other: Current Antimicrobials: cefepime 12/27 metronidazole 12/27 fluconazole 12/27 Previous Antimicrobials: Zosyn 12/20 Vancomycin 12/20 Objective - Exam Narrative Exam: General appearance: sedated on the vent Eyes: anicteric sclerae, moist conjunctivae; no lid-lag; PERRLA HENT: Atraumatic; oropharynx limitted +ETT Neck: Trachea midline; supple, no thyromegaly or lymphadenopathy Lungs: michael rhonchi. AICD no erythema, edema, tenderness. Left chest wall AICD in place CV: RRR Abdomen: Soft, non-tender; no masses or hepatosplenomegaly Extremities: + peripheral edema Skin: Normal temperature, turgor and texture; no rash, ulcers or subcutaneous nodules Psych: sedated. Neuro: sedated Lines: right arm PICC, iniguez, NGT - Constitutional Vitals: Vital Signs Temp Pulse Resp BP Pulse Ox 98.7 F 110 H 21 106/67 100 12/28/16 12:00 12/28/16 14:00 12/28/16 14:00 12/28/16 14:00 12/28/16 13:42 Temperature -Last 24 Hours Temperature 98.7 F Temperature 100.9 F Temperature 100.4 F Temperature 102.9 F Temperature 100.7 F Temperature 99.2 F - Labs CBC & Chem 7: 12/28/16 08:00 12/28/16 08:00 Labs: Abnormal lab results 12/27/16 12/27/16 12/27/16 Range/Units 11:18 21:09 23:45 WBC (4.5-11.0) K/mm3 MCHC (32-34) % RDW (13.2-15.2) % Lymph % (Auto) (13.4-35.0) % Boyle # (0.0-0.8) K/mm3 Baso # (0.0-0.1) K/mm3 Seg Neutrophils % (40.0-70.0) % Seg Neutrophils # (1.8-7.7) K/mm3 Sodium (137-145) mmol/L Chloride (98-107) mmol/L BUN (9-20) mg/dL Creatinine (0.8-1.5) mg/dL Glucose (75-100) mg/dL POC Glucose 133 H 114 H 115 H (70-105) Calcium (8.4-10.2) mg/dL Total Bilirubin (0.1-1.2) mg/dL AST (5-40) units/L Albumin (3.9-5) g/dL 12/28/16 12/28/16 12/28/16 Range/Units 05:06 08:00 08:00 WBC 16.4 H (4.5-11.0) K/mm3 MCHC 31 L (32-34) % RDW 16.2 H (13.2-15.2) % Lymph % (Auto) 7.2 L (13.4-35.0) % Boyle # 1.1 H (0.0-0.8) K/mm3 Baso # 0.2 H (0.0-0.1) K/mm3 Seg Neutrophils % 82.9 H (40.0-70.0) % Seg Neutrophils # 13.5 H (1.8-7.7) K/mm3 Sodium 147 H (137-145) mmol/L Chloride 111.6 H (98-107) mmol/L BUN 22 H (9-20) mg/dL Creatinine 0.7 L (0.8-1.5) mg/dL Glucose 135 H (75-100) mg/dL POC Glucose 141 H (70-105) Calcium 7.9 L (8.4-10.2) mg/dL Total Bilirubin 1.50 H (0.1-1.2) mg/dL AST 54 H (5-40) units/L Albumin 2.3 L (3.9-5) g/dL /01/05 Range/Units 12:17 WBC (4.5-11.0) K/mm3 MCHC (32-34) % RDW (13.2-15.2) % Lymph % (Auto) (13.4-35.0) % Boyle # (0.0-0.8) K/mm3 Baso # (0.0-0.1) K/mm3 Seg Neutrophils % (40.0-70.0) % Seg Neutrophils # (1.8-7.7) K/mm3 Sodium (137-145) mmol/L Chloride (98-107) mmol/L BUN (9-20) mg/dL Creatinine (0.8-1.5) mg/dL Glucose (75-100) mg/dL POC Glucose 128 H (70-105) Calcium (8.4-10.2) mg/dL Total Bilirubin (0.1-1.2) mg/dL AST (5-40) units/L Albumin (3.9-5) g/dL
[2016-12-28] MEDS ORDERED: VANCOMYCIN VIAL 500 MG in NACL 0.9% 100 ML IV SCH (15:00)
[2016-12-28] MEDS ORDERED: VANCOMYCIN PHARMACY TO DOSE IV SCH (15:00)
[2016-12-28] MEDS: VANCOMYCIN/NS 1 GM/250 ML 1 GM/250 ML BAG IV SCH (17:29)
[2016-12-28] MEDS: LOVENOX SUB-Q SCH (22:14)
[2016-12-29] MEDS: NOVOLOG SUB-Q SCH ×4 (00:43→17:47)
[2016-12-29] MEDS: VANCOMYCIN/NS 1 GM/250 ML 1 GM/250 ML BAG IV SCH ×2 (05:42→14:51)
[2016-12-29] MEDS: MAXIPIME/NS 2 GM/100 ML 2 GM/100 ML BAG IV SCH ×3 (06:44→21:00)
[2016-12-29] MEDS: FLAGYL 500 MG/100 ML 500 MG/100 ML BAG IV SCH ×3 (06:45→21:31)
--- NOTE | 2016-12-29 09:20 | XRay Report ---
Single view abdomen: History: Dobbhoff placement. Findings: Tip of Dobbhoff feeding tube is noted in the stomach. No bowel distention. Impression: Tip of Dobbhoff feeding tube in the stomach.
[2016-12-29] MEDS: ASPIRIN PO SCH (09:59)
[2016-12-29] MEDS: PEPCID PO SCH ×2 (09:59→21:34)
[2016-12-29] MEDS: DIFLUCAN 200 MG/100 ML BAG IV SCH (10:00)
[2016-12-29] MEDS: PRIMACOR 20 MG in D5W 80 ML IV SCH ×2 (11:56→21:29)
--- NOTE | 2016-12-29 12:12 | Progress Note ---
Assessment and Plan Assessment: 1) Shock: resolved, still low grade fever, improving leukocytosis. Etiology- unclear; UTI?, central fever? pneumonia? discitis -CRP=6 -Procalcitonin=1.1 -Blood cx x 2 negative -Old PICC placed 4 months ago -CT chest/abdomen/pelvis-GB stones, bilateral infiltrates, michael pleural effusion, T8-T9 discitis 2) UTI: urine cx negative 3) Presumed pneumonia ? aspiration with bilateral effusions with large right effusion 4) Presumed T8-T9 discitis 4) Respiratory failure 5) End-stage heart failure on 6) PICC line and AICD in place 7) S/P respiratory arrest Plan: -continue cefepime/flagyl/fluconazole empirically day 3 of 7 -continue vancomycin in view of presumed discitis day 2 of (to cover empirically for discitis) -consider MRI thoracic spine to eval discitis and thoracentesis for large right effusion I will be rounding this weekend Thank you Dr Tang for your consultation, will follow up with you. Sally Biswas MD Infectious Diseases Specialist [facility] ([facility]) M [phone] O [phone] Subjective Date of service: 12/29/16 Principal diagnosis: s/p C-P arrest, acute on chronic resp failure, Acute on chronic SHF, CMP Interval history: Remains intubated on the vent, off sedation, open eyes spontaneously, tmax 100. He is on Milrinone. No need for pressors. Microbiology: Blood cultures: 12/21 neg 12/24 ngtd Urine cultures: 12/21 ngtd Respiratory cultures: 12/20 neg Wound cultures: Stool cultures: Other: Current Antimicrobials: cefepime 12/27 metronidazole 12/27 fluconazole 12/27 vanco 12/28 Previous Antimicrobials: Zosyn 12/20 Vancomycin 12/20 Objective - Exam Narrative Exam: General appearance: sedated on the vent Eyes: anicteric sclerae, moist conjunctivae; no lid-lag; PERRLA HENT: Atraumatic; oropharynx limitted +ETT Neck: Trachea midline; supple, no thyromegaly or lymphadenopathy Lungs: michael rhonchi. AICD no erythema, edema, tenderness. Left chest wall AICD in place CV: RRR Abdomen: Soft, non-tender; no masses or hepatosplenomegaly Extremities: + peripheral edema Skin: Normal temperature, turgor and texture; no rash, ulcers or subcutaneous nodules Psych: sedated. Neuro: sedated Lines: right arm PICC, iniguez, NGT - Constitutional Vitals: Vital Signs Temp Pulse Resp BP Pulse Ox 99.5 F 108 H 22 110/69 99 12/29/16 11:40 12/29/16 12:00 12/29/16 12:00 12/29/16 12:00 12/29/16 12:00 Temperature -Last 24 Hours Temperature 99.5 F Temperature 100.0 F Temperature 98.4 F Temperature 97.4 F Temperature 98.3 F Temperature 98.9 F - Labs CBC & Chem 7: 12/28/16 08:00 12/28/16 08:00 Labs: Abnormal lab results 12/27/16 12/28/16 12/28/16 Range/Units 11:18 12:17 17:47 POC Glucose 133 H 128 H 131 H (70-105) 12/28/16 12/29/16 12/29/16 Range/Units 23:44 05:43 11:20 POC Glucose 132 H 132 H 109 H (70-105)
--- NOTE | 2016-12-29 13:39 | Progress Note ---
Assessment and Plan Imp: 1. Severe/end-stage dilated CMP 2. A/C systolic CHF 3. s/p CP arrest 4. Probable anoxic encephalopathy 5. Acute/chronic respiratory failure, hypoxia and hypercapnea 6. Cardiogenic shock 7. Lactic acidosis, resolved 8. ? Aspiration pneumonitis 9. R pleural effusion, probably due to CHF 10. SIRS; ? central fever due to #4 11. Hypernatremia Rec: 1. Cultures remain negative; ABX as per ID, recommendations noted; holding PICC exchange per family wishes since hospice being considered 2. Valeriy prn to keep MAP > 60; do not suspect pneumonia; CT chest is compatible with pulmonary edema, pleural effusions, and compressive atelectasis, all due to CHF; resume Lasix IV daily 3. Mentation precludes extubation 4. Remain off sedation; EEG and neuro assessment reviewed -> patient with poor prognosis; not a candidate for MRI due to AICD 5. TFs; monitor sodium --> free water + cont. D5W to correct free water deficit ; repeat BMP in AM 6. GI/DVT PPx 7. Would not try to tap the R effusion given plans for hospice; monitor radiographically 8. Poor prognosis for meaningful recovery/quality of life due to end-stage CMP, shock, anoxic enceph., etc.; he is a hospice candidate in my opinion; reviewed IMS notes -> now DNR and hospice planning underway 9. Complex decision-making Subjective Date of service: 12/29/16 Principal diagnosis: s/p C-P arrest, acute on chronic resp failure, Acute on chronic SHF, CMP Interval history: No events. Off sedation x 7 days. Not waking up or following commands. Valeriy drip off, remains on Primacor. PEEP at 5, sat of 100%. Fever better. Active Medications Acetaminophen (Tylenol) 650 mg FEEDTUBE Q4H PRN PRN Reason: Pain, Mild (1-3) Last Admin: 12/27/16 03:49 Dose: 650 mg Albuterol (Proventil) 2.5 mg IH Q4H PRN PRN Reason: Shortness Of Breath Lipase/Protease/Amylase ([place] 10,500 Unit) 1 each FEEDTUBE PRN PRN PRN Reason: For Clogged Feeding Tube Aspirin (Aspirin) 325 mg PO QDAY HEATHER Last Admin: 09/10/17 09:59 Dose: 325 mg Enoxaparin Sodium (Lovenox) 40 mg SUB-Q QDAY@2200 HEATHER Last Admin: 12/28/16 22:14 Dose: 40 mg Famotidine (Pepcid) 20 mg PO BID [facility] Last Admin: 12/29/16 09:59 Dose: 20 mg Furosemide (Lasix) 40 mg IV QDAY HEATHER Hydrophilic Ointment (Vaseline Lip Therapy) 1 applic TP Q2HR PRN PRN Reason: Dry Lips Milrinone Lactate 20 mg/ (Dextrose) 100 mls @ 9.9 mls/hr IV TITR HEATHER; 0.375 MCG /KG/MIN PRN Reason: Protocol Last Admin: 12/29/16 11:56 Dose: 0.37 mcg/kg/min, 9.76 mls/hr Phenylephrine HCl 100 mg/ (Sodium Chloride) 100 mls @ 3 mls/hr IV TITR HEATHER; 50 MCG/MIN PRN Reason: Protocol Last Titration: 12/27/16 18:15 Dose: 0 mcg/min, 0 mls/hr Cefepime HCl (Maxipime/Ns 2 Gm/100 Ml) 2 gm in 100 mls @ 200 mls/hr IV Q8HR HEATHER PRN Reason: Protocol Last Admin: 12/29/16 13:05 Dose: 200 mls/hr Fluconazole (Diflucan) 200 mg in 100 mls @ 100 mls/hr IV Q24HR HEATHER PRN Reason: Protocol Last Admin: 12/29/16 10:00 Dose: 100 mls/hr Metronidazole (Flagyl 500 Mg/100 Ml) 500 mg in 100 mls @ 100 mls/hr IV Q8HR [facility] Last Admin: 12/29/16 06:45 Dose: 100 mls/hr Dextrose (D5w) 1,000 mls @ 60 mls/hr IV DIRECT [facility] Last Admin: 12/28/16 22:22 Dose: 60 mls/hr Vancomycin HCl (Vancomycin/Ns 1 Gm/250 Ml) 1 gm in 250 mls @ 166.667 mls/hr IV Q12H [facility] Last Admin: 12/29/16 05:42 Dose: 166.667 mls/hr Insulin Aspart (Novolog) 0 units SUB-Q Q6HR HEATHER PRN Reason: Protocol Last Admin: 12/29/16 12:06 Dose: Not Given Multi-Ingred Cream/Lotion/Oil/Oint (Artificial Tears Ophth Oint) 1 applic OU Q4HR PRN PRN Reason: Dry Eye(s) Last Admin: 12/22/16 10:38 Dose: 1 applic Simple Syrup (Simple Syrup) 15 ml FEEDTUBE PRN PRN PRN Reason: Hypoglycemia Simple Syrup (Simple Syrup) 30 ml FEEDTUBE PRN PRN PRN Reason: Hypoglycemia Sodium Bicarbonate (Sodium Bicarbonate) 325 mg FEEDTUBE PRN PRN PRN Reason: For Clogged Feeding Tube Sodium Chloride (Nacl 0.9% 500 Ml) 1 ml IV DIRECT HEATHER Vancomycin HCl (Vancomycin Pharmacy To Dose) 1 each IV PKCONSULT HEATHER PRN Reason: Protocol Objective Vital Signs - 12hr 12/29/16 12/29/16 12/29/16 02:00 02:30 03:00 Temperature Pulse Rate 114 H 116 H 116 H Pulse Rate [ Apical] Pulse Rate [ From Monitor] Respiratory 22 30 H 29 H Rate Blood Pressure 117/85 118/83 124/76 O2 Sat by Pulse 100 100 100 Oximetry 12/29/16 12/29/16 12/29/16 03:03 03:31 04:00 Temperature 98.4 F Pulse Rate 116 H 120 H 120 H Pulse Rate [ Apical] Pulse Rate [ From Monitor] Respiratory 19 32 H Rate Blood Pressure 124/76 118/82 123/81 O2 Sat by Pulse 100 99 100 Oximetry 12/29/16 12/29/16 12/29/16 04:30 05:00 05:30 Temperature Pulse Rate 121 H 122 H 120 H Pulse Rate [ Apical] Pulse Rate [ From Monitor] Respiratory 35 H 27 H 25 H Rate Blood Pressure 130/85 126/76 117/79 O2 Sat by Pulse 100 100 100 Oximetry 12/29/16 12/29/16 12/29/16 06:00 06:30 07:01 Temperature Pulse Rate 121 H 120 H 117 H Pulse Rate [ Apical] Pulse Rate [ From Monitor] Respiratory 23 30 H 21 Rate Blood Pressure 114/90 115/77 115/77 O2 Sat by Pulse 100 99 97 Oximetry 12/29/16 12/29/16 12/29/16 07:12 07:20 07:30 Temperature 100.0 F H Pulse Rate 115 H 117 H Pulse Rate [ Apical] Pulse Rate [ From Monitor] Respiratory 33 H Rate Blood Pressure 108/78 118/79 O2 Sat by Pulse 97 100 Oximetry 12/29/16 12/29/16 12/29/16 08:00 08:30 09:01 Temperature Pulse Rate 117 H 115 H Pulse Rate [ 116 H Apical] Pulse Rate [ 116 H From Monitor] Respiratory 16 36 H 12 Rate Blood Pressure 118/79 110/77 112/75 O2 Sat by Pulse 97 99 100 Oximetry 12/29/16 12/29/16 12/29/16 09:30 10:00 10:10 Temperature Pulse Rate 112 H 116 H Pulse Rate [ 117 H Apical] Pulse Rate [ From Monitor] Respiratory 26 H 16 20 Rate Blood Pressure 112/77 111/80 O2 Sat by Pulse 96 98 99 Oximetry 12/29/16 12/29/16 12/29/16 10:30 11:00 11:01 Temperature Pulse Rate 114 H 108 H 113 H Pulse Rate [ Apical] Pulse Rate [ From Monitor] Respiratory 25 H 24 Rate Blood Pressure 112/71 91/61 91/61 O2 Sat by Pulse 100 97 99 Oximetry 12/29/16 12/29/16 12/29/16 11:30 11:40 11:59 Temperature 99.5 F Pulse Rate 110 H Pulse Rate [ 105 H Apical] Pulse Rate [ 105 H From Monitor] Respiratory 34 H 20 Rate Blood Pressure 100/76 O2 Sat by Pulse 100 97 Oximetry 12/29/16 12/29/16 12/29/16 12:00 12:30 13:00 Temperature Pulse Rate 108 H 101 H 112 H Pulse Rate [ Apical] Pulse Rate [ From Monitor] Respiratory 22 31 H 34 H Rate Blood Pressure 110/69 114/70 106/79 O2 Sat by Pulse 99 100 99 Oximetry Constitutional: comatose Eyes: non-icteric ENT: oropharynx moist, other (orally intubated) Neck: supple Effort: normal Ascultation: Bilateral: other (coarse BS bilaterally) Cardiovascular: other (tachy, RR; no mrg) Gastrointestinal: normoactive bowel sounds, soft, non-tender, non-distended Integumentary: normal Extremities: no cyanosis, pink and warm, edema (1+ pedal edema) Neurologic: other (unresponsive, flaccid extremities except some jerking of the RUE when dropped, eyes open but does not track, does not follow commands, + cough reflex) Psychiatric: other (not able to assess) CBC and BMP: 12/28/16 08:00 12/28/16 08:00 ABG, PT/INR, D-dimer: ABG POC ABG pH 7.438 (7.35-7.45) 12/26/16 04:29 POC ABG pCO2 43.1 (35-45) 12/26/16 04:29 POC ABG pO2 90 (80-105) 12/26/16 04:29 POC ABG HCO3 29.1 12/26/16 04:29 POC ABG Total CO2 30 12/26/16 04:29 POC ABG O2 Sat 97 12/26/16 04:29 PT/INR, D-dimer PT 20.5 Sec. (12.2-14.9) H 12/20/16 17:00 INR 1.66 (0.87-1.13) H 12/20/16 17:00 Abnormal lab findings: Abnormal Labs 12/20/16 12/20/16 12/21/16 21:53 23:13 01:35 WBC MCHC RDW Lymph % (Auto) [place] % (Auto) [place] # Baso # Seg Neutrophils % Seg Neuts % (Manual) Lymphocytes % (Manual) Seg Neutrophils # Seg Neutrophils # Man Lymphocytes # (Manual) Monocytes # (Manual) Eosinophils # (Manual) POC ABG pH POC ABG pCO2 52.4 H POC ABG pO2 113 H Sodium Chloride BUN Creatinine Glucose POC Glucose Lactic Acid 4.60 H* 5.50 H* Calcium Total Bilirubin AST C-Reactive Protein Albumin Urine WBC (Auto) Vancomycin Trough Miscellaneous Test 12/21/16 12/21/16 12/22/16 05:54 08:15 04:42 WBC MCHC RDW Lymph % (Auto) [place] % (Auto) [place] # Baso # Seg Neutrophils % Seg Neuts % (Manual) Lymphocytes % (Manual) Seg Neutrophils # Seg Neutrophils # Man Lymphocytes # (Manual) Monocytes # (Manual) Eosinophils # (Manual) POC ABG pH POC ABG pCO2 46.7 H POC ABG pO2 142 H 72 L Sodium Chloride BUN Creatinine Glucose POC Glucose Lactic Acid Calcium Total Bilirubin AST C-Reactive Protein Albumin Urine WBC (Auto) 30.0 H Vancomycin Trough Miscellaneous Test 12/22/16 12/23/16 12/23/16 10:55 04:00 12:51 WBC 20.5 H MCHC RDW 15.9 H Lymph % (Auto) [place] % (Auto) [place] # Baso # Seg Neutrophils % Seg Neuts % (Manual) 85.0 H Lymphocytes % (Manual) 8.0 L Seg Neutrophils # Seg Neutrophils # Man 17.4 H Lymphocytes # (Manual) Monocytes # (Manual) 1.4 H Eosinophils # (Manual) POC ABG pH 7.514 H POC ABG pCO2 POC ABG pO2 Sodium Chloride BUN 27 H Creatinine Glucose 105 H POC Glucose Lactic Acid Calcium Total Bilirubin AST C-Reactive Protein Albumin Urine WBC (Auto) Vancomycin Trough Miscellaneous Test 12/23/16 12/24/16 12/24/16 12:51 03:09 03:40 WBC 19.5 H MCHC RDW 16.0 H Lymph % (Auto) 6.9 L [place] % (Auto) [place] # 1.4 H Baso # 0.2 H Seg Neutrophils % 84.9 H Seg Neuts % (Manual) Lymphocytes % (Manual) Seg Neutrophils # 16.6 H Seg Neutrophils # Man Lymphocytes # (Manual) Monocytes # (Manual) Eosinophils # (Manual) POC ABG pH 7.494 H POC ABG pCO2 POC ABG pO2 78 L Sodium Chloride BUN 30 H Creatinine Glucose POC Glucose Lactic Acid Calcium 8.3 L Total Bilirubin 1.80 H AST 105 H C-Reactive Protein Albumin 2.3 L Urine WBC (Auto) Vancomycin Trough Miscellaneous Test 12/24/16 12/24/16 12/24/16 03:40 21:30 23:32 WBC MCHC RDW Lymph % (Auto) [place] % (Auto) [place] # Baso # Seg Neutrophils % Seg Neuts % (Manual) Lymphocytes % (Manual) Seg Neutrophils # Seg Neutrophils # Man Lymphocytes # (Manual) Monocytes # (Manual) Eosinophils # (Manual) POC ABG pH POC ABG pCO2 POC ABG pO2 Sodium 146 H Chloride BUN 29 H Creatinine Glucose POC Glucose 114 H Lactic Acid Calcium Total Bilirubin AST C-Reactive Protein Albumin Urine WBC (Auto) Vancomycin Trough 24.8 H Miscellaneous Test 12/25/16 12/25/16 12/25/16 04:15 04:51 10:05 WBC 17.4 H MCHC 31 L RDW 16.3 H Lymph % (Auto) 8.7 L [place] % (Auto) 9.6 H [place] # 1.7 H Baso # 0.2 H Seg Neutrophils % 79.0 H Seg Neuts % (Manual) Lymphocytes % (Manual) Seg Neutrophils # 13.7 H Seg Neutrophils # Man Lymphocytes # (Manual) Monocytes # (Manual) Eosinophils # (Manual) POC ABG pH 7.464 H POC ABG pCO2 POC ABG pO2 111 H Sodium Chloride BUN Creatinine Glucose POC Glucose 119 H Lactic Acid Calcium Total Bilirubin AST C-Reactive Protein Albumin Urine WBC (Auto) Vancomycin Trough Miscellaneous Test 12/25/16 12/25/16 12/25/16 10:05 11:00 12:14 WBC MCHC RDW Lymph % (Auto) [place] % (Auto) [place] # Baso # Seg Neutrophils % Seg Neuts % (Manual) Lymphocytes % (Manual) Seg Neutrophils # Seg Neutrophils # Man Lymphocytes # (Manual) Monocytes # (Manual) Eosinophils # (Manual) POC ABG pH POC ABG pCO2 POC ABG pO2 Sodium Chloride BUN Creatinine Glucose POC Glucose 122 H Lactic Acid Calcium Total Bilirubin AST C-Reactive Protein 6.00 H Albumin Urine WBC (Auto) Vancomycin Trough Miscellaneous Test Flexitest 1 H 12/25/16 12/26/16 12/26/16 23:40 05:00 06:45 WBC 20.7 H MCHC RDW 16.4 H Lymph % (Auto) [place] % (Auto) [place] # Baso # Seg Neutrophils % Seg Neuts % (Manual) Lymphocytes % (Manual) Seg Neutrophils # Seg Neutrophils # Man Lymphocytes # (Manual) Monocytes # (Manual) Eosinophils # (Manual) POC ABG pH POC ABG pCO2 POC ABG pO2 Sodium Chloride BUN Creatinine Glucose POC Glucose 144 H 144 H Lactic Acid Calcium Total Bilirubin AST C-Reactive Protein Albumin Urine WBC (Auto) Vancomycin Trough Miscellaneous Test 12/26/16 12/26/16 12/26/16 06:45 11:18 18:04 WBC MCHC RDW Lymph % (Auto) [place] % (Auto) [place] # Baso # Seg Neutrophils % Seg Neuts % (Manual) Lymphocytes % (Manual) Seg Neutrophils # Seg Neutrophils # Man Lymphocytes # (Manual) Monocytes # (Manual) Eosinophils # (Manual) POC ABG pH POC ABG pCO2 POC ABG pO2 Sodium 150 H Chloride 111.9 H BUN 22 H Creatinine Glucose 148 H POC Glucose 153 H 133 H Lactic Acid Calcium Total Bilirubin 1.60 H AST 63 H C-Reactive Protein Albumin 2.6 L Urine WBC (Auto) Vancomycin Trough Miscellaneous Test 12/26/16 12/27/16 12/27/16 23:37 04:40 04:40 WBC 20.3 H MCHC RDW 16.4 H Lymph % (Auto) [place] % (Auto) [place] # Baso # Seg Neutrophils % Seg Neuts % (Manual) 88.0 H Lymphocytes % (Manual) 5.0 L Seg Neutrophils # Seg Neutrophils # Man 17.9 H Lymphocytes # (Manual) 1.0 L Monocytes # (Manual) Eosinophils # (Manual) 0.6 H POC ABG pH POC ABG pCO2 POC ABG pO2 Sodium 152 H Chloride 112.5 H BUN 23 H Creatinine Glucose 140 H POC Glucose 135 H Lactic Acid Calcium 8.3 L Total Bilirubin 1.50 H AST 60 H C-Reactive Protein Albumin 2.7 L Urine WBC (Auto) Vancomycin Trough Miscellaneous Test 12/27/16 12/27/16 12/27/16 05:45 11:18 21:09 WBC MCHC RDW Lymph % (Auto) [place] % (Auto) [place] # Baso # Seg Neutrophils % Seg Neuts % (Manual) Lymphocytes % (Manual) Seg Neutrophils # Seg Neutrophils # Man Lymphocytes # (Manual) Monocytes # (Manual) Eosinophils # (Manual) POC ABG pH POC ABG pCO2 POC ABG pO2 Sodium Chloride BUN Creatinine Glucose POC Glucose 127 H 133 H 114 H Lactic Acid Calcium Total Bilirubin AST C-Reactive Protein Albumin Urine WBC (Auto) Vancomycin Trough Miscellaneous Test 12/27/16 12/28/16 12/28/16 23:45 05:06 08:00 WBC 16.4 H MCHC 31 L RDW 16.2 H Lymph % (Auto) 7.2 L [place] % (Auto) [place] # 1.1 H Baso # 0.2 H Seg Neutrophils % 82.9 H Seg Neuts % (Manual) Lymphocytes % (Manual) Seg Neutrophils # 13.5 H Seg Neutrophils # Man Lymphocytes # (Manual) Monocytes # (Manual) Eosinophils # (Manual) POC ABG pH POC ABG pCO2 POC ABG pO2 Sodium Chloride BUN Creatinine Glucose POC Glucose 115 H 141 H Lactic Acid Calcium Total Bilirubin AST C-Reactive Protein Albumin Urine WBC (Auto) Vancomycin Trough Miscellaneous Test 12/28/16 12/28/16 12/28/16 08:00 12:17 17:47 WBC MCHC RDW Lymph % (Auto) [place] % (Auto) [place] # Baso # Seg Neutrophils % Seg Neuts % (Manual) Lymphocytes % (Manual) Seg Neutrophils # Seg Neutrophils # Man Lymphocytes # (Manual) Monocytes # (Manual) Eosinophils # (Manual) POC ABG pH POC ABG pCO2 POC ABG pO2 Sodium 147 H Chloride 111.6 H BUN 22 H Creatinine 0.7 L Glucose 135 H POC Glucose 128 H 131 H Lactic Acid Calcium 7.9 L Total Bilirubin 1.50 H AST 54 H C-Reactive Protein Albumin 2.3 L Urine WBC (Auto) Vancomycin Trough Miscellaneous Test 12/28/16 12/29/16 12/29/16 23:44 05:43 11:20 WBC MCHC RDW Lymph % (Auto) [place] % (Auto) [place] # Baso # Seg Neutrophils % Seg Neuts % (Manual) Lymphocytes % (Manual) Seg Neutrophils # Seg Neutrophils # Man Lymphocytes # (Manual) Monocytes # (Manual) Eosinophils # (Manual) POC ABG pH POC ABG pCO2 POC ABG pO2 Sodium Chloride BUN Creatinine Glucose POC Glucose 132 H 132 H 109 H Lactic Acid Calcium Total Bilirubin AST C-Reactive Protein Albumin Urine WBC (Auto) Vancomycin Trough Miscellaneous Test Chest x-ray: report reviewed, image reviewed CT scan - chest: report reviewed, image reviewed
[2016-12-29] MEDS ORDERED: LASIX IV SCH (14:00)
--- NOTE | 2016-12-29 16:03 | Progress Note ---
Assessment and Plan Assessment and plan: 59-year-old man with a past medical history of end-stage CHF on milrinone drip at home, chronic respiratory failure, COPD, oxygen dependent on 3 L at home, gallops, atrial flutter, who was brought in by his . States that the patient had complained of shortness of breath and then subsequently collapsed. EMS arrived and found to be asystolic arrest, he received ACLS protocol and had return of circulation was then brought to the hospital. Cardiac arrest Status post ACS protocol, cardiology consult, continue telemetry Acute on chronic systolic CHF exacerbation with pulmonary venous congestion Cardiology input appreciated, continue milrinone drip, continue supportive care IV lasix as tolerated SEVERE ENDSTAGE DILATED CMP * Cardiology following, Continue on Milirione drip Cardiogenic shock Continue IV pressor support Septic shock/Severe spesis Recurrent fever Treated with empiric frustration antibiotics, follow blood and urine cultures Recurrent fever likely secondary to anoxic brain injury No clear evidence of pneumonia, possible UTI, cultures remained negative. ID consult continue Pressors, phenylephrine and milrinone MAY NEED PICC LINE CHANGED WHEN AFEBRILE Acute hypercapnic respiratory failure on mechanical ventilator greater than 96 hours Continue mechanical ventilator, pulmonary input appreciated, We'll attempt to wean off ventilator daily Patient continues to fail weaning trials Metabolic encephalopathy Most likely due to hypoperfusion of central nervous system , i.e. anoxic brain injury CT head does not show any acute findings, CTA head also shows no acute findings , patient has a pacemaker/ICD, therefore MRI is contraindicated Neurology consult and bruits noted. EEG. Remains unresponsive despite not being on sedation ACUTE CYSTITIS -continue empiric abx -sputum culture no growth RIGHT SIDED PLEURAL EFFUSION -Probably due to CHF. will monitor. DVT/GI PROPHY Discussed with father and family. Patient changed to DNR on their request and hospice consulted. Will hold off on PEG/TRACH and no futher invasive procedures Awaiting Hospice BED Poor prognosis The high probability of a clinically significant, sudden or life threatening deterioration of the [cardiovascular, pulmonary and Neurologic] system(s) required my full and direct attention, intervention and personal management. The aggregate critical care time was [35] minutes. This time is in addition to time spent performing reported procedures but includes the following: [X] Data Review and interpretation [X] Patient assessment and monitoring of vital signs [X] Documentation [X] Medication orders and management History Interval history: Patient seen and examined remains comatose. no change, met with family today Hospitalist Physical - Physical exam Narrative exam: VITAL SIGNS: Reviewed. GENERAL: The patient appeared comatose, ventilated. Vital signs as documented. HEAD: No signs of head trauma. EYES: Pupils are equal. EARS: Unable to assess MOUTH: Oropharynx is normal. NECK: No adenopathy, no JVD. CHEST: Chest with faint expiratory wheeze. CARDIAC: Regular rate and rhythm. S1 and S2, without murmurs, gallops, or rubs. VASCULAR: No Edema. Peripheral pulses normal and equal in all extremities. ABDOMEN: Soft, unable to assess tenderness. No grimacing on palpation. No sign of distention. Bowel Sounds normal. MUSCULOSKELETAL: Extremities without clubbing, cyanosis or edema. NEUROLOGIC EXAM: Comatose with flaccid extremities PSYCHIATRIC: Unable to assess. SKIN: PICC line to left upper ext - Constitutional Vitals: Temp Pulse Resp BP Pulse Ox 98.3 F 111 H 32 H 90/59 100 12/29/16 15:59 12/29/16 15:41 12/29/16 15:00 12/29/16 15:41 12/29/16 15:41 General appearance: Present: severe distress Results - Labs CBC & Chem 7: 12/28/16 08:00 12/28/16 08:00 Labs: Laboratory Last Values WBC 16.4 K/mm3 (4.5-11.0) H 12/28/16 08:00 RBC 4.31 M/mm3 (3.65-5.03) 12/28/16 08:00 Hgb 12.2 gm/dl (11.8-15.2) 12/28/16 08:00 Hct 39.9 % (35.5-45.6) 12/28/16 08:00 MCV 92 fl (84-94) 12/28/16 08:00 MCH 28 pg (28-32) 12/28/16 08:00 MCHC 31 % (32-34) L 12/28/16 08:00 RDW 16.2 % (13.2-15.2) H 12/28/16 08:00 Plt Count 175 K/mm3 (140-440) 12/28/16 08:00 Lymph % (Auto) 7.2 % (13.4-35.0) L 12/28/16 08:00 Carter % (Auto) 7.0 % (0.0-7.3) 12/28/16 08:00 Eos % (Auto) 1.6 % (0.0-4.3) 12/28/16 08:00 Baso % (Auto) 1.3 % (0.0-1.8) 12/28/16 08:00 Lymph # 1.2 K/mm3 (1.2-5.4) 12/28/16 08:00 Carter # 1.1 K/mm3 (0.0-0.8) H 12/28/16 08:00 Eos # 0.3 K/mm3 (0.0-0.4) 12/28/16 08:00 Baso # 0.2 K/mm3 (0.0-0.1) H 12/28/16 08:00 Add Manual Diff Complete 12/27/16 04:40 Total Counted 100 12/27/16 04:40 Seg Neutrophils % 82.9 % (40.0-70.0) H 12/28/16 08:00 Seg Neuts % (Manual) 88.0 % (40.0-70.0) H 12/27/16 04:40 Band Neutrophils % 0 % 12/27/16 04:40 Lymphocytes % (Manual) 5.0 % (13.4-35.0) L 12/27/16 04:40 Reactive Lymphs % (Man) 0 % 12/27/16 04:40 Monocytes % (Manual) 4.0 % (0.0-7.3) 12/27/16 04:40 Eosinophils % (Manual) 3.0 % (0.0-4.3) 12/27/16 04:40 Basophils % (Manual) 0 % (0.0-1.8) 12/27/16 04:40 Metamyelocytes % 0 % 12/27/16 04:40 Myelocytes % 0 % 12/27/16 04:40 Promyelocytes % 0 % 12/27/16 04:40 Blast Cells % 0 % 12/27/16 04:40 Nucleated RBC % Not Reportable 12/27/16 04:40 Seg Neutrophils # 13.5 K/mm3 (1.8-7.7) H 12/28/16 08:00 Seg Neutrophils # Man 17.9 K/mm3 (1.8-7.7) H 12/27/16 04:40 Band Neutrophils # 0.0 K/mm3 12/27/16 04:40 Lymphocytes # (Manual) 1.0 K/mm3 (1.2-5.4) L 12/27/16 04:40 Abs React Lymphs (Man) 0.0 K/mm3 12/27/16 04:40 Monocytes # (Manual) 0.8 K/mm3 (0.0-0.8) 12/27/16 04:40 Eosinophils # (Manual) 0.6 K/mm3 (0.0-0.4) H 12/27/16 04:40 Basophils # (Manual) 0.0 K/mm3 (0.0-0.1) 12/27/16 04:40 Metamyelocytes # 0.0 K/mm3 12/27/16 04:40 Myelocytes # 0.0 K/mm3 12/27/16 04:40 Promyelocytes # 0.0 K/mm3 12/27/16 04:40 Blast Cells # 0.0 K/mm3 12/27/16 04:40 WBC Morphology Not Reportable 12/27/16 04:40 Hypersegmented Neuts Not Reportable 12/27/16 04:40 Hyposegmented Neuts Not Reportable 12/27/16 04:40 Hypogranular Neuts Not Reportable 12/27/16 04:40 Smudge Cells Not Reportable 12/27/16 04:40 Toxic Granulation Not Reportable 12/27/16 04:40 Toxic Vacuolation Not Reportable 12/27/16 04:40 Dohle Bodies Not Reportable 12/27/16 04:40 Pelger-Huet Anomaly Not Reportable 12/27/16 04:40 Shantal Rods Not Reportable 12/27/16 04:40 Platelet Estimate Appears normal 12/27/16 04:40 Clumped Platelets Not Reportable 12/27/16 04:40 Plt Clumps, EDTA Not Reportable 12/27/16 04:40 Large Platelets Not Reportable 12/27/16 04:40 Giant Platelets Not Reportable 12/27/16 04:40 Platelet Satelliting Not Reportable 12/27/16 04:40 Plt Morphology Comment Not Reportable 12/27/16 04:40 RBC Morphology Normal 12/27/16 04:40 Dimorphic RBCs Not Reportable 12/27/16 04:40 Polychromasia Not Reportable 12/27/16 04:40 Hypochromasia Not Reportable 12/27/16 04:40 Poikilocytosis Not Reportable 12/27/16 04:40 Anisocytosis Not Reportable 12/27/16 04:40 Microcytosis Not Reportable 12/27/16 04:40 Macrocytosis Not Reportable 12/27/16 04:40 Spherocytes Not Reportable 12/27/16 04:40 Pappenheimer Bodies Not Reportable 12/27/16 04:40 Sickle Cells Not Reportable 12/27/16 04:40 Target Cells Not Reportable 12/27/16 04:40 Tear Drop Cells Not Reportable 12/27/16 04:40 Ovalocytes Not Reportable 12/27/16 04:40 Helmet Cells Not Reportable 12/27/16 04:40 [place] Bodies Not Reportable 12/27/16 04:40 [place] Rings Not Reportable 12/27/16 04:40 Arnulfo Cells Not Reportable 12/27/16 04:40 Bite Cells Not Reportable 12/27/16 04:40 Crenated Cell Not Reportable 12/27/16 04:40 Elliptocytes Not Reportable 12/27/16 04:40 Acanthocytes (Spur) Not Reportable 12/27/16 04:40 Rouleaux Not Reportable 12/27/16 04:40 Hemoglobin C Crystals Not Reportable 12/27/16 04:40 Schistocytes Not Reportable 12/27/16 04:40 Malaria parasites Not Reportable 12/27/16 04:40 Niles Bodies Not Reportable 12/27/16 04:40 Hem Pathologist Commnt No 12/27/16 04:40 PT 20.5 Sec. (12.2-14.9) H 12/20/16 17:00 INR 1.66 (0.87-1.13) H 12/20/16 17:00 APTT 39.4 Sec. (24.2-36.6) H 12/20/16 17:00 POC ABG pH 7.438 (7.35-7.45) 12/26/16 04:29 POC ABG pCO2 43.1 (35-45) 12/26/16 04:29 POC ABG pO2 90 (80-105) 12/26/16 04:29 POC ABG HCO3 29.1 12/26/16 04:29 POC ABG Total CO2 30 12/26/16 04:29 POC ABG O2 Sat 97 12/26/16 04:29 POC ABG Base Excess 5 12/26/16 04:29 FiO2 30 % 12/26/16 04:29 Sodium 147 mmol/L (137-145) H 12/28/16 08:00 Potassium 3.9 mmol/L (3.6-5.0) 12/28/16 08:00 Chloride 111.6 mmol/L (98-107) H 12/28/16 08:00 Carbon Dioxide 25 mmol/L (22-30) 12/28/16 08:00 Anion Gap 14 mmol/L 12/28/16 08:00 BUN 22 mg/dL (9-20) H 12/28/16 08:00 Creatinine 0.7 mg/dL (0.8-1.5) L 12/28/16 08:00 Estimated GFR > 60 ml/min 12/28/16 08:00 BUN/Creatinine Ratio 31.42 % 12/28/16 08:00 Glucose 135 mg/dL (75-100) H 12/28/16 08:00 POC Glucose 109 (70-105) H 12/29/16 11:20 Lactic Acid 1.30 mmol/L (0.7-2.0) 12/24/16 06:00 Calcium 7.9 mg/dL (8.4-10.2) L 12/28/16 08:00 Phosphorus 2.60 mg/dL (2.5-4.5) 12/24/16 03:40 Magnesium 2.30 mg/dL (1.7-2.3) 12/24/16 03:40 Total Bilirubin 1.50 mg/dL (0.1-1.2) H 12/28/16 08:00 AST 54 units/L (5-40) H 12/28/16 08:00 ALT 23 units/L (7-56) 12/28/16 08:00 Alkaline Phosphatase 63 units/L (35-129) 12/28/16 08:00 Total Creatine Kinase 86 units/L (55-170) 12/20/16 17:00 CK-MB (CK-2) 4.2 ng/mL (0.0-4.0) H 12/20/16 17:00 CK-MB (CK-2) Rel Index 4.8 (0-4) H 12/20/16 17:00 Troponin T 0.054 ng/mL (0.00-0.029) H 12/20/16 17:00 C-Reactive Protein 6.00 mg/dL (0.00-1.30) H 12/25/16 10:05 NT-Pro-B Natriuret Pep 9604 pg/mL (0-900) H 12/20/16 17:00 Total Protein 7.0 g/dL (6.3-8.2) 12/28/16 08:00 Albumin 2.3 g/dL (3.9-5) L 12/28/16 08:00 Albumin/Globulin Ratio 0.5 % 12/28/16 08:00 Triglycerides 82 mg/dL (2-149) 12/20/16 17:00 Cholesterol 128 mg/dL (50-199) 12/20/16 17:00 LDL Cholesterol Direct 51 mg/dL (50-130) 12/20/16 17:00 HDL Cholesterol 61 mg/dL (40-59) H 12/20/16 17:00 Cholesterol/HDL Ratio 2.09 % 12/20/16 17:00 Total Cortisol 21.7 mcg/dL () 12/24/16 10:45 Urine Color Keely (Yellow) 12/21/16 08:15 Urine Turbidity Clear (Clear) 12/21/16 08:15 Urine pH 5.0 (5.0-7.0) 12/21/16 08:15 Ur Specific [place] 1.023 (1.003-1.030) 12/21/16 08:15 Urine Protein <15 mg/dl mg/dL (Negative) 12/21/16 08:15 Urine Glucose (UA) Neg mg/dL (Negative) 12/21/16 08:15 Urine Ketones Neg mg/dL (Negative) 12/21/16 08:15 Urine Blood Lg (Negative) 12/21/16 08:15 Urine Nitrite Neg (Negative) 12/21/16 08:15 Urine Bilirubin Neg (Negative) 12/21/16 08:15 Urine Urobilinogen 2.0 mg/dL (<2.0) 12/21/16 08:15 Ur Leukocyte Esterase Mod (Negative) 12/21/16 08:15 Urine WBC (Auto) 30.0 /HPF (0.0-6.0) H 12/21/16 08:15 Urine RBC (Auto) 93.0 /HPF (0.0-6.0) 12/21/16 08:15 U Epithel Cells (Auto) < 1.0 /HPF (0-13.0) 12/21/16 08:15 Calcium Oxalate Crystal Few 12/21/16 08:15 Hyaline Casts 2 /LPF 12/21/16 08:15 Urine Mucus Few /HPF 12/21/16 08:15 Vancomycin Trough 24.8 ug/mL (5.0-20.0) H 12/24/16 21:30 Miscellaneous Test Flexitest 1 H 12/25/16 11:00
[2016-12-29] MEDS: D5W 1,000 ML IV SCH (21:28)
[2016-12-29] MEDS: LOVENOX SUB-Q SCH (21:34)
[2016-12-30] MEDS: NOVOLOG SUB-Q SCH ×2 (00:10→06:10)
[2016-12-30] MEDS: VANCOMYCIN/NS 1 GM/250 ML 1 GM/250 ML BAG IV SCH (03:21)
[2016-12-30] MEDS: MAXIPIME/NS 2 GM/100 ML 2 GM/100 ML BAG IV SCH (05:47)
[2016-12-30] MEDS: FLAGYL 500 MG/100 ML 500 MG/100 ML BAG IV SCH (05:49)
[2016-12-30] MEDS: PRIMACOR 20 MG in D5W 80 ML IV SCH (06:06)
[2016-12-30 06:23] LABS: Eosinophils % (Auto) 2.7 % (0.0-4.3); Hematocrit 37.6 % (35.5-45.6); Mean Corpuscular HGB Conc 32 % (32-34); Mean Corpuscular Hemoglobin 29 pg (28-32); Mean Corpuscular Volume 90 fl (84-94); Platelet Count 202 K/mm3 (140-440); Red Blood Count 4.19 M/mm3 (3.65-5.03); Red Cell Distribution Width 15.7 % (13.2-15.2); White Blood Count 18.9 K/mm3 (4.5-11.0)
[2016-12-30 06:43] LABS: Calcium 8.1 mg/dL (8.4-10.2)
[2016-12-30 07:02] LABS: Anion Gap 14 mmol/L; Blood Urea Nitrogen 18 mg/dL (9-20); Carbon Dioxide 26 mmol/L (22-30); Chloride 102.8 mmol/L (98-107); Glucose 129 mg/dL (75-100); Potassium 3.7 mmol/L (3.6-5.0); Sodium 139 mmol/L (137-145)
--- NOTE | 2016-12-30 07:17 | Discharge Summary ---
Providers - Providers Date of Admission: 12/20/16 19:49 Attending physician: [place] JADE MD 12/20/16 20:42 Consult to Physician [CONS] Routine Consulting Provider: SABAS MARTIN Reason For Exam: resp failure Place consult to:: Dr. Martin Notified:: Answering Service Phone number called:: [phone] Was contact made?: Yes If yes, spoke with:: Dr. Martin Time called:: 21:30 12/23/16 11:07 Consult to Physician [CONS] Routine Consulting Provider: JOSE L DEAN Reason For Exam: unresponsive since cardiac arrest Place consult to:: Dr. Dillard operations/dispatch for Dr. Dean Notified:: yes Phone number called:: Was contact made?: Yes If yes, spoke with:: Cathy Time called:: 14:50 12/23/16 13:55 Consult to Dietitian/Nutrition [CONS] Routine Physician Instructions: Reason For Exam: Reason for Consult: Write/Manage Tube Feeding Consult to Physician [CONS] Routine Consulting Provider: CHAGO GRANADO Reason For Exam: septic shock Place consult to:: Dr. Granado Notified:: yes Phone number called:: Was contact made?: Yes If yes, spoke with:: Dr. Granado Time called:: 14:55 12/23/16 15:42 Consult to Dietitian/Nutrition [CONS] Routine Physician Instructions: Reason For Exam: Reason for Consult: Write/Manage Tube Feeding 12/27/16 12:25 Consult to Physician [CONS] Routine Consulting Provider: TARIQ LEONE Reason For Exam: trach/peg Place consult to:: Dr Alcaraz Notified:: July - office Phone number called:: [phone] Was contact made?: Yes If yes, spoke with:: July Time called:: 12:40 12/28/16 09:55 Consult to Wound/ET Nurse [CONS] Routine Reason For Exam: purple area lt back/ foam applied Primary care physician: NUCLEAR EQUIPMENT SALES ENGINEER Hospitalization Reason for admission: CARDIAC ARREST Condition: Stable Hospital course: 59-year-old man with a past medical history of end-stage CHF on milrinone drip at home, chronic respiratory failure, COPD, oxygen dependent on 3 L at home, gallops, atrial flutter, who was brought in by his . States that the patient had complained of shortness of breath and then subsequently collapsed. EMS arrived and found to be asystolic arrest, he received ACLS protocol and had return of circulation was then brought to the hospital. patient was determined based on imaging to have anoxic brain injury with no significant chance of reasonable mental recovery. Family was not accepting of this diagnosis early and aggressive treatment was pursed including continued pressor support, abx for sepsis, full ventilatory support, and multiple decorator consultant involvement. EEG was done and although did not show any seizure like activity but slow activities noted. Family was offered peg and trach but declined and opted for hospcie and no further invasive testing. Reexamination did not reveal any improvement. patient was discharged to Hospice. Cardiac arrest Acute on chronic systolic CHF exacerbation with pulmonary venous congestion SEVERE ENDSTAGE DILATED CMP Cardiogenic shocK Septic shock/Severe spesis Recurrent fever Acute hypercapnic respiratory failure on mechanical ventilator greater than 96 hours Metabolic encephalopathy ACUTE CYSTITIS RIGHT SIDED PLEURAL EFFUSION Disposition: [place]ICE ([facility]) Time spent for discharge: 45 Core Measure Documentation - Palliative Care Palliative Care/ Comfort Measures: Hospice Care - Core Measures Any of the following diagnoses?: heart failure - VTE Discharge Requirements Deep Vein Thrombosis/Pulmonary Embolism Present on Admission: No - Heart Failure Discharge Requirements NILSA/ARB for LVSD if EF <40%: No Reason for no NILSA/ARB: Palliative care Beta millie at discharge: No Reason for no beta millie on DC: Palliative care Exam - Physical Exam Narrative exam: VITAL SIGNS: Reviewed. GENERAL: The patient appeared comatose, ventilated. Vital signs as documented. HEAD: No signs of head trauma. EYES: Pupils are equal. EARS: Unable to assess MOUTH: Oropharynx is normal. NECK: No adenopathy, no JVD. CHEST: Chest with faint expiratory wheeze. CARDIAC: Regular rate and rhythm. S1 and S2, without murmurs, gallops, or rubs. VASCULAR: No Edema. Peripheral pulses normal and equal in all extremities. ABDOMEN: Soft, unable to assess tenderness. No grimacing on palpation. No sign of distention. Bowel Sounds normal. MUSCULOSKELETAL: Extremities without clubbing, cyanosis or edema. NEUROLOGIC EXAM: Comatose with flaccid extremities PSYCHIATRIC: Unable to assess. SKIN: PICC line to left upper ext - Constitutional Vitals: Temp Pulse Resp BP Pulse Ox 97.7 F 116 H 36 H 114/75 99 12/30/16 04:00 12/30/16 06:54 12/30/16 06:01 12/30/16 06:54 12/30/16 06:54 Plan Activity: other (PER hospice) Diet: other (PER HOSPICE TEAM) Special Instructions: other (PER HOSPICE TEAM) Follow up with: PRIMARY CAREMD [Primary Care Provider] - 3-5 Days
--- NOTE | 2016-12-30 08:35 | Progress Note ---
Assessment and Plan 61 y/o male with known CHF and confirmed noncompliance by Caregiver, admitted with acute respiratory failure secondary to pulmonary edema and volume overload from CHF exacerbation. Appears that plans are for transitioning to hospice today. Appropriate based on overall clinical status. Will continue current supportive care. CCT 31 minutes. Subjective Date of service: 12/30/16 Principal diagnosis: s/p C-P arrest, acute on chronic resp failure, Acute on chronic SHF, CMP Interval history: No acute events. Reviewed notes and charting from weekend. Based on CM note, patient to transition to [facility] hospice today or tomorrow. Pulm status is unchanged. Remains on Milrinone and abx. No family at bedside. Wound care nurse coming to address wounds. Objective Vital Signs - 12hr 12/29/16 12/29/16 12/29/16 20:30 21:01 21:30 Temperature Pulse Rate 95 H 110 H 109 H Pulse Rate [ Apical] Pulse Rate [ From Monitor] Respiratory 20 32 H 35 H Rate Blood Pressure 95/64 95/64 117/71 O2 Sat by Pulse 100 99 100 Oximetry 12/29/16 12/29/16 12/29/16 22:00 22:30 23:01 Temperature Pulse Rate 108 H 110 H 112 H Pulse Rate [ Apical] Pulse Rate [ From Monitor] Respiratory 39 H 37 H 35 H Rate Blood Pressure 118/78 126/72 102/63 O2 Sat by Pulse 98 99 100 Oximetry 12/29/16 12/29/16 12/30/16 23:13 23:30 00:00 Temperature 97.7 F Pulse Rate 112 H 111 H 124 H Pulse Rate [ 124 H Apical] Pulse Rate [ 122 H From Monitor] Respiratory 42 H Rate Blood Pressure 102/63 102/72 O2 Sat by Pulse 100 98 Oximetry 12/30/16 12/30/16 12/30/16 00:01 00:07 00:30 Temperature Pulse Rate 112 H 111 H 116 H Pulse Rate [ Apical] Pulse Rate [ From Monitor] Respiratory 38 H 36 H 37 H Rate Blood Pressure 117/76 117/76 117/76 O2 Sat by Pulse 100 100 100 Oximetry 12/30/16 12/30/16 12/30/16 01:01 01:31 02:01 Temperature Pulse Rate 113 H 116 H 115 H Pulse Rate [ Apical] Pulse Rate [ From Monitor] Respiratory 38 H 34 H 34 H Rate Blood Pressure 123/74 123/74 116/66 O2 Sat by Pulse 100 97 100 Oximetry 12/30/16 12/30/16 12/30/16 02:31 03:01 03:30 Temperature Pulse Rate 117 H 120 H 118 H Pulse Rate [ Apical] Pulse Rate [ From Monitor] Respiratory 35 H 34 H 36 H Rate Blood Pressure 111/72 126/69 126/69 O2 Sat by Pulse 99 100 99 Oximetry 12/30/16 12/30/16 12/30/16 04:00 04:01 04:31 Temperature 97.7 F Pulse Rate 119 H 120 H Pulse Rate [ Apical] Pulse Rate [ From Monitor] Respiratory 35 H 34 H Rate Blood Pressure 111/74 111/74 O2 Sat by Pulse 100 100 Oximetry 12/30/16 12/30/16 12/30/16 04:43 05:01 05:31 Temperature Pulse Rate 120 H 122 H Pulse Rate [ 118 H Apical] Pulse Rate [ From Monitor] Respiratory 36 H 29 H 42 H Rate Blood Pressure 119/66 119/83 O2 Sat by Pulse 98 100 100 Oximetry 12/30/16 12/30/16 12/30/16 06:01 06:31 06:54 Temperature Pulse Rate 121 H 121 H 116 H Pulse Rate [ Apical] Pulse Rate [ From Monitor] Respiratory 36 H 29 H Rate Blood Pressure 133/76 133/76 114/75 O2 Sat by Pulse 100 99 99 Oximetry 12/30/16 12/30/16 12/30/16 07:01 07:31 07:34 Temperature 100.5 F H Pulse Rate 119 H 122 H Pulse Rate [ Apical] Pulse Rate [ From Monitor] Respiratory 39 H 45 H Rate Blood Pressure 114/75 114/75 O2 Sat by Pulse 98 100 Oximetry Constitutional: comatose (on no sedation), appears uncomfortable Eyes: non-icteric ENT: oropharynx moist, other (orally intubated) Neck: supple Effort: normal Ascultation: Bilateral: rales, other (coarse BS bilaterally) Percussion: Right: dull (right base) Cardiovascular: other (tachy, RR; no mrg) Gastrointestinal: normoactive bowel sounds, soft, non-tender, non-distended Integumentary: normal Extremities: no cyanosis, pink and warm, edema (1+ pedal edema) Neurologic: other (unresponsive, flaccid extremities except some jerking of the RUE when dropped, eyes open but does not track, does not follow commands, + cough reflex) Psychiatric: other (not able to assess) CBC and BMP: 12/30/16 06:15 12/30/16 06:15 ABG, PT/INR, D-dimer: ABG POC ABG pH 7.438 (7.35-7.45) 12/26/16 04:29 POC ABG pCO2 43.1 (35-45) 12/26/16 04:29 POC ABG pO2 90 (80-105) 12/26/16 04:29 POC ABG HCO3 29.1 12/26/16 04:29 POC ABG Total CO2 30 12/26/16 04:29 POC ABG O2 Sat 97 12/26/16 04:29 PT/INR, D-dimer PT 20.5 Sec. (12.2-14.9) H 12/20/16 17:00 INR 1.66 (0.87-1.13) H 12/20/16 17:00 Abnormal lab findings: Abnormal Labs 12/20/16 12/20/16 12/21/16 21:53 23:13 01:35 WBC MCHC RDW Lymph % (Auto) Logan % (Auto) Logan # Eos # Baso # Seg Neutrophils % Seg Neuts % (Manual) Lymphocytes % (Manual) Seg Neutrophils # Seg Neutrophils # Man Lymphocytes # (Manual) Monocytes # (Manual) Eosinophils # (Manual) POC ABG pH POC ABG pCO2 52.4 H POC ABG pO2 113 H Sodium Chloride BUN Creatinine Glucose POC Glucose Lactic Acid 4.60 H* 5.50 H* Calcium Total Bilirubin AST C-Reactive Protein Albumin Urine WBC (Auto) Vancomycin Trough Miscellaneous Test 12/21/16 12/21/16 12/22/16 05:54 08:15 04:42 WBC MCHC RDW Lymph % (Auto) Logan % (Auto) Logan # Eos # Baso # Seg Neutrophils % Seg Neuts % (Manual) Lymphocytes % (Manual) Seg Neutrophils # Seg Neutrophils # Man Lymphocytes # (Manual) Monocytes # (Manual) Eosinophils # (Manual) POC ABG pH POC ABG pCO2 46.7 H POC ABG pO2 142 H 72 L Sodium Chloride BUN Creatinine Glucose POC Glucose Lactic Acid Calcium Total Bilirubin AST C-Reactive Protein Albumin Urine WBC (Auto) 30.0 H Vancomycin Trough Miscellaneous Test 12/22/16 12/23/16 12/23/16 10:55 04:00 12:51 WBC 20.5 H MCHC RDW 15.9 H Lymph % (Auto) Logan % (Auto) Logan # Eos # Baso # Seg Neutrophils % Seg Neuts % (Manual) 85.0 H Lymphocytes % (Manual) 8.0 L Seg Neutrophils # Seg Neutrophils # Man 17.4 H Lymphocytes # (Manual) Monocytes # (Manual) 1.4 H Eosinophils # (Manual) POC ABG pH 7.514 H POC ABG pCO2 POC ABG pO2 Sodium Chloride BUN 27 H Creatinine Glucose 105 H POC Glucose Lactic Acid Calcium Total Bilirubin AST C-Reactive Protein Albumin Urine WBC (Auto) Vancomycin Trough Miscellaneous Test 12/23/16 12/24/16 12/24/16 12:51 03:09 03:40 WBC 19.5 H MCHC RDW 16.0 H Lymph % (Auto) 6.9 L Logan % (Auto) Logan # 1.4 H Eos # Baso # 0.2 H Seg Neutrophils % 84.9 H Seg Neuts % (Manual) Lymphocytes % (Manual) Seg Neutrophils # 16.6 H Seg Neutrophils # Man Lymphocytes # (Manual) Monocytes # (Manual) Eosinophils # (Manual) POC ABG pH 7.494 H POC ABG pCO2 POC ABG pO2 78 L Sodium Chloride BUN 30 H Creatinine Glucose POC Glucose Lactic Acid Calcium 8.3 L Total Bilirubin 1.80 H AST 105 H C-Reactive Protein Albumin 2.3 L Urine WBC (Auto) Vancomycin Trough Miscellaneous Test 12/24/16 12/24/16 12/24/16 03:40 21:30 23:32 WBC MCHC RDW Lymph % (Auto) Logan % (Auto) Logan # Eos # Baso # Seg Neutrophils % Seg Neuts % (Manual) Lymphocytes % (Manual) Seg Neutrophils # Seg Neutrophils # Man Lymphocytes # (Manual) Monocytes # (Manual) Eosinophils # (Manual) POC ABG pH POC ABG pCO2 POC ABG pO2 Sodium 146 H Chloride BUN 29 H Creatinine Glucose POC Glucose 114 H Lactic Acid Calcium Total Bilirubin AST C-Reactive Protein Albumin Urine WBC (Auto) Vancomycin Trough 24.8 H Miscellaneous Test 12/25/16 12/25/16 12/25/16 04:15 04:51 10:05 WBC 17.4 H MCHC 31 L RDW 16.3 H Lymph % (Auto) 8.7 L Logan % (Auto) 9.6 H Logan # 1.7 H Eos # Baso # 0.2 H Seg Neutrophils % 79.0 H Seg Neuts % (Manual) Lymphocytes % (Manual) Seg Neutrophils # 13.7 H Seg Neutrophils # Man Lymphocytes # (Manual) Monocytes # (Manual) Eosinophils # (Manual) POC ABG pH 7.464 H POC ABG pCO2 POC ABG pO2 111 H Sodium Chloride BUN Creatinine Glucose POC Glucose 119 H Lactic Acid Calcium Total Bilirubin AST C-Reactive Protein Albumin Urine WBC (Auto) Vancomycin Trough Miscellaneous Test 12/25/16 12/25/16 12/25/16 10:05 11:00 12:14 WBC MCHC RDW Lymph % (Auto) Logan % (Auto) Logan # Eos # Baso # Seg Neutrophils % Seg Neuts % (Manual) Lymphocytes % (Manual) Seg Neutrophils # Seg Neutrophils # Man Lymphocytes # (Manual) Monocytes # (Manual) Eosinophils # (Manual) POC ABG pH POC ABG pCO2 POC ABG pO2 Sodium Chloride BUN Creatinine Glucose POC Glucose 122 H Lactic Acid Calcium Total Bilirubin AST C-Reactive Protein 6.00 H Albumin Urine WBC (Auto) Vancomycin Trough Miscellaneous Test Flexitest 1 H 12/25/16 12/26/16 12/26/16 23:40 05:00 06:45 WBC 20.7 H MCHC RDW 16.4 H Lymph % (Auto) Logan % (Auto) Logan # Eos # Baso # Seg Neutrophils % Seg Neuts % (Manual) Lymphocytes % (Manual) Seg Neutrophils # Seg Neutrophils # Man Lymphocytes # (Manual) Monocytes # (Manual) Eosinophils # (Manual) POC ABG pH POC ABG pCO2 POC ABG pO2 Sodium Chloride BUN Creatinine Glucose POC Glucose 144 H 144 H Lactic Acid Calcium Total Bilirubin AST C-Reactive Protein Albumin Urine WBC (Auto) Vancomycin Trough Miscellaneous Test 12/26/16 12/26/16 12/26/16 06:45 11:18 18:04 WBC MCHC RDW Lymph % (Auto) Logan % (Auto) Logan # Eos # Baso # Seg Neutrophils % Seg Neuts % (Manual) Lymphocytes % (Manual) Seg Neutrophils # Seg Neutrophils # Man Lymphocytes # (Manual) Monocytes # (Manual) Eosinophils # (Manual) POC ABG pH POC ABG pCO2 POC ABG pO2 Sodium 150 H Chloride 111.9 H BUN 22 H Creatinine Glucose 148 H POC Glucose 153 H 133 H Lactic Acid Calcium Total Bilirubin 1.60 H AST 63 H C-Reactive Protein Albumin 2.6 L Urine WBC (Auto) Vancomycin Trough Miscellaneous Test 12/26/16 12/27/16 12/27/16 23:37 04:40 04:40 WBC 20.3 H MCHC RDW 16.4 H Lymph % (Auto) Logan % (Auto) Logan # Eos # Baso # Seg Neutrophils % Seg Neuts % (Manual) 88.0 H Lymphocytes % (Manual) 5.0 L Seg Neutrophils # Seg Neutrophils # Man 17.9 H Lymphocytes # (Manual) 1.0 L Monocytes # (Manual) Eosinophils # (Manual) 0.6 H POC ABG pH POC ABG pCO2 POC ABG pO2 Sodium 152 H Chloride 112.5 H BUN 23 H Creatinine Glucose 140 H POC Glucose 135 H Lactic Acid Calcium 8.3 L Total Bilirubin 1.50 H AST 60 H C-Reactive Protein Albumin 2.7 L Urine WBC (Auto) Vancomycin Trough Miscellaneous Test 12/27/16 12/27/16 12/27/16 05:45 11:18 21:09 WBC MCHC RDW Lymph % (Auto) Logan % (Auto) Logan # Eos # Baso # Seg Neutrophils % Seg Neuts % (Manual) Lymphocytes % (Manual) Seg Neutrophils # Seg Neutrophils # Man Lymphocytes # (Manual) Monocytes # (Manual) Eosinophils # (Manual) POC ABG pH POC ABG pCO2 POC ABG pO2 Sodium Chloride BUN Creatinine Glucose POC Glucose 127 H 133 H 114 H Lactic Acid Calcium Total Bilirubin AST C-Reactive Protein Albumin Urine WBC (Auto) Vancomycin Trough Miscellaneous Test 12/27/16 12/28/16 12/28/16 23:45 05:06 08:00 WBC 16.4 H MCHC 31 L RDW 16.2 H Lymph % (Auto) 7.2 L Logan % (Auto) Logan # 1.1 H Eos # Baso # 0.2 H Seg Neutrophils % 82.9 H Seg Neuts % (Manual) Lymphocytes % (Manual) Seg Neutrophils # 13.5 H Seg Neutrophils # Man Lymphocytes # (Manual) Monocytes # (Manual) Eosinophils # (Manual) POC ABG pH POC ABG pCO2 POC ABG pO2 Sodium Chloride BUN Creatinine Glucose POC Glucose 115 H 141 H Lactic Acid Calcium Total Bilirubin AST C-Reactive Protein Albumin Urine WBC (Auto) Vancomycin Trough Miscellaneous Test 12/28/16 12/28/16 12/28/16 08:00 12:17 17:47 WBC MCHC RDW Lymph % (Auto) Logan % (Auto) Logan # Eos # Baso # Seg Neutrophils % Seg Neuts % (Manual) Lymphocytes % (Manual) Seg Neutrophils # Seg Neutrophils # Man Lymphocytes # (Manual) Monocytes # (Manual) Eosinophils # (Manual) POC ABG pH POC ABG pCO2 POC ABG pO2 Sodium 147 H Chloride 111.6 H BUN 22 H Creatinine 0.7 L Glucose 135 H POC Glucose 128 H 131 H Lactic Acid Calcium 7.9 L Total Bilirubin 1.50 H AST 54 H C-Reactive Protein Albumin 2.3 L Urine WBC (Auto) Vancomycin Trough Miscellaneous Test 12/28/16 12/29/16 12/29/16 23:44 05:43 11:20 WBC MCHC RDW Lymph % (Auto) Logan % (Auto) Logan # Eos # Baso # Seg Neutrophils % Seg Neuts % (Manual) Lymphocytes % (Manual) Seg Neutrophils # Seg Neutrophils # Man Lymphocytes # (Manual) Monocytes # (Manual) Eosinophils # (Manual) POC ABG pH POC ABG pCO2 POC ABG pO2 Sodium Chloride BUN Creatinine Glucose POC Glucose 132 H 132 H 109 H Lactic Acid Calcium Total Bilirubin AST C-Reactive Protein Albumin Urine WBC (Auto) Vancomycin Trough Miscellaneous Test 12/29/16 12/30/16 12/30/16 17:10 00:04 06:12 WBC MCHC RDW Lymph % (Auto) Logan % (Auto) Logan # Eos # Baso # Seg Neutrophils % Seg Neuts % (Manual) Lymphocytes % (Manual) Seg Neutrophils # Seg Neutrophils # Man Lymphocytes # (Manual) Monocytes # (Manual) Eosinophils # (Manual) POC ABG pH POC ABG pCO2 POC ABG pO2 Sodium Chloride BUN Creatinine Glucose POC Glucose 111 H 133 H 135 H Lactic Acid Calcium Total Bilirubin AST C-Reactive Protein Albumin Urine WBC (Auto) Vancomycin Trough Miscellaneous Test 12/30/16 12/30/16 06:15 06:15 WBC 18.9 H MCHC RDW 15.7 H Lymph % (Auto) 6.6 L Logan % (Auto) Logan # 1.3 H Eos # 0.5 H Baso # 0.2 H Seg Neutrophils % 82.6 H Seg Neuts % (Manual) Lymphocytes % (Manual) Seg Neutrophils # 15.6 H Seg Neutrophils # Man Lymphocytes # (Manual) Monocytes # (Manual) Eosinophils # (Manual) POC ABG pH POC ABG pCO2 POC ABG pO2 Sodium Chloride BUN Creatinine 0.5 L Glucose 129 H POC Glucose Lactic Acid Calcium 8.1 L Total Bilirubin AST C-Reactive Protein Albumin Urine WBC (Auto) Vancomycin Trough Miscellaneous Test
[2016-12-30] MEDS ORDERED: MORPHINE IV PRN (10:49)
--- NOTE | 2016-12-30 11:46 | Event Note ---
Date: 12/30/16 Patient was transitioned to hospice. Please stop antibiotics.
--- NOTE | 2016-12-30 12:26 | Progress Note ---
Assessment and Plan Will keep on schedule for trache and peg in am. hold lovenox and TF. Subjective Date of service: 12/30/16 Patient Reports: Positive: no new complaints, fever, other (declined for hospice ) Objective Vital Signs - 12hr 12/30/16 12/30/16 12/30/16 00:30 01:01 01:31 Temperature Pulse Rate 116 H 113 H 116 H Pulse Rate [ Apical] Respiratory 37 H 38 H 34 H Rate Blood Pressure 117/76 123/74 123/74 O2 Sat by Pulse 100 100 97 Oximetry 12/30/16 12/30/16 12/30/16 02:01 02:31 03:01 Temperature Pulse Rate 115 H 117 H 120 H Pulse Rate [ Apical] Respiratory 34 H 35 H 34 H Rate Blood Pressure 116/66 111/72 126/69 O2 Sat by Pulse 100 99 100 Oximetry 12/30/16 12/30/16 12/30/16 03:30 04:00 04:01 Temperature 97.7 F Pulse Rate 118 H 119 H Pulse Rate [ Apical] Respiratory 36 H 35 H Rate Blood Pressure 126/69 111/74 O2 Sat by Pulse 99 100 Oximetry 12/30/16 12/30/16 12/30/16 04:31 04:43 05:01 Temperature Pulse Rate 120 H 120 H Pulse Rate [ 118 H Apical] Respiratory 34 H 36 H 29 H Rate Blood Pressure 111/74 119/66 O2 Sat by Pulse 100 98 100 Oximetry 12/30/16 12/30/16 12/30/16 05:31 06:01 06:31 Temperature Pulse Rate 122 H 121 H 121 H Pulse Rate [ Apical] Respiratory 42 H 36 H 29 H Rate Blood Pressure 119/83 133/76 133/76 O2 Sat by Pulse 100 100 99 Oximetry 12/30/16 12/30/16 12/30/16 06:54 07:01 07:31 Temperature Pulse Rate 116 H 119 H 122 H Pulse Rate [ Apical] Respiratory 39 H 45 H Rate Blood Pressure 114/75 114/75 114/75 O2 Sat by Pulse 99 98 100 Oximetry 12/30/16 12/30/16 07:34 12:19 Temperature 100.5 F H 99.7 F H Pulse Rate Pulse Rate [ Apical] Respiratory Rate Blood Pressure O2 Sat by Pulse Oximetry - General physical appearance no distress - Neck trachea midline - Respiratory normal respiratory effort (on vent 30%) - Abdomen soft, not tender - Labs 12/30/16 06:15 12/30/16 06:15 Diabetes panel 12/30/16 Range/Units 06:15 Sodium 139 D (137-145) mmol/L Potassium 3.7 (3.6-5.0) mmol/L Chloride 102.8 (98-107) mmol/L Carbon Dioxide 26 (22-30) mmol/L BUN 18 (9-20) mg/dL Creatinine 0.5 L (0.8-1.5) mg/dL Glucose 129 H (75-100) mg/dL Calcium 8.1 L (8.4-10.2) mg/dL Calcium panel 12/30/16 Range/Units 06:15 Calcium 8.1 L (8.4-10.2) mg/dL Pituitary panel 12/30/16 Range/Units 06:15 Sodium 139 D (137-145) mmol/L Potassium 3.7 (3.6-5.0) mmol/L Chloride 102.8 (98-107) mmol/L Carbon Dioxide 26 (22-30) mmol/L BUN 18 (9-20) mg/dL Creatinine 0.5 L (0.8-1.5) mg/dL Glucose 129 H (75-100) mg/dL Calcium 8.1 L (8.4-10.2) mg/dL Adrenal panel 12/30/16 Range/Units 06:15 Sodium 139 D (137-145) mmol/L Potassium 3.7 (3.6-5.0) mmol/L Chloride 102.8 (98-107) mmol/L Carbon Dioxide 26 (22-30) mmol/L BUN 18 (9-20) mg/dL Creatinine 0.5 L (0.8-1.5) mg/dL Glucose 129 H (75-100) mg/dL Calcium 8.1 L (8.4-10.2) mg/dL
[2016-12-30 19:59] VITALS: BP 102/75
== END 2016-12-30 20:43 | disposition hospice, inpatient (51) | DRG 870 ==
LOC: ED 16:31 → CC1 19:49
PROVIDERS: ADMIT Internal Medicine; ATTEND Internal Medicine
PROC: 4A033R1 Measurement of Arterial Saturation, Peripheral, Percutaneous Approach (ICD-10-PCS; principal; 2016-12-20)
PROC: 5A1955Z Respiratory Ventilation, Greater than 96 Consecutive Hours (ICD-10-PCS; 2016-12-20)
PROC: 0BH17EZ Insertion of Endotracheal Airway into Trachea, Via Natural or Artificial Opening (ICD-10-PCS; 2016-12-20)
DX: A41.9 Sepsis, unspecified organism (principal); I46.9 Cardiac arrest, cause unspecified; I50.23 Acute on chronic systolic (congestive) heart failure; R65.21 Severe sepsis with septic shock; J96.22 Acute and chronic respiratory failure with hypercapnia; G93.41 Metabolic encephalopathy; J69.0 Pneumonitis due to inhalation of food and vomit; J96.01 Acute respiratory failure with hypoxia; I48.92 Unspecified atrial flutter; I42.0 Dilated cardiomyopathy; N30.00 Acute cystitis without hematuria; J90 Pleural effusion, not elsewhere classified; I50.9 Heart failure, unspecified; J44.9 Chronic obstructive pulmonary disease, unspecified; I87.8 Other specified disorders of veins; I48.91 Unspecified atrial fibrillation; M10.9 Gout, unspecified; Z82.49 Family history of ischemic heart disease and other diseases of the circulatory system; Z83.3 Family history of diabetes mellitus; Z99.81 Dependence on supplemental oxygen; Z95.810 Presence of automatic (implantable) cardiac defibrillator
CPT/HCPCS: 36415; 36600; 70450; 70496; 71010; 71260; 74000; 74177; 80048; 80053; 80061; 80202; 81001; 82140; 82533; 82550; 82553; 82803; 82962; 83735; 83880; 84100; 84484; 85007; 85025; 85027; 85610; 85730; 86140; 87040; 87070; 87086; 87205; 93005; 93010; 93306; 94002; 94003; 95819; 96365; 96366; 96368; 96375; J0692; J1450; J1650; J1815; J1940; J2060; J2260; J2270; J2370; J2543; J3010; J3370; J7030; J7040; J7070; Q9967